=== PATIENT | male | born 2000 | race Caucasian/White ===

== ENCOUNTER 2024-07-25 04:43 | Emergency (ER) | payer MEDICARE, MEDICAID, SELFPAY ==
--- NOTE | ~2024-07-25 | CT_ITS ---
CLINICAL HISTORY: HS CT head without contrast Comparison: None Findings: No intra-axial mass, midline shift, hydrocephalus, or acute hemorrhage. No significant atrophy-like change or white matter disease. There is no sinus or mastoid fluid. The orbits are within normal limits. No skull fracture. IMPRESSION: 1. No acute intracranial findings. This document has been electronically signed by: Viviane Pope MD on 07/25/2024 05:52:12
[2024-07-25 04:47] VITALS: BP 132/84; PULSE 108; O2SAT 96
[2024-07-25 05:05] VITALS: BP 151/92; PULSE 109; RESP 22; TEMP 37.5; O2SAT 96; BMI 35.0
--- NOTE | 2024-07-25 06:29 | ED.HEATRA ---
HPI - Head Injury General Chief complaint: Head Injury Stated complaint: fall Time Seen by Provider: 07/25/24 05:54 Source: patient Mode of arrival: EMS Limitations: no limitations History of Present Illness ED Provider: HPI Narrative: Patient came from [facility] with history of schizoaffective disorder fell hit his head to the ground apparently patient was violent with the staff member and fell down no loss of consciousness Related Data Allergies Allergy/AdvReac Type Severity Reaction Status Date / Time No Known Allergies Allergy Verified 07/25/24 05:20 Review of Systems Review of Systems: Yes all other systems are reviewed and are negative [facility] Social History Social History Alcohol intake: unknown Smoked in Last 30 Days: Yes Use of substances other than those prescribed or required for medical reasons: Refusing to respond Advance Directives: No Advance Directives Information Provided: Yes Do you have a plan to hurt others: No Plan Physical Exam Vital Signs: Vital Signs: Last Vital Signs Temp 99.5 F 07/25/24 07:20 Pulse 109 H 07/25/24 07:20 Resp 22 H 07/25/24 07:20 BP 151/92 H 07/25/24 07:20 Pulse Ox 96 07/25/24 07:20 O2 Del Method Room Air 07/25/24 07:20 BMI result Body Mass Index 35.0 Appearance: Alert. Oriented X3. No acute distress. Eyes: PERRLA, No Nystagmus ENT: Pharynx normal. Oral Mucosa moist Neck: Normal inspection. Neck supple. CVS: Normal heart rate and rhythm. Pulses normal. Respiratory: No respiratory distress. Equal air entry bilateral, no wheezing/rales/rhonchi Abdomen: Soft and nontender. Bowel sounds are present, no mass palpable, no CVA tenderness Skin: Skin warm and dry. Normal skin color. Normal skin turgor. Extremities: No lower extremity edema. No calf tenderness Neuro: Oriented X 3. No motor deficit. No sensory deficit.No cerebellar signs , cranial nerves II-XII intact HEENT: Face images: 1. Flap laceration right forehead 1 cm length Medical Decision Making Independent Interpretation I performed an independent interpretation of an: CT Scan Radiology Impression Discussion of test interpretation with radiology: I have reviewed the radiologist's reading. Radiologist Impression: NAD Procedures Laceration Laceration 1: Site: face Side (If applicable): right Size (cm): 1 Description: flap Depth: simple, single layer Skin layer closed with: other (skin glue) Discharge Plan Discharge Clinical Impression: Closed head injury, Forehead laceration, Schizoaffective disorder Patient Disposition: Home, Self-Care Instructions: Laceration (ED), Schizoaffective Disorder (ED), Head Injury (ED) Additional Instructions: Local care as advised Interventions: ED Discharge Assessment Last Done: 07/25/24 07:20 Discharge Date/Time: 07/25/24 07:21 Print Language: Mohawk
--- OUTSIDE RECORDS SUMMARY | 2024-07-25 06:58 | XMS_ITS | Encounter Summary ---
Author Organization [facility] Address [address] [place] [address] Phone Care Team Providers Care Technical Sales Representatives Name Role Phone Required, No Pcp/Pcp Not Primary Care Provider U navailable Encounter Details Date Type Department Care Team (Late st Contact Info) Description 07/25/2018 Procedure Pass [facility] [address] [place] [id number] Social History Tobacco Use Types Packs/Day Years Used Date Smoking Tobacco: Never Smokeless Tobacco: Never Alcohol Use Standard Drinks/Week Comments Never 0 (1 standard drink = 0.6 oz pur e alcohol) AUDIT-C Answer Date Recorded Frequency of Alcohol Consumption Never 07/15/2018 Average Number of Drinks Not on file 019 Frequency of Binge Drinking Not on file 06/18 Sex and Gender Information Value Date Recorded Sex Assigned at Not on file Legal Sex Male 10:41 AM EST Gender Identity Not on file Sexual Orientation Not on file documented as of this encounter Plan of Treatment Not on file documented as of this encounter Visit Diagnoses Not on filedocumented in this encounter Additional Health Concerns Infection Onset Date Last Indicated Resolved Time Covid Possible 01/25/2024 01/25/2024 01/25/2024 11 :46 PM EDT Covid Possible 07/16/2024 07/16/2024 07/16/2024 8: 38 PM EST documented as of this encounter Care Teams Technical Sales Representatives Relationship Specialty Start Date End Date Required, No Pcp/Pcp Not [address] [place] [address] PCP - General Commercial Journeyman Electrician 01/25/24 documented as of this encounter
--- OUTSIDE RECORDS SUMMARY | 2024-07-25 06:58 | XMS_ITS | Clinical Summary ---
Author Organization [facility] Address [address] [email or web address] [address] Care Team Providers Care T Rail Turner Name Role Phone Jayme Corado MD Primary Care Provider [phone] Allergies No known active allergies Medications atenoloL (TENORMIN) 25 MG tablet 02/06/2022 Active benztropine (COGENTIN) 1 MG tablet 1 mg 11/11/2021 Active buPROPion (WELLBUTRIN SR) 150 MG 12 hr tablet 300 mg 08/14/2021 Active haloperidol decanoate (HALDOL DECANOATE) 100 mg/mL injection 150 mg 11/11/2021 Act torri divalproex (DEPAKOTE) 500 MG EC tablet 1,000 mg 11/11/2021 Active Social History Tobacco Use Types Packs/Day Years Used Date Smoking Tobacco: Never Smokeless Tobacco: Never Sex and Gender Information Value Date Recorded Sex Assigned at Not on file Legal Sex Male 1:08 PM EDT Gender Identity Not on file Sexual Orientation Not on file Last Filed Vital Signs Vital Sign Reading Time Taken Comments Blood Pressure 126/74 02/22/2022 2:48 PM EDT Pulse 77 02/22/2022 2:48 PM EDT Temperature 36.6 ??C (97.9 ??F) 02/22/2022 2:48 PM ED T Respiratory Rate 18 02/22/2022 2:48 PM EDT Oxygen Saturation 97% 02/22/2022 2:48 PM EDT Inhaled Oxygen Concentration - - Weight 93.9 kg (207 lb) 02/22/2022 2:48 PM EDT Height 172.7 cm (5' 8 ) 02/22/2022 2:48 PM EDT Body Mass Index 31.47 02/22/2022 2:48 PM EDT Plan of Treatment Health Maintenance Due Date Last Done Comments Depression: Screening Annually using PHQ-2/9 in Adults 18 yrs or above (or HM Modifier)([facility]) 2018 Hepatitis C Virus Infection in Adolescents and Adults: Screening (or Modifier) ([facility]) 2018 SDIL Screening Reminder: Annually for all adults ([facility]) 2018 Tobacco Smoking Cessation: i n Adults excluding Women: Behavioral and Pharmacotherapy Interventions ([facility]) 2018 Lipid Screening: Once for Me n aged 20 to 35 yrs ([facility]) 2020 Flu Vaccination: Yearly for ages 18mos through 64 years (or Modifier)([facility]) 01/16/2024 DTaP/Tdap/Td Vaccines ([facility]) (6 - Td or Tdap) 02/13/2024 02/12/2014, 11/25/2006, 02/20/2006, Additional history exists COVID-19 Vaccine Screening: Initial Series and Booster Status ([facility]) ( - 2023- season) 2024 10/30/2020 Zoster/Shingles Vaccine Series Screening: Adults aged 18+ yrs (or HM Modifiers)([facility]) (1 of 2) 2050 06/13/2011, 01/01/2006 Pneumococcal Vaccination Screening: Pts 0-19 & 19-64 yrs of age ([facility]) Aged Out No longer eligible based on patient's age to complete this topic Medical Devices Not on file Insurance [employer] Care Teams T Rail Turner Relationship Specialty Start Date End Date Jayme Corado MD [address] [address] [place] [id number] PCP - General Pediatrics 11/20/17
--- OUTSIDE RECORDS SUMMARY | 2024-07-25 06:59 | XMS_ITS | Encounter Summary ---
Author Organization [facility] Address [address] [place] [address] [address] Care Team Providers Care Manager School Name Role Phone Jayme Corado Md Primary Care Provider [phone] Jayme Corado Md Unavailable Mo Prabhakar Md Unavailable [phone] Poc, Non Atrius Pcp Or Primary Care Provider Lynda vailable Reason for Visit * Reason Comments Personal Encounter Details Date Type Department Care Team (Late st Contact Info) Description 04/04/2020 Telephone [facility] [address] [place] [phone] Alison Buchanan [place] 0Personal Social History Tobacco Use Types Packs/Day Years Used Date Smoking Tobacco: Never Smokeless Tobacco: Never Alcohol Use Standard Drinks/Week Comments No 0 (1 standard drink = 0.6 oz pur e alcohol) Sex and Gender Information Value Date Recorded Sex Assigned at Not on file Legal Sex Male 10:15 PM EDT Gender Identity Not on file Sexual Orientation Not on file COVID-19 Exposure Response Date Recorded In the last month, have you been in contact with someone who was confirmed or suspected to have Coronavirus / COVID-19? No / Unsure 04/06/2020 2:32 PM EDT documented as of this encounter Miscellaneous Notes * Telephone Encounter - Alison Buchanan - 04/04/2020 11:22 AM EDT Pt requesting to speak with PCP only,he is concern he may have Cancer,he did research online. documented in this encounter Plan of Treatment Not on file documented as of this encounter Visit Diagnoses Not on filedocumented in this encounter Care Teams Manager School Relationship Specialty Start Date End Date Jayme Corado MD PCP - General 10/17/16 12/28/21 Jayme Corado MD PCP - Payer 07/27/19 12/05/21 Mo Prabhakar MD PCP - Payer 12/06/21 Poc, Non Atrius Pcp Or PCP - General 12/29/21 documented as of this encounter
--- OUTSIDE RECORDS SUMMARY | 2024-07-25 06:59 | XMS_ITS | Encounter Summary ---
Author Organization [facility] Address [address] [place] [id number] Care Team Providers Care Director Drug Safety Name Role Phone Shannan Celis CERTIFIED PROFESSIONAL MIDWIFE Primary Care Provider Encounter Details Date Type Department Care Team (Late st Contact Info) Description 04/20/2022 Lab [facility], Provider Not In [address] [place] [id number] Social History Tobacco Use Types Packs/Day Years Used Date Smoking Tobacco: Never Assessed Sex and Gender Information Value Date Recorded Sex Assigned at Not on file Legal Sex Male 10:54 AM EDT Gender Identity Male 07/15/2023 9:10 PM EST Sexual Orientation Not on file documented as of this encounter Plan of Treatment Not on file documented as of this encounter Procedures Procedure Name Priority Date/Time Associated Diagnosis Comments CULTURE, AEROBIC, URINE Routine 04/20/2022 10:39 PM EDT documented in this encounter Results * Culture, Aerobic, Urine (04/20/2022 10:39 PM EDT) Culture No growth CARLOS MANUEL 04/22/2022 8:00 AM EST [facility] Urine MID-STREAM URINE SPECIMEN / Unknown 04/20/2022 10:39 PM EDT 04/21/2022 2:54 PM EDT us Provider Not In System MICROBIOLOGY - GENERAL OR DERABLES Final Result [facility] [address] [place] [address], documented in this encounter Visit Diagnoses Not on filedocumented in this encounter Care Teams Director Drug Safety Relationship Specialty Start Date End Date Shannan Celis, CERTIFIED PROFESSIONAL MIDWIFE PCP - General 10/27/23 documented as of this encounter
--- OUTSIDE RECORDS SUMMARY | 2024-07-25 06:59 | XMS_ITS | Clinical Summary ---
Author Organization [email or web address] Address [address] [place] [address] [place] [address] Care Team Providers Care Pre Kindergarten Teacher Name Role Phone Mo Prabhakar Md Unavailable [phone] Poc, Non Atrius Pcp Or Primary Care Provider Lynda vailable Allergies No known active allergies Medications PARoxetine 30 mg tablet TAKE 1 TABLETS BY MOUTH ONCE DAILY 30 tablet 09/19/2020 Active chlorproMAZINE 50 mg tablet 03/24/2021 Active PARoxetine 10 mg tablet 3 tabs po QD 90 tablet 2 04/13/2021 Active paliperidone (INVEGA) 6 mg tablet extended release 24hr SR 24 Hr 1 tablet every morning 30 tablet 2 04/13/2021 Active traZODone 50 mg tablet 1 tablet at bedtime Prn 30 tablet 2 04/22/2021 Active cloNIDine 0.1 mg tablet 1 tablet every 8 hours as needed 60 tablet 2 04/22/2021 Active Active Problems Problem Noted Date Diagnosed Date Delusion 10/23/2021 Stimulant abuse (not for billing as not confirme d 11/05) 10/23/2021 Overview (10/23/2021): Noted by parent to provider in phone call 10/23/21 Schizoaffective disorder, bipolar type ADHD 01/11/2021 Autism spectrum disorder 11/15/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 Mood disorder 02/23/2020 Resolved Problems Problem Noted Date Diagnosed Date Resolved Date Perinephric fluid collection 11/15/2020 02/28/2021 Suicidal ideation 10/23/2019 02/23/2020 Immunizations Name Administration Dates Next Due COVID-19 (ESCOBAR) Vaccine, 0.5mL, IM, 18YRS+ 10/30/2020 DTaP Vaccine 11/25/2006, 6,01/01/2006,12/04 HFlu B Conj (Unspecified Formulation) 12/04/2005 HPV9 Vaccine (Gardasil9) 08/24/2014,04/20/2014,0 02/12/2014 Hep B Vaccine (Unspecified Formulation) 03/11/2006,01/01/2006,12/04/2005,06/13 Influenza Vaccine (Unspecifi ed Formulation) 03/07/2015 Influenza Vaccine, 6MOS+, Si ngle Dose, 0.5 mL (Flulaval/Fluzone) 05/02/2020 MMR Vaccine 02/20/2006,01/01/2006 Meningococcal ACWY (Menactra ) Conjugate Vaccine 07/15/2018,02/12/2014 Pneumococ/Pedi-Conjugate (PCV7) 12/04/2005 Polio Vaccine (Inactivated) 02/20/2006, 6,12/04/2005 TdaP 02/12/2014 Tetanus Booster 09/30/2017 Varicella Vaccine 06/13/2011,01/01/2006 Social History Tobacco Use Types Packs/Day Years Used Date Smoking Tobacco: Never Smokeless Tobacco: Never Alcohol Use Standard Drinks/Week Comments No 0 (1 standard drink = 0.6 oz pur e alcohol) Sex and Gender Information Value Date Recorded Sex Assigned at Not on file Legal Sex Male 10:15 PM EDT Gender Identity Not on file Sexual Orientation Not on file Obstetrics History Last Filed Vital Signs Vital Sign Reading Time Taken Comments Blood Pressure 110/76 10/10/2021 11:24 AM EDT Pulse - - Temperature - - Respiratory Rate - - Oxygen Saturation - - Inhaled Oxygen Concentration - - Weight 83 kg (183 lb) 10/10/2021 11:24 AM EDT Height 171.7 cm (5' 7.6 ) 02/28/2021 2:51 PM EDT Body Mass Index 28.16 02/28/2021 2:51 PM EDT Plan of Treatment Health Maintenance Due Date Last Done Comments OFFICE VISIT 2000 HEP B INITIAL SCREENING 2018 HEP C SCREENING 2018 HIV SCREENING 2018 LIPID SCREENING 2020 PERIODIC HEALTH REVIEW 05/02/2023 05/02/2020 DTAP/TDAP/TD VACCINE (6 - Td or Tdap) 02/13/2024 02/12/2014, 11/25/2006, 02/20/2006, Additional history exists COVID-19 Vaccine ( season) 2024 10/30/2020 FLU SEASONAL (#1) 02/16/2024 05/31/2022, 05/02/2020, 03/07/2015 HAEMOPHILUS INFLUENZA VACCINE Aged Out 12/04/2005 No longer eligible based on patient's age to complete this topic PNEUMOCOCCAL VACCINE(S) Aged Out 12/04/2005 No l onger eligible based on patient's age to complete this topic POLIO VACCINE Completed 02/20/2006, 12/15, 12/04/2005 HEPATITIS B VACCINE Completed 03/11/2006, 01/01/2006, 12/04/2005, Additional history exists HPV VACCINE Completed 08/24/2014, 09/2013, 02/12/2014 HEPATITIS A VACCINE Aged Out No longe r eligible based on patient's age to complete this topic RSV Vaccine Infant//toddler Aged Out No longer eligible based on patient's age to complete this topic Insurance [place] [id number] Advance Directives Documents on File Type Date Recorded Patient Hardware Sales Assistant Expl anation Legal Guardianship 11/03/2020 3:30 PM Temp orary Guardianship Care Teams Pre Kindergarten Teacher Relationship Specialty Start Date End Date Mo Prabhakar MD PCP - Payer 12/06/21 Poc, Non Atrius Pcp Or PCP - General 12/29/21
--- OUTSIDE RECORDS SUMMARY | 2024-07-25 06:59 | XMS_ITS | Clinical Summary ---
Author Organization [facility] Address [address] [place] [address] Phone Care Team Providers Care Cushion Gum Applicator Name Role Phone Jayme Corado MD Unavailable Unavailable Jayme Corado MD Primary Care Provider Unavailabl e Jayme Corado MD Unavailable Unavailable Social History Tobacco Use Types Packs/Day Years Used Date Smoking Tobacco: Never Assessed Sex and Gender Information Value Date Recorded Sex Assigned at Not on file Legal Sex Male 7:52 PM EDT Gender Identity Not on file Sexual Orientation Not on file Plan of Treatment Health Maintenance Due Date Last Done Comments HIV Screening 2000 MMR Vaccines (1 of 1 - Stand steven series) 2001 DTaP/Tdap/Td Vaccines (1 - Tdap) 12/03/2007 Varicella Vaccines (1 of 2 - 13+ 2-dose series) 2013 HPV Vaccines (1 - Male 3-dos e series) 12/03/2015 Hepatitis C Screening 2018 Hepatitis B Vaccines (1 of 3 - 19+ 3-dose series) 12/03/2019 COVID-19 Vaccine ( - 2023-2 5 season) 2024 Influenza Vaccine (#1) 2024 HIB Vaccines Aged Out No longer eligi ble based on patient's age to complete this topic Hepatitis A Vaccines Aged Out No long er eligible based on patient's age to complete this topic IPV Vaccines Aged Out No longer eligi ble based on patient's age to complete this topic Meningococcal Vaccine Aged Out No bernard joyce eligible based on patient's age to complete this topic Pneumococcal Vaccine: Pediat rics (0 to 5 Years) and At-Risk Patients (6 to 64 Years) Aged Out No longer eligible b ased on patient's age to complete this topic Rotavirus Vaccines Aged Out No longer eligible based on patient's age to complete this topic Care Teams Cushion Gum Applicator Relationship Specialty Start Date End Date Jayme Corado MD PCP - Insurance PCP 02/11/20 Jayme Corado MD PCP - General 02/11/20 Jayme Corado MD PCP - Clinical PCP 02/11/20
--- OUTSIDE RECORDS SUMMARY | 2024-07-25 06:59 | XMS_ITS | Clinical Summary ---
[facility] Organization [facility] Address [address] [place] [address] Phone Care Team Providers Care Adolescent Coordinator Name Role Phone Required, No Pcp/Pcp Not Primary Care Provider U navailable Allergies No known active allergies Medications traZODone (DESYREL) 100 MG tablet Take 100 mg by mouth nightly as needed for sleep Active FLUoxetine (PROzac) 40 MG capsule Take 40 mg by mouth daily Active risperiDONE (RisperDAL) 3 MG tablet Take 3 mg by mouth two times a day Active LORazepam (ATIVAN) 1 MG tablet Take 2 mg by mouth every six hours as needed for anxiety Active atomoxetine (STRATTERA) 40 MG capsule Take 40 mg by mouth daily Active divalproex (DEPAKOTE) [address] tablet Take 500 mg by mouth daily Active divalproex (DEPAKOTE) [address] tablet Take 1 tablet (500 mg) by mouth nightly 07/24/19 25 Active lisinopril (PRINIVIL,ZES TRIL) 10 MG tablet Take 1 tablet (10 mg) by mouth daily 07/25/19 25 Active risperiDONE ER 125 MG/0.35ML suspension prefilled syringe Inject 125 mg under the skin every 28 days 08/14/19 25 Active cholecalcifer ol, 25 mcg/1000 units, (VITAMIN D3) tablet Take 1 tablet (25 mcg) by mouth daily 07/25/19 25 Active clozapine (CLOZARIL) 100 MG tablet Take 1 tablet (100 mg) by mouth nightly 07/24/19 25 Active risperiDONE (RisperDAL) 1 MG tablet Take 1 mg by mouth daily 025 Discontinued(E ntered in Error) Uzedy 50 MG/0.14ML suspension prefilled syringe Inject 50 mg under the skin every 30 (thirty) days Last administered 01/24/2024 01/21/20 24 025 Discontinued(E ntered in Error) risperiDONE (UZEDY SC) Inject 125 mg under the skin every 28 days Per nurse Jeanie tracy 07/17/2024 025 Discontinued(M ed list updated) Divalproex Sodium (DEPAKOTE PO) Take 1,000 mg by mouth nightly 025 Discontinued( ed list updated) Divalproex Sodium (DEPAKOTE PO) Take 500 mg by mouth daily 025 Discontinued( ed list updated) clozapine (CLOZARIL) 100 MG tablet Take 100 mg by mouth two times a day 025 Discontinued(S top Taking at Discharge) lisinopril (PRINIVIL,ZES TRIL) 20 MG tablet Take 20 mg by mouth daily 025 Discontinued(S top Taking at Discharge) risperiDONE ER 125 MG/0.35ML suspension prefilled syringe Inject 125 mg under the skin every 28 days 025 Discontinued(S top Taking at Discharge) clozapine (CLOZARIL) 100 MG tablet Take 1 tablet (100 mg) by mouth nightly 07/24/19 25 025 Discontinued Active Problems Problem Noted Date Diagnosed Date Abnormal behavior 07/18/2024 Depression 07/18/2024 Ibuprofen overdose 07/18/2024 Lymphangiectasia 07/18/2024 Yoselin 07/18/2024 Perinephric fluid collection 07/18/2024 Paranoia 07/18/2024 Normocytic anemia 07/18/2024 Elevated CK 07/18/2024 Substance abuse 07/18/2024 Acute dehydration 07/18/2024 Acute oral pain 07/18/2024 Anal or rectal pain 07/18/2024 Hyponatremia 07/18/2024 Hypokalemia 07/18/2024 Altered mental status 07/18/2024 Acute kidney injury 07/16/2024 Witnessed seizure-like activity 07/16/2024 Altered mental status, unspecified 07/16/2024 Metabolic acidosis 07/16/2024 Transaminitis 07/16/2024 Schizoaffective disorder 01/27/2024 Sleeping difficulties 09/05/2022 Inattention 12/05/2021 Overview (07/18/2024): F/B PSYCH Insomnia 11/22/2021 Overview (07/18/2024): F/B PSYCH Severe Adderall use disorder 11/22/2021 Overview (07/18/2024): F/B PSYCH Hx of Adderall Abuse Hospitalized 09/2021 due to Med abuse Staff from [facility] report hx of obtaining med inappropriate from prescriber and street in past 04/2022: Abusing adderall from street per ED note Delusion 10/23/2021 Stimulant abuse 10/23/2021 Overview (07/18/2024): Noted by parent to provider in phone call 10/23/21 Schizoaffective disorder, bipolar type Attention-deficit hyperactivity disorder, unspec ified type 01/11/2021 Anxiety disorder 01/11/2021 Asperger's disorder 11/15/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 Autistic disorder 11/15/2020 Recurrent major depressive disorder 07/28/2020 Overview (07/18/2024): ICD-10 Qualified Code(s): F33.2 - Major depressive disorder, recurrent severe without psychotic features; Active/Remission status - currently active; Major depression episode severity - severe; Psychotic features - without psychotic features; Major depressive disorder, single episode, unspe cified 07/03/2020 Lymphedema, not elsewhere classified 06/29/2020 Essential (primary) hypertension 06/28/2020 Overview (07/18/2024): ICD-10 Qualified Code(s): I10 - Essential (primary) hypertension; Hypertension type - unspecified; Abdominal pain 06/27/2020 Delusional disorder 02/23/2020 Mandibular hypoplasia 07/25/2018 Resolved Problems Problem Noted Date Diagnosed Date Resolved Date Prolonged Q-T interval on ECG 07/18/2024 07/18/2024 Encounters Date Type Department Care Team Description 07/16/2024 5:07 PM EST - 07/24/2024 5:17 PM EST Hospital Encounter [address] [id number] Mo Peterson, MD Rocha, Craig Vergara, Zenaida Key, MD Jaramillo, Adele London, MD Fernando, Kitty, MD Morgan, MD Cheli Altered mental status (Primary Dx); Psychomotor agitation; Hallucinations; Paranoid schizophrenia (CMS/HCC) Discharge Disposition: Psychiatric Facility 07/16/2024 Travel from Last 3 Months Social History Tobacco Use Types Packs/Day Years Used Date Smoking Tobacco: Former Cigarettes Smokeless Tobacco: Never Tobacco Cessation:Counseling Given: Not Answered Alcohol Use Standard Drinks/Week Comments Not Currently 0 (1 standard drink = 0.6 oz [...] Sign Reading Time Taken Comments Blood Pressure 121/75 07/24/2024 3:00 PM EST Pulse 128 07/24/2024 3:00 PM EST Temperature 37.2 ??C (99 ??F) 07/24/2024 3:00 PM EST Respiratory Rate 24 07/24/2024 3:00 PM EST Oxygen Saturation 96% 07/24/2024 3:00 PM EST Inhaled Oxygen Concentration - - Weight 113.4 kg (250 lb) 07/17/2024 1:14 PM EST Height 170.2 cm (5' 7 ) 07/17/2024 1:14 PM EST Body Mass Index 39.16 07/17/2024 1:14 PM EST Plan of Treatment Health Maintenance Due Date Last Done Comments [facility] HIV Screening 2000 [facility] Hepatitis C Screening 2000 [facility] Depression Screening 2012 [facility] Lipid Profile 2016 [facility] Tdap Vaccine (1 - Tdap) 12/03/2019 [facility] Influenza (Flu) Seasonal (#1) 2024 05/02/2020, 03/07/2015 [facility] HPV Vaccines Completed 2014, 08/24/2014, 04/20/2014, Additional history exists [facility] Meningococcal Group B Conjugate Vaccine Aged Out No longer elig ible based on patient's age to complete this topic Medical Devices Implanted Type Area Adoption Specialist Device Identifier Shelf Expiration Date Model / Serial / Lot Plate,[id number] , 5 Hole Gold Implanted:Qty: 2 on 07/25/2018 by Greg Tejada MD at [facility] N/A: Mandible Juan C [id number] / / Screw,[id number] ,2.0x5mm Bone Implanted:Qty: 8 on 07/25/2018 by Greg Tejada MD at [facility] N/A: Mandible Juan C [id number] / / Screw,[id number] ,2.0x16mm Bone Implanted:Qty: 2 on 07/25/2018 by Greg Tejada MD at [facility] N/A: Mandible [place] [id number] / / Procedures Procedure Name Priority Date/Time Associated Diagnosis Comments ECG 12-LEAD Routine 07/24/2024 11:52 AM EST HEPATIC FUNCTION PANEL Timed 07/24/2024 5:[address] HEAD WO CONTRAST CARLOTTA 07/23/2024 1 1:49 PM EST POCT GLUCOSE METER Routine 07/23/2024 4: 46 PM EST BASIC METABOLIC PANEL Routine 07/23/2024 6:26 AM EST US DOPPLER VENOUS ARM RIGHT Routine 07/22/2024 2:43 PM EST BLOOD CULTURE Routine 07/22/2024 12:11 PM EST CBC WITH AUTO DIFFERENTIAL Routine 07/22/2024 11:49 AM EST BLOOD CULTURE Routine 07/22/2024 11:49 AM EST HEPATIC FUNCTION PANEL Timed 07/22/2024 5:58 AM EST BASIC METABOLIC PANEL Routine 07/22/2024 5:58 AM EST AMMONIA Routine 07/21/2024 6:01 AM EST VALPROIC ACID LEVEL, TOTAL Routine 07/21/2024 6:01 AM EST BASIC METABOLIC PANEL Routine 07/21/2024 6:01 AM EST COMPREHENSIVE METABOLIC PANEL Routine 07/20/2024 5:30 AM EST CBC WITH AUTO DIFFERENTIAL Routine 07/20/2024 5:30 AM EST HEPATIC FUNCTION PANEL Timed 07/20/2024 5:30 AM EST CK STAT 07/19/2024 10:01 AM EST COMPREHENSIVE METABOLIC PANEL Routine 07/19/2024 10:01 AM EST CBC WITH AUTO DIFFERENTIAL Routine 07/19/2024 10:01 AM EST HEPATIC FUNCTION PANEL Routine 07/18/2024 7:24 AM EST CK Routine 07/18/2024 7:24 AM EST BASIC METABOLIC PANEL Routine 07/18/2024 7:24 AM EST CBC WITH AUTO DIFFERENTIAL Routine 07/18/2024 7:23 AM EST CREATININE, URINE, RANDOM STAT 07/18/2024 6:57 AM EST SODIUM, URINE, RANDOM STAT 07/18/2024 6:57 AM EST PROTIME-INR Routine 07/18/2024 3:33 AM EST XR CHEST 1 VW STAT 07/18/2024 3:32 AM EST ECG 12-LEAD STAT 07/18/2024 3:26 AM EST VITAMIN D 25-OH Add-On 07/18/2024 1:45 AM EST FOLATE Add-On 07/18/2024 1:45 AM EST VITAMIN B12 Add-On 07/18/2024 1:45 AM EST FERRITIN Add-On 07/18/2024 1:45 AM EST IRON AND TIBC Add-On 07/18/2024 1:45 AM EST PHOSPHORUS STAT Add-on 07/18/2024 1:45 AM EST MAGNESIUM STAT Add-on 07/18/2024 1:45 AM EST T4, FREE Routine 07/18/2024 1:45 AM EST TSH W/REFLEX TO FT4 Routine 07/18/2024 1 :45 AM EST CK Routine 07/18/2024 1:45 AM EST C-REACTIVE PROTEIN, HIGH SENSITIVITY Routine 07/18/2024 1:45 AM EST SEDIMENTATION RATE Routine 07/18/2024 1: 45 AM EST COMPREHENSIVE METABOLIC PANEL STAT 07/18/2024 1:45 AM EST BLOOD CULTURE Routine 07/18/2024 1:45 AM EST BLOOD GAS, VENOUS WITH ELECTROLYTES STAT 07/18/2024 1:44 AM EST CBC WITH AUTO DIFFERENTIAL STAT 07/18/2024 1:44 AM EST BLOOD CULTURE Routine 07/18/2024 1:[address] CERVICAL SPINE WO CONTRAST CARLOTTA 07/17/2024 4:[address] HEAD WO CONTRAST CARLOTTA 07/17/2024 4 :11 PM EST ECG 12-LEAD STAT 07/17/2024 3:09 PM EST POCT GLUCOSE METER Routine 07/17/2024 3: 01 PM EST CLOZAPINE (SEND OUT) Routine 07/17/2024 9:06 AM EST EEG Routine 07/17/2024 8:59 AM EST TROPONIN T- HS GEN5 Add-On 07/17/2024 4 :50 AM EST COMPREHENSIVE METABOLIC PANEL Routine 07/17/2024 4:50 AM EST CBC WITH AUTO DIFFERENTIAL Routine 07/17/2024 4:50 AM EST URINALYSIS WITH REFLEX Routine 07/16/2024 10:41 PM EST URINALYSIS WITH REFLEX Routine 07/16/2024 10:41 PM EST CREATININE, URINE, RANDOM Routine 07/16/2024 10:41 PM EST SODIUM, URINE, RANDOM Routine 07/16/2024 10:41 PM EST EXTRA URINE CULTURE TUBE Routine 07/16/2024 10:41 PM EST OH CRITICAL CARE ILL/INJURED PATIENT INIT 30-74 MIN Routine 07/16/2024 9:[address] HEAD WO CONTRAST STAT 07/16/2024 7 :47 PM EST URINE DRUGS OF ABUSE SCREEN STAT 07/16/2024 6:17 PM EST POCT GLUCOSE METER Routine 07/16/2024 5: 50 PM EST ECG 12-LEAD Routine 07/16/2024 5:47 PM EST COVID-19 ([facility]) STAT 07/16/2024 5:36 PM EST SALICYLATE LEVEL STAT 07/16/2024 5:35 PM EST ETHANOL STAT 07/16/2024 5:35 PM EST COMPREHENSIVE METABOLIC PANEL STAT 07/16/2024 5:35 PM EST CBC WITH AUTO DIFFERENTIAL STAT 07/16/2024 5:35 PM EST ACETAMINOPHEN LEVEL STAT 07/16/2024 5 :35 PM EST from Last 3 Months Results * (ABNORMAL) Hepatic function panel (07/24/2024 5:30 AM EST) Only the most recent of4 resultswithin the time period is included. Total Bilirubin 0.3 0.2 - 1.2 mg/dL 07/24/2024 6:48 AM [facility] Bilirubin, Direct <0.2 0.0 - 0.4 mg/dL 07/24/2024 6:48 AM [facility] Alkaline Phosphatase 78 40 - 129 U/L 07/24/2024 6:48 AM [facility] ALT (SGPT) 34 0 - 40 U/L 07/24/2024 6:48 AM [facility] AST 43(H) 0 - 37 U/L 07/24/2024 6:48 AM [facility] Albumin 4.1 3.3 - 5.2 g/dL 07/24/2024 6:48 AM [facility] Total Protein 7.6 6.0 - 8.5 g/dL 07/24/2024 6:48 AM [facility] Bilirubin, Indirect 07/24/2024 6:48 AM [facility] Comment:Component value unab le to be calculated because direct bilirubin is too low to be determined. Blood Venous blood / Unknown Venipuncture / Unknown 07/24/2024 5:30 AM EST 07/24/2024 6:09 AM EST Leeanna Hu MD LAB BLOOD ORDERABLES Final Result [facility] [address] [place] [address], * CT head without contrast (07/23/2024 11:49 PM EST) Only the most recent of3 resultswithin the time period is included. Anatomical Region Laterality Modality Head and Neck Computed Tomogra phy 07/23/2024 11:1 4 PM EST Impressions 07/23/2024 11:57 PM EST Impression: No evidence of acute intracranial traumatic injury. ??Specifically, no acute intracranial hemorrhage or displaced calvarial fracture. ??No acute infarction. Narrative 07/23/2024 11:57 PM EST Reason for Exam: Pain after trauma. Head trauma, minor (Age >= 65y); Head trauma. Clinical History: Comparison: ?? Noncontrast CT head study on 07/17/2024. Technique: MDCT images were obtained from the base of the skull to the vertex without intravenous contrast. ??Multiplanar reformatted images were obtained for evaluation. Iterative reconstruction technique was utilized for radiation dose reduction. Findings: There is no acute intracranial hemorrhage, edema, mass effect, or territorial infarct. The dawkins-white matter differentiation is preserved. ??There is no intra-axial or extra-axial fluid collection. ??The ventricles and sulci are normal in size and configuration for age. ??There is no shift of normally midline structures. The visualized paranasal sinuses are clear. ??The mastoid air cells and middle ears are without opacification. ??The globes and orbits are unremarkable. ??The osseous structures are intact. ??No displaced calvarial fracture is noted. ?? Procedure Note Jonh Jo MD - 07/24/2024 Reason for Exam: Pain after trauma. Head trauma, minor (Age >= 65y); Headtrauma. Clinical History: Comparison: Noncontrast CT head study on 07/17/2024. Technique: MDCT images were obtained from the base of the skull to thevertex without intravenous contrast. Multiplanar reformatted images were obtained forevaluation. Iterative reconstruction technique was utilized for radiation dosereduction. Findings: There is no acute intracranial hemorrhage, edema, mass effect, orterritorial infarct. The dawkins-white matter differentiation is preserved. There is nointra-axial or extra-axial fluid collection. The ventricles and sulci are normal in sizeand configuration for age. There is no shift of normally midlinestructures. The visualized paranasal sinuses are clear. The mastoid air cells andmiddle ears are without opacification. The globes and orbits are unremarkable. Theosseous structures are intact. No displaced calvarial fracture is noted. Impression: No evidence of acute intracranial traumatic injury. Specifically, noacute intracranial hemorrhage or displaced calvarial fracture. No acute infarction. Damien Kruger MD IMG CT PROCEDURES Final Re sult * (ABNORMAL) POCT Glucose Meter (07/23/2024 4:46 PM EST) Only the most recent of3 resultswithin the time period is included. POC Glucose 104(H) 70 - 100 mg/dL 07/23/2024 4:47 PM EST [facility] Comment:@Senior Mobile Application Developer:Yifan blount Blood 07/23/2024 4:46 PM EST 07/23/2024 4:47 PM EST Cheli Morgan MD LAB POCT ORDERABLES - DEVICE Fin al Result [facility] [address] [place] [address], [place] [phone] * (ABNORMAL) BASIC METABOLIC PANEL (07/23/2024 6:26 AM EST) Only the most recent of4 resultswithin the time period is included. Glucose 93 70 - 100 mg/dL 07/23/2024 7:11 AM [facility] BUN 18 6 - 19 mg/dL 07/23/2024 7:11 AM [facility] Creatinine 1.1 0.4 - 1.2 mg/dL 07/23/2024 7:11 AM [facility] eGFR >60.00 >60.00 mL/min/1.7 3m*2 07/23/2024 7:11 AM [facility] Sodium 136 135 - 145 mmol/L 07/23/2024 7:11 AM [facility] Potassium 4.1 3.4 - 5.1 mmol/L 07/23/2024 7:11 AM [facility] Chloride 101 98 - 109 mmol/L 07/23/2024 7:11 AM [facility] CO2 23(L) 24 - 32 mmol/L 07/23/2024 7:11 AM [facility] Anion Gap 12 6 - 12 mmol/L 07/23/2024 7:11 AM [facility] Calcium 9.5 8.5 - 10.5 mg/dL 07/23/2024 7:11 AM [facility] Estimated Creatinine Clearance 125.6 mL/min 07/23/2024 7:11 AM [facility] Blood Venous blood / Unknown Venipuncture / Unknown 07/23/2024 6:26 AM EST 07/23/2024 6:45 AM EST Zenaida Snow MD LAB BLOOD ORDERABLES Final Result [facility] [address] [place] [address], [place] [phone] * US Venous Duplex ARM Right (R/O DVT) (07/22/2024 2:43 PM EST) Anatomical Region Laterality Modality Vascular Ultraso und 07/22/2024 11:3 6 AM EST Impressions 07/22/2024 2:45 PM EST Impression: No evidence for DVT in the right upper extremity. Superficial vein thrombophlebitis in the median cubital vein. Narrative 07/22/2024 2:45 PM EST History: Right arm swelling, edema, pain. Technique: Right upper extremity venous ultrasound. Findings: There is normal compressibility, augmentation, and spontaneous phasicity in the right internal jugular vein, subclavian vein, axillary vein, brachial vein, and radial and ulnar veins. Cephalic and basilic veins are normally compressible and demonstrate color flow. Occlusive superficial vein thrombophlebitis in the median cubital vein. Procedure Note Kingston Morales MD - 07/22/2024 History: Right arm swelling, edema, pain. Technique: Right upper extremity venous ultrasound. Findings: There is normal compressibility, augmentation, and spontaneous phasicityin the right internal jugular vein, subclavian vein, axillary vein, brachial vein, andradial and ulnar veins. Cephalic and basilic veins are normally compressible and demonstrate colorflow. Occlusive superficial vein thrombophlebitis in the median cubital vein. Impression: No evidence for DVT in the right upper extremity. Superficial vein thrombophlebitis in the median cubital vein. us Cheli Morgan MD CV VASCULAR PROCEDURES Final Res ult * (ABNORMAL) CBC with auto differential (07/22/2024 11:49 AM EST) Only the most recent of7 resultswithin the time period is included. WBC 6.3 4.5 - 10.8 10*3 ??l 07/22/2024 12:08 PM EST [facility] RBC 4.11(L) 4.70 - 6.10 10*6 ??l 07/22/2024 12:08 PM [facility] Hemoglobin 12.3(L) 14.0 - 18.0 g/dL 07/22/2024 12:08 PM [facility] Hematocrit 36.7(L) 42.0 - 52.0 % 07/22/2024 12:08 PM [facility] MCV 89 80 - 95 fL 07/22/2024 12:08 PM [facility] MCH 29.9 25.4 - 39.0 pg 07/22/2024 12:08 PM [facility] MCHC 33.5 31.0 - 37.0 g/dL 07/22/2024 12:08 PM [facility] RDW 14.0 11.5 - 14.5 % 07/22/2024 12:08 PM [facility] Platelets 259 150 - 450 10*3 ??l 07/22/2024 12:08 PM [facility] MPV 9.9 7.0 - 11.0 fL 07/22/2024 12:08 PM [facility] Neutrophils % 65.6 40.0 - 80.0 % 07/22/2024 12:08 PM [facility] Lymphocytes % 20.0 20.0 - 40.0 % 07/22/2024 12:08 PM [facility] Monocytes % 9.6 2.0 - 10.0 % 07/22/2024 12:08 PM [facility] Eosinophils % 3.7 1.0 - 6.0 % 07/22/2024 12:08 PM [facility] Basophils % 0.6 0.0 - 1.0 % 07/22/2024 12:08 PM [facility] Immature Granulocyte % 0.5 0.0 - 0.9 % 07/22/2024 12:08 PM [facility] Neutrophils Absolute 4.10 2.00 - 7.00 K/mm3 07/22/2024 12:08 PM [facility] Absolute Immature Granulocyte 0.03 0.00 - 0.09 K/mm3 07/22/2024 12:08 PM [facility] Lymphocytes Absolute 1.25 1.00 - 3.00 K/mm3 07/22/2024 12:08 PM [facility] Monocytes Absolute 0.60 0.20 - 1.00 K/mm3 07/22/2024 12:08 PM [facility] Eosinophils Absolute 0.23 0.00 - 0.50 K/mm3 07/22/2024 12:08 PM [facility] Basophils Absolute 0.04 0.00 - 0.10 K/mm3 07/22/2024 12:08 PM [facility] Blood Venous blood / Unknown Venipuncture / Unknown 07/22/2024 11:49 AM EST 07/22/2024 11:59 AM EST us Cheli Morgan MD LAB BLOOD ORDERABLES Final Resul t [facility] [address] [place] [address], [place] [phone] * (ABNORMAL) Ammonia (07/21/2024 6:01 AM EST) Ammonia 74(H) 11 - 35 umol/L 07/21/2024 7:47 AM [facility] Blood Venous blood / Unknown Venipuncture / Unknown 07/21/2024 6:01 AM EST 07/21/2024 6:35 AM EST us Cheli Morgan MD LAB BLOOD ORDERABLES Final Resul t Performing Organization Address City/[facility] Care [facility]/ZIP Co de Phone Number [facility] [address] [place] [address], [place] [phone] * Valproic Acid Level, Total (07/21/2024 6:01 AM EST) Valproic Acid, Total 100 50 - 100 ug/mL 07/21/2024 6:54 AM [facility] Blood Venous blood / Unknown Venipuncture / Unknown 07/21/2024 6:01 AM EST 07/21/2024 6:25 AM EST us Cheli Morgan MD LAB BLOOD ORDERABLES Final Resul t [facility] [address] [place] [address], [place] [phone] * (ABNORMAL) Comprehensive metabolic panel (07/20/2024 5:30 AM [facility]) Only the most recent of5 resultswithin the time period is included. Glucose 85 70 - 100 mg/dL 07/20/2024 6:56 AM [facility] BUN 18 6 - 19 mg/dL 07/20/2024 6:56 AM [facility] Creatinine 1.4(H) 0.4 - 1.2 mg/dL 07/20/2024 6:56 AM [facility] eGFR >60.00 >60.00 mL/min/1.7 3m*2 07/20/2024 6:56 AM [facility] Sodium 142 135 - 145 mmol/L 07/20/2024 6:56 AM [facility] Potassium 3.9 3.4 - 5.1 mmol/L 07/20/2024 6:56 AM [facility] Chloride 105 98 - 109 mmol/L 07/20/2024 6:56 AM [facility] CO2 21(L) 24 - 32 mmol/L 07/20/2024 6:56 AM [facility] Anion Gap 16(H) 6 - 12 mmol/L 07/20/2024 6:56 AM [facility] Calcium 9.1 8.5 - 10.5 mg/dL 07/20/2024 6:56 AM [facility] Total Bilirubin 0.4 0.2 - 1.2 mg/dL 07/20/2024 6:56 AM [facility] Alkaline Phosphatase 80 40 - 129 U/L 07/20/2024 6:56 AM [facility] ALT (SGPT) 41(H) 0 - 40 U/L 07/20/2024 6:56 AM [facility] AST 52(H) 0 - 37 U/L 07/20/2024 6:56 AM [facility] Total Protein 7.4 6.0 - 8.5 g/dL 07/20/2024 6:56 AM [facility] Albumin 4.0 3.3 - 5.2 g/dL 07/20/2024 6:56 AM [facility] Corrected Calcium 9.1 8.5 - 10.5 mg/dL 07/20/2024 6:56 AM [facility] Estimated Creatinine Clearance 98.7 mL/min 07/20/2024 6:56 AM [facility] Blood Venous blood / Unknown Venipuncture / Unknown 07/20/2024 5:30 AM EST 07/20/2024 6:26 AM EST Kitty Fernando MD LAB BLOOD ORDERABLES Final Result [facility] [address] [place] [address], [place] [phone] * (ABNORMAL) CK (07/19/2024 10:01 AM EST) Only the most recent of3 resultswithin the time period is included. Total CK 3,511(H) 24 - 195 U/L 07/19/2024 10:49 AM [facility] Blood Venous blood / Unknown Venipuncture / Unknown 07/19/2024 10:01 AM EST 07/19/2024 10:04 AM EST Kitty Fernando MD LAB BLOOD ORDERABLES Final Result Performing Organization Address City/[facility]/ZIP Co de Phone Number [facility] [address] [place] [address], [place] [phone] * Sodium, urine, random (07/18/2024 6:57 AM EST) Only the most recent of2 resultswithin the time period is included. Sodium, Urine 93.0 mmol/L 07/18/2024 7:31 AM [facility] Urine Urine specimen obtained by clean catch procedure / Unknown Non-blood Collection / Unknown 07/18/2024 6:57 AM EST 07/18/2024 7:13 AM EST Leeanna Hu MD LAB URINE ORDERABLES Final Result [facility] [address] [place] [address], * Creatinine, urine, random (07/18/2024 6:57 AM EST) Only the most recent of2 resultswithin the time period is included. Creatinine, Urine 140.1 mg/dL 07/18/2024 7:31 AM [facility] Urine Urine specimen obtained by clean catch procedure / Unknown Non-blood Collection / Unknown 07/18/2024 6:57 AM EST 07/18/2024 7:13 AM EST us Leeanna Hu MD LAB URINE ORDERABLES Final Result Performing Organization Address City/[facility]/ZIP Co de Phone Number [facility] [address] [place] [address], [place] [phone] * Protime-INR (07/18/2024 3:33 AM EST) Protime 14.0 12.0 - 14.2 seconds 07/18/2024 3:58 AM [facility] INR 1.1 0.9 - 1.1 07/18/2024 3:58 AM [facility] Comment: Low therapeutic range 2.0-3.0 High therapeutic range 2.5-3.5 Blood Venous blood / Unknown Venipuncture / Unknown 07/18/2024 3:33 AM EST 07/18/2024 3:37 AM EST us Leeanna Hu MD LAB BLOOD ORDERABLES Final Result [facility] [address] [place] [address], [place] [phone] * X-ray chest 1 view (07/18/2024 3:32 AM EST) Anatomical Region Laterality Modality Body Computed Radiogr aphy 07/18/2024 1:13 AM EST Impressions 07/18/2024 3:48 AM EST Impression: No acute intrathoracic abnormalities. Narrative 07/18/2024 3:48 AM EST Reason for exam: Shortness of breath. Technique: Single frontal chest radiograph. Comparison: ??None. Findings: The lung volumes are low, with bronchovascular crowding. There is no suspicious focal airspace consolidation to suggest an acute infectious process. The cardiomediastinal silhouette, pulmonary vasculature and hilar contours are normal. There is no pulmonary edema, pleural effusion or pneumothorax. ?? The underlying osseous structures are unremarkable. Procedure Note Jonh Jo MD - 07/18/2024 Reason for exam: Shortness of breath. Technique: Single frontal chest radiograph. Comparison: None. Findings: The lung volumes are low, with bronchovascular crowding. Thereis no suspicious focal airspace consolidation to suggest an acute infectious process. The cardiomediastinal silhouette, pulmonary vasculature and hilar contoursare normal. There is no pulmonary edema, pleural effusion or pneumothorax. The underlying osseous structures are unremarkable. Impression: No acute intrathoracic abnormalities. us Nikolay Mtz MD IMG XR PROCEDURES Final Re sult * ECG (07/18/2024 3:26 AM EST) Only the most recent of3 resultswithin the time period is included. 07/18/2024 3:26 AM EST 07/18/2024 3:30 PM EST Impressions MUSE - 07/18/2024 3:30 PM EST Test Reason : Reason for Exam:->eval QTc Blood Pressure : ?? */* ?? mmHG Vent. Rate : ??89 BPM ? Atrial Rate : ??89 BPM ?? P-R Int : 148 ms ?QRS Dur : ??96 ms ?QT Int : 380 ms ? P-R-T Axes : ??48 ??58 ??56 degrees ?? QTc Int : 462 ms Normal sinus rhythm Normal ECG When compared with ECG of 17-JUL-2024 15:09, No significant change was found Referred By: LEEANNA HU ? Confirmed By: Mark Rae Narrative Procedure Note Mark Rae MD - 07/18/2024 IMPRESSION Test Reason : Reason for Exam:->eval QTc Blood Pressure : */* mmHG Vent. Rate : 89 BPM Atrial Rate : 89 BPM P-R Int : 148 ms QRS Dur : 96 ms QT Int : 380 ms P-R-T Axes : 48 58 56 degrees QTc Int : 462 ms Normal sinus rhythm Normal ECG When compared with ECG of 17-JUL-2024 15:09, No significant change was found Referred By: LEEANNA HU Confirmed By: Mark Rae Leeanna Hu MD ECG ORDERABLES Final Result Performing Organization Address City/[facility]/ZIP Co de Phone Number MUSE * (ABNORMAL) TSH W/Reflex To Ft4 (07/18/2024 1:45 AM EST) TSH 5.020(H) 0.270 - 4.200 uIU/mL 07/18/2024 2:30 AM [facility] Blood Venipuncture / Unknown 07/18/2024 1:45 AM EST 07/18/2024 1:51 AM EST Nikolay Mtz MD LAB BLOOD ORDERABLES Final Result [facility] [address] [place] [address], [place] [phone] * Iron and TIBC (07/18/2024 1:45 AM EST) Iron 61 45 - 160 ug/dL 07/18/2024 3:53 AM EST [facility] TIBC 336.0 228.0 - 428.0 ug/dL 07/18/2024 3:53 AM [facility] Transferrin Saturation 18.2 15.0 - 50.0 % 07/18/2024 3:53 AM [facility] Blood Venous blood / Unknown Venipuncture / Unknown 07/18/2024 1:45 AM EST 07/18/2024 1:51 AM EST Leeanna Hu MD LAB BLOOD ORDERABLES Final Result Performing Organization Address City/[facility]/ZIP Co de Phone Number [facility] [address] [place] [address], [place] [phone] * (ABNORMAL) Vitamin D 25-OH (07/18/2024 1:45 AM EST) [facility] [address] Vitamin D, 25-Hydroxy 24(L) 30 - 100 ng/mL 07/18/2024 4:55 AM [facility] Comment: Reference Ranges: ?Less than 20 ng/mL ?Deficient ? 20-30 ng/mL ?Insufficient ?30-100 ng/mL ?Normal Greater than 100 ng/mL ?Elevated Results in the 20-30 ng/mL range should be interpreted and treated based upon clinical context. ?? If repeat testing is desired to confirm correction of deficiency, this should be performed only after several months; Vitamin D is stored in adipose tissue and a long period of time is required for equilibration between Vitamin D stores and blood levels. ?? Blood Venipuncture / Unknown 07/18/2024 1:45 AM EST 07/18/2024 1:51 AM EST Leeanna Hu MD LAB BLOOD ORDERABLES Final Result Performing Organization Address City/[facility]/ZIP Co de Phone Number [facility] [address] [place] [address], [place] [phone] * Blood Culture, Peripheral #1 (07/18/2024 1:45 AM EST) Only the most recent of2 resultswithin the time period is included. Culture No growth at 5 days [facility] 07/23/2024 3:01 AM [facility] Blood Venous blood / Unknown Venipuncture / Unknown 07/18/2024 1:45 AM EST 07/18/2024 1:53 AM EST us Nikolay Mtz MD LAB MICROBIOLOGY - GENERAL ORDERABLES Final Result [facility] [address] [place] [address], [place] [phone] * (ABNORMAL) SEDIMENTATION RATE (07/18/2024 1:45 AM EST) Pathologist [facility] Sed Rate 21(H) 0 - 15 mm/hr 07/18/2024 2:48 AM [facility] Blood Venipuncture / Unknown 07/18/2024 1:45 AM EST 07/18/2024 1:52 AM EST us Nikolay Mtz MD LAB BLOOD ORDERABLES Final Result Performing Organization Address [facility] de Phone Number [facility] [address] [place] [address], [place] [phone] * (ABNORMAL) C-Reactive Protein, High Sensitivity (07/18/2024 1:45 AM EST) Pathologist [facility] CRP, High Sensitivity 15.1(H) 0.0 - 5.0 mg/L 07/18/2024 2:23 AM [facility] Comment:Significantly decrea sed CRP values may be obtained from samples taken from patients who have been treated with carboxypenicillins (e.g. Timentin, Carbenicillin, Ticarcillin, Temocillin). Blood Venous blood / Unknown Venipuncture / Unknown 07/18/2024 1:45 AM EST 07/18/2024 1:51 AM EST us Nikolay Mtz MD LAB BLOOD ORDERABLES Final Result [facility] [address] [place] [address], * T4, FREE (07/18/2024 1:45 AM EST) Free T4 1.6 0.9 - 1.9 ng/dL 07/18/2024 2:49 AM EST [facility] Blood Venipuncture / Unknown 07/18/2024 1:45 AM EST 07/18/2024 1:51 AM EST Nikolay Mtz MD LAB BLOOD ORDERABLES Final Result [facility] [address] [place] [address], [place] [phone] * Phosphorus (07/18/2024 1:45 AM EST) Phosphorus 3.8 2.5 - 4.5 mg/dL 07/18/2024 3:53 AM EST [facility] Blood Venous blood / Unknown Venipuncture / Unknown 07/18/2024 1:45 AM EST 07/18/2024 1:51 AM EST Leeanna Hu MD LAB BLOOD ORDERABLES Final Result [facility] [address] [place] [address], [place] [phone] * Magnesium (07/18/2024 1:45 AM EST) Magnesium 2.4 1.6 - 2.6 mg/dL 07/18/2024 3:53 AM EST [facility] Blood Venous blood / Unknown Venipuncture / Unknown 07/18/2024 1:45 AM EST 07/18/2024 1:51 AM EST us Leeanna Hu MD LAB BLOOD ORDERABLES Final Result [facility] [address] [place] [address], * (ABNORMAL) Folate (07/18/2024 1:45 AM EST) Folate >=20.0(H) 4.2-19.9 ng/ml ng/mL 07/18/2024 4:55 AM EST [facility] Comment: Specimen Hemolyzed. Results may be falsely elevated due to hemolysis. Reference Range: ?? Deficient ?<2.1 ng/mL Intermediate ?2.2-4.1 ng/mL ??Sufficient ?4.2-19.9 ng/mL Blood Venipuncture / Unknown 07/18/2024 1:45 AM EST 07/18/2024 1:51 AM EST Leeanna Hu MD LAB BLOOD ORDERABLES Final Result [facility] [address] [address], * Ferritin (07/18/2024 1:45 AM EST) [facility] [address] Ferritin 202.0 30.0 - 400.0 ng/mL 07/18/2024 3:53 AM EST [facility] Blood Venous blood / Unknown Venipuncture / Unknown 07/18/2024 1:45 AM EST 07/18/2024 1:51 AM EST Leeanna Hu MD LAB BLOOD ORDERABLES Final Result [facility] [address] [place] [address], * (ABNORMAL) Vitamin B12 (07/18/2024 1:45 AM EST) Pathologist [facility] Vitamin B12 1,101(H) 243 - 894 pg/mL 07/18/2024 4:55 AM EST [facility] Comment: ?? Deficient: ??<174 pg/mL Intermediate: ??175 - 242 pg/mL ?Normal: ??243 - 894 pg/mL Blood Venipuncture / Unknown 07/18/2024 1:45 AM EST 07/18/2024 1:51 AM EST Leeanna Hu MD LAB BLOOD ORDERABLES Final Result [facility] [address] [place] [address], * (ABNORMAL) Venous Blood Gas with Electrolytes (07/18/2024 1:44 AM EST) pH, Venous 7.420(H) 7.310 - 7.410 07/18/2024 1:53 AM EST [facility] pCO2, Venous 34(L) 41.0 - 51.0 mm Hg 07/18/2024 1:53 AM EST [facility] pO2, Venous 82.0(H) 35.0 - 42.0 mm Hg 07/18/2024 1:53 AM EST [facility] Sodium, Venous 136 135 - 145 mmol/L 07/18/2024 1:53 AM EST [facility] Potassium, Venous 4.4 3.5 - 5.0 mmol/L 07/18/2024 1:53 AM EST [facility] Ionized Calcium, Venous (Measured) 1.18 1.00 - 1.30 mmol/L 07/18/2024 1:53 AM EST [facility] Calculated Hematocrit, Venous 40.0(L) 42.0 - 52.0 % 07/18/2024 1:53 AM EST [facility] Glucose, Venous 93 72 - 128 mg/dL 07/18/2024 1:53 AM EST [facility] Lactate, Venous 1.4 0.5 - 1.9 mmol/L 07/18/2024 1:53 AM EST [facility] Hemoglobin, Venous 13.4(L) 14.0 - 18.0 g/dL 07/18/2024 1:53 AM EST [facility] Oxyhemoglobin, Venous 95.2 85.0 - 98.0 % 07/18/2024 1:53 AM EST [facility] Carboxyhemoglob in, Venous 2.0 0.0 - 3.0 % 07/18/2024 1:53 AM EST [facility] Methemoglobin, Venous 0.0 0.0 - 3.0 % 07/18/2024 1:53 AM EST [facility] O2 Saturation, Venous 97.1(H) 68.0 - 77.0 % 07/18/2024 1:53 AM EST [facility] Total CO2, Venous 23.1 23.0 - 27.0 mmol/L 07/18/2024 1:53 AM EST [facility] Base Excess, Venous -2.4(L) -2.0 - 2.0 mmol/L 07/18/2024 1:53 AM EST [facility] HCO3, Venous 22.1 22.0 - 26.0 mmol/L 07/18/2024 1:53 AM EST [facility] Specimen Labled with 2 Patient Identifiers ? Yes 07/18/2024 1:53 AM EST [facility] Blood Venous blood / Unknown Venipuncture / Unknown 07/18/2024 1:44 AM EST 07/18/2024 1:50 AM EST us Nikolay Mtz MD LAB BLOOD ORDERABLES Final Result Performing Organization Address City/State/[facility] Co de Phone Number [facility] [address] [place] [address], * CT cervical spine without contrast (07/17/2024 4:11 PM EST) Anatomical Region Laterality Modality Spine, C-spine Computed Tomogra phy 07/17/2024 3:58 PM EST Impressions 07/17/2024 4:22 PM EST IMPRESSION: The cervical vertebral body height is preserved. No fracture is seen. Narrative 07/17/2024 4:22 PM EST History: Neck pain status post trauma. Technique: CT imaging of the cervical spine was performed utilizing 2.5 mm collimation. Coronal and sagittal reformatted images were obtained. Bone and soft tissue window images were reviewed. Iterative reconstruction technique was utilized for radiation dose reduction. FINDINGS: The cervical vertebral body height is preserved. No fracture is seen. The disc spaces are preserved. No paraspinal soft tissue abnormality is seen. Procedure Note Sergio Delcid MD - 07/17/2024 History: Neck pain status post trauma. Technique: CT imaging of the cervical spine was performed utilizing 2.5 mmcollimation. Coronal and sagittal reformatted images were obtained. Bone and softtissue window images were reviewed. Iterative reconstruction technique was utilized for radiation dosereduction. FINDINGS: The cervical vertebral body height is preserved. No fracture isseen. The disc spaces are preserved. No paraspinal soft tissue abnormality is seen. IMPRESSION: The cervical vertebral body height is preserved. No fracture is seen. Zenaida Snow MD IM CT PROCEDURES Fin al Result * Clozapine (SEND OUT) (07/17/2024 9:06 AM EST) Norclozapine 98 25 - 400 mcg/L 07/22/2024 2:08 PM EST [facility] Clozapine 312 mcg/L 07/22/2024 2:08 PM EST [facility] Comment: The therapeutic response begins to appear at 100 mcg/L. Refractory schizophrenia appears to require a therapeutic concentration of at least 350 mcg/L (trough, at steady state). Toxic range: Greater than 900 mcg/L This test was developed and its analytical performance characteristics have been determined by [employer] [place], [place]. It has not been cleared or approved by the U.S. Food and Drug Administration. This assay has been validated pursuant to the CLIA regulations and is used for clinical purposes. Blood Venous blood / Unknown Venipuncture / Unknown 07/17/2024 9:06 AM EST 07/17/2024 9:12 AM EST Narrative [facility] - 07/22/2024 2:08 PM EST Performing Organization Information: ?Site ID: [id number] ?Name: [employer] ?Address: [address] [place], [place] ?Director: Jack Obando M.D.,PhD us Zenaida Snow MD LAB BLOOD ORDERABLES Final Result Performing Organization Address [facility] Co de [place] [address] * EEG (07/17/2024 8:59 AM EST) Impressions [facility] - 07/18/2024 12:56 PM EST : This EEG, performed during the waking, drowsy, and sleeping states, is abnormal because of frequent bilateral ??slowing with R>L temporal predominance. This study is consistent with mild bilateral cerebral dysfunction, maximal R>L temporally. There are no definite epileptiform discharges and rare right temporal sharply contoured waves are not clearly epileptiform. there are no definite electrographic seizures . There are no prior EEGs available for comparison. If clinically indicated, a followup EEG may be considered. INTERPRETED BY: JAEL BRADSHAW MD [facility] Department of Neurology/ Division of Epilepsy Narrative [facility] - 07/18/2024 12:56 PM EST A 23-year-old man with episode of unresponsiveness. This is a routine EEG performed with anterior temporal as well as standard 10-20 electrodes. No relevant medications are listed. DETAILS: The record shows good organization at rest, consisting of predominantly 30-40 uV, 8 Hz posterior alpha activity with good reactivity. There is moderate beta activity bilaterally. There are frequent bilateral theta and occasional delta slow waves, with R>L temporal predominance.. Rare right temporal sharply contoured waves are noted. Intermittent drowsiness is characterized by further bilateral slowing. Stage II sleep is characterized by vertex waves and sleep spindles. Hyperventilation is not performed. Photic stimulation reveals mild bilateral driving. EKG reveals an apparent sinus rhythm of 70-80 beats per minute. us Craig Rocha MD NEUROLOGY ORDERABLES Final Result Performing Organization Address [facility] Co de Phone Number [facility] * (ABNORMAL) Troponin T-hs Gen5 (07/17/2024 4:50 AM EST) Troponin T- hs Gen5 14(H) <6 - 12 ng/L 07/17/2024 4:40 PM [facility] Blood Venous blood / Unknown Venipuncture / Unknown 07/17/2024 4:50 AM EST 07/17/2024 4:58 AM EST Zenaida Snow MD LAB BLOOD ORDERABLES Final Result [facility] [address] [place] [address], [place] [phone] * Urinalysis with reflex (07/16/2024 10:41 PM EST) Color, Urine Yellow Colorless, Yellow 07/16/2024 10:58 PM [facility] Clarity, Urine Clear Clear 07/16/2024 10:58 PM [facility] Specific [place], Urine 1.011 1.002 - 1.030 07/16/2024 10:58 PM [facility] pH, Urine 7.0 5.0 - 8.0 07/16/2024 10:58 PM [facility] Leukocytes, Urine Negative Negative 07/16/2024 10:58 PM [facility] Nitrite, Urine Negative Negative 07/16/2024 10:58 PM [facility] Protein, Urine Negative Negative 07/16/2024 10:58 PM [facility] Glucose, Urine Negative Negative 07/16/2024 10:58 PM [facility] Ketones, Urine Negative Negative 07/16/2024 10:58 PM [facility] Bilirubin, Urine Negative Negative 07/16/2024 10:58 PM [facility] Blood, Urine Negative Negative 07/16/2024 10:58 PM [facility] Urine Urine specimen obtained by clean catch procedure / Unknown Non-blood Collection / Unknown 07/16/2024 10:41 PM EST 07/16/2024 10:49 PM EST [facility] - 07/16/2024 10:58 PM EST Per protocol, no culture performed. For protocol inquiries or add-on testing, please call Infectious Disease at [phone] or [phone]. Craig Rocha MD LAB URINE ORDERABLES Final Result Performing Organization Address [facility]/ZIP Co de Phone Number [facility] [address] [place] [address], [place] [phone] * Extra Urine Culture Tube (07/16/2024 10:41 PM EST) Extra Tube 07/17/2024 12:01 AM EST [facility] Comment:An Extra tube was co llected from this patient. Please follow add on workflow or contact the Laboratory if you wish to place orders on this specimen. Urine Urine specimen obtained by clean catch procedure / Unknown Non-blood Collection / Unknown 07/16/2024 10:41 PM EST 07/16/2024 10:47 PM EST Craig Rocha MD LAB MICROBIOLOGY - GE NERAL ORDERABLES Final Result Performing Organization Address [facility] Co de Phone Number [facility] [address] [place] [address], [place] [phone] * [place] CRITICAL CARE ILL/INJURED PATIENT INIT 30-74 MIN (07/16/2024 9:11 PM EST) Narrative Mo Peterson MD - 07/16/2024 9:11 PM EST Mo Peterson MD ? 07/16/2024 ??9:11 PM Critical Care Performed by: Mo Peterson MD Authorized by: Mo Peterson MD ?? Critical care provider statement: ??Critical care time (minutes): ??35 Comments: ?? CRITICAL CARE TIME: The patient's condition was such that it required my full attention providing Critical Care Services. The critical care time did not include time spent performing procedures. us Mo Peterson MD IN CLINIC/BEDSIDE ORDERABLES Fi nal Result * Urine drugs of abuse screen (07/16/2024 6:17 PM EST) Amphetamines, Urine Screen None Detected None Detected 07/16/2024 7:21 PM [facility] Barbiturates, Urine Screen None Detected None Detected 07/16/2024 7:21 PM [facility] Benzodiazepines, Urine Screen None Detected None Detected 07/16/2024 7:21 PM [facility] Cocaine, Urine Screen None Detected None Detected 07/16/2024 7:21 PM [facility] Opiates, Urine Screen None Detected None Detected 07/16/2024 7:21 PM [facility] Cannabinoids (THC), Urine Screen None Detected None Detected 07/16/2024 7:21 PM [facility] Tricyclic Antidepressants, Urine Screen None Detected None Detected 07/16/2024 7:21 PM [facility] Comment:Verified by replicat e analysis. Fentanyl, Urine Screen None Detected None Detected 07/16/2024 7:21 PM [facility] Methadone, Urine Screen None Detected None Detected 07/16/2024 7:21 PM [facility] Oxycodone, Urine Screen None Detected None Detected 07/16/2024 7:21 PM [facility] Buprenorphine, Urine Screen None Detected None Detected 07/16/2024 7:21 PM [facility] Phencyclidine, Urine Screen None Detected None Detected 07/16/2024 7:21 PM [facility] Urine Urine specimen obtained by clean catch procedure / Unknown Non-blood Collection / Unknown 07/16/2024 6:17 PM EST 07/16/2024 6:27 PM [facility] - 07/16/2024 7:21 PM EST This is a screening test for urine drugs of ABUSE only, performed using [employer] Rebeca analyzer. It is not designed or intended to monitor treatment or assess patient compliance. ??Those purposes are best served by a specific assay for the specific drug being administered. ?? Like any screening test, this drug screen has inherent limitations. ?? A result of NONE DETECTED indicates the absence of the major metabolites of the tested drugs or their presence at a level below the cut-off concentration (see below). ??False negative results may be due to the pharmacokinetics of the drug and/or the timing of the sample relative to the use of the drug in question. ?? A POSITIVE result is a presumptive qualitative positive which indicates that the major metabolites of the tested drugs are likely present at or above their cut- off concentration (see below). ??False positive results may be caused by cross- reacting substances. ??Unconfirmed positive results of this screening test must not be used for non-medical purposes. ?? Cutoffs for Drug Classes: Amphetamines ? 1000 ng/mL Barbiturates ? 200 ng/mL Benzodiazepines ??100 ng/mL Cocaine ?300 ng/mL Opiates ?300 ng/mL TCA ?300 ng/mL THC ?50 ng/mL Fentanyl ?5 ng/mL Methadone ?300 ng/ml Oxycodone ?100 ng/ml Buprenorphine ?5 ng/ml Phencyclidine ? 25 ng/ml Mo Peterson MD LAB URINE ORDERABLES Final Resu lt Performing Organization Address [facility]/ZIP Co de Phone Number [facility] [address] [place] [address], [place] [phone] * COVID-19 ([facility]) (07/16/2024 5:36 PM EST) COVID-19 ([facility]) PCR Negative Negative [facility] PANTHER ANALYZER-DP H 07/16/2024 8:38 PM EST [facility] Swab (Nasopharynx) Non-blood Collection / Unknown 07/16/2024 5:36 PM EST 07/16/2024 5:49 PM EST us Mo Peterson MD LAB MICROBIOLOGY - GENERAL ORDE RABLES Final Result [facility] [address] [place] [address], [place] [phone] * Ethanol (07/16/2024 5:35 PM EST) Ethanol <=10 0 - 10 mg/dL 07/16/2024 6:20 PM EST [facility] Comment:NONE DETECTED: Resul t <10 should be interpreted as NONE DETECTED. Blood Venous blood / Unknown Venipuncture / Unknown 07/16/2024 5:35 PM EST 07/16/2024 5:49 PM EST us Mo Peterson MD LAB BLOOD ORDERABLES Final Resu lt [facility] [address] [place] [address], [place] [phone] * Acetaminophen level (07/16/2024 5:35 PM EST) Acetaminophen Level <5.1 <15.0 ug/mL 07/16/2024 6:20 PM EST [facility] Blood Venous blood / Unknown Venipuncture / Unknown 07/16/2024 5:35 PM EST 07/16/2024 5:49 PM EST us Mo Peterson MD LAB BLOOD ORDERABLES Final Resu lt Performing Organization Address [facility]/ZIP Co de Phone Number [facility] [address] [place] [address], [place] [phone] * Salicylate level (07/16/2024 5:35 PM EST) Salicylate Level <=3.0 3.0 - 30.0 mg/dL 07/16/2024 6:20 PM EST [facility] Blood Venous blood / Unknown Venipuncture / Unknown 07/16/2024 5:35 PM EST 07/16/2024 5:49 PM EST us Mo Peterson MD LAB BLOOD ORDERABLES Final Resu lt [facility] [address] [place] [address], [place] [phone] from Last 3 Months Insurance [facility] MED[facility] PART [id number] Advance Directives For more information, please contact: [phone] * Full Code (Latest Code Status on File) Date Activated Date Inactivated Comments 07/16/2024 10:59 PM 07/24/2024 9:23 PM Question Answer Comments Cardiopulmonary Resuscitatio n: for a patient in cardiac or respiratory arrest (Full Code = Attempt Resuscitation, DNR = Do not attempt resuscitation): Full Code Ventilation: for a patient in respiratory distre ss: Intubate and Ventilate * Full Code Date Activated Date Inactivated Comments 01/27/2024 12:13 PM 01/28/2024 6:15 PM Question Answer Comments Cardiopulmonary Resuscitatio n: for a patient in cardiac or respiratory arrest (Full Code = Attempt Resuscitation, DNR = Do not attempt resuscitation): Full Code Ventilation: for a patient in respiratory distre ss: Intubate and Ventilate * Full Code Date Activated Date Inactivated Comments 07/25/2018 11:08 AM 07/26/2018 2:43 PM Care Teams Adolescent Coordinator Relationship Specialty Start Date End Date Required, No Pcp/Pcp Not [address] [place] [address] PCP - General Training Development Specialist 01/25/24
--- OUTSIDE RECORDS SUMMARY | 2024-07-25 06:59 | XMS_ITS | Encounter Summary ---
Author Organization [facility] Address [address] [place] [address] Phone Care Team Providers Care Rug Backing Stenciler Name Role Phone Required, No Pcp/Pcp Not Primary Care Provider U navailable Encounter Details Date Type Department Care Team (Latest Contact Info) Description 07/16/2024 Travel Social History Tobacco Use Types Packs/Day Years Used Date Smoking Tobacco: Former Cigarettes Smokeless Tobacco: Never Alcohol Use Standard Drinks/Week Comments Not Currently [...] Date Last Indicated Resolved Time Covid Possible 07/16/2024 07/16/2024 07/16/2024 8: 38 PM EST documented as of this encounter Care Teams Rug Backing Stenciler Relationship Specialty Start Date End Date Required, No Pcp/Pcp Not [address] [place] [address] PCP - General Engineer Systems 01/25/24 documented as of this encounter
--- OUTSIDE RECORDS SUMMARY | 2024-07-25 06:59 | XMS_ITS | Clinical Summary ---
Author Organization [facility] Address [address] [place] [id number] Care Team Providers Care Office Spec Name Role Phone Shannan Celis EHS TEACHER Primary Care Provider [phone] Medications hydrOXYzine HCL (ATARAX) 50 MG tablet 50 MG PO BID PRN Anxiety 10/28/2023 Active melatonin 3 mg Tab tablet 6 MG PO QHS PRN Insomnia 04/27/2022 Active haloperidoL (HALDOL) 5 MG tablet 10 MG PO QHS 06/15/2022 Active divalproex (DEPAKOTE) [address] tablet 1,500 MG PO QHS 11/11/2021 Active OLANZapine (ZyPREXA) 15 MG tablet 15 MG PO DAILY 10/28/2023 Active Active Problems Problem Noted Date Diagnosed Date Other stimulant abuse, uncomplicated 10/28/2023 Autistic disorder 06/29/2021 Attention-deficit hyperactivity disorder, unspec ified type 06/29/2021 Schizoaffective disorder, unspecified 03/24/2021 Major depressive disorder, recurrent, unspecifie d 07/28/2020 Overview (03/04/2024): ICD-10 Qualified Code(s): F33.2 - Major depressive disorder, recurrent severe without psychotic features; Active/Remission status - currently active; Major depression episode severity - severe; Psychotic features - without psychotic features; Asperger's syndrome 07/03/2020 Major depressive disorder, single episode, unspe cified 07/03/2020 Lymphedema, not elsewhere classified 06/29/2020 Essential (primary) hypertension 06/28/2020 Overview (03/04/2024): ICD-10 Qualified Code(s): I10 - Essential (primary) hypertension; Hypertension type - unspecified; Other specified disorders of kidney and ureter 0 06/28/2020 Unspecified abdominal pain 06/27/2020 Delusional disorders 05/10/2020 Social History Tobacco Use Types Packs/Day Years Used Date Smoking Tobacco: Never Assessed Sex and Gender Information Value Date Recorded Sex Assigned at Not on file Legal Sex Male 10:54 AM EDT Gender Identity Male 07/15/2023 9:10 PM EST Sexual Orientation Not on file Last Filed Vital Signs Vital Sign Reading Time Taken Comments Blood Pressure - - Pulse - - Temperature - - Respiratory Rate - - Oxygen Saturation - - Inhaled Oxygen Concentration - - Weight 100 kg (220 lb 7.4 oz) 09/24/2022 2:24 PM EDT Height 170.2 cm (5' 7 ) 09/24/2022 2:24 PM EDT Body Mass Index 34.53 09/24/2022 2:24 PM EDT Plan of Treatment Health Maintenance Due Date Last Done Comments Blood Pressure 2000 Depression Screening 2004 Hepatitis C Screening 2018 DTaP,Tdap,and Td Vaccines (1 - Tdap) 12/03/2019 COVID-19 Vaccine (1 - 2023-2 5 season) 2024 Influenza Vaccine (#1) 2024 Meningococcal Vaccines Aged Out No lo nger eligible based on patient's age to complete this topic Pneumococcal Vaccine: Pediat rics (0 to 5 Years) and At-Risk Patients (6 to 64 Years) Aged Out No longer eligible b ased on patient's age to complete this topic Care Teams Office Spec Relationship Specialty Start Date End Date Shannan Celis NP PCP - General 10/27/23
--- OUTSIDE RECORDS SUMMARY | 2024-07-25 06:59 | XMS_ITS | Clinical Summary ---
Author Organization [facility] Address [address] [place] [address] Care Team Providers Care Shot Examiner Name Role Phone None Primary Care Provider Unavailabl e Allergies No known active allergies Medications amphetamine-dex troamphetamine (ADDERALL XR) 20 MG 24 hr capsule Take 20 mg by mouth every morning Active PARoxetine (PAXIL) 30 MG tablet Take 30 mg by mouth every morning Active Social History Tobacco Use Types Packs/Day Years Used Date Smoking Tobacco: Never Smokeless Tobacco: Never Alcohol Use Standard Drinks/Week Comments Not Currently 0 (1 standard drink = 0.6 oz pur e alcohol) Sex and Gender Information Value Date Recorded Sex Assigned at Not on file Legal Sex Male 3:35 PM EDT Gender Identity Not on file Sexual Orientation Not on file Last Filed Vital Signs Vital Sign Reading Time Taken Comments Blood Pressure 163/97 04/04/2020 3:40 PM EDT Pulse 120 04/04/2020 3:40 PM EDT Temperature 36.4 ??C (97.6 ??F) 04/04/2020 3:40 PM ED T Respiratory Rate 18 04/04/2020 3:40 PM EDT Oxygen Saturation 100% 04/04/2020 3:40 PM EDT Inhaled Oxygen Concentration - - Weight - - Height - - Body Mass Index - - Plan of Treatment Health Maintenance Due Date Last Done Comments HIV SCREENING 2013 HEALTH CARE PROXY 2018 HEP C SCREEN 2018 LIPID SCREENING 2018 PHYSICAL EXAM 2022 COVID-19 Vaccine ( season) 2024 10/30/2020 INFLUENZA VACCINE (#1) 2024 03/07/2015 TETANUS VACCINE (7 - Td or Tdap) 10/01/2027 09/30/2017, 02/12/2014, 11/25/2006, Additional history exists ZOSTER VACCINE (1 of 2) 2050 PNEUMOCOCCAL VACCINE SERIES (< 65) Aged Out 12/04/2005 No longer eligible based on patient's age to complete this topic HPV VACCINE SERIES Completed 08/24/2014, 1 06/20/2013, 02/12/2014 Insurance [facility] Care Teams Shot Examiner Relationship Specialty Start Date End Date None PCP - General 04/04/20
--- OUTSIDE RECORDS SUMMARY | 2024-07-25 06:59 | XMS_ITS | Encounter Summary ---
Author Organization [facility] ystem Address [address] [place] [address] Phone Care Team Providers Care Gusset Maker Name Role Phone Required, No Pcp/Pcp Not Primary Care Provider U navailable Reason for Visit * Reason Comments Drug / Alcohol Assessment Encounter Details Date Type Department Care Team (Late st Contact Info) Description 07/16/2024 5:07 PM EST - 07/24/2024 5:17 PM EST Hospital Encounter [facility] - [address] [place] [address] Lamonte Barber MD [address] [place] [address] Stan Nolan MD [address] [place] [address] Zenaida Gold MD [address] [place] [id number] Adele Jaramillo MD [address] [place] [address] Kitty Fernando MD [address] [place] [address] Cheli Morgan MD [address] [facility] [address] [place] [id number] Altered mental status (Primary Dx); Psychomotor agitation; Hallucinations; Paranoid schizophrenia (CMS/HCC) Discharge Disposition: Psychiatric Facility Social History Tobacco Use Types Packs/Day Years [...] on file documented as of this encounter Last Filed Vital Signs Vital Sign Reading [...] Mass Index 39.16 07/17/2024 1:14 PM EST documented in this encounter Functional Status * Are you deaf or do you have serious difficulty hearing? Answer Date of Assessment Author No 07/17/2024 2:10 PM EST Efraín Lauren RN * Are you blind or do you have serious difficulty seeing, even when wearing glasses? Answer Date of Assessment Author No 07/17/2024 2:10 PM EST Efraín Lauren RN * Do you have serious difficulty walking or climbing stairs? Answer Date of Assessment Author No 07/17/2024 2:10 PM Efraín Thomason RN * Because of a physical, mental, or emotional condition, do you have serious difficulty doing errandsalone such as visiting the doctor? Answer Date of Assessment Author No 07/17/2024 2:10 PM Efraín Thomason RN documented as of this encounter Mental Status * Because of a physical, mental, or emotional condition, do you have serious difficulty concentrating, remembering, or making decisions? Answer Entry Date Author No 07/17/2024 2:10 PM Efraín Thomason RN documented in this encounter Discharge Summaries * Cheli Morgan MD - 07/24/2024 1:27 PM EST Images from the original note were not included. [facility] Discharge Summary Rob Almeida [id number] : 2000 Admission Date: 07/16/2024 Discharge Date : 07/24/2024 Inpatient Attending: Cheli Morgan MD PCP: Required, No Pcp/Pcp Not Reason for Hospitalization: Patient is a 23 y.o. male presents with Drug / Alcohol Assessment History of Present Illness: (Per admitting History and Physical) Rob Almeida is a 23 y.o. male with a history of schizoaffective disorder, autism spectrum disorder, prior cannabis use, nicotine use, ADD, paranoid delusions, Adderall use disorder, obesity, pelvic kidney, and major depression with prior suicidal ideation. The current history is limited. He was brought to the emergency department by EMS earlier this evening. I do not see a EMS report in his current records. The emergency department triage note indicates that he was found wandering on the way to the dispensary. He reported taking 2 candies that weregiven to him by someone at [facility], with the presumption that they may have contained illicit substances. He was described as seemingly under the influence. The patient currently states that he ate 2 regular candy Gummies, and denies any illicit substance use. He could not, or would not provide any additional details regarding his current presentation. He had no complaints at the time thatI saw him. While being observed in the emergency department he had an episode of unresponsiveness associated with sinus tachycardia, and eyelids fluttering. The nurse caring for him stated that he was not responding to sternal rubs. She held his eyelids opened and observed that his eyes were rolledback. He did not have any incontinence or obvious tongue biting. The episode lasted 2 to 3 minutes.He received 2 mg of IV Ativan. The nurse indicated that EMS reported a possible similar episode, but for some reason they were suspicious of a psychogenic etiology. Emergency department course: In addition to the above noted seizure-like activity, he has been afebrile since his arrival. Heart rate has ranged from 103-130 with a sinus tachycardia on ECG. The ECG also showed short MI interval, QTc of 522, and abnormal R wave progression in the precordial leads, similar to prior ECGs. Chemistry labs are notable for a bicarbonate of 20, anion gap 15, BUN 23, creatinine 1.7, glucose 104, AST 51, and ALT 47. His hemoglobin was 13 with a normal MCV. White blood cell count and platelets were normal. COVID-19 testing was negative. Acetaminophen, salicylate, and alcohol levels were undetected. Urine drug screen was negative. Head CT was nonacute. In addition to the 2 mg of IV Ativan, he received 1 L of lactated ringer solution. REVIEW OF SYSTEMS: 10 point ROS was negative other than the pertinent positives and negatives listed above. PATIENT DISCHARGE INSTRUCTIONS FROM PROVIDER: Patient was treated for psychosis. Medications adjusted by psychiatry service. Patient is stable for discharge to psych facility. Pending TESTS: Pending Labs Order Current Status Blood Culture, Peripheral #1 Preliminary result Blood Culture, Peripheral #2 Preliminary result Post Discharge Testing: As Discussed Above. Hospital Course Rob Almeida is a 23 y.o. male w/ hx of schizoaffective disorder, autism, ADD, major depression with prior SI, recent discharge 3 days [facility] from [facility] psych facility after 5 month admission, who was found wandering after possible drug ingestion and reported nonadherence to psych meds, w/course notable for episodes of seizure-like activity suspected to be pseudoseizures, episodes of psychosis/agitation and possible suicidal attempt, and rhabdomyolysis. Patient is stable for transfer to psych facility. Please see below for problem based hospital course and detailed plan. # Recurrent episodes of seizure-like activity Had an episode of unresponsiveness in the ED associated with tachycardia and eyelid fluttering/tremors lasted 2 to 3 minutes, given Ativan. Had recurrent episode the next day on medicine floor. No incontinence, tongue biting. CT head unremarkable. U-Tox negative. EEG showed mild bilateral cerebral dysfunction, maximal right greater than left temporal lesion without definite epileptiform discharges. Unable to obtain continuous EEG due to patient cooperation. Seen by neurology, unclear etiology of brief episodes of reduced interactivity without LOC, psychogenic seizures possible. Neurology did not recommend AED at this time. -- Appreciate neurology recommendation -- Seizure precautions -- Continue to monitor # Psychosis with underlying schizoaffective disorder, autism, major depression, possible drug intoxication # Possible suicidal attempt Patient spent 5 months at psych facility and was just discharged to live with his dad 3 days prior to presentation. He reports ingesting 2 candies that were given to him by someone at the psych facility. He was found wandering in the street and per ED documentation suspected intoxication and beingunder the influence . Per father, patient has not been compliant with his psych medications since home. Multiple BERTs during this admission for possible suicidal attempt where he went with max strength into a glass window on P6, head-banging, for hallucinations/abnormal behavior, for agitation. Hehas LFT abnormality and elevated ammonia. VPA level 100. Clozapine level 312. Patient was seen by psychiatry, meds adjusted, recommending inpatient psych placement. -- Continue psych meds as per psychiatry, depakote dose reduced d/t elevated ammonia and transaminitis --Agitation on 07/24 requiring hard restraints and IM Thorazine, Clozapine increased to 100 nightly, continue Depakote 500 twice daily, fluoxetine 40, risperidone 3 mg twice daily, on Risperdal ER SQ 125 mg every 28 days last given on 07/17 --Continue as needed Thorazine 50 p.o. 3 times daily for severe psychosis, 50 IM every 4 hours as needed for severe psychosis and not taking p.o., Haldol 5 mg IM every 4 hours as needed psychosis, asneeded Ativan for restlessness/anxiety -- Plan for inpatient psych transfer -- Continue sitter -- Patient cannot leave AMA # Right upper extremity swelling and pain Due to catheter associated superficial thrombophlebitis as seen on ultrasound -- Cold compress as needed # Acute kidney injury Creatinine 1.7 on admission. Baseline 1.1. Initial UA unremarkable. Suspect prerenal etiology. Resolved with IV fluid. # Rhabdomyolysis CK elevated 2568. May be related to multiple episodes of tremors/psychotic events. May be baseline.Given IV fluid and stable. Initial UA negative for blood. # Abnormal LFTs Chronic. May be related to his psych medications such as depakote which was reduced. May be relatedto rhabdomyolysis. Pt also obese so may have RAMOS. -- Outpatient follow-up # Vitamin D deficiency -- D3 25 mcg daily # Hypertension: Lisinopril Operative Procedures Performed None Procedures N/A Patient???s Condition on Discharge stable Discharge Physical Exam Vitals: 07/24/24 1500 BP: 121/75 Pulse: (!) 128 Resp: 24 Temp: 99 ??F (37.2 ??C) SpO2: 96% 113.4 kg (250 lb) Final Disposition Psychiatric Facility Code Status Full Code Patient Discharge Instructions Discharge activity Activity: Resume normal activity- no restrictions Diet Instructions Adult Diet Regular Diet type: Regular Provisions for Follow up Care, Tests and Appointments (as appropriate) Follow Up Follow up with Required, No Pcp/Pcp Not Where: [address] [place] [id number] Medications (For a Complete List of Medications See Summary of Care) Medication List START taking these medications cholecalciferol (25 mcg/1000 units) tablet Dose: 25 mcg Start taking on: July 25, 2024 Take 1 tablet (25 mcg) by mouth daily Commonly known as: VITAMIN D3 CHANGE how you take these medications clozapine 100 MG tablet Dose: 100 mg Take 1 tablet (100 mg) by mouth nightly What changed: when to take this Commonly known as: CLOZARIL * divalproex [address] tablet Dose: 500 mg Take 500 mg by mouth daily What changed: Another medication with the same name was added. Make sure you understand how and when to take each. Commonly known as: DEPAKOTE * divalproex [address] tablet Dose: 500 mg Take 1 tablet (500 mg) by mouth nightly What changed: You were already taking a medication with the same name, and this prescription was added. Make sure you understand how and when to take each. Commonly known as: DEPAKOTE lisinopril 10 MG tablet Dose: 10 mg Start taking on: July 25, 2024 Take 1 tablet (10 mg) by mouth daily What changed: medication strength how much to take Commonly known as: PRINIVIL,ZESTRIL * This list has 2 medication(s) that are the same as other medications prescribed for you. Read thedirections carefully, and ask your doctor or other care provider to review them with you. CONTINUE taking these medications atomoxetine 40 MG capsule Dose: 40 mg Take 40 mg by mouth daily Commonly known as: STRATTERA FLUoxetine 40 MG capsule Dose: 40 mg Take 40 mg by mouth daily Commonly known as: PROzac LORazepam 1 MG tablet Dose: 2 mg Take 2 mg by mouth every six hours as needed for anxiety Commonly known as: ATIVAN * risperiDONE 3 MG tablet Dose: 3 mg Take 3 mg by mouth two times a day Commonly known as: RisperDAL * risperiDONE ER 125 MG/0.35ML suspension prefilled syringe Dose: 125 mg Start taking on: August 14, 2024 Inject 125 mg under the skin every 28 days traZODone 100 MG tablet Dose: 100 mg Take 100 mg by mouth nightly as needed for sleep Commonly known as: DESYREL * This list has 2 medication(s) that are the same as other medications prescribed for you. Read thedirections carefully, and ask your doctor or other care provider to review them with you. You might also be taking other medications not listed above. If you have questions about any of your other medications, talk to the person who prescribed them or your Primary Care Provider. Time spent organizing discharge materials for the patient, coordinating post- discharge transition of care, counseling patient, and documenting greater was than 30 minutes: YES. Cheli oMrgan MD 07/24/2024 3:09 PM (Note was created in part with medical speech recognition software. Despite attempts at proof-reading, unintentional errors may be present resulting in the change of meaning or intent. Please contactme directly if you have any questions regarding this note). documented in this encounter Discharge Instructions * Discharge Instr - AVS First Page* Cheli Morgan MD - 07/24/2024 1:23 PM EST Patient was treated for psychosis. Medications adjusted by psychiatry service. Patient is stable for discharge to psych facility. documented in this encounter Medications at Time of Discharge divalproex (DEPAKOTE) [address] tablet Take 1 tablet (500 mg) by mouth nightly 07/24/2024 lisinopril (PRINIVIL,ZESTRIL ) 10 MG tablet Take 1 tablet (10 mg) by mouth daily 07/25/2024 risperiDONE ER 125 MG/0.35ML suspension prefilled syringe Inject 125 mg under the skin every 28 days 08/14/2024 cholecalciferol, 25 mcg/1000 units, (VITAMIN D3) tablet Take 1 tablet (25 mcg) by mouth daily 07/25/2024 clozapine (CLOZARIL) 100 MG tablet Take 1 tablet (100 mg) by mouth nightly 07/24/2024 traZODone (DESYREL) 100 MG tablet Take 100 mg by mouth nightly as needed for sleep FLUoxetine (PROzac) 40 MG capsule Take 40 mg by mouth daily risperiDONE (RisperDAL) 3 MG tablet Take 3 mg by mouth two times a day LORazepam (ATIVAN) 1 MG tablet Take 2 mg by mouth every six hours as needed for anxiety atomoxetine (STRATTERA) 40 MG capsule Take 40 mg by mouth daily divalproex (DEPAKOTE) [address] tablet Take 500 mg by mouth daily documented as of this encounter Progress Notes * Ricardo Valentine MD - 07/24/2024 10:40 AM EST Daily Progress Note DATE OF SERVICE:07/24/2024 CHIEF COMPLAINT/PRESENTING PROBLEM: I I do not remember what happened. Patient was said to be extremely agitated yesterday evening and also have self-injurious behavior today. HPI/HOSPITAL COURSE: The patient is a 23 y.o. male with a history of schizoaffective disorder bipolar type, Asperger syndrome, autism spectrum disorder, attention deficit disorder, severe Adderall use disorder, generalized anxiety disorder, obesity, paranoid delusion, pelvic kidney who presented on 07/16/2024 to the Emergency Department with altered mental status. Patient was discharged to his father's care from [facility] on July 14after a 5-month stay. Unfortunately, the patient did not take any of his psychotropic medications since return home after discharge. Patient was found wandering on his way to the dispensary. He reported taking 2 candies that were given to him by someone at [facility] with the presumption that th ey contained illicit substances. He was described as seemingly under the influence. Patient reports taking 2 regular candy Gummies and denied any illicit substance. He told neurology he took 2 candies called wilner. Patient refused to provide more information while being seen in the emergency department. While in the emergency department he had an episode of unresponsiveness associated with sinus tachycardia andeyelids fluttering. Nurse Vivien Albert stated that he was not responding to sternal rubs, helped his eyelids open and observed that the eyes were rolled back. He did not have incontinence or tongue biting. EMS reported of a similar episode and for some reason they were suspicious of psychogenic etiology. Unclear whether patient has benzodiazepine use disorder as he received 2 mg of IV Ativan withthis episode. QTc 522, COVID-19 testing was negative, acetaminophen, salicylate and alcohol levels were undetected, urine drug screen negative. Head CT nonacute. When I spoke with patient, he was paranoid, he was upset because he thought that I implied that as going to send him to a psychiatric hospital. He became somewhat agitated. We called his father Mani and spoke with him on speakerphone. Father was planning to come to the hospital within a couple of hours to bring a medication that the patient was due to take and father reported that he was overdue for this. Father reports that patient was at [facility] for 5 months with recent discharge3 days ago. Unclear why the patient did not take any of his medications over the past 2 to 3 days, patient alsoparticipating in a day program, partial program at [facility] in [place]. Patient also receives DM services through the pact team. Patient with irritability, restlessness, upon arrival to the floor several hours later at approximately 4 PM, he ran out of bed and down the boggs and hit his head against a large window. He was sent for head CT which is negative. Security was called and he was put in restraints for his own safety. Ronald was called as he was calm in bed and then jumped out of bed, ripped his EKG leads off and pushed past staff to leave the room. RN reports that he appeared angry, wanting to leave and was somewhat intimidating. He left the room and began running the halls and attempting to go into other patient's rooms. He then ran full speed into the full pain of window at the end of [address] headfirst andbounce off the glass landing on the ground. He then got up and ran to the other and where staff andsecurity were able to intervene and assist him to the ground. Patient was pale and staring but answering questions. Patient was sent head CT, for CT and C-spine. He described feeling numb all over. Upon arrival to the floor he did not remember why he was in the hospital and asked what happened? He continued to attempt to get out of bed and sit up, security restrain him as he would not respond. He was given Haldol 5 mg IV. I spoke with Jeanie from the [facility] for medication options for agitation. Pt has responded well to thorazine 50 mg IM, decreased response to haldol 5 mg iv x1. 07/18/24 Patient with significant paranoia, delusional thought, agitation who has required security with 4-point restraints. EEG pending as patient is having questionable seizure episodes versus pseudoseizure. Patient with pressured speech, at times has difficulty responding to questions. RONALD called due to agitation, got out of wrist restraint and swelling at sitter. Placed in 4-point restraints champ.Patient responding well to going to the toilet for bowel movement but able to urinate in a urinal. Trying to minimize patient's restlessness and agitation. Continue current regimen and follow the patient's progress. 07/19/24 Spoke with patient and father regarding patient's behavior. Father reports that patient sometimes is not compliant and refuses his medications. Previously patient had been living in a custodial and his brother pulled him out believing that he could take care of him and unfortunately cannot now thepatient is in the hospital and may not be able to return home to his father's care. FatherMani reports that he may not be able to care for the patient given the patient's agitation, psychosis and refusal to take medications. Patient has been in and out of restraints due to agitation. Patient with suicide attempt on 07/17/2024 as he was running up and down the boggs and banging his head against the window requiring a CAT scan which was negative and currently sitter with 4-point restraints decreased down to 2-point restraints. Continue current regimen, will speak with Nhi Lyons in the morning regarding potential bed search once the patient is medically cleared. Patient has not had episodes of seizure. He was witnessed having pseudoseizure activity by the neurologist on presentation, they were able to perform limited EEG and neurologist does not feel that these are neurological seizures. Once patient is medically cleared by the medical team, we can start inpatient psychiatry bed search for inpatient psychiatry due to psychosis and suicidality. 07/20/24 Patient continues to have sitter, suicide precautions due to risk of self-harm. Tolerates current medication without oversedation or EPS. Tolerates Depakote 500 mg p.o. daily, 1000 mg p.o. nightly for mood management, anxiety and agitation, trazodone 100 mg p.o. nightly as needed insomnia, fluoxetine 40 mg p.o. daily, risperidone 3 mg p.o. twice daily, Strattera 40 mg p.o. daily. Patient has been redirectable, describes a decrease in hallucinations. Continues to have paranoia. Patient's father Mani reports that patient has had longstanding paranoia and hallucinations. He is much more redirectable with compliance of medications. Patient is medically cleared, appreciated inpatient psychiatrybed search underway. Continue to follow the patient's progress. 07/21: toll bridge attendant notes, nursing notes, and hospitalist notes appreciated. The patient continued to be more able to cooperate with nursing care and has been compliant with psychiatric medications at thistime. The patient continued to require one-to-one sitter due to his impulsivity. The patient continued to be getting trazodone at night to help him sleep. Since we are titrating up the clozapine dosage, I will increase Clozapine to 50 mg at night in hope patient can sleep better without using prn medications. The patient was on Clozapine 100 mg twice a day prior to coming to the hospital but he has not complied with medication for at least 2 to 3 days prior to this admission. Depakote level was at 100 and ammonia level was at 74, therefore, I will reduce Depakote to 500 mg twice a day at thistime. There was no signs of fever, chest pain, nausea, abdominal pain, or dysuria. There was no significant shortness of breath noticed. There was no oversedation or EPS noticed. We will continue to monitor. 07/22: The patient continued to be reasonably cooperative with nursing care and has been compliant with p.o. medication except he has not been taking Strattera. He tolerated the increased dosage of clozapine and appeared to be sleeping better overnight without needing trazodone dosing. Patient is medically cleared and bed search is ongoing at this time. There was no signs of fever, chest pain, nausea, abdominal pain, or dysuria. There was no significant shortness of breath noticed. The patient continued to show paranoia. There was no oversedation or EPS noticed. We will continue to monitor. 07/23: The patient continued to be free of aggressive behavior and has been able to follow nursing directions and comply with psychiatric medication without problems. He also told me he has been sleeping better. I will further increase Clozapine to 75 mg at night with the target at 100 mg twice a dayas this was patient's prior dosing. There was no signs of fever, chest pain, nausea, abdominal pain, or dysuria. There was no significant shortness of breath noticed. I continue to work with psychiatric navigator to help place the patient in the inpatient psychiatric level care. There was no oversedation or EPS noticed. We will continue to monitor. 07/24: The patient was said to be more agitated overnight and also started to have self-injurious behavior today. He was put back on restraints. When I talked to the patient, he told me he had no recollection and insisted that he had a seizure. However, there was no other seizure activities noticed. I will continue to titrate up the clozapine to 100 mg in hope we can reached the target of 100 mg twice a day dosing to help reduce patient's overall irritability. manager wireless and psychiatric navigator continue to work on psychiatric inpatient placement at this time. There was no signs of fever, chest pain, nausea, abdominal pain, or dysuria. There was no oversedation or EPS noticed. We will continue to monitor. VITAL SIGNS-LAST 24 HOURS: Temp: [97.2 ??F (36.2 ??C)-97.8 ??F (36.6 ??C)] 97.8 ??F (36.6 ??C) Pulse: [85-127] 115 Resp: [20] 20 BP: (124-134)/(73-84) 131/84 SpO2: [96 %-97 %] 97 % DAILY WEIGHTS: Weight: 113.4 kg (250 lb) CURRENT MEDICATIONS: Current Facility-Administered Medications: clozapine (CLOZARIL) tablet 100 mg, 100 mg, Oral, Nightly, Ricardo Valentine MD divalproex (DEPAKOTE) tablet 500 mg, 500 mg, Oral, Nightly, Ricardo Valentine MD, 500 mg at 07/23/24 2242 cholecalciferol (25 mcg/1000 units) (VITAMIN D3) tablet 25 mcg, 25 mcg, Oral, Daily, Cheli Morgan MD, 25 mcg at 07/24/24945 lisinopril (PRINIVIL,ZESTRIL) tablet 10 mg, 10 mg, Oral, Daily, Kitty Fernando MD, 10 mg at 07/24/24945 traZODone (DESYREL) tablet 100 mg, 100 mg, Oral, Nightly PRN, Zenaida Gold MD, 100 mg at 07/23/24 2312 divalproex (DEPAKOTE) DR tablet 500 mg, 500 mg, Oral, Daily, Zenaida Gold MD, 500 mg at 07/24/24945 FLUoxetine (PROzac) capsule 40 mg, 40 mg, Oral, Daily, Zenaida Gold MD, 40 mg at 07/24/24945 risperiDONE (RisperDAL) tablet 3 mg, 3 mg, Oral, BID, Zenaida Gold MD, 3 mg at 07/24/24945 LORazepam (ATIVAN) tablet 2 mg, 2 mg, Oral, q6h PRN, Zenaida Gold MD metoprolol tartrate (LOPRESSOR) injection 5 mg, 5 mg, Intravenous, q4h PRN, Zenaida Gold MD, 5 mg at 07/17/24 2230 POM: Risperidone ER 125mg / 0.35mL Prefilled Syringe, 125 mg, Subcutaneous, q28 days, Zenaida Gold MD, 125 mg at 07/17/24 1904 haloperidol lactate (HALDOL) injection 5 mg, 5 mg, Intravenous, q4h PRN, Leeanna iPmentel MD, 5 mg at 07/23/24 1721 chlorproMAZINE (THORAZINE) injection 50 mg, 50 mg, Intramuscular, q4h PRN, Rachael Daugherty NP, 50 mg at 07/23/24 2311 LORazepam (ATIVAN) injection 1 mg, 1 mg, Intravenous, q4h PRN, Rachael Daugherty NP LORazepam (ATIVAN) injection 2 mg, 2 mg, Intravenous, q4h PRN, Rachael Daugherty NP, 2 mg at 07/17/24 2344 senna (SENOKOT) tablet 2 tablet, 2 tablet, Oral, Nightly PRN, Stan Nolan MD docusate sodium (COLACE) capsule 100 mg, 100 mg, Oral, BID PRN, Stan Nolan MD bisacodyl (DULCOLAX) EC tablet 10 mg, 10 mg, Oral, Daily PRN, Stan Nolan MD nystatin (MYCOSTATIN) powder 1 Application, 1 Application, Topical, BID PRN, Stan Nolan MD Adult Over the Counter Medication Algorithm, , Route N/A, PRN, Stan Nolan MD ondansetron (ZOFRAN) injection 4 mg, 4 mg, Intravenous, q6h PRN, Stan Nolan MD acetaminophen (TYLENOL) tablet 1,000 mg, 1,000 mg, Oral, q8h PRN, Stan Nolan MD enoxaparin (LOVENOX) syringe 40 mg, 40 mg, Subcutaneous, q24h, Stan Nolan MD, 40 mg at 07/24/24 0946 PHYSICAL EXAM: Please refer to today's hospitalist medical assessment which I have reviewed for further details. MENTAL STATUS EXAM: Sensorium: Alert Sedation-Agitation: Overall calmer Appearance: Normal Grooming Behavior/Activity: Overall calmer Speech: coherent but concrete Affect: Mildly to moderately anxious Mood: Mildly to moderately anxious Thought Form: Organized but concrete Thought Content: Less delusional Perceptual: Denied having hallucinations Delusional Thoughts: Less paranoid Suicidal Ideation: denied Homicidal Ideation: None Orientation: Person/place/time Memory: Intact Judement/Impairment: Impaired due to mental illness Attention/Concentration: good Capacity: Patient has a legal guardian Frontal Release Signs: Within Normal Limits EPS: Within Normal Limits Cranial Nerves: Within Normal Limits Motor Tone/Strength: [facility]. Gait: Please refer to [facility] medical assessment for further details. Sensory: Please refer to [facility] medical assessment for further details. DATA REVIEW: Recent Results (from the past 24 hours) POCT Glucose Meter Collection Time: 07/23/24 4:46 PM Result Value Ref Range POC Glucose 104 (H) 70 - 100 mg/dL Hepatic function panel Collection Time: 07/24/24 5:30 AM Result Value Ref Range Total Bilirubin 0.3 0.2 - 1.2 mg/dL Bilirubin, Direct <0.2 0.0 - 0.4 mg/dL Alkaline Phosphatase 78 40 - 129 U/L ALT (SGPT) 34 0 - 40 U/L AST 43 (H) 0 - 37 U/L Albumin 4.1 3.3 - 5.2 g/dL Total Protein 7.6 6.0 - 8.5 g/dL Bilirubin, Indirect HCP INVOKED? N/A GUARIASHIP: Patient has a legal guardian, Lamonte Campos. ASSESSMENT/RECOMMENDATIONS: The current psychiatric diagnosis are schizoaffective disorder, bipolartype, adult ADD and appeared to be getting much more agitated with self-injurious behavior at this time. Continue to evaluate patient's mental status and monitor sleep and appetite closely. Continue trazodone 100 mg qhs prn and prozac 40 mg qd. Continue Depakote 500 mg bid with a current level of 100 and ammonia level of 74 on 07/21. Increase clozapine to 75 mg qhs. Continue Risperdal 3 mg bid and risperidone lng acting 125 mg IM monthly with last dosage givein on07/17. Continue Strattera 40 mg qd. Continue lorazepam 2 mg p.o. every 6 hours as needed anxiety, restlessness. Continue Thorazine 50 mg IM every 4 hours as needed severe agitation. Continue Haldol 5 mg IV every 4 hours as needed severe agitation. Continue to observe any potential side effects from psychiatric medications. Will recommend to start tapering antipsychotic medications once behavior is stabilized. Continue to monitor possible interactions between psychiatric medications and medical medications. Continue to provide counseling to help patient deal with stressors,and provide education and support. Continue to work with medicine/surgery to help facilitate patient's clinical progress. Patient will need to go to inpatient psychiatric facility as he is medically cleared. Plans and Expectations discussed. I have provided support and counseling for the patient and/or family to help the patient dealing tothe significant psychosis and continue to adjust psychiatric medication. I have also coordinated care with JIMMY, YOUNG, Psych Navigator and hospitalist to help transition the patient to the inpatient psychiatric hospital for ongoing psychiatric treatment as patient is medically cleared at this time. RICARDO VALENTINE MD 07/24/2024 10:40 AM * Cheli Morgan MD - 07/23/2024 3:48 PM EST [facility] Hospitalist Progress Note Patient: Rob Almeida : 2000 Date of Service: 07/23/2024 Hospital Day: 5 PCP: Required, No Pcp/Pcp Not Chief Complaint: CC on Admission: Drug / Alcohol Assessment The patient remains in the hospital due to ongoing treatment / workup for schizoaffective disorder,psychosis, possible SI. Overnight Events: No new overnight events and Nursing notes reviewed Subjective : No new complaints. Right arm not really hurting him. Review of Systems: Review of systems negative except as per above. Chronic Problems: Past Medical History: Diagnosis Date ADD (attention deficit disorder) Adderall use disorder, severe ([facility]) Anxiety Asperger syndrome Asperger's disorder 11/15/2020 Attention-deficit hyperactivity disorder, unspecified type 01/11/2021 Bipolar disorder ([facility]) Delusional disorder ([facility]) 02/23/2020 Depression Elevated blood pressure reading without diagnosis of hypertension Essential (primary) hypertension 06/28/2020 ICD-10 Qualified Code(s): I10 - Essential (primary) hypertension; Hypertension type - unspecified; Ibuprofen overdose 07/18/2024 Insomnia 11/22/2021 F/B PSYCH 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 Mood disorder ([facility]) Obesity Paranoid delusion ([facility]) Pelvic kidney Perinephric fluid collection 07/18/2024 Schizoaffective disorder ([facility]) Schizoaffective disorder, bipolar type ([facility]) 01/11/2021 Medications: Scheduled Meds: Current Facility-Administered Medications: clozapine (CLOZARIL) tablet 50 mg, Oral, Nightly divalproex (DEPAKOTE) DR tablet 500 mg, Oral, Nightly cholecalciferol (25 mcg/1000 units) (VITAMIN D3) tablet 25 mcg, Oral, Daily lisinopril (PRINIVIL,ZESTRIL) tablet 10 mg, Oral, Daily divalproex (DEPAKOTE) DR tablet 500 mg, Oral, Daily FLUoxetine (PROzac) capsule 40 mg, Oral, Daily risperiDONE (RisperDAL) tablet 3 mg, Oral, BID POM: atomoxetine (STRATTERA) capsule 40 mg, Oral, Daily POM: Risperidone ER 125mg / 0.35mL Prefilled Syringe, Subcutaneous, q28 days enoxaparin (LOVENOX) syringe 40 mg, Subcutaneous, q24h Continuous Infusions: PRN Meds:. Current Facility-Administered Medications: traZODone (DESYREL) tablet 100 mg, Oral, Nightly PRN LORazepam (ATIVAN) tablet 2 mg, Oral, q6h PRN metoprolol tartrate (LOPRESSOR) injection 5 mg, Intravenous, q4h PRN haloperidol lactate (HALDOL) injection 5 mg, Intravenous, q4h PRN chlorproMAZINE (THORAZINE) injection 50 mg, Intramuscular, q4h PRN LORazepam (ATIVAN) injection 1 mg, Intravenous, q4h PRN LORazepam (ATIVAN) injection 2 mg, Intravenous, q4h PRN senna (SENOKOT) tablet 2 tablet, Oral, Nightly PRN docusate sodium (COLACE) capsule 100 mg, Oral, BID PRN bisacodyl (DULCOLAX) EC tablet 10 mg, Oral, Daily PRN nystatin (MYCOSTATIN) powder 1 Application, Topical, BID PRN Adult Over the Counter Medication Algorithm, Route N/A, PRN ondansetron (ZOFRAN) injection 4 mg, Intravenous, q6h PRN acetaminophen (TYLENOL) tablet 1,000 mg, Oral, q8h PRN Objective : Vital Signs: Temp: [97.4 ??F (36.3 ??C)-98 ??F (36.7 ??C)] 97.4 ??F (36.3 ??C) Pulse: [63-90] 85 Resp: [18-20] 20 BP: (109-134)/(70-85) 134/73 SpO2: [94 %-99 %] 97 % 113.4 kg (250 lb) Body mass index is 39.16 kg/m??. I/O: Intake/Output Summary (Last 24 hours) at 07/23/2024 1548 Last data filed at 07/23/2024 1415 Gross per 24 hour Intake 800 ml Output -- Net 800 ml Physical Exam: General: male in bed, NAD Cardiovascular: No peripheral edema Respiratory: Nonlabored breathing on room air Extremities and Musculoskeletal: Mild right antecubital erythema and induration, no lower extremityedema Neuro: Alert and oriented, moves all extremity Psych: Appropriate Patient was seen and evaluated while wearing the following personal protection equipment: none because of No active isolations precautions. Labs: Reviewed in [facility]. Daily Labs: CBC Recent Labs 07/22/24 1149 WBC 6.3 HGB 12.3* HCT 36.7* MCV 89 PLT 259 BMP Recent Labs 07/21/24 0601 07/22/24 0558 07/23/24 0626 NA 139 137 136 K 4.2 4.3 4.1 CL 105 104 101 CO2 21* 21* 23* BUN 19 19 18 CREAT 1.2 1.2 1.1 CALCIUM 9.2 9.2 9.5 LFT Recent Labs 07/22/24 0558 ALBUMIN 4.0 BILITOT 0.2 ALT 32 AST 37 ALKPHOS 74 Coags No results for input(s): INR , PT , APTT in the last 72 hours. Microbiology: Reviewed in [facility]. Studies/Imaging: Independently reviewed by me. No notes on file Assessment & Plan : Rob Almeida is a 23 y.o. male w/ hx of schizoaffective disorder, autism, ADD, major depression with prior SI, recent discharge 3 days [facility] from [facility] psych facility after 5 month admission, who was found wandering after possible drug ingestion and reported nonadherence to psych meds, w/course notable for episodes of seizure-like activity suspected to be pseudoseizures, episodes of psychosis/agitation and possible suicidal attempt, and rhabdomyolysis. Patient is medically stable fordischarge to inpatient psych facility when bed is available. Principal Problem: Witnessed seizure-like activity (CMS/HCC) (POA: Yes) Active Problems: Acute kidney injury (CMS/HCC) (POA: Yes) Altered mental status, unspecified (POA: Yes) Metabolic acidosis (POA: Yes) Transaminitis (POA: Yes) Normocytic anemia (POA: Yes) Elevated CK (POA: Clinically Undetermined) Altered mental status (POA: Yes) Problem Based Plan of Care: # Recurrent episodes of seizure-like activity Had an episode of unresponsiveness in the ED associated with tachycardia and eyelid fluttering/tremors lasted 2 to 3 minutes, given Ativan. Had recurrent episode the next day on medicine floor. No incontinence, tongue biting. CT head unremarkable. U-Tox negative. EEG showed mild bilateral cerebral dysfunction, maximal right greater than left temporal lesion without definite epileptiform discharges. Unable to obtain continuous EEG due to patient cooperation. Seen by neurology, unclear etiology of brief episodes of reduced interactivity without LOC, psychogenic seizures possible. Neurology did not recommend AED at this time. -- Appreciate neurology recommendation -- Seizure precautions -- Continue to monitor # Psychosis with underlying schizoaffective disorder, autism, major depression, possible drug intoxication # Possible suicidal attempt Patient spent 5 months at psych facility and was just discharged to live with his dad 3 days prior to presentation. He reports ingesting 2 candies that were given to him by someone at the psych facility. He was found wandering in the street and per ED documentation suspected intoxication and beingunder the influence . Per father, patient has not been compliant with his psych medications since home. Multiple BERTs during this admission for possible suicidal attempt where he went with max strength into a glass window on P6, for hallucinations/abnormal behavior, for agitation. He has LFT abnormality and elevated ammonia. VPA level 100. Patient was seen by psychiatry, meds adjusted, recommending and patient psych placement. -- Continue psych meds as per psychiatry, depakote dose reduced d/t elevated ammonia and transaminitis -- Follow-up clozapine level -- Awaiting inpatient psych placement -- Continue sitter -- Patient cannot leave AMA # Right upper extremity swelling and pain Due to catheter associated superficial thrombophlebitis as seen on ultrasound -- Cold compress as needed # Acute kidney injury Creatinine 1.7 on admission. Baseline 1.1. Initial UA unremarkable. Suspect prerenal etiology. Resolved with IV fluid. # Rhabdomyolysis CK elevated 2568. May be related to multiple episodes of tremors/psychotic events. May be baseline.Given IV fluid and stable. Initial UA negative for blood. # Abnormal LFTs Chronic. May be related to his psych medications such as depakote which was reduced. May be relatedto rhabdomyolysis. Pt also obese so may have RAMOS. -- Outpatient follow-up # Vitamin D deficiency -- D3 25 mcg daily # Hypertension: Lisinopril Consults During Current Admission: Neurology and Psychiatry. FENGI: Adult Diet Regular DVT Prophylaxis: Active Anticoagulation Orders Report (From admission, onward) Ordered Ordering Provider [facility] Jul 16, 2024 11:12 PM 07/16/24 2312 enoxaparin (LOVENOX) syringe 40 mg (BMI under 40 kg/m2 and/or weight under 100kg AND Normal Renal Function (CrCl 30+ mL/min)) Every 24 hours Note to Pharmacy: Pharmacist to round to nearest Measurable Dose Authorizing Provider: Stan Nolan MD End Date/Time: Until Discontinued PRN Reasons: -- References: Erica-Comp Ordering and Monitoring Of Anticoagulants Policy Drug Administration Guideline Question: Indications for Anticoagulants Answer: Deep Vein Thrombosis Prophylaxis Stan Nolan MD CODE: Full Code DISPOSITION: Behavioral Health Boarder, Expected post-hospitalization disposition will be to Inpatient psychiatry transfer . The patient is medically ready for discharge. . Cheli Morgan MD Hospitalist [facility] 07/23/2024 3:48 PM (Note was created in part with medical speech recognition software. Despite attempts at proof-reading, unintentional errors may be present resulting in the change of meaning or intent. Please contactme directly if you have any questions regarding this note). * Ricardo Valentine MD - 07/23/2024 11:57 AM EST Daily Progress Note DATE OF SERVICE:07/23/2024 CHIEF COMPLAINT/PRESENTING PROBLEM: I am just bored. HPI/HOSPITAL COURSE: The patient is a 23 y.o. male with a history of schizoaffective disorder bipolar type, Asperger syndrome, autism spectrum disorder, attention deficit disorder, severe Adderall use disorder, generalized anxiety disorder, obesity, paranoid delusion, pelvic kidney who presented on 07/16/2024 to the Emergency Department with altered mental status. Patient was discharged to his father's care from [facility] on July 14after a 5-month stay. Unfortunately, the patient did not take any of his psychotropic medications since return home after discharge. Patient was found wandering on his way to the dispensary. He reported taking 2 candies that were given to him by someone at [facility] with the presumption that th ey contained illicit substances. He was described as seemingly under the influence. Patient reports taking 2 regular candy Gummies and denied any illicit substance. He told neurology he took 2 candies called wilner. Patient refused to provide more information while being seen in the emergency department. While in the emergency department he had an episode of unresponsiveness associated with sinus tachycardia andeyelids fluttering. Nurse Vivien Albert stated that he was not responding to sternal rubs, helped his eyelids open and observed that the eyes were rolled back. He did not have incontinence or tongue biting. EMS reported of a similar episode and for some reason they were suspicious of psychogenic etiology. Unclear whether patient has benzodiazepine use disorder as he received 2 mg of IV Ativan withthis episode. QTc 522, COVID-19 testing was negative, acetaminophen, salicylate and alcohol levels were undetected, urine drug screen negative. Head CT nonacute. When I spoke with patient, he was paranoid, he was upset because he thought that I implied that Iwas going to send him to a psychiatric hospital. He became somewhat agitated. We called his father Mani and spoke with him on speakerphone. Father was planning to come to the hospital within a couple of hours to bring a medication that the patient was due to take and father reported that he was overdue for this. Father reports that patient was at [facility] for 5 months with recent discharge3 days ago. Unclear why the patient did not take any of his medications over the past 2 to 3 days, patient alsoparticipating in a day program, partial program at [facility] in [place]. Patient also receives [facility] services through the pact team. Patient with irritability, restlessness, upon arrival to the floor several hours later at approximately 4 PM, he ran out of bed and down the boggs and hit his head against a large window. He was sent for head CT which is negative. Security was called and he was put in restraints for his own safety. Ronald was called as he was calm in bed and then jumped out of bed, ripped his EKG leads off and pushed past staff to leave the room. RN reports that he appeared angry, wanting to leave and was somewhat intimidating. He left the room and began running the halls and attempting to go into other patient's rooms. He then ran full speed into the full pain of window at the end of [address] headfirst andbounce off the glass landing on the ground. He then got up and ran to the other and where staff andsecurity were able to intervene and assist him to the ground. Patient was pale and staring but answering questions. Patient was sent head CT, for CT and C-spine. He described feeling numb all over. Upon arrival to the floor he did not remember why he was in the hospital and asked what happened? He continued to attempt to get out of bed and sit up, security restrain him as he would not respond. He was given Haldol 5 mg IV. I spoke with Jeanie from the [employer] [facility] for medication options for agitation. Pt has responded well to thorazine 50 mg IM, decreased response to haldol 5 mg iv x1. 07/18/24 Patient with significant paranoia, delusional thought, agitation who has required security with 4-point restraints. EEG pending as patient is having questionable seizure episodes versus pseudoseizure. Patient with pressured speech, at times has difficulty responding to questions. RONALD called due to agitation, got out of wrist restraint and swelling at sitter. Placed in 4-point restraints champ.Patient responding well to going to the toilet for bowel movement but able to urinate in a urinal. Trying to minimize patient's restlessness and agitation. Continue current regimen and follow the patient's progress. 07/19/24 Spoke with patient and father regarding patient's behavior. Father reports that patient sometimes is not compliant and refuses his medications. Previously patient had been living in a custodial and his brother pulled him out believing that he could take care of him and unfortunately cannot now thepatient is in the hospital and may not be able to return home to his father's care. Father, Mani reports that he may not be able to care for the patient given the patient's agitation, psychosis and refusal to take medications. Patient has been in and out of restraints due to agitation. Patient with suicide attempt on 07/17/2024 as he was running up and down the boggs and banging his head against the window requiring a CAT scan which was negative and currently sitter with 4-point restraints decreased down to 2-point restraints. Continue current regimen, will speak with Nhi Lyons in the morning regarding potential bed search once the patient is medically cleared. Patient has not had episodes of seizure. He was witnessed having pseudoseizure activity by the neurologist on presentation, they were able to perform limited EEG and neurologist does not feel that these are neurological seizures. Once patient is medically cleared by the medical team, we can start inpatient psychiatry bed search for inpatient psychiatry due to psychosis and suicidality. 07/20/24 Patient continues to have sitter, suicide precautions due to risk of self-harm. Tolerates current medication without oversedation or EPS. Tolerates Depakote 500 mg p.o. daily, 1000 mg p.o. nightly for mood management, anxiety and agitation, trazodone 100 mg p.o. nightly as needed insomnia, fluoxetine 40 mg p.o. daily, risperidone 3 mg p.o. twice daily, Strattera 40 mg p.o. daily. Patient has been redirectable, describes a decrease in hallucinations. Continues to have paranoia. Patient's father Mani reports that patient has had longstanding paranoia and hallucinations. He is much more redirectable with compliance of medications. Patient is medically cleared, appreciated inpatient psychiatrybed search underway. Continue to follow the patient's progress. 07/21: toll bridge attendant notes, nursing notes, and hospitalist notes appreciated. The patient continued to be more able to cooperate with nursing care and has been compliant with psychiatric medications at thistime. The patient continued to require one-to-one sitter due to his impulsivity. The patient continued to be getting trazodone at night to help him sleep. Since we are titrating up the clozapine dosage, I will increase Clozapine to 50 mg at night in hope patient can sleep better without using prn medications. The patient was on Clozapine 100 mg twice a day prior to coming to the hospital but he has not complied with medication for at least 2 to 3 days prior to this admission. Depakote level was at 100 and ammonia level was at 74, therefore, I will reduce Depakote to 500 mg twice a day at thistime. There was no signs of fever, chest pain, nausea, abdominal pain, or dysuria. There was no significant shortness of breath noticed. There was no oversedation or EPS noticed. We will continue to monitor. 07/22: The patient continued to be reasonably cooperative with nursing care and has been compliant with p.o. medication except he has not been taking Strattera. He tolerated the increased dosage of clozapine and appeared to be sleeping better overnight without needing trazodone dosing. Patient is medically cleared and bed search is ongoing at this time. There was no signs of fever, chest pain, nausea, abdominal pain, or dysuria. There was no significant shortness of breath noticed. The patient continued to show paranoia. There was no oversedation or EPS noticed. We will continue to monitor. 07/23: The patient continued to be free of aggressive behavior and has been able to follow nursing directions and comply with psychiatric medication without problems. He also told me he has been sleeping better. I will further increase Clozapine to 75 mg at night with the target at 100 mg twice a dayas this was patient's prior dosing. There was no signs of fever, chest pain, nausea, abdominal pain, or dysuria. There was no significant shortness of breath noticed. I continue to work with psychiatric navigator to help place the patient in the inpatient psychiatric level care. There was no oversedation or EPS noticed. We will continue to monitor. VITAL SIGNS-LAST 24 HOURS: Temp: [97.4 ??F (36.3 ??C)-98 ??F (36.7 ??C)] 97.4 ??F (36.3 ??C) Pulse: [63-90] 85 Resp: [18-20] 20 BP: (109-134)/(70-85) 134/73 SpO2: [94 %-99 %] 97 % DAILY WEIGHTS: Weight: 113.4 kg (250 lb) CURRENT MEDICATIONS: Current Facility-Administered Medications: clozapine (CLOZARIL) tablet 50 mg, 50 mg, Oral, Nightly, Ricardo Valentine MD, 50 mg at 07/22/242038 divalproex (DEPAKOTE) tablet 500 mg, 500 mg, Oral, Nightly, Ricardo Valentine MD, 500 mg at 07/22/242038 cholecalciferol (25 mcg/1000 units) (VITAMIN D3) tablet 25 mcg, 25 mcg, Oral, Daily, Cheli Morgan MD, 25 mcg at 07/23/241044 lisinopril (PRINIVIL,ZESTRIL) tablet 10 mg, 10 mg, Oral, Daily, Kitty Fernando MD, 10 mg at 07/23/241045 traZODone (DESYREL) tablet 100 mg, 100 mg, Oral, Nightly PRN, Zenaida Gold MD, 100 mg at 07/20/242039 divalproex (DEPAKOTE) DR tablet 500 mg, 500 mg, Oral, Daily, Zenaida Gold MD, 500 mg at 07/23/241044 FLUoxetine (PROzac) capsule 40 mg, 40 mg, Oral, Daily, Zenaida Gold MD, 40 mg at 07/23/241044 risperiDONE (RisperDAL) tablet 3 mg, 3 mg, Oral, BID, Zenaida Gold MD, 3 mg at 07/23/241044 POM: atomoxetine (STRATTERA) capsule 40 mg, 40 mg, Oral, Daily, Zenaida Gold MD, 40 mgat 07/23/241045 LORazepam (ATIVAN) tablet 2 mg, 2 mg, Oral, q6h PRN, Zenaida Gold MD metoprolol tartrate (LOPRESSOR) injection 5 mg, 5 mg, Intravenous, q4h PRN, Zenaida Gold MD, 5 mg at 07/17/24 2230 POM: Risperidone ER 125mg / 0.35mL Prefilled Syringe, 125 mg, Subcutaneous, q28 days, Zenaida Gold MD, 125 mg at 07/17/24 1904 haloperidol lactate (HALDOL) injection 5 mg, 5 mg, Intravenous, q4h PRN, Leeanna Pimentel MD, 5 mg at 07/18/24 0243 chlorproMAZINE (THORAZINE) injection 50 mg, 50 mg, Intramuscular, q4h PRN, Rachael Daugherty NP, 50 mg at 07/18/24 1127 LORazepam (ATIVAN) injection 1 mg, 1 mg, Intravenous, q4h PRN, Rachael Daugherty NP LORazepam (ATIVAN) injection 2 mg, 2 mg, Intravenous, q4h PRN, Rachael Daugherty NP, 2 mg at 07/17/24 2344 senna (SENOKOT) tablet 2 tablet, 2 tablet, Oral, Nightly PRN, Stan Nolan MD docusate sodium (COLACE) capsule 100 mg, 100 mg, Oral, BID PRN, Stan Nolan MD bisacodyl (DULCOLAX) EC tablet 10 mg, 10 mg, Oral, Daily PRN, Stan Nolan MD nystatin (MYCOSTATIN) powder 1 Application, 1 Application, Topical, BID PRN, Stan Nolan MD Adult Over the Counter Medication Algorithm, , Route N/A, PRN, Stan Nolan MD ondansetron (ZOFRAN) injection 4 mg, 4 mg, Intravenous, q6h PRN, Stan Nolan MD acetaminophen (TYLENOL) tablet 1,000 mg, 1,000 mg, Oral, q8h PRN, Stan Nolan MD enoxaparin (LOVENOX) syringe 40 mg, 40 mg, Subcutaneous, q24h, Stan Nolan MD, 40 mg at 07/23/24 1046 PHYSICAL EXAM: Please refer to [facility] medical assessment which I have reviewed for further details. MENTAL STATUS EXAM: Sensorium: Alert Sedation-Agitation: Overall calmer Appearance: Normal Grooming Behavior/Activity: Overall calmer Speech: coherent but concrete Affect: Mildly to moderately anxious Mood: Mildly to moderately anxious Thought Form: Organized but concrete Thought Content: Less delusional Perceptual: Denied having hallucinations Delusional Thoughts: Less paranoid Suicidal Ideation: denied Homicidal Ideation: None Orientation: Person/place/time Memory: Intact Judement/Impairment: Impaired due to mental illness Attention/Concentration: good Capacity: Patient has a legal guardian Frontal Release Signs: Within Normal Limits EPS: Within Normal Limits Cranial Nerves: Within Normal Limits Motor Tone/Strength: [facility]. Gait: Please refer to [facility] medical assessment for further details. Sensory: Please refer to [facility] medical assessment for further details. DATA REVIEW: Recent Results (from the past 24 hours) Blood Culture, Peripheral #2 Collection Time: 07/22/24 12:11 PM Specimen: Blood, Venous Result Value Ref Range Culture Culture in progress BASIC METABOLIC PANEL Collection Time: 07/23/24 6:26 AM Result Value Ref Range Glucose 93 70 - 100 mg/dL BUN 18 6 - 19 mg/dL Creatinine 1.1 0.4 - 1.2 mg/dL eGFR >60.00 >60.00 mL/min/1.73m*2 Sodium 136 135 - 145 mmol/L Potassium 4.1 3.4 - 5.1 mmol/L Chloride 101 98 - 109 mmol/L CO2 23 (L) 24 - 32 mmol/L Anion Gap 12 6 - 12 mmol/L Calcium 9.5 8.5 - 10.5 mg/dL Estimated Creatinine Clearance 125.6 mL/min HCP INVOKED? N/A GUARIASHIP: Patient has a legal guardian, Lamonte Campos. ASSESSMENT/RECOMMENDATIONS: The current psychiatric diagnosis are schizoaffective disorder, bipolartype, adult ADD and continued to be free of aggressive behavior Continue to evaluate patient's mental status and monitor sleep and appetite closely. Continue trazodone 100 mg qhs prn and prozac 40 mg qd. Continue Depakote 500 mg bid with a current level of 100 and ammonia level of 74 on 2/4. Increase clozapine to 75 mg qhs. Continue Risperdal 3 mg bid and risperidone lng acting 125 mg IM monthly with last dosage givein on07/17. Continue Strattera 40 mg qd. Continue lorazepam 2 mg p.o. every 6 hours as needed anxiety, restlessness. Continue Thorazine 50 mg IM every 4 hours as needed severe agitation. Continue Haldol 5 mg IV every 4 hours as needed severe agitation. Continue to observe any potential side effects from psychiatric medications. Will recommend to start tapering antipsychotic medications once behavior is stabilized. Continue to monitor possible interactions between psychiatric medications and medical medications. Continue to provide counseling to help patient deal with stressors,and provide education and support. Continue to work with medicine/surgery to help facilitate patient's clinical progress. Patient will need to go to inpatient psychiatric facility as he is medically cleared. Plans and Expectations discussed. I have provided support and counseling for the patient and/or family to help the patient dealing tothe significant psychosis and continue to adjust psychiatric medication. I have also coordinated care with JIMMY, YOUNG, Psych Navigator and hospitalist to help transfer to the inpatient psychiatric hospital for ongoing psychiatric treatment as patient is medically cleared at this time. RICARDO VALENTINE MD 07/23/2024 11:57 AM * Cheli Morgan MD - 07/22/2024 11:36 AM EST [facility] Hospitalist Progress Note Patient: Rob Almeida : 2000 Date of Service: 07/22/2024 Hospital Day: 4 PCP: Required, No Pcp/Pcp Not Chief Complaint: CC on Admission: Drug / Alcohol Assessment The patient remains in the hospital due to ongoing treatment / workup for schizoaffective disorder,psychosis, possible SI. Overnight Events: No new overnight events and Nursing notes reviewed Subjective : No new complaints. Awaiting inpatient psych placement. Review of Systems: Review of systems negative except as per above. Chronic Problems: Past Medical History: Diagnosis Date ADD (attention deficit disorder) Adderall use disorder, severe ([facility]) Anxiety Asperger syndrome Asperger's disorder 11/15/2020 Attention-deficit hyperactivity disorder, unspecified type 01/11/2021 Bipolar disorder ([facility]) Delusional disorder ([facility]) 02/23/2020 Depression Elevated blood pressure reading without diagnosis of hypertension Essential (primary) hypertension 06/28/2020 ICD-10 Qualified Code(s): I10 - Essential (primary) hypertension; Hypertension type - unspecified; Ibuprofen overdose 07/18/2024 Insomnia 11/22/2021 F/B PSYCH 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 Mood disorder ([facility]) Obesity Paranoid delusion ([facility]) Pelvic kidney Perinephric fluid collection 07/18/2024 Schizoaffective disorder [place] Schizoaffective disorder, bipolar type ([facility]) 01/11/2021 Medications: Scheduled Meds: Current Facility-Administered Medications: clozapine (CLOZARIL) tablet 50 mg, Oral, Nightly divalproex (DEPAKOTE) DR tablet 500 mg, Oral, Nightly cholecalciferol (25 mcg/1000 units) (VITAMIN D3) tablet 25 mcg, Oral, Daily lisinopril (PRINIVIL,ZESTRIL) tablet 10 mg, Oral, Daily divalproex (DEPAKOTE) DR tablet 500 mg, Oral, Daily FLUoxetine (PROzac) capsule 40 mg, Oral, Daily risperiDONE (RisperDAL) tablet 3 mg, Oral, BID atomoxetine (STRATTERA) capsule 40 mg, Oral, Daily POM: Risperidone ER 125mg / 0.35mL Prefilled Syringe, Subcutaneous, q28 days enoxaparin (LOVENOX) syringe 40 mg, Subcutaneous, q24h Continuous Infusions: PRN Meds:. Current Facility-Administered Medications: traZODone (DESYREL) tablet 100 mg, Oral, Nightly PRN LORazepam (ATIVAN) tablet 2 mg, Oral, q6h PRN metoprolol tartrate (LOPRESSOR) injection 5 mg, Intravenous, q4h PRN haloperidol lactate (HALDOL) injection 5 mg, Intravenous, q4h PRN chlorproMAZINE (THORAZINE) injection 50 mg, Intramuscular, q4h PRN LORazepam (ATIVAN) injection 1 mg, Intravenous, q4h PRN LORazepam (ATIVAN) injection 2 mg, Intravenous, q4h PRN senna (SENOKOT) tablet 2 tablet, Oral, Nightly PRN docusate sodium (COLACE) capsule 100 mg, Oral, BID PRN bisacodyl (DULCOLAX) EC tablet 10 mg, Oral, Daily PRN nystatin (MYCOSTATIN) powder 1 Application, Topical, BID PRN Adult Over the Counter Medication Algorithm, Route N/A, PRN ondansetron (ZOFRAN) injection 4 mg, Intravenous, q6h PRN acetaminophen (TYLENOL) tablet 1,000 mg, Oral, q8h PRN Objective : Vital Signs: Temp: [97.5 ??F (36.4 ??C)-98.9 ??F (37.2 ??C)] 97.5 ??F (36.4 ??C) Pulse: [72-95] 86 Resp: [18] 18 BP: (97-127)/(58-82) 97/66 SpO2: [97 %-100 %] 97 % 113.4 kg (250 lb) Body mass index is 39.16 kg/m??. I/O: No intake or output data in the 24 hours ending 07/22/24 1136 Physical Exam: General: male ambulating in room, NAD Cardiovascular: No peripheral edema Respiratory: Nonlabored breathing on room air Extremities and Musculoskeletal: No lower extremity edema Neuro: Alert and oriented, moves all extremity Psych: Appropriate Patient was seen and evaluated while wearing the following personal protection equipment: none because of No active isolations precautions. Labs: Reviewed in Epic. Daily Labs: CBC Recent Labs 07/20/24 0530 WBC 9.0 HGB 12.4* HCT 36.9* MCV 89 PLT 225 BMP Recent Labs 07/20/24 0530 07/21/24 0601 07/22/24 0558 NA 142 139 137 K 3.9 4.2 4.3 CL 105 105 104 CO2 21* 21* 21* BUN 18 19 19 CREAT 1.4* 1.2 1.2 CALCIUM 9.1 9.2 9.2 LFT Recent Labs 07/20/24 0530 07/22/24 0558 ALBUMIN 4.0 4.0 4.0 BILITOT 0.4 0.4 0.2 ALT 41* 41* 32 AST 52* 52* 37 ALKPHOS 80 80 74 Coags No results for input(s): INR , PT , APTT in the last 72 hours. Microbiology: Reviewed in Epic. Studies/Imaging: Independently reviewed by me. No notes on file Assessment & Plan : Rob Almeida is a 23 y.o. male w/ hx of schizoaffective disorder, autism, ADD, major depression with prior SI, recent discharge 3 days [facility] from [facility] psych facility after 5 month admission, who was found wandering after possible drug ingestion and reported nonadherence to psych meds, w/course notable for episodes of seizure-like activity suspected to be pseudoseizures, episodes of psychosis/agitation and possible suicidal attempt, and rhabdomyolysis. Patient is medically stable fordischarge to inpatient psych facility when available. Principal Problem: Witnessed seizure-like activity (CMS/HCC) (POA: Yes) Active Problems: Acute kidney injury (CMS/HCC) (POA: Yes) Altered mental status, unspecified (POA: Yes) Metabolic acidosis (POA: Yes) Transaminitis (POA: Yes) Normocytic anemia (POA: Yes) Elevated CK (POA: Clinically Undetermined) Altered mental status (POA: Yes) Problem Based Plan of Care: # Recurrent episodes of seizure-like activity Had an episode of unresponsiveness in the ED associated with tachycardia and eyelid fluttering/tremors lasted 2 to 3 minutes, given Ativan. Had recurrent episode the next day on medicine floor. No incontinence, tongue biting. CT head unremarkable. U-Tox negative. EEG showed mild bilateral cerebral dysfunction, maximal right greater than left temporal lesion without definite epileptiform discharges. Unable to obtain continuous EEG due to patient cooperation. Seen by neurology, unclear etiology of brief episodes of reduced interactivity without LOC, psychogenic seizures possible. Neurology did not recommend AED at this time. -- Appreciate neurology recommendation -- Seizure precautions -- Continue to monitor # Psychosis with underlying schizoaffective disorder, autism, major depression, possible drug intoxication # Possible suicidal attempt Patient spent 5 months at psych facility and was just discharged to live with his dad 3 days prior to presentation. He reports ingesting 2 candies that were given to him by someone at the psych facility. He was found wandering in the street and per ED documentation suspected intoxication and beingunder the influence . Per father, patient has not been compliant with his psych medications since home. Multiple BERTs during this admission for possible suicidal attempt where he went with max strength into a glass window on P6, for hallucinations/abnormal behavior, for agitation. He has LFT abnormality and elevated ammonia. VPA level 100. Patient was seen by psychiatry, meds adjusted, recommending and patient psych placement. -- Continue psych meds as per psychiatry, depakote dose reduced d/t elevated ammonia and transaminitis -- Follow-up clozapine level -- Awaiting inpatient psych placement -- Continue sitter -- Patient cannot leave AMA # Right upper extremity swelling and pain Likely catheter associated phlebitis. --Right upper extremity ultrasound # Acute kidney injury Creatinine 1.7 on admission. Baseline 1.1. Initial UA unremarkable. Suspect prerenal etiology. Resolved with IV fluid. # Rhabdomyolysis CK elevated 2568. May be related to multiple episodes of tremors/psychotic events. May be baseline.Given IV fluid and stable. Initial UA negative for blood. # Abnormal LFTs Chronic. May be related to his psych medications such as depakote which was reduced. May be relatedto rhabdomyolysis. Pt also obese so may have RAMOS. -- Outpatient follow-up # Vitamin D deficiency -- D3 25 mcg daily # Hypertension: Lisinopril Consults During Current Admission: Neurology and Psychiatry. FENGI: Adult Diet Regular DVT Prophylaxis: Active Anticoagulation Orders Report (From admission, onward) Ordered Ordering Provider [facility] Jul 16, 2024 11:12 PM 07/16/24 2312 enoxaparin (LOVENOX) syringe 40 mg (BMI under 40 kg/m2 and/or weight under 100kg AND Normal Renal Function (CrCl 30+ mL/min)) Every 24 hours Note to Pharmacy: Pharmacist to round to nearest Measurable Dose Authorizing Provider: Stan Nolan MD End Date/Time: Until Discontinued PRN Reasons: -- References: Erica-Comp Ordering and Monitoring Of Anticoagulants Policy Drug Administration Guideline Question: Indications for Anticoagulants Answer: Deep Vein Thrombosis Prophylaxis Stan Nolan MD CODE: Full Code DISPOSITION: Behavioral Health Boarder, Expected post-hospitalization disposition will be to Inpatient psychiatry transfer . The patient is medically ready for discharge. . Cheli Morgan MD [facility] 07/22/2024 11:36 AM (Note was created in part with medical speech recognition software. Despite attempts at proof-reading, unintentional errors may be present resulting in the change of meaning or intent. Please contactme directly if you have any questions regarding this note). * Ricardo Valentine MD - 07/22/2024 11:04 AM EST Daily Progress Note DATE OF SERVICE:07/22/2024 CHIEF COMPLAINT/PRESENTING PROBLEM: I am okay. HPI/HOSPITAL COURSE: The patient is a 23 y.o. male with a history of schizoaffective disorder bipolar type, Asperger syndrome, autism spectrum disorder, attention deficit disorder, severe Adderall use disorder, generalized anxiety disorder, obesity, paranoid delusion, pelvic kidney who presented on 07/16/2024 to the Emergency Department with altered mental status. Patient was discharged to his father's care from [facility] on July 14after a 5-month stay. Unfortunately, the patient did not take any of his psychotropic medications since return home after discharge. Patient was found wandering on his way to the dispensary. He reported taking 2 candies that were given to him by someone at [facility] with the presumption that th ey contained illicit substances. He was described as seemingly under the influence. Patient reports taking 2 regular candy Gummies and denied any illicit substance. He told neurology he took 2 candies called wilner. Patient refused to provide more information while being seen in the emergency department. While inthe emergency department he had an episode of unresponsiveness associated with sinus tachycardia and eyelids fluttering. Nurse Vivien Albert stated that he was not responding to sternal rubs, helped his eyelids open and observed that the eyes were rolled back. He did not have incontinence or tongue biting. EMS reported of a similar episode and for some reason they were suspicious of psychogenic etiology. Unclear whether patient has benzodiazepine use disorder as he received 2 mg of IV Ativan with this episode. QTc 522, COVID-19 testing was negative, acetaminophen, salicylate and alcohol levels were undetected, urine drug screen negative. Head CT nonacute. When I spoke with patient, he was paranoid, he was upset because he thought that I implied that Iwas going to send him to a psychiatric hospital. He became somewhat agitated. We called his father Mani and spoke with him on speakerphone. Father was planning to come to the hospital within a couple of hours to bring a medication that the patient was due to take and father reported that he was overdue for this. Father reports that patient was at [facility] for 5 months with recent discharge3 days ago. Unclear why the patient did not take any of his medications over the past 2 to 3 days, patient alsoparticipating in a day program, partial program at [facility] in [place]. Patient also receives [facility] services through the pact team. Patient with irritability, restlessness, upon arrival to the floor several hours later at approximately 4 PM, he ran out of bed and down the boggs and hit his head against a large window. He was sent for head CT which is negative. Security was called and he was put in restraints for his own safety. Ronald was called as he was calm in bed and then jumped out of bed, ripped his EKG leads off and pushed past staff to leave the room. RN reports that he appeared angry, wanting to leave and was somewhat intimidating. He left the room and began running the halls and attempting to go into other patient's rooms. He then ran full speed into the full pain of window at the end of [address] headfirst andbounce off the glass landing on the ground. He then got up and ran to the other and where staff andsecurity were able to intervene and assist him to the ground. Patient was pale and staring but answering questions. Patient was sent head CT, for CT and C-spine. He described feeling numb all over. Upon arrival to the floor he did not remember why he was in the hospital and asked what happened? He continued to attempt to get out of bed and sit up, security restrain him as he would not respond. He was given Haldol 5 mg IV. I spoke with Jeanie from the [employer] for medication options for agitation. Pt has responded well to thorazine 50 mg IM, decreased response to haldol 5 mg iv x1. 07/18/24 Patient with significant paranoia, delusional thought, agitation who has required security with 4-point restraints. EEG pending as patient is having questionable seizure episodes versus pseudoseizure. Patient with pressured speech, at times has difficulty responding to questions. RONALD called due to agitation, got out of wrist restraint and swelling at sitter. Placed in 4-point restraints champ.Patient responding well to going to the toilet for bowel movement but able to urinate in a urinal. Trying to minimize patient's restlessness and agitation. Continue current regimen and follow the patient's progress. 07/19/24 Spoke with patient and father regarding patient's behavior. Father reports that patient sometimes is not compliant and refuses his medications. Previously patient had been living in a custodial and his brother pulled him out believing that he could take care of him and unfortunately cannot now thepatient is in the hospital and may not be able to return home to his father's care. Father, Mani reports that he may not be able to care for the patient given the patient's agitation, psychosis and refusal to take medications. Patient has been in and out of restraints due to agitation. Patient with suicide attempt on 07/17/2024 as he was running up and down the boggs and banging his head against the window requiring a CAT scan which was negative and currently sitter with 4-point restraints decreased down to 2-point restraints. Continue current regimen, will speak with Nhi Lyons in the morning regarding potential bed search once the patient is medically cleared. Patient has not had episodes of seizure. He was witnessed having pseudoseizure activity by the neurologist on presentation, they were able to perform limited EEG and neurologist does not feel that these are neurological seizures. Once patient is medically cleared by the medical team, we can start inpatient psychiatry bed search for inpatient psychiatry due to psychosis and suicidality. 07/20/24 Patient continues to have sitter, suicide precautions due to risk of self-harm. Tolerates current medication without oversedation or EPS. Tolerates Depakote 500 mg p.o. daily, 1000 mg p.o. nightly for mood management, anxiety and agitation, trazodone 100 mg p.o. nightly as needed insomnia, fluoxetine 40 mg p.o. daily, risperidone 3 mg p.o. twice daily, Strattera 40 mg p.o. daily. Patient has been redirectable, describes a decrease in hallucinations. Continues to have paranoia. Patient's father Mani reports that patient has had longstanding paranoia and hallucinations. He is much more redirectable with compliance of medications. Patient is medically cleared, appreciated inpatient psychiatrybed search underway. Continue to follow the patient's progress. 07/21: toll bridge attendant notes, nursing notes, and hospitalist notes appreciated. The patient continued to be more able to cooperate with nursing care and has been compliant with psychiatric medications at thistime. The patient continued to require one-to-one sitter due to his impulsivity. The patient continued to be getting trazodone at night to help him sleep. Since we are titrating up the clozapine dosage, I will increase Clozapine to 50 mg at night in hope patient can sleep better without using prn medications. The patient was on Clozapine 100 mg twice a day prior to coming to the hospital but he has not complied with medication for at least 2 to 3 days prior to this admission. Depakote level was at 100 and ammonia level was at 74, therefore, I will reduce Depakote to 500 mg twice a day at thistime. There was no signs of fever, chest pain, nausea, abdominal pain, or dysuria. There was no significant shortness of breath noticed. There was no oversedation or EPS noticed. We will continue to monitor. 07/22: The patient continued to be reasonably cooperative with nursing care and has been compliant with p.o. medication except he has not been taking Strattera. He tolerated the increased dosage of clozapine and appeared to be sleeping better overnight without needing trazodone dosing. Patient is medically cleared and bed search is ongoing at this time. There was no signs of fever, chest pain, nausea, abdominal pain, or dysuria. There was no significant shortness of breath noticed. The patient continued to show paranoia. There was no oversedation or EPS noticed. We will continue to monitor. VITAL SIGNS-LAST 24 HOURS: Temp: [97.5 ??F (36.4 ??C)-98.9 ??F (37.2 ??C)] 97.5 ??F (36.4 ??C) Pulse: [72-98] 86 Resp: [18] 18 BP: (97-127)/(58-82) 97/66 SpO2: [97 %-100 %] 97 % DAILY WEIGHTS: Weight: 113.4 kg (250 lb) CURRENT MEDICATIONS: Current Facility-Administered Medications: clozapine (CLOZARIL) tablet 50 mg, 50 mg, Oral, Nightly, Ricardo Valentine MD, 50 mg at 07/21/242112 divalproex (DEPAKOTE) DR tablet 500 mg, 500 mg, Oral, Nightly, Ricardo Valentine MD, 500 mg at 07/21/242112 cholecalciferol (25 mcg/1000 units) (VITAMIN D3) tablet 25 mcg, 25 mcg, Oral, Daily, Cheli Morgan MD, 25 mcg at 07/22/24925 lisinopril (PRINIVIL,ZESTRIL) tablet 10 mg, 10 mg, Oral, Daily, Kitty Fernando MD, 10 mg at 07/21/24847 traZODone (DESYREL) tablet 100 mg, 100 mg, Oral, Nightly PRN, Zenaida Gold MD, 100 mg at 07/20/242039 divalproex (DEPAKOTE) DR tablet 500 mg, 500 mg, Oral, Daily, Zenaida Gold MD, 500 mg at 07/22/24925 FLUoxetine (PROzac) capsule 40 mg, 40 mg, Oral, Daily, Zenaida Gold MD, 40 mg at 07/22/24925 risperiDONE (RisperDAL) tablet 3 mg, 3 mg, Oral, BID, Zenaida Gold MD, 3 mg at 07/22/24925 atomoxetine (STRATTERA) capsule 40 mg, 40 mg, Oral, Daily, Zenaida Gold MD LORazepam (ATIVAN) tablet 2 mg, 2 mg, Oral, q6h PRN, Zenaida Gold MD metoprolol tartrate (LOPRESSOR) injection 5 mg, 5 mg, Intravenous, q4h PRN, Zenaida Gold MD, 5 mg at 07/17/242229 POM: Risperidone ER 125mg / 0.35mL Prefilled Syringe, 125 mg, Subcutaneous, q28 days, Zenaida Gold MD, 125 mg at 07/17/24 190 haloperidol lactate (HALDOL) injection 5 mg, 5 mg, Intravenous, q4h PRN, Leeanna Pimentel MD, 5 mg at 07/18/24 0243 chlorproMAZINE (THORAZINE) injection 50 mg, 50 mg, Intramuscular, q4h PRN, Rachael Daugherty NP, 50 mg at 07/18/24 1127 LORazepam (ATIVAN) injection 1 mg, 1 mg, Intravenous, q4h PRN, Rachael Daugherty NP LORazepam (ATIVAN) injection 2 mg, 2 mg, Intravenous, q4h PRN, Rachael Daugherty NP, 2 mg at 07/17/24 2344 senna (SENOKOT) tablet 2 tablet, 2 tablet, Oral, Nightly PRN, Stan Nolan MD docusate sodium (COLACE) capsule 100 mg, 100 mg, Oral, BID PRN, Stan Nolan MD bisacodyl (DULCOLAX) EC tablet 10 mg, 10 mg, Oral, Daily PRN, Stan Nolan MD nystatin (MYCOSTATIN) powder 1 Application, 1 Application, Topical, BID PRN, Stan Nolan MD Adult Over the Counter Medication Algorithm, , Route N/A, PRN, Stan Nolan MD ondansetron (ZOFRAN) injection 4 mg, 4 mg, Intravenous, q6h PRN, Stan Nolan MD acetaminophen (TYLENOL) tablet 1,000 mg, 1,000 mg, Oral, q8h PRN, Stan Nolan MD enoxaparin (LOVENOX) syringe 40 mg, 40 mg, Subcutaneous, q24h, Stan Nolan MD, 40 mg at 07/21/24 0849 PHYSICAL EXAM: Please refer to today's hospitalist medical assessment which I have reviewed for further details. MENTAL STATUS EXAM: Sensorium: Alert Sedation-Agitation: Reasonably cooperative Appearance: Normal Grooming Behavior/Activity: Reasonably cooperative Speech: coherent but concrete Affect: Anxious at times Mood: Anxious at times Thought Form: Organized but concrete Thought Content: Less delusional Perceptual: Denied having hallucinations Delusional Thoughts: Less paranoid Suicidal Ideation: denied Homicidal Ideation: None Orientation: Person/place/time Memory: Intact Judement/Impairment: Impaired due to mental illness Attention/Concentration: good Capacity: Patient has a legal guardian Frontal Release Signs: Within Normal Limits EPS: Within Normal Limits Cranial Nerves: Within Normal Limits Motor Tone/Strength: Please refer to today's hospitalist medical assessment for further details. Gait: Please refer to today's hospitalist medical assessment for further details. Sensory: Please refer to todays community health systemsist medical assessment for further details. DATA REVIEW: Recent Results (from the past 24 hours) BASIC METABOLIC PANEL Collection Time: 07/22/24 5:58 AM Result Value Ref Range Glucose 93 70 - 100 mg/dL BUN 19 6 - 19 mg/dL Creatinine 1.2 0.4 - 1.2 mg/dL eGFR >60.00 >60.00 mL/min/1.73m*2 Sodium 137 135 - 145 mmol/L Potassium 4.3 3.4 - 5.1 mmol/L Chloride 104 98 - 109 mmol/L CO2 21 (L) 24 - 32 mmol/L Anion Gap 12 6 - 12 mmol/L Calcium 9.2 8.5 - 10.5 mg/dL Estimated Creatinine Clearance 115.1 mL/min Hepatic function panel Collection Time: 07/22/24 5:58 AM Result Value Ref Range Total Bilirubin 0.2 0.2 - 1.2 mg/dL Bilirubin, Direct <0.2 0.0 - 0.4 mg/dL Alkaline Phosphatase 74 40 - 129 U/L ALT (SGPT) 32 0 - 40 U/L AST 37 0 - 37 U/L Albumin 4.0 3.3 - 5.2 g/dL Total Protein 7.5 6.0 - 8.5 g/dL Bilirubin, Indirect HCP INVOKED? N/A GUARIASHIP: Patient has a legal guardian, Lamonte Campos. ASSESSMENT/RECOMMENDATIONS: The current psychiatric diagnosis are schizoaffective disorder, bipolartype, adult ADD and continued to be reasonably cooperative Continue to evaluate patient's mental status and monitor sleep and appetite closely. Continue trazodone 100 mg qhs prn and prozac 40 mg qd. Continue Depakote 500 mg bid with a current level of 100 and ammonia level of 74 on 07/21. Continue clozapine 50 mg qhs. Continue Risperdal 3 mg bid and risperidone lng acting 125 mg IM monthly with last dosage givein on07/17. Continue Strattera 40 mg qd. Continue lorazepam 2 mg p.o. every 6 hours as needed anxiety, restlessness. Continue Thorazine 50 mg IM every 4 hours as needed severe agitation. Continue Haldol 5 mg IV every 4 hours as needed severe agitation. Continue to observe any potential side effects from psychiatric medications. Will recommend to start tapering antipsychotic medications once behavior is stabilized. Continue to monitor possible interactions between psychiatric medications and medical medications. Continue to provide counseling to help patient deal with stressors,and provide education and support. Continue to work with medicine/surgery to help facilitate patient's clinical progress. Patient will need to go to inpatient psychiatric facility as he is medically cleared. Plans and Expectations discussed. I have provided support and counseling for the patient and/or family to help the patient dealing tothe significant psychosis and coordinate care with JIMMY, YOUNG, Psych Navigator and hospitalist to help transfer to the inpatient psychiatric hospital for ongoing psychiatric treatment as patient is medically cleared at this time. RICARDO VALENTINE MD 07/22/2024 11:04 AM * Cheli Morgan MD - 07/21/2024 4:17 PM EST [facility] Hospitalist Progress Note Patient: Rob Almeida : 2000 Date of Service: 07/21/2024 Hospital Day: 3 PCP: Required, No Pcp/Pcp Not Chief Complaint: CC on Admission: Drug / Alcohol Assessment The patient remains in the hospital due to ongoing treatment / workup for schizoaffective disorder,psychosis, possible SI. Overnight Events: No new overnight events and Nursing notes reviewed Subjective : No new complaints. Review of Systems: Review of systems negative except as per above. Chronic Problems: Past Medical History: Diagnosis Date ADD (attention deficit disorder) Adderall use disorder, severe ([facility]) Anxiety Asperger syndrome Asperger's disorder 11/15/2020 Attention-deficit hyperactivity disorder, unspecified type 01/11/2021 Bipolar disorder ([facility]) Delusional disorder ([facility]) 02/23/2020 Depression Elevated blood pressure reading without diagnosis of hypertension Essential (primary) hypertension 06/28/2020 ICD-10 Qualified Code(s): I10 - Essential (primary) hypertension; Hypertension type - unspecified; Ibuprofen overdose 07/18/2024 Insomnia 11/22/2021 F/B PSYCH 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 Mood disorder ([facility]) Obesity Paranoid delusion ([facility]) Pelvic kidney Perinephric fluid collection 07/18/2024 Schizoaffective disorder ([facility]) Schizoaffective disorder, bipolar type ([facility]) 01/11/2021 Medications: Scheduled Meds: Current Facility-Administered Medications: clozapine (CLOZARIL) tablet 50 mg, Oral, Nightly divalproex (DEPAKOTE) DR tablet 500 mg, Oral, Nightly cholecalciferol (25 mcg/1000 units) (VITAMIN D3) tablet 25 mcg, Oral, Daily lisinopril (PRINIVIL,ZESTRIL) tablet 10 mg, Oral, Daily divalproex (DEPAKOTE) DR tablet 500 mg, Oral, Daily FLUoxetine (PROzac) capsule 40 mg, Oral, Daily risperiDONE (RisperDAL) tablet 3 mg, Oral, BID atomoxetine (STRATTERA) capsule 40 mg, Oral, Daily POM: Risperidone ER 125mg / 0.35mL Prefilled Syringe, Subcutaneous, q28 days enoxaparin (LOVENOX) syringe 40 mg, Subcutaneous, q24h Continuous Infusions: PRN Meds:. Current Facility-Administered Medications: traZODone (DESYREL) tablet 100 mg, Oral, Nightly PRN LORazepam (ATIVAN) tablet 2 mg, Oral, q6h PRN metoprolol tartrate (LOPRESSOR) injection 5 mg, Intravenous, q4h PRN haloperidol lactate (HALDOL) injection 5 mg, Intravenous, q4h PRN chlorproMAZINE (THORAZINE) injection 50 mg, Intramuscular, q4h PRN LORazepam (ATIVAN) injection 1 mg, Intravenous, q4h PRN LORazepam (ATIVAN) injection 2 mg, Intravenous, q4h PRN senna (SENOKOT) tablet 2 tablet, Oral, Nightly PRN docusate sodium (COLACE) capsule 100 mg, Oral, BID PRN bisacodyl (DULCOLAX) EC tablet 10 mg, Oral, Daily PRN nystatin (MYCOSTATIN) powder 1 Application, Topical, BID PRN Adult Over the Counter Medication Algorithm, Route N/A, PRN ondansetron (ZOFRAN) injection 4 mg, Intravenous, q6h PRN acetaminophen (TYLENOL) tablet 1,000 mg, Oral, q8h PRN Objective : Vital Signs: Temp: [97.5 ??F (36.4 ??C)-97.7 ??F (36.5 ??C)] 97.5 ??F (36.4 ??C) Pulse: [81-98] 98 Resp: [18] 18 BP: (113-127)/(63-82) 127/82 SpO2: [96 %-97 %] 97 % 113.4 kg (250 lb) Body mass index is 39.16 kg/m??. I/O: No intake or output data in the 24 hours ending 07/21/24 1617 Physical Exam: General: male sitting up in bed, NAD Cardiovascular: RRR, no peripheral edema Respiratory: nonlabored breathing on RA Gastrointestinal:soft, NTND Extremities and Musculoskeletal: no ALEJANDRA Neuro: awake and alert, oriented, moves all extremities Psych: flat affect Patient was seen and evaluated while wearing the following personal protection equipment: none because of No active isolations precautions. Labs: Reviewed in [employer]. Daily Labs: CBC Recent Labs 07/19/24 1001 07/20/24 0530 WBC 9.4 9.0 HGB 12.9* 12.4* HCT 37.3* 36.9* MCV 88 89 PLT 218 225 BMP Recent Labs 07/19/24 1001 07/20/24 0530 07/21/24 0601 NA 137 142 139 K 3.9 3.9 4.2 CL 101 105 105 CO2 21* 21* 21* BUN 14 18 19 CREAT 1.2 1.4* 1.2 CALCIUM 9.3 9.1 9.2 LFT Recent Labs 07/19/24 1001 07/20/24 0530 ALBUMIN 4.2 4.0 4.0 BILITOT 0.5 0.4 0.4 ALT 49* 41* 41* AST 67* 52* 52* ALKPHOS 90 80 80 Coags No results for input(s): INR , PT , APTT in the last 72 hours. Microbiology: Reviewed in Epic. Studies/Imaging: Independently reviewed by me. No notes on file Assessment & Plan : Rob Almeida is a 23 y.o. male w/ hx of schizoaffective disorder, autism, ADD, major depression with prior SI, recent discharge 3 days [facility] from [facility] psych facility after 5 month admission, who was found wandering after possible drug ingestion and reported nonadherence to psych meds, w/course notable for episodes of seizure-like activity suspected to be pseudoseizures, episodes of psychosis/agitation and possible suicidal attempt, and rhabdomyolysis. Patient is medically stable fordischarge to inpatient psych facility when available. Principal Problem: Witnessed seizure-like activity (CMS/HCC) (POA: Yes) Active Problems: Acute kidney injury (CMS/HCC) (POA: Yes) Altered mental status, unspecified (POA: Yes) Metabolic acidosis (POA: Yes) Transaminitis (POA: Yes) Normocytic anemia (POA: Yes) Elevated CK (POA: Clinically Undetermined) Altered mental status (POA: Yes) Problem Based Plan of Care: # Recurrent episodes of seizure-like activity Had an episode of unresponsiveness in the ED associated with tachycardia and eyelid fluttering/tremors lasted 2 to 3 minutes, given Ativan. Had recurrent episode the next day on medicine floor. No incontinence, tongue biting. CT head unremarkable. U-Tox negative. EEG showed mild bilateral cerebral dysfunction, maximal right greater than left temporal lesion without definite epileptiform discharges. Unable to obtain continuous EEG due to patient cooperation. Seen by neurology, unclear etiology of brief episodes of reduced interactivity without LOC, psychogenic seizures possible. Neurology did not recommend AED at this time. -- Appreciate neurology recommendation -- Seizure precautions -- Continue to monitor # Psychosis with underlying schizoaffective disorder, autism, major depression, possible drug intoxication # Possible suicidal attempt Patient spent 5 months at psych facility and was just discharged to live with his dad 3 days prior to presentation. He reports ingesting 2 candies that were given to him by someone at the psych facility. He was found wandering in the street and per ED documentation suspected intoxication and beingunder the influence . Per father, patient has not been compliant with his psych medications since home. Multiple BERTs during this admission for possible suicidal attempt where he went with max strength into a glass window on P6, for hallucinations/abnormal behavior, for agitation. He has LFT abnormality and elevated ammonia. VPA level 100. Patient was seen by psychiatry, meds adjusted, recommending and patient psych placement. -- Continue psych meds as per psychiatry, depakote dose reduced d/t elevated ammonia and transaminitis -- Follow-up clozapine level -- Awaiting inpatient psych placement -- Continue sitter -- Patient cannot leave AMA # Acute kidney injury Creatinine 1.7 on admission. Baseline 1.1. Initial UA unremarkable. Suspect prerenal etiology. Resolved with IV fluid. # Rhabdomyolysis CK elevated 2568. May be related to multiple episodes of tremors/psychotic events. May be baseline.Given IV fluid and stable. Initial UA negative for blood. # Abnormal LFTs Chronic. May be related to his psych medications such as depakote which was reduced. May be relatedto rhabdomyolysis. Pt also obese so may have RAMOS. -- Outpatient follow-up # Vitamin D deficiency -- D3 25 mcg daily # Hypertension: Lisinopril Consults During Current Admission: Neurology and Psychiatry. FENGI: Adult Diet Regular DVT Prophylaxis: Active Anticoagulation Orders Report (From admission, onward) Ordered Ordering Provider [facility] Jul 16, 2024 11:12 PM 07/16/24 2312 enoxaparin (LOVENOX) syringe 40 mg (BMI under 40 kg/m2 and/or weight under 100kg AND Normal Renal Function (CrCl 30+ mL/min)) Every 24 hours Note to Pharmacy: Pharmacist to round to nearest Measurable Dose Authorizing Provider: Stan Nolan MD End Date/Time: Until Discontinued PRN Reasons: -- References: Erica-Comp Ordering and Monitoring Of Anticoagulants Policy Drug Administration Guideline Question: Indications for Anticoagulants Answer: Deep Vein Thrombosis Prophylaxis Stan Nolan MD CODE: Full Code DISPOSITION: [facility], Expected post-hospitalization disposition will be to Inpatient psychiatry transfer . The patient is medically ready for discharge. . Cheli Morgan MD [facility] 07/21/2024 4:17 PM (Note was created in part with medical speech recognition software. Despite attempts at proof-reading, unintentional errors may be present resulting in the change of meaning or intent. Please contactme directly if you have any questions regarding this note). * Ricardo Valentine MD - 07/21/2024 3:09 PM EST Daily Progress Note DATE OF SERVICE:07/21/2024 CHIEF COMPLAINT/PRESENTING PROBLEM: I am okay. HPI/HOSPITAL COURSE: The patient is a 23 y.o. male with a history of schizoaffective disorder bipolar type, Asperger syndrome, autism spectrum disorder, attention deficit disorder, severe Adderall use disorder, generalized anxiety disorder, obesity, paranoid delusion, pelvic kidney who presented on 07/16/2024 to the Emergency Department with altered mental status. Patient was discharged to his father's care from [facility] on July 14after a 5-month stay. Unfortunately, the patient did not take any of his psychotropic medications since return home after discharge. Patient was found wandering on his way to the dispensary. He reported taking 2 candies that were given to him by someone at [facility] with the presumption that th ey contained illicit substances. He was described as seemingly under the influence. Patient reports taking 2 regular candy Gummies and denied any illicit substance. He told neurology he took 2 candies called wilner. Patient refused to provide more information while being seen in the emergency department. While in the emergency department he had an episode of unresponsiveness associated with sinus tachycardia andeyelids fluttering. Nurse Vivien Albert stated that he was not responding to sternal rubs, helped his eyelids open and observed that the eyes were rolled back. He did not have incontinence or tongue biting. EMS reported of a similar episode and for some reason they were suspicious of psychogenic etiology. Unclear whether patient has benzodiazepine use disorder as he received 2 mg of IV Ativan withthis episode. QTc 522, COVID-19 testing was negative, acetaminophen, salicylate and alcohol levels were undetected, urine drug screen negative. Head CT nonacute. When I spoke with patient, he was paranoid, he was upset because he thought that I implied that Iwas going to send him to a psychiatric hospital. He became somewhat agitated. We called his father Mani and spoke with him on speakerphone. Father was planning to come to the hospital within a couple of hours to bring a medication that the patient was due to take and father reported that he was overdue for this. Father reports that patient was at [facility] for 5 months with recent discharge3 days ago. Unclear why the patient did not take any of his medications over the past 2 to 3 days, patient alsoparticipating in a day program, partial program at [facility] in [place]. Patient also receives [facility] services through the pact team. Patient with irritability, restlessness, upon arrival to the floor several hours later at approximately 4 PM, he ran out of bed and down the boggs and hit his head against a large window. He was sent for head CT which is negative. Security was called and he was put in restraints for his own safety. Ronald was called as he was calm in bed and then jumped out of bed, ripped his EKG leads off and pushed past staff to leave the room. RN reports that he appeared angry, wanting to leave and was somewhat intimidating. He left the room and began running the halls and attempting to go into other patient's rooms. He then ran full speed into the full pain of window at the end of [address] headfirst andbounce off the glass landing on the ground. He then got up and ran to the other and where staff andsecurity were able to intervene and assist him to the ground. Patient was pale and staring but answering questions. Patient was sent head CT, for CT and C-spine. He described feeling numb all over. Upon arrival to the floor he did not remember why he was in the hospital and asked what happened? He continued to attempt to get out of bed and sit up, security restrain him as he would not respond. He was given Haldol 5 mg IV. I spoke with Jeanie from the [employer] [employer] [facility] for medication options for agitation. Pt has responded well to thorazine 50 mg IM, decreased response to haldol 5 mg iv x1. 07/18/24 Patient with significant paranoia, delusional thought, agitation who has required security with 4-point restraints. EEG pending as patient is having questionable seizure episodes versus pseudoseizure. Patient with pressured speech, at times has difficulty responding to questions. RONALD called due to agitation, got out of wrist restraint and swelling at sitter. Placed in 4-point restraints champ.Patient responding well to going to the toilet for bowel movement but able to urinate in a urinal. Trying to minimize patient's restlessness and agitation. Continue current regimen and follow the patient's progress. 07/19/24 Spoke with patient and father regarding patient's behavior. Father reports that patient sometimes is not compliant and refuses his medications. Previously patient had been living in a custodial and his brother pulled him out believing that he could take care of him and unfortunately cannot now thepatient is in the hospital and may not be able to return home to his father's care. Father, Mani reports that he may not be able to care for the patient given the patient's agitation, psychosis and refusal to take medications. Patient has been in and out of restraints due to agitation. Patient with suicide attempt on 07/17/2024 as he was running up and down the boggs and banging his head against the window requiring a CAT scan which was negative and currently sitter with 4-point restraints decreased down to 2-point restraints. Continue current regimen, will speak with Nhi Lyons in the morning regarding potential bed search once the patient is medically cleared. Patient has not had episodes of seizure. He was witnessed having pseudoseizure activity by the neurologist on presentation, they were able to perform limited EEG and neurologist does not feel that these are neurological seizures. Once patient is medically cleared by the medical team, we can start inpatient psychiatry bed search for inpatient psychiatry due to psychosis and suicidality. 07/20/24 Patient continues to have sitter, suicide precautions due to risk of self-harm. Tolerates current medication without oversedation or EPS. Tolerates Depakote 500 mg p.o. daily, 1000 mg p.o. nightly for mood management, anxiety and agitation, trazodone 100 mg p.o. nightly as needed insomnia, fluoxetine 40 mg p.o. daily, risperidone 3 mg p.o. twice daily, Strattera 40 mg p.o. daily. Patient has been redirectable, describes a decrease in hallucinations. Continues to have paranoia. Patient's father Mani reports that patient has had longstanding paranoia and hallucinations. He is much more redirectable with compliance of medications. Patient is medically cleared, appreciated inpatient psychiatrybed search underway. Continue to follow the patient's progress. 07/21: toll bridge attendant notes, nursing notes, and hospitalist notes appreciated. The patient continued to be more able to cooperate with nursing care and has been compliant with psychiatric medications at thistime. The patient continued to require one-to-one sitter due to his impulsivity. The patient continued to be getting trazodone at night to help him sleep. Since we are titrating up the clozapine dosage, I will increase Clozapine to 50 mg at night in hope patient can sleep better without using prn medications. The patient was on Clozapine 100 mg twice a day prior to coming to the hospital but he has not complied with medication for at least 2 to 3 days prior to this admission. Depakote level was at 100 and ammonia level was at 74, therefore, I will reduce Depakote to 500 mg twice a day at thistime. There was no signs of fever, chest pain, nausea, abdominal pain, or dysuria. There was no significant shortness of breath noticed. There was no oversedation or EPS noticed. We will continue to monitor. VITAL SIGNS-LAST 24 HOURS: Temp: [97.5 ??F (36.4 ??C)-97.9 ??F (36.6 ??C)] 97.5 ??F (36.4 ??C) Pulse: [81-104] 98 Resp: [18] 18 BP: (113-127)/(63-85) 113/63 SpO2: [96 %-97 %] 97 % DAILY WEIGHTS: Weight: 113.4 kg (250 lb) CURRENT MEDICATIONS: Current Facility-Administered Medications: cholecalciferol (25 mcg/1000 units) (VITAMIN D3) tablet 25 mcg, 25 mcg, Oral, Daily, Cheli Morgan MD, 25 mcg at 07/21/24 0849 lisinopril (PRINIVIL,ZESTRIL) tablet 10 mg, 10 mg, Oral, Daily, Kitty Fernando MD, 10 mg at 07/21/24 0848 traZODone (DESYREL) tablet 100 mg, 100 mg, Oral, Nightly PRN, Zenaida Gold MD, 100 mg at 07/20/242039 divalproex (DEPAKOTE) DR tablet 500 mg, 500 mg, Oral, Daily, Zenaida Gold MD, 500 mg at 07/21/24847 FLUoxetine (PROzac) capsule 40 mg, 40 mg, Oral, Daily, Zenaida Gold MD, 40 mg at 07/21/2448 risperiDONE (RisperDAL) tablet 3 mg, 3 mg, Oral, BID, Zenaida Gold MD, 3 mg at 07/21/24 0849 divalproex (DEPAKOTE) DR tablet 1,000 mg, 1,000 mg, Oral, Nightly, Zenaida Gold MD, 1,000 mg at 07/20/24 2040 atomoxetine (STRATTERA) capsule 40 mg, 40 mg, Oral, Daily, Zenaida Gold MD LORazepam (ATIVAN) tablet 2 mg, 2 mg, Oral, q6h PRN, Zenaida Gold MD metoprolol tartrate (LOPRESSOR) injection 5 mg, 5 mg, Intravenous, q4h PRN, Zenaida Gold MD, 5 mg at 07/17/24 2230 clozapine (CLOZARIL) tablet 12.5 mg, 12.5 mg, Oral, BID, Rachael Daugherty NP, 12.5 mg at 07/21/24 0849 POM: Risperidone ER 125mg / 0.35mL Prefilled Syringe, 125 mg, Subcutaneous, q28 days, Zenaida Gold MD, 125 mg at 07/17/24 1904 haloperidol lactate (HALDOL) injection 5 mg, 5 mg, Intravenous, q4h PRN, Leeanna Pimentel MD, 5 mg at 07/18/24 0243 chlorproMAZINE (THORAZINE) injection 50 mg, 50 mg, Intramuscular, q4h PRN, Rachael Daughetry NP, 50 mg at 07/18/24 1127 LORazepam (ATIVAN) injection 1 mg, 1 mg, Intravenous, q4h PRN, Rachael Daugherty NP LORazepam (ATIVAN) injection 2 mg, 2 mg, Intravenous, q4h PRN, Rachael Daugherty NP, 2 mg at 07/17/24 2344 senna (SENOKOT) tablet 2 tablet, 2 tablet, Oral, Nightly PRN, Stan Nolan MD docusate sodium (COLACE) capsule 100 mg, 100 mg, Oral, BID PRN, Stan Nolan MD bisacodyl (DULCOLAX) EC tablet 10 mg, 10 mg, Oral, Daily PRN, Stan Nolan., MD nystatin (MYCOSTATIN) powder 1 Application, 1 Application, Topical, BID PRN, Stan Nolan MD Adult Over the Counter Medication Algorithm, , Route N/A, PRN, Stan Nolan MD ondansetron (ZOFRAN) injection 4 mg, 4 mg, Intravenous, q6h PRN, Stan Nolan MD acetaminophen (TYLENOL) tablet 1,000 mg, 1,000 mg, Oral, q8h PRN, Stan Nolan MD enoxaparin (LOVENOX) syringe 40 mg, 40 mg, Subcutaneous, q24h, Stan Nolan MD, 40 mg at 07/21/24 0849 PHYSICAL EXAM: Please refer to today's community health systemsist medical assessment which I have reviewed for further details. MENTAL STATUS EXAM: Sensorium: Alert Sedation-Agitation: Overall calmer Appearance: Normal Grooming Behavior/Activity: More able to cooperate with nursing care Speech: coherent but concrete Affect: Moderately anxious Mood: Moderately anxious Thought Form: Organized but concrete Thought Content: Less delusional Perceptual: Denied having hallucinations Delusional Thoughts: Less paranoid Suicidal Ideation: denied Homicidal Ideation: None Orientation: Person/place/time Memory: Intact Judement/Impairment: Impaired due to mental illness Attention/Concentration: good Capacity: Patient has a legal guardian Frontal Release Signs: Within Normal Limits EPS: Within Normal Limits Cranial Nerves: Within Normal Limits Motor Tone/Strength: Please refer to today's community health systemsist medical assessment for further details. Gait: Please refer to today's community health systemsist medical assessment for further details. Sensory: Please refer to today's [facility] medical assessment for further details. DATA REVIEW: Recent Results (from the past 24 hours) BASIC METABOLIC PANEL Collection Time: 07/21/24 6:01 AM Result Value Ref Range Glucose 89 70 - 100 mg/dL BUN 19 6 - 19 mg/dL Creatinine 1.2 0.4 - 1.2 mg/dL eGFR >60.00 >60.00 mL/min/1.73m*2 Sodium 139 135 - 145 mmol/L Potassium 4.2 3.4 - 5.1 mmol/L Chloride 105 98 - 109 mmol/L CO2 21 (L) 24 - 32 mmol/L Anion Gap 13 (H) 6 - 12 mmol/L Calcium 9.2 8.5 - 10.5 mg/dL Estimated Creatinine Clearance 115.1 mL/min Valproic Acid Level, Total Collection Time: 07/21/24 6:01 AM Result Value Ref Range Valproic Acid, Total 100 50 - 100 ug/mL Ammonia Collection Time: 07/21/24 6:01 AM Result Value Ref Range Ammonia 74 (H) 11 - 35 umol/L HCP INVOKED? N/A GUARIASHIP: Patient has a legal guardian, Lamonte Campos. ASSESSMENT/RECOMMENDATIONS: The current psychiatric diagnosis are schizoaffective disorder, bipolartype, adult ADD. Continue to evaluate patient's mental status and monitor sleep and appetite closely. Continue trazodone 100 mg qhs prn and prozac 40 mg qd. reduce Depakote to 500 mg bid with a current level of 100 and ammonia level of 74 on 07/21. Increase clozapine to 50 mg qhs. Continue Risperdal 3 mg bid and risperidone lng acting 125 mg IM monthly with last dosage givein on07/17. Continue Strattera 40 mg qd. Continue lorazepam 2 mg p.o. every 6 hours as needed anxiety, restlessness. Continue Thorazine 50 mg IM every 4 hours as needed severe agitation. Continue Haldol 5 mg IV every 4 hours as needed severe agitation. Continue to observe any potential side effects from psychiatric medications. Will recommend to start tapering antipsychotic medications once behavior is stabilized. Continue to monitor possible interactions between psychiatric medications and medical medications. Continue to provide counseling to help patient deal with stressors,and provide education and support. Continue to work with medicine/surgery to help facilitate patient's clinical progress. Patient will need to go to inpatient psychiatric facility once medically cleared. Plans and Expectations discussed. I have provided support and counseling for the patient and/or family to help the patient dealing tothe significant psychosis and coordinate care with CM, YOUNG, Psych Navigator and hospitalist to help transfer to the inpatient psychiatric hospital for ongoing psychiatric treatment RIACRDO VALENTINE MD 07/21/2024 3:10 PM * Rachael Daugherty NP - 07/20/2024 3:05 PM EST Mental Health Progress Note DATE OF SERVICE: 07/20/2024 HPI/HOSPITAL COURSE: The patient is a 23 y.o. male with a history of schizoaffective disorder bipolar type, Asperger syndrome, autism spectrum disorder, attention deficit disorder, severe Adderall use disorder, generalized anxiety disorder, obesity, paranoid delusion, pelvic kidney who presented on 07/16/2024 to the Emergency Department with altered mental status. Patient was discharged to his father's care from [facility] on July 14after a 5-month stay. Unfortunately, the patient did not take any of his psychotropic medications since return home after discharge. Patient was found wandering on his way to the dispensary. He reported taking 2 candies that were given to him by someone at [facility] with the presumption that th ey contained illicit substances. He was described as seemingly under the influence. Patient reports taking 2 regular candy Gummies and denied any illicit substance. He told neurology he took 2 candies called wilner. Patient refused to provide more information while being seen in the emergency department. While in the emergency department he had an episode of unresponsiveness associated with sinus tachycardia andeyelids fluttering. Nurse Vivien Albert stated that he was not responding to sternal rubs, helped his eyelids open and observed that the eyes were rolled back. He did not have incontinence or tongue biting. EMS reported of a similar episode and for some reason they were suspicious of psychogenic etiology. Unclear whether patient has benzodiazepine use disorder as he received 2 mg of IV Ativan withthis episode. QTc 522, COVID-19 testing was negative, acetaminophen, salicylate and alcohol levels were undetected, urine drug screen negative. Head CT nonacute. When I spoke with patient, he was paranoid, he was upset because he thought that I implied that Iwas going to send him to a psychiatric hospital. He became somewhat agitated. We called his father Mani and spoke with him on speakerphone. Father was planning to come to the hospital within a couple of hours to bring a medication that the patient was due to take and father reported that he was overdue for this. Father reports that patient was at [facility] for 5 months with recent discharge3 days ago. Unclear why the patient did not take any of his medications over the past 2 to 3 days, patient alsoparticipating in a day program, partial program at [facility] in [place]. Patient also receives [facility] services through the pact team. Patient with irritability, restlessness, upon arrival to the floor several hours later at approximately 4 PM, he ran out of bed and down the boggs and hit his head against a large window. He was sent for head CT which is negative. Security was called and he was put in restraints for his own safety. Ronald was called as he was calm in bed and then jumped out of bed, ripped his EKG leads off and pushed past staff to leave the room. RN reports that he appeared angry, wanting to leave and was somewhat intimidating. He left the room and began running the halls and attempting to go into other patient's rooms. He then ran full speed into the full pain of window at the end of [address] headfirst andbounce off the glass landing on the ground. He then got up and ran to the other and where staff andsecurity were able to intervene and assist him to the ground. Patient was pale and staring but answering questions. Patient was sent head CT, for CT and C-spine. He described feeling numb all over. Upon arrival to the floor he did not remember why he was in the hospital and asked what happened? He continued to attempt to get out of bed and sit up, security restrain him as he would not respond. He was given Haldol 5 mg IV. I spoke with Jeanie from the [facility] for medication options for agitation. Pt has responded well to thorazine 50 mg IM, decreased response to haldol 5 mg iv x1. 07/18/24 Patient with significant paranoia, delusional thought, agitation who has required security with 4-point restraints. EEG pending as patient is having questionable seizure episodes versus pseudoseizure. Patient with pressured speech, at times has difficulty responding to questions. RONALD called due to agitation, got out of wrist restraint and swelling at sitter. Placed in 4-point restraints champ.Patient responding well to going to the toilet for bowel movement but able to urinate in a urinal. Trying to minimize patient's restlessness and agitation. Continue current regimen and follow the patient's progress. 07/19/24 Spoke with patient and father regarding patient's behavior. Father reports that patient sometimes is not compliant and refuses his medications. Previously patient had been living in a custodial and his brother pulled him out believing that he could take care of him and unfortunately cannot now thepatient is in the hospital and may not be able to return home to his father's care. Father, Mani reports that he may not be able to care for the patient given the patient's agitation, psychosis and refusal to take medications. Patient has been in and out of restraints due to agitation. Patient with suicide attempt on 07/17/2024 as he was running up and down the boggs and banging his head against the window requiring a CAT scan which was negative and currently sitter with 4-point restraints decreased down to 2-point restraints. Continue current regimen, will speak with Nhi Lyons in the morning regarding potential bed search once the patient is medically cleared. Patient has not had episodes of seizure. He was witnessed having pseudoseizure activity by the neurologist on presentation, they were able to perform limited EEG and neurologist does not feel that these are neurological seizures. Once patient is medically cleared by the medical team, we can start inpatient psychiatry bed search for inpatient psychiatry due to psychosis and suicidality. 07/20/24 Patient continues to have sitter, suicide precautions due to risk of self-harm. Tolerates current medication without oversedation or EPS. Tolerates Depakote 500 mg p.o. daily, 1000 mg p.o. nightly for mood management, anxiety and agitation, trazodone 100 mg p.o. nightly as needed insomnia, fluoxetine 40 mg p.o. daily, risperidone 3 mg p.o. twice daily, Strattera 40 mg p.o. daily. Patient has been redirectable, describes a decrease in hallucinations. Continues to have paranoia. Patient's father Mani reports that patient has had longstanding paranoia and hallucinations. He is much more redirectable with compliance of medications. Patient is medically cleared, appreciated inpatient psychiatrybed search underway. Continue to follow the patient's progress. The patient's medical record was reviewed with pertinent details highlighted. VITAL SIGNS-LAST 24 HOURS: Temp: [97.4 ??F (36.3 ??C)-98.4 ??F (36.9 ??C)] 97.7 ??F (36.5 ??C) Pulse: [84-102] 84 Resp: [18-20] 18 BP: (111-150)/(72-85) 111/72 SpO2: [98 %] 98 % DAILY WEIGHTS: Weight: 113.4 kg (250 lb) CURRENT MEDICATIONS: Current Facility-Administered Medications: cholecalciferol (25 mcg/1000 units) (VITAMIN D3) tablet 25 mcg, 25 mcg, Oral, Daily, Cheli Morgan MD, 25 mcg at 07/20/24 1501 lisinopril (PRINIVIL,ZESTRIL) tablet 10 mg, 10 mg, Oral, Daily, Kitty Fernando MD, 10 mg at 07/20/24809 traZODone (DESYREL) tablet 100 mg, 100 mg, Oral, Nightly PRN, Zenaida Gold MD, 100 mg at 07/19/242024 divalproex (DEPAKOTE) DR tablet 500 mg, 500 mg, Oral, Daily, Zenaida Gold MD, 500 mg at 07/20/24809 FLUoxetine (PROzac) capsule 40 mg, 40 mg, Oral, Daily, Zenaida Gold MD, 40 mg at 07/20/24808 risperiDONE (RisperDAL) tablet 3 mg, 3 mg, Oral, BID, Zenaida Gold MD, 3 mg at 07/20/24808 divalproex (DEPAKOTE) DR tablet 1,000 mg, 1,000 mg, Oral, Nightly, Zenaida Gold MD, 1,000 mg at 07/19/242023 atomoxetine (STRATTERA) capsule 40 mg, 40 mg, Oral, Daily, Zenaida Gold MD LORazepam (ATIVAN) tablet 2 mg, 2 mg, Oral, q6h PRN, Zenaida Gold MD metoprolol tartrate (LOPRESSOR) injection 5 mg, 5 mg, Intravenous, q4h PRN, Zenaida Gold MD, 5 mg at 07/17/242229 clozapine (CLOZARIL) tablet 12.5 mg, 12.5 mg, Oral, BID, Rachael Daugherty NP, 12.5 mg at 07/20/24812 POM: Risperidone ER 125mg / 0.35mL Prefilled Syringe, 125 mg, Subcutaneous, q28 days, Zenaida Gold MD, 125 mg at 07/17/24 1904 haloperidol lactate (HALDOL) injection 5 mg, 5 mg, Intravenous, q4h PRN, Leeanna Pimentel MD, 5 mg at 07/18/24 0243 chlorproMAZINE (THORAZINE) injection 50 mg, 50 mg, Intramuscular, q4h PRN, Rachael Daugherty NP, 50 mg at 07/18/24 1127 LORazepam (ATIVAN) injection 1 mg, 1 mg, Intravenous, q4h PRN, Rachael Daugherty NP LORazepam (ATIVAN) injection 2 mg, 2 mg, Intravenous, q4h PRN, Rachael Daugherty NP, 2 mg at 07/17/24 2344 senna (SENOKOT) tablet 2 tablet, 2 tablet, Oral, Nightly PRN, Stan Nolan MD docusate sodium (COLACE) capsule 100 mg, 100 mg, Oral, BID PRN, Stan Nolan MD bisacodyl (DULCOLAX) EC tablet 10 mg, 10 mg, Oral, Daily PRN, Stan Nolan MD nystatin (MYCOSTATIN) powder 1 Application, 1 Application, Topical, BID PRN, Stan Nolan MD Adult Over the Counter Medication Algorithm, , Route N/A, PRN, Stan Nolan MD ondansetron (ZOFRAN) injection 4 mg, 4 mg, Intravenous, q6h PRN, Stan Nolan MD acetaminophen (TYLENOL) tablet 1,000 mg, 1,000 mg, Oral, q8h PRN, Stan Nolan MD enoxaparin (LOVENOX) syringe 40 mg, 40 mg, Subcutaneous, q24h, Stan Nolan MD, 40 mg at 07/17/24 1006 REVIEW OF SYSTEMS: Negative for headache, sore throat, chest pain, dizziness, blurred vision, fatigue, joint pain, constipation, skin itchiness, dysuria, fever, cough, SOB, vomiting, diarrhea, nausea, abdominal pain. MENTAL STATUS EXAM: Sensorium: Alert Sedation-Agitation: Agitated Appearance: Normal Grooming (with nursing assistance) Behavior/Activity: Restless Speech: Perseverative Affect: Labile Mood: Anxious Thought Form: Disorganized Thought Content: Delusions Perceptual: Auditory and visual hallucinations Delusional Thoughts: Paranoid Suicidal Ideation: Suicidal thoughts, trying to hit his head against the window and jump out of thewindow yesterday Homicidal Ideation: None Orientation: Person/place/time Memory: Impaired Judgement/Impairment: Impaired Attention/Concentration: fair Capacity: Cannot leave AMA due to psychosis which is chronic but worsened and suicidality Frontal Release Signs: Within Normal Limits/Grasp EPS: Within Normal Limits Cranial Nerves: Within Normal Limits Motor Tone/Strength: Please refer to medical assessment for further details. Gait: Please refer to medical assessment for further details. Sensory: Please refer to medical assessment for further details. DECISION-MAKING CAPACTIY [] UNDERSTANDING of the facts relevant to medical decision (e.g. illness, purpose of the intervention, risks/benefits, alternatives) [] CONSEQUENCES appreciation of decisions (e.g. treatment and non-treatment) [] LOGICAL manipulation of information ???Chain of Reasoning?? (e.g. self- directed, parroting back) [] CHOICE ability to communicate (e.g. can't, won't, consistent, stable) Patient does not appreciate the seriousness/complexity of their medical situation and does not appreciate the significant consequences of non-treatment. HCP INVOKED? No GUARDIANSHIP: YES ASSESSMENT/RECOMMENDATIONS: 23-year-old male with schizoaffective disorder bipolar type with chronic psychosis, auditory and visual hallucination, paranoia and delusion. Patient recently spent 5 months at [facility] psychiatric setting in [facility]. Was discharged home to his father's care on July 14, 3 days prior to this presentation. Continue trazodone 100 mg p.o. nightly as needed. Continue Depakote 500 mg p.o. daily, 1000 mg p.o. nightly. Continue fluoxetine 40 mg p.o. daily. Continue Risperdal 3 mg p.o. twice daily. Continue Strattera 40 mg p.o. daily. Continue lorazepam 2 mg p.o. every 6 hours as needed anxiety, restlessness. Continue Thorazine 50 mg IM every 4 hours as needed severe agitation. Continue Haldol 5 mg IV every 4 hours as needed severe agitation. Inpatient psychiatry bed search is underway as the patient is medically cleared. Continue suicide precautions due to risk of self-harm. Continue to follow the patient's progress. We will ask social service/Nhi Eloy to initiate bedsearch within the next couple of days as he becomes stable medically. Plans and Expectations discussed Visit was spent in counseling the patient and/or family and in coordinating care. I have provided support and counseling to help patient to deal with mental illness, stressors, current medical condition and continue to coordinate care with family independence case manager and hospitalist while adjusting psychiatric medications to help facilitate safe discharge planning. Rachael Daugherty CNP 07/20/2024 3:05 PM Disclaimer: Speech recognition software was used to dictate portions of this document. An attempt at proofreading has been made to minimize transcriptional errors. Please do not hesitate to call withany questions. * Cheli Morgan MD - 07/20/2024 2:08 PM EST [facility] Hospitalist Progress Note Patient: Rob Almeida : 2000 Date of Service: 07/20/2024 Hospital Day: 2 PCP: Required, No Pcp/Pcp Not Chief Complaint: CC on Admission: Drug / Alcohol Assessment The patient remains in the hospital due to ongoing treatment / workup for schizoaffective disorder,psychosis, possible SI. Overnight Events: No new overnight events and Nursing notes reviewed Subjective : Complains of left arm pain. Pt is not sure why he ran intentionally into window the other day. Whenasked if he was trying to hurt himself, he said he thinks so. Review of Systems: Review of systems negative except as per above. Chronic Problems: Past Medical History: Diagnosis Date ADD (attention deficit disorder) Adderall use disorder, severe (CMS/HCC) Anxiety Asperger syndrome Asperger's disorder 11/15/2020 Attention-deficit hyperactivity disorder, unspecified type 01/11/2021 Bipolar disorder (CMS/HCC) Delusional disorder (CMS/HCC) 02/23/2020 Depression Elevated blood pressure reading without diagnosis of hypertension Essential (primary) hypertension 06/28/2020 ICD-10 Qualified Code(s): I10 - Essential (primary) hypertension; Hypertension type - unspecified; Ibuprofen overdose 07/18/2024 Insomnia 11/22/2021 F/B PSYCH 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 Mood disorder [place] Obesity Paranoid delusion ([facility]) Pelvic kidney Perinephric fluid collection 07/18/2024 Schizoaffective disorder ([facility] [place] Schizoaffective disorder, bipolar type ([facility] [place]) 01/11/2021 Medications: Scheduled Meds: Current Facility-Administered Medications: lisinopril (PRINIVIL,ZESTRIL) tablet 10 mg, Oral, Daily divalproex (DEPAKOTE) DR tablet 500 mg, Oral, Daily FLUoxetine (PROzac) capsule 40 mg, Oral, Daily risperiDONE (RisperDAL) tablet 3 mg, Oral, BID divalproex (DEPAKOTE) DR tablet 1,000 mg, Oral, Nightly atomoxetine (STRATTERA) capsule 40 mg, Oral, Daily clozapine (CLOZARIL) tablet 12.5 mg, Oral, BID POM: Risperidone ER 125mg / 0.35mL Prefilled Syringe, Subcutaneous, q28 days enoxaparin (LOVENOX) syringe 40 mg, Subcutaneous, q24h Continuous Infusions: PRN Meds:. Current Facility-Administered Medications: traZODone (DESYREL) tablet 100 mg, Oral, Nightly PRN LORazepam (ATIVAN) tablet 2 mg, Oral, q6h PRN metoprolol tartrate (LOPRESSOR) injection 5 mg, Intravenous, q4h PRN haloperidol lactate (HALDOL) injection 5 mg, Intravenous, q4h PRN chlorproMAZINE (THORAZINE) injection 50 mg, Intramuscular, q4h PRN LORazepam (ATIVAN) injection 1 mg, Intravenous, q4h PRN LORazepam (ATIVAN) injection 2 mg, Intravenous, q4h PRN senna (SENOKOT) tablet 2 tablet, Oral, Nightly PRN docusate sodium (COLACE) capsule 100 mg, Oral, BID PRN bisacodyl (DULCOLAX) EC tablet 10 mg, Oral, Daily PRN nystatin (MYCOSTATIN) powder 1 Application, Topical, BID PRN Adult Over the Counter Medication Algorithm, Route N/A, PRN ondansetron (ZOFRAN) injection 4 mg, Intravenous, q6h PRN acetaminophen (TYLENOL) tablet 1,000 mg, Oral, q8h PRN Objective : Vital Signs: Temp: [97.4 ??F (36.3 ??C)-98.4 ??F (36.9 ??C)] 97.7 ??F (36.5 ??C) Pulse: [84-102] 84 Resp: [18-20] 18 BP: (111-150)/(72-85) 111/72 SpO2: [98 %] 98 % 113.4 kg (250 lb) Body mass index is 39.16 kg/m??. I/O: No intake or output data in the 24 hours ending 07/20/24 1408 Physical Exam: General: male sitting up in bed, NAD Cardiovascular: RRR, no peripheral edema Respiratory: nonlabored breathing on RA Gastrointestinal:soft, NTND Extremities and Musculoskeletal: no ALEJANDRA Neuro: awake and alert, oriented, moves all extremities Psych: flat affect Patient was seen and evaluated while wearing the following personal protection equipment: none because of No active isolations precautions. Labs: Reviewed in Epic. Daily Labs: CBC Recent Labs 07/18/24 0723 07/19/24 1001 07/20/24 0530 WBC 7.2 9.4 9.0 HGB 12.3* 12.9* 12.4* HCT 36.6* 37.3* 36.9* MCV 89 88 89 PLT 210 218 225 BMP Recent Labs 07/18/24 0145 07/18/24 0724 07/19/24 1001 07/20/24 0530 NA 137 140 137 142 K 4.5 4.1 3.9 3.9 CL 103 107 101 105 CO2 20* 19* 21* 21* BUN 18 17 14 18 CREAT 1.3* 1.3* 1.2 1.4* CALCIUM 10.0 9.4 9.3 9.1 MG 2.4 -- -- -- PHOS 3.8 -- -- -- LFT Recent Labs 07/18/24 0724 07/19/24 1001 07/20/24 0530 ALBUMIN 4.4 4.2 4.0 4.0 BILITOT 0.3 0.5 0.4 0.4 ALT 54* 49* 41* 41* AST 71* 67* 52* 52* ALKPHOS 83 90 80 80 Coags Recent Labs 07/18/24 0333 INR 1.1 PT 14.0 Microbiology: Reviewed in Epic. Studies/Imaging: Independently reviewed by me. No notes on file Assessment & Plan : Rob Almeida is a 23 y.o. male w/ hx of schizoaffective disorder, autism, ADD, major depression with prior SI, recent discharge 3 days [facility] from [facility] psych facility after 5 month admission, who was found wandering after possible drug ingestion and reported nonadherence to psych meds, w/course notable for episodes of seizure-like activity suspected to be pseudoseizures, episodes of psychosis/agitation and possible suicidal attempt, and rhabdomyolysis. Patient is medically stable fordischarge to inpatient psych facility when available Principal Problem: Witnessed seizure-like activity (CMS/HCC) (POA: Yes) Active Problems: Acute kidney injury (CMS/HCC) (POA: Yes) Altered mental status, unspecified (POA: Yes) Metabolic acidosis (POA: Yes) Transaminitis (POA: Yes) Normocytic anemia (POA: Yes) Elevated CK (POA: Clinically Undetermined) Altered mental status (POA: Yes) Problem Based Plan of Care: # Recurrent episodes of seizure-like activity Had an episode of unresponsiveness in the ED associated with tachycardia and eyelid fluttering/tremors lasted 2 to 3 minutes, given Ativan. Had recurrent episode the next day on medicine floor. No incontinence, tongue biting. CT head unremarkable. U-Tox negative. EEG showed mild bilateral cerebral dysfunction, maximal right greater than left temporal lesion without definite epileptiform discharges. Unable to obtain continuous EEG due to patient cooperation. Seen by neurology, unclear etiology of brief episodes of reduced interactivity without LOC, psychogenic seizures possible. Neurology did not recommend AED at this time. -- Appreciate neurology recommendation -- Seizure precautions -- Continue to monitor # Psychosis with underlying schizoaffective disorder, autism, major depression, possible drug intoxication # Possible suicidal attempt Patient spent 5 months at psych facility and was just discharged to live with his dad 3 days prior to presentation. He reports ingesting 2 candies that were given to him by someone at the psych facility. He was found wandering in the street and per ED documentation suspected intoxication and beingunder the influence . Per father, patient has not been compliant with his psych medications since home. Multiple RONALD, during this admission for possible suicidal attempt where he went with mild strength into a glass window IP6, for hallucinations and abnormal behavior, for agitation. Patient was seen by psychiatry recommending and patient psych placement. -- Continue psych meds as per psychiatry -- Follow-up clozapine level, check Depakote level, ammonia level -- Awaiting inpatient psych placement -- Continue sitter -- Patient cannot leave AMA # Acute kidney injury Creatinine 1.7 on admission. Baseline 1.1. Initial UA unremarkable. Suspect prerenal etiology. Improving with IV fluid. -- Continue to monitor # Rhabdomyolysis CK elevated 2568. May be related to multiple episodes of tremors/psychotic events. May be baseline.Given IV fluid and stable. Initial UA negative for blood. # Abnormal LFTs Chronic. May be related to his psych medications. May be related to rhabdomyolysis. --Check Depakote and clozapine levels -- Outpatient follow-up # Vitamin D deficiency -- D3 25 mcg daily # Hypertension: Lisinopril Consults During Current Admission: Neurology and Psychiatry. FENGI: Adult Diet Regular DVT Prophylaxis: Active Anticoagulation Orders Report (From admission, onward) Ordered Ordering Provider [facility] Jul 16, 2024 11:12 PM 07/16/24 2313 enoxaparin (LOVENOX) syringe 40 mg (BMI under 40 kg/m2 and/or weight under 100kg AND Normal Renal Function (CrCl 30+ mL/min)) Every 24 hours Note to Pharmacy: Pharmacist to round to nearest Measurable Dose Authorizing Provider: Stan Nolan MD End Date/Time: Until Discontinued PRN Reasons: -- References: Erica-Comp Ordering and Monitoring Of Anticoagulants Policy Drug Administration Guideline Question: Indications for Anticoagulants Answer: Deep Vein Thrombosis Prophylaxis Stan Nolan MD CODE: Full Code DISPOSITION: Inpatient, Expected post-hospitalization disposition will be to Inpatient psychiatry transfer . Thepatient is medically ready for discharge. . Cheli Morgan MD [facility] 07/20/2024 2:08 PM (Note was created in part with medical speech recognition software. Despite attempts at proof-reading, unintentional errors may be present resulting in the change of meaning or intent. Please contactme directly if you have any questions regarding this note). * Rachael Daugherty NP - 07/19/2024 11:39 AM EST Mental Health Progress Note DATE OF SERVICE: 07/19/2024 HPI/HOSPITAL COURSE: The patient is a 23 y.o. male with a history of schizoaffective disorder bipolar type, Asperger syndrome, autism spectrum disorder, attention deficit disorder, severe Adderall use disorder, generalized anxiety disorder, obesity, paranoid delusion, pelvic kidney who presented on 07/16/2024 to the Emergency Department with altered mental status. Patient was discharged to his father's care from [facility] on July 14after a 5-month stay. Unfortunately, the patient did not take any of his psychotropic medications since return home after discharge. Patient was found wandering on his way to the dispensary. He reported taking 2 candies that were given to him by someone at [facility] with the presumption that th ey contained illicit substances. He was described as seemingly under the influence. Patient reports taking 2 regular candy Gummies and denied any illicit substance. He told neurology he took 2 candies called wilner. Patient refused to provide more information while being seen in the emergency department. While in the emergency department he had an episode of unresponsiveness associated with sinus tachycardia andeyelids fluttering. Nurse Vivien Albert stated that he was not responding to sternal rubs, helped his eyelids open and observed that the eyes were rolled back. He did not have incontinence or tongue biting. EMS reported of a similar episode and for some reason they were suspicious of psychogenic etiology. Unclear whether patient has benzodiazepine use disorder as he received 2 mg of IV Ativan withthis episode. QTc 522, COVID-19 testing was negative, acetaminophen, salicylate and alcohol levels were undetected, urine drug screen negative. Head CT nonacute. When I spoke with patient, he was paranoid, he was upset because he thought that I implied that Iwas going to send him to a psychiatric hospital. He became somewhat agitated. We called his father Mani and spoke with him on speakerphone. Father was planning to come to the hospital within a couple of hours to bring a medication that the patient was due to take and father reported that he was overdue for this. Father reports that patient was at [facility] for 5 months with recent discharge3 days ago. Unclear why the patient did not take any of his medications over the past 2 to 3 days, patient alsoparticipating in a day program, partial program at [facility] in [place]. Patient also receives DMH services through the pact team. Patient with irritability, restlessness, upon arrival to the floor several hours later at approximately 4 PM, he ran out of bed and down the boggs and hit his head against a large window. He was sent for head CT which is negative. Security was called and he was put in restraints for his own safety. Ronald was called as he was calm in bed and then jumped out of bed, ripped his EKG leads off and pushed past staff to leave the room. RN reports that he appeared angry, wanting to leave and was somewhat intimidating. He left the room and began running the halls and attempting to go into other patient's rooms. He then ran full speed into the full pain of window at the end of [address] headfirst andbounce off the glass landing on the ground. He then got up and ran to the other and where staff andsecurity were able to intervene and assist him to the ground. Patient was pale and staring but answering questions. Patient was sent head CT, for CT and C-spine. He described feeling numb all over. Upon arrival to the floor he did not remember why he was in the hospital and asked what happened? He continued to attempt to get out of bed and sit up, security restrain him as he would not respond. He was given Haldol 5 mg IV. I spoke with Jeanie from the NETWORK SYSTEMS INTEGRATOR for medication options for agitation. Pt has responded well to thorazine 50 mg IM, decreased response to haldol 5 mg iv x1. 07/18/24 Patient with significant paranoia, delusional thought, agitation who has required security with 4-point restraints. EEG pending as patient is having questionable seizure episodes versus pseudoseizure. Patient with pressured speech, at times has difficulty responding to questions. RONALD called due to agitation, got out of wrist restraint and swelling at sitter. Placed in 4-point restraints champ.Patient responding well to going to the toilet for bowel movement but able to urinate in a urinal. Trying to minimize patient's restlessness and agitation. Continue current regimen and follow the patient's progress. 07/19/24 Spoke with patient and father regarding patient's behavior. Father reports that patient sometimes is not compliant and refuses his medications. Previously patient had been living in a custodial and his brother pulled him out believing that he could take care of him and unfortunately cannot now thepatient is in the hospital and may not be able to return home to his father's care. Father, Mani reports that he may not be able to care for the patient given the patient's agitation, psychosis and refusal to take medications. Patient has been in and out of restraints due to agitation. Patient with suicide attempt on 07/17/2024 as he was running up and down the boggs and banging his head against the window requiring a CAT scan which was negative and currently sitter with 4-point restraints decreased down to 2-point restraints. Continue current regimen, will speak with Nhi Lyons in the morning regarding potential bed search once the patient is medically cleared. Patient has not had episodes of seizure. He was witnessed having pseudoseizure activity by the neurologist on presentation, they were able to perform limited EEG and neurologist does not feel that these are neurological seizures. Once patient is medically cleared by the medical team, we can start inpatient psychiatry bed search for inpatient psychiatry due to psychosis and suicidality. The patient's medical record was reviewed with pertinent details highlighted. VITAL SIGNS-LAST 24 HOURS: Temp: [97.7 ??F (36.5 ??C)-98.5 ??F (36.9 ??C)] 98 ??F (36.7 ??C) Pulse: [89-102] 102 Resp: [18] 18 BP: (120-150)/(78-87) 120/87 SpO2: [96 %-97 %] 97 % DAILY WEIGHTS: Weight: 113.4 kg (250 lb) CURRENT MEDICATIONS: Current Facility-Administered Medications: traZODone (DESYREL) tablet 100 mg, 100 mg, Oral, Nightly PRN, Zenaida Gold MD, 100 mg at 07/18/242049 divalproex (DEPAKOTE) DR tablet 500 mg, 500 mg, Oral, Daily, Zenaida Gold MD, 500 mg at 07/19/24903 FLUoxetine (PROzac) capsule 40 mg, 40 mg, Oral, Daily, Zenaida Gold MD, 40 mg at 07/19/24903 risperiDONE (RisperDAL) tablet 3 mg, 3 mg, Oral, BID, Zenaida Gold MD, 3 mg at 07/19/24903 divalproex (DEPAKOTE) DR tablet 1,000 mg, 1,000 mg, Oral, Nightly, Zenaida Gold MD, 1,000 mg at 07/18/242049 atomoxetine (STRATTERA) capsule 40 mg, 40 mg, Oral, Daily, Zenaida Gold MD LORazepam (ATIVAN) tablet 2 mg, 2 mg, Oral, q6h PRN, Zenaida Gold MD metoprolol tartrate (LOPRESSOR) injection 5 mg, 5 mg, Intravenous, q4h PRN, Zenaida Gold MD, 5 mg at 07/17/242229 clozapine (CLOZARIL) tablet 12.5 mg, 12.5 mg, Oral, BID, Rachael Daugherty NP, 12.5 mg at 07/19/24903 POM: Risperidone ER 125mg / 0.35mL Prefilled Syringe, 125 mg, Subcutaneous, q28 days, Zenaida Gold MD, 125 mg at 07/17/24 190 haloperidol lactate (HALDOL) injection 5 mg, 5 mg, Intravenous, q4h PRN, Leeanna Pimentel MD, 5 mg at 07/18/24 0243 chlorproMAZINE (THORAZINE) injection 50 mg, 50 mg, Intramuscular, q4h PRN, Rachael Daugherty NP, 50 mg at 07/18/24 1127 LORazepam (ATIVAN) injection 1 mg, 1 mg, Intravenous, q4h PRN, Rachael Daugherty NP LORazepam (ATIVAN) injection 2 mg, 2 mg, Intravenous, q4h PRN, Rachael Daugherty NP, 2 mg at 07/17/24 2344 senna (SENOKOT) tablet 2 tablet, 2 tablet, Oral, Nightly PRN, Stan Nolan MD docusate sodium (COLACE) capsule 100 mg, 100 mg, Oral, BID PRN, Stan Nolan MD bisacodyl (DULCOLAX) EC tablet 10 mg, 10 mg, Oral, Daily PRN, Stan Nolan MD nystatin (MYCOSTATIN) powder 1 Application, 1 Application, Topical, BID PRN, Stan Nolan MD Adult Over the Counter Medication Algorithm, , Route N/A, PRN, Stan Nolan MD ondansetron (ZOFRAN) injection 4 mg, 4 mg, Intravenous, q6h PRN, Stan Nolan MD acetaminophen (TYLENOL) tablet 1,000 mg, 1,000 mg, Oral, q8h PRN, Stan Nolan MD enoxaparin (LOVENOX) syringe 40 mg, 40 mg, Subcutaneous, q24h, Stan Nolan MD, 40 mg at 07/17/24 1006 REVIEW OF SYSTEMS: Negative for headache, sore throat, chest pain, dizziness, blurred vision, fatigue, joint pain, constipation, skin itchiness, dysuria, fever, cough, SOB, vomiting, diarrhea, nausea, abdominal pain. MENTAL STATUS EXAM: Sensorium: Alert Sedation-Agitation: Agitated Appearance: Normal Grooming (with nursing assistance) Behavior/Activity: Restless Speech: Perseverative Affect: Labile Mood: Anxious Thought Form: Disorganized Thought Content: Delusions Perceptual: Auditory and visual hallucinations Delusional Thoughts: Paranoid Suicidal Ideation: Suicidal thoughts, trying to hit his head against the window and jump out of thewindow yesterday Homicidal Ideation: None Orientation: Person/place/time Memory: Impaired Judgement/Impairment: Impaired Attention/Concentration: fair Capacity: Cannot leave AMA due to psychosis which is chronic but worsened and suicidality Frontal Release Signs: Within Normal Limits/Grasp EPS: Within Normal Limits Cranial Nerves: Within Normal Limits Motor Tone/Strength: Please refer to medical assessment for further details. Gait: Please refer to medical assessment for further details. Sensory: Please refer to medical assessment for further details. DECISION-MAKING CAPACTIY [] UNDERSTANDING of the facts relevant to medical decision (e.g. illness, purpose of the intervention, risks/benefits, alternatives) [] CONSEQUENCES appreciation of decisions (e.g. treatment and non-treatment) [] LOGICAL manipulation of information ???Chain of Reasoning?? (e.g. self- directed, parroting back) [] CHOICE ability to communicate (e.g. can't, won't, consistent, stable) Patient does not appreciate the seriousness/complexity of their medical situation and does not appreciate the significant consequences of non-treatment. HCP INVOKED? No GUARDIANSHIP: YES ASSESSMENT/RECOMMENDATIONS: 23-year-old male with schizoaffective disorder bipolar type with chronic psychosis, auditory and visual hallucination, paranoia and delusion. Patient recently spent 5 months at [facility] psychiatric setting in [facility]. Was discharged home to his father's care on July 14, 3 days prior to this presentation. Continue trazodone 100 mg p.o. nightly as needed. Continue Depakote 500 mg p.o. daily, 1000 mg p.o. nightly. Continue fluoxetine 40 mg p.o. daily. Continue Risperdal 3 mg p.o. twice daily. Continue Strattera 40 mg p.o. daily. Continue lorazepam 2 mg p.o. every 6 hours as needed anxiety, restlessness. Continue Thorazine 50 mg IM every 4 hours as needed severe agitation. Continue Haldol 5 mg IV every 4 hours as needed severe agitation. The plan is to transfer to inpatient psychiatry once he is medically cleared. Continue to follow the patient's progress. We will ask social service/Nhi Lyons to initiate bedsearch within the next couple of days as he becomes stable medically. Plans and Expectations discussed Visit was spent in counseling the patient and/or family and in coordinating care. I have provided support and counseling to help patient to deal with mental illness, stressors, current medical condition and continue to coordinate care with family independence case manager and hospitalist while adjusting psychiatric medications to help facilitate safe discharge planning. Rachael Daugherty CNP 07/19/2024 11:39 AM Disclaimer: Speech recognition software was used to dictate portions of this document. An attempt at proofreading has been made to minimize transcriptional errors. Please do not hesitate to call withany questions. * Kitty Fernando MD - 07/19/2024 7:59 AM EST [facility] Hospitalist Progress Note Patient: Rob Almeida : 2000 Date of Service: 07/19/2024 Hospital Day: 1 PCP: Required, No Pcp/Pcp Not Chief Complaint: CC on Admission: Drug / Alcohol Assessment The patient remains in the hospital due to ongoing treatment / workup for episode of unresponsiveness, schizoaffective disorder. Overnight Events: Nursing notes reviewed, NETWORK SYSTEMS INTEGRATOR notes reviewed, and Cross cover notified, handoff/notes reviewed NETWORK SYSTEMS INTEGRATOR level 2 was called at 3 PM on 07/17 for episode of unresponsiveness. Per RN, patient was sitting in the chair when all of a sudden he was unresponsive with his eyes fluttering, no evidence of GTC, no tongue biting, no incontinence. Patient ' woke up' after sternal rubwas initiated by RN. The whole episode lasted about 2 minutes. No evidence of postictal confusion. During episode patient noticed to be tachycardic to 140s. He denies any chest pain/SOB. Case d/w neurologist on-call Dr Dietrich informing him about the event. Recommended obtaining instead 24-hour videoEEG, as we may be able to capture spells. I updated order. Patient intermittently tachycardic to 140s. Asymptomatic. EKG was obtained Add metoprolol 5 mg IV prn. No underlying infectious process. Could be related to anxiety vs psychogenic seizures. RONALD level 2 was called around 4 PM 07/17 due to episode of psychosis/panic event. Apparently patient was in hallway on P6 and he was running up and down the hallway and then in the end with all the strength he hit his head against the glass near the nursing station on P6. Patient was caught by the security guards, RNs and was slowly leaned down to the floor.Patient tachycardic in 130s. At this point patient was taken urgently for CT head and C-spine. Per father, patient has been having hallucinations pretty much ' all the time'.Per psychiatry Haldol 5 mg IV as needed for psychosis. CT head and C-spine given the head trauma again for the glassPatient cannot leave AMA. 1:1 sitter for safety -After discussion with psychiatry team, patient should be discharged back to inpatient psych facility where he spent 5 months and was discharged just 3 days ago. Overnight at 07/18 1:07 am , level 2 RONALD was called for change in behavior and status. Pt with agitated delirium with shaking type behaviors and overt hallucinations and large 4 point restraints with underlying chronic auditory hallucinations question command hallucinations noncompliance with medications and was recently in a 5-month inpatient psychiatric stay now off of psych meds times several days prior to hospitalization The patient had agitation running up in the hallway and running into glass in the wall earlier withnegative imaging and remains conversant at this time after Ativan as lucid speech with no focal findings on neurologic semination moving all extremities but intermittently tachycardic likely secondary to agitated delirium with destabilized psychiatric illness. No meds given, labs were checked Patient was also reassessed around 3 AM approximately on 07/18 by covering MD for abnormal labs with CPK levels more than 2000 and EKG on admission noted to have QTc of 522 ms. Patient was given 1 L ofNS bolus, repeat EKG was obtained which showed resolution of QT prolongation, patient was deemed okay to continue with Haldol Ronald level 2 was called around 11:30 AM fter patient tried to take of restraint and hit staff, IM Thorazine was given, patient was placed on restraints, continues to have one-to-one sitter, I discussed safety plan with patient Overnight no significant events Subjective : Patient was examined and evaluated bedside today. Patient more alert and awake, participating conversation cooperative. Requesting to be off restraints. He denies any other complaints Review of Systems: Review of systems negative except as per above. Chronic Problems: Past Medical History: Diagnosis Date ADD (attention deficit disorder) Adderall use disorder, severe ([facility]) Anxiety Asperger syndrome Asperger's disorder 11/15/2020 Attention-deficit hyperactivity disorder, unspecified type 01/11/2021 Bipolar disorder ([facility]) Delusional disorder ([facility]/HCC) 02/23/2020 Depression Elevated blood pressure reading without diagnosis of hypertension Essential (primary) hypertension 06/28/2020 ICD-10 Qualified Code(s): I10 - Essential (primary) hypertension; Hypertension type - unspecified; Ibuprofen overdose 07/18/2024 Insomnia 11/22/2021 F/B PSYCH 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 Mood disorder ([facility]) Obesity Paranoid delusion ([facility]) Pelvic kidney Perinephric fluid collection 07/18/2024 Schizoaffective disorder ([facility]) Schizoaffective disorder, bipolar type ([facility]) 01/11/2021 Medications: Scheduled Meds: Current Facility-Administered Medications: lactated Ringer's bolus 1,000 mL, Intravenous, Once divalproex (DEPAKOTE) DR tablet 500 mg, Oral, Daily FLUoxetine (PROzac) capsule 40 mg, Oral, Daily risperiDONE (RisperDAL) tablet 3 mg, Oral, BID divalproex (DEPAKOTE) DR tablet 1,000 mg, Oral, Nightly atomoxetine (STRATTERA) capsule 40 mg, Oral, Daily clozapine (CLOZARIL) tablet 12.5 mg, Oral, BID POM: Risperidone ER 125mg / 0.35mL Prefilled Syringe, Subcutaneous, q28 days enoxaparin (LOVENOX) syringe 40 mg, Subcutaneous, q24h Continuous Infusions: PRN Meds:. Current Facility-Administered Medications: traZODone (DESYREL) tablet 100 mg, Oral, Nightly PRN LORazepam (ATIVAN) tablet 2 mg, Oral, q6h PRN metoprolol tartrate (LOPRESSOR) injection 5 mg, Intravenous, q4h PRN haloperidol lactate (HALDOL) injection 5 mg, Intravenous, q4h PRN chlorproMAZINE (THORAZINE) injection 50 mg, Intramuscular, q4h PRN LORazepam (ATIVAN) injection 1 mg, Intravenous, q4h PRN LORazepam (ATIVAN) injection 2 mg, Intravenous, q4h PRN senna (SENOKOT) tablet 2 tablet, Oral, Nightly PRN docusate sodium (COLACE) capsule 100 mg, Oral, BID PRN bisacodyl (DULCOLAX) EC tablet 10 mg, Oral, Daily PRN nystatin (MYCOSTATIN) powder 1 Application, Topical, BID PRN Adult Over the Counter Medication Algorithm, Route N/A, PRN ondansetron (ZOFRAN) injection 4 mg, Intravenous, q6h PRN acetaminophen (TYLENOL) tablet 1,000 mg, Oral, q8h PRN Objective : Vital Signs: Temp: [97.2 ??F (36.2 ??C)-98.5 ??F (36.9 ??C)] 97.2 ??F (36.2 ??C) Pulse: [89-115] 115 Resp: [18] 18 BP: (120-150)/(78-87) 138/85 SpO2: [95 %-97 %] 95 % 113.4 kg (250 lb) Body mass index is 39.16 kg/m??. I/O: Intake/Output Summary (Last 24 hours) at 07/19/2024 1530 Last data filed at 07/19/2024 0600 Gross per 24 hour Intake 200 ml Output 1000 ml Net -800 ml Physical Exam: General: Obese young male, lying in bed , NAD. HENT: Normocephalic, atraumatic, moist mucous membranes Eyes: PERRL, EOMI, no conjunctival pallor Cardiovascular: RRR, normal S1/S2, no murmurs, rubs or gallops Respiratory: clear breath sounds bilaterally Gastrointestinal:soft, not tender, non-distended, + bowel sounds Extremities: no edema; warm and well perfused, peripheral pulses palpable Neuro: Alert and oriented x3, moves all extremities Skin no rashes Psych restless and intermittently agitated Patient was seen and evaluated while wearing the following personal protection equipment: surgical mask and gloves because of No active isolations precautions. Labs: Reviewed in [facility]. Daily Labs: CBC Recent Labs 07/18/24 0144 07/18/24 0723 07/19/24 1001 WBC 9.3 7.2 9.4 HGB 13.1* 12.3* 12.9* HCT 38.1* 36.6* 37.3* MCV 88 89 88 PLT 256 210 218 BMP Recent Labs 07/18/24 0145 07/18/24 0724 07/19/24 1001 NA 137 140 137 K 4.5 4.1 3.9 CL 103 107 101 CO2 20* 19* 21* BUN 18 17 14 CREAT 1.3* 1.3* 1.2 CALCIUM 10.0 9.4 9.3 MG 2.4 -- -- PHOS 3.8 -- -- LFT Recent Labs 07/18/24 0145 07/18/24 0724 07/19/24 1001 ALBUMIN 4.5 4.4 4.2 BILITOT 0.3 0.3 0.5 ALT 57* 54* 49* AST 73* 71* 67* ALKPHOS 89 83 90 Coags Recent Labs 07/18/24 0333 INR 1.1 PT 14.0 Microbiology: Reviewed in [facility]. Studies/Imaging: Independently reviewed by me. 07/17 CT head without contrast with no acute intracranial abnormalities 07/17 CT cervical spine without contrast with no acute fractures EEG : IMPRESSION: This EEG, performed during the waking, drowsy, and sleeping states, is abnormal because of frequent bilateral slowing with R>L temporal predominance. This study is consistent with mild bilateral cerebral dysfunction, maximal R>L temporally. There are no definite epileptiformdischarges and rare right temporal sharply contoured waves are not clearly epileptiform. there are n o definite electrographic seizures . There are no prior EEGs available for comparison. If clinically indicated, a followup EEG may be considered. Assessment & Plan : Rob Almeida is a 23 y.o. male w/ hx of schizoaffective disorder, autism, ADD, major depression with prior SI, was brought to ED for question of intoxication. As per ED notes, patient was found wandering on the way to the dispensary. He apparently took 2 candies '' that were given to him by someone at [facility], with the presumption that he may contain illicit substances. Eventually he was described as being ' under the influence.' In ED patient had an episode of unresponsiveness. Both neurologist and psych consulted. Of note, patient has been hospitalized at psych facility [facility] for 5 months and just discharged to home where he lives with her father about 3 days ago during which he has not taken any psych meds. Principal Problem: Witnessed seizure-like activity (CMS/HCC) (POA: Yes) Active Problems: Acute kidney injury (CMS/HCC) (POA: Yes) Altered mental status, unspecified (POA: Yes) Metabolic acidosis (POA: Yes) Transaminitis (POA: Yes) Normocytic anemia (POA: Yes) Elevated CK (POA: Clinically Undetermined) Altered mental status (POA: Yes) Problem Based Plan of Care: Episode of unresponsiveness, recurrent Tachycardia Patient had unresponsive episode in ED, associated with sinus tachycardia and eyelids fluttering; per RN he was not responding to sternal labs, no incontinence or tongue biting, episode lasted 2 to 3minutes; patient received IV Ativan. CT head is nonacute; U tox is negative Neurology was consulted, unclear etiology of brief episodes of reduced interactivity, without LOC. No prior history of seizures. No indications for AED at this time. Unclear if this can represent psychogenic seizure. NETWORK SYSTEMS INTEGRATOR level 2 was called at 3 PM on 07/17 for episode of unresponsiveness. Per RN, patient was sitting in the chair when all of a sudden he was unresponsive with his eyes fluttering, no evidence of GTC, no tongue biting, no incontinence. Patient ' woke up' after sternal rubwas initiated by RN. The whole episode lasted about 2 minutes. No evidence of postictal confusion. During episode patient noticed to be tachycardic to 140s. He denies any chest pain/SOB. Case d/w neurologist on-call Dr Dietrich informing him about the event. Recommended obtaining instead 24-hour videoEEG, as we may be able to capture spells order was canceled per EEG team Patient intermittently tachycardic to 140s. Asymptomatic. EKG was obtained patient was on metoprolol 5 mg IV every 6 hours as needed, will discontinue no underlying infectious process. Could be related to anxiety vs psychogenic seizures. Spot EEG with no epileptiform discharges Patient is currently alert awake and oriented x 3, tachycardia improving, heart rate ranging from 89-115 Schizoaffective disorder Autism Major depression with prior SI Suspected intoxication Per patient, patient has been 4 months at [facility], currently living at home with dad. Brought to ED due to ' suspected intoxication and being under the influence', after he took ' 2 candies' that were given by him at [facility] Per report, patient is due for Uzedy (risperidone) IM injections He also missed Clozaril x 3 days 07/17 Uzedy IM today which apparently can be given by patient's VNA. manager wireless involved to contact home VNA to bring inj to the hospital. Resume home meds: Clozaril, Depakote, fluoxetine, risperidone (I discussed with pharmacy, as patient missed more than 2 days, the recommendation is to resume Clozaril at lower dose 12.5 BID and then gradually increase to home dose 100 mg BID) Send out Clozaril level -Psych consulted, opined because the patient missed Clozaril doses for the past 2 to 3 days, doesAdd Thorazine 50 mg IM every 4 hours as needed as patient became increasingly psychotic and agitated, diaphoretic with question of withdrawal. Continue Haldol 5 mg IV every 4 hours as needed severe agitation. Add lorazepam 2 mg IV every 4 hours as needed severe anxiety and agitation. Continue trazodone 100 mg p.o. nightly as needed. Continue Depakote 500 mg p.o. daily, 1000 mg p.o. nightly. Continue fluoxetine 40 mg p.o. daily. Continue Risperdal 3 mg p.o. twice daily and injection of IM form once we have the dose. Father brought the dose RONALD level 2 was called around 4 PM 07/17 due to episode of psychosis/panic event. Apparently patient was in hallway on P6 and he was running up and down the hallway and then in the end with all the strength he hit his head against the glass near the nursing station on P6. Patient was caught by the security guards, RNs and was slowly leaned down to the floor.Patient tachycardic in 130s. At this point patient was taken urgently for CT head and C-spine. Per father, patient has been having hallucinations pretty much ' all the time'.Per psychiatry Haldol 5 mg IV as needed for psychosis. CT head and C-spine given the head trauma again for the glassPatient cannot leave AMA. 1:1 sitter for safety -After discussion with psychiatry team, patient should be discharged back to inpatient psych facility where he spent 5 months and was discharged just 3 days ago. Overnight at 07/18 1:07 am , level 2 RONALD was called for change in behavior and status. Pt with agitated delirium with shaking type behaviors and overt hallucinations and large 4 point restraints withunderlying chronic auditory hallucinations question command hallucinations noncompliance with medications and was recently in a 5-month inpatient psychiatric stay now off of psych meds times several days prior to hospitalization The patient had agitation running up in the hallway and running into glass in the wall earlier withnegative imaging and remains conversant at this time after Ativan as lucid speech with no focal findings on neurologic semination moving all extremities but intermittently tachycardic likely secondary to agitated delirium with destabilized psychiatric illness. No meds given, labs were checked Patient was also reassessed around 3 AM approximately on 07/18 by covering MD for abnormal labs with CPK levels more than 2000 and EKG on admission noted to have QTc of 522 ms. Patient was given 1 L ofNS bolus, repeat EKG was obtained which showed resolution of QT prolongation, patient was deemed okay to continue with Haldol Ronald level 2 was called around 11:30 AM 07/18 after patient tried to take of restraint and hit staff,IM Thorazine was given, patient was placed on restraints, continues to have one-to-one sitter, I discussed safety plan with patient , psych reconsulted. No other significant events overnight Pt was reevalauted by psych team on 07/18 , plan to transfer to inpatient psych facility when medicaly stabilized HTN Home medication is lisinopril 20 mg daily which was on hold due to borderline low BP and CELESTINO Blood pressure currently 120 to 150 mmHg, renal function improved and at baseline Will resume lisinopril at lower dose 10 mg p.o. daily Acute kidney injury Suspected rhabdomyolysis Cr 1.7 on admission, baseline seems to be around 1.2. Cr improved to 1.3 on 07/17. Encourage p.o. intake Hold lisinopril Repeat creatinine 1.3 on 07/18, improved today to 1.2 which is patient's baseline CPK elevated 3623 today from 2568 on admission, elevated to 3550 today Patient was given 1 L of LR bolus overnight and encourage oral hydration Continue monitor renal function closely will order additional bolus of 1 L LR Consults During Current Admission: Neurology and Psychiatry. ROMULOI: Adult Diet Regular DVT Prophylaxis: Active Anticoagulation Orders Report (From admission, onward) Ordered Ordering Provider [facility] Jul 16, 2024 11:12 PM 07/16/24 2312 enoxaparin (LOVENOX) syringe 40 mg (BMI under 40 kg/m2 and/or weight under 100kg AND Normal Renal Function (CrCl 30+ mL/min)) Every 24 hours Note to Pharmacy: Pharmacist to round to nearest Measurable Dose Authorizing Provider: Stan Nolan MD End Date/Time: Until Discontinued PRN Reasons: -- References: Erica-Comp Ordering and Monitoring Of Anticoagulants Policy Drug Administration Guideline Question: Indications for Anticoagulants Answer: Deep Vein Thrombosis Prophylaxis Stan Nolan MD GI Prophylaxis: GI Prophylaxis: Not Indicated Central Lines: Central Lines: None Tubes/Drains: Tubes/Drains: None CODE: Full Code DISPOSITION: Inpatient, Expected post-hospitalization disposition will be to To be determined. Attempted to call patient's guardian Lamonte Feliciano, left message with answering service to call us back for medical updates KITTY FERNANDO MD [facility] 07/19/2024 3:30 PM (Note was created in part with medical speech recognition software. Despite attempts at proof-reading, unintentional errors may be present resulting in the change of meaning or intent. Please contactme directly if you have any questions regarding this note). * Rachael Daugherty NP - 07/18/2024 1:53 PM EST Mental Health Progress Note DATE OF SERVICE: 07/18/2024 HPI/HOSPITAL COURSE: The patient is a 23 y.o. male with a history of schizoaffective disorder bipolar type, Asperger syndrome, autism spectrum disorder, attention deficit disorder, severe Adderall use disorder, generalized anxiety disorder, obesity, paranoid delusion, pelvic kidney who presented on 07/16/2024 to the Emergency Department with altered mental status. Patient was discharged to his father's care from [facility] on July 14after a 5-month stay. Unfortunately, the patient did not take any of his psychotropic medications since return home after discharge. Patient was found wandering on his way to the dispensary. He reported taking 2 candies that were given to him by someone at [facility] with the presumption that th ey contained illicit substances. He was described as seemingly under the influence. Patient reports taking 2 regular candy Gummies and denied any illicit substance. He told neurology he took 2 candies called wilner. Patient refused to provide more information while being seen in the emergency department. While in the emergency department he had an episode of unresponsiveness associated with sinus tachycardia andeyelids fluttering. Nurse Vivien Albert stated that he was not responding to sternal rubs, helped his eyelids open and observed that the eyes were rolled back. He did not have incontinence or tongue biting. EMS reported of a similar episode and for some reason they were suspicious of psychogenic etiology. Unclear whether patient has benzodiazepine use disorder as he received 2 mg of IV Ativan withthis episode. QTc 522, COVID-19 testing was negative, acetaminophen, salicylate and alcohol levels were undetected, urine drug screen negative. Head CT nonacute. When I spoke with patient, he was paranoid, he was upset because he thought that I implied that Iwas going to send him to a psychiatric hospital. He became somewhat agitated. We called his father Mani and spoke with him on speakerphone. Father was planning to come to the hospital within a couple of hours to bring a medication that the patient was due to take and father reported that he was overdue for this. Father reports that patient was at [facility] for 5 months with recent discharge3 days ago. Unclear why the patient did not take any of his medications over the past 2 to 3 days, patient alsoparticipating in a day program, partial program at [facility] in [place]. Patient also receives [facility] services through the pact team. Patient with irritability, restlessness, upon arrival to the floor several hours later at approximately 4 PM, he ran out of bed and down the boggs and hit his head against a large window. He was sent for head CT which is negative. Security was called and he was put in restraints for his own safety. Ronald was called as he was calm in bed and then jumped out of bed, ripped his EKG leads off and pushed past staff to leave the room. RN reports that he appeared angry, wanting to leave and was somewhat intimidating. He left the room and began running the halls and attempting to go into other patient's rooms. He then ran full speed into the full pain of window at the end of [address] headfirst andbounce off the glass landing on the ground. He then got up and ran to the other and where staff andsecurity were able to intervene and assist him to the ground. Patient was pale and staring but answering questions. Patient was sent head CT, for CT and C-spine. He described feeling numb all over. Upon arrival to the floor he did not remember why he was in the hospital and asked what happened? He continued to attempt to get out of bed and sit up, security restrain him as he would not respond. He was given Haldol 5 mg IV. I spoke with Jeanie from the NETWORK SYSTEMS INTEGRATOR for medication options for agitation. Pt has responded well to thorazine 50 mg IM, decreased response to haldol 5 mg iv x1. 07/18/24 Patient with significant paranoia, delusional thought, agitation who has required security with 4-point restraints. EEG pending as patient is having questionable seizure episodes versus pseudoseizure. Patient with pressured speech, at times has difficulty responding to questions. RONALD called due to agitation, got out of wrist restraint and swelling at sitter. Placed in 4-point restraints champ.Patient responding well to going to the toilet for bowel movement but able to urinate in a urinal. Trying to minimize patient's restlessness and agitation. Continue current regimen and follow the patient's progress. The patient's medical record was reviewed with pertinent details highlighted. VITAL SIGNS-LAST 24 HOURS: Temp: [97.4 ??F (36.3 ??C)-97.6 ??F (36.4 ??C)] 97.6 ??F (36.4 ??C) Pulse: [111-150] 123 Resp: [21-40] 35 BP: (123-136)/(67-90) 136/76 SpO2: [90 %-98 %] 97 % DAILY WEIGHTS: Weight: 113.4 kg (250 lb) CURRENT MEDICATIONS: Current Facility-Administered Medications: traZODone (DESYREL) tablet 100 mg, 100 mg, Oral, Nightly PRN, Zenaida Gold MD divalproex (DEPAKOTE) DR tablet 500 mg, 500 mg, Oral, Daily, Zenaida Gold MD, 500 mg at 07/18/24 0856 FLUoxetine (PROzac) capsule 40 mg, 40 mg, Oral, Daily, Zenaida Gold MD, 40 mg at 07/18/24 0856 risperiDONE (RisperDAL) tablet 3 mg, 3 mg, Oral, BID, Zenaida Gold MD, 3 mg at 07/18/24 0856 divalproex (DEPAKOTE) DR tablet 1,000 mg, 1,000 mg, Oral, Nightly, Zenaida Gold MD, 1,000 mg at 07/17/242033 atomoxetine (STRATTERA) capsule 40 mg, 40 mg, Oral, Daily, Zenaida Gold MD LORazepam (ATIVAN) tablet 2 mg, 2 mg, Oral, q6h PRN, Zenaida Gold MD metoprolol tartrate (LOPRESSOR) injection 5 mg, 5 mg, Intravenous, q4h PRN, Zenaida Gold MD, 5 mg at 07/17/24 2230 clozapine (CLOZARIL) tablet 12.5 mg, 12.5 mg, Oral, BID, Rachael Daugherty NP, 12.5 mg at 07/18/24 0856 POM: Risperidone ER 125mg / 0.35mL Prefilled Syringe, 125 mg, Subcutaneous, q28 days, Zenaida Gold MD, 125 mg at 07/17/24 1904 haloperidol lactate (HALDOL) injection 5 mg, 5 mg, Intravenous, q4h PRN, Leeanna Pimentel MD, 5 mg at 07/18/24 0243 chlorproMAZINE (THORAZINE) injection 50 mg, 50 mg, Intramuscular, q4h PRN, Rachael Daugherty NP, 50 mg at 07/18/24 1127 LORazepam (ATIVAN) injection 1 mg, 1 mg, Intravenous, q4h PRN, Rachael Daugherty NP LORazepam (ATIVAN) injection 2 mg, 2 mg, Intravenous, q4h PRN, Rachael Daugherty NP, 2 mg at 07/17/24 2344 senna (SENOKOT) tablet 2 tablet, 2 tablet, Oral, Nightly PRN, Stan Nolan MD docusate sodium (COLACE) capsule 100 mg, 100 mg, Oral, BID PRN, Stan Nolan MD bisacodyl (DULCOLAX) EC tablet 10 mg, 10 mg, Oral, Daily PRN, Stan Nolan MD nystatin (MYCOSTATIN) powder 1 Application, 1 Application, Topical, BID PRN, Stan Nolan MD Adult Over the Counter Medication Algorithm, , Route N/A, PRN, Stan Nolan MD ondansetron (ZOFRAN) injection 4 mg, 4 mg, Intravenous, q6h PRN, Stan Nolan MD acetaminophen (TYLENOL) tablet 1,000 mg, 1,000 mg, Oral, q8h PRN, Stan Nolan MD enoxaparin (LOVENOX) syringe 40 mg, 40 mg, Subcutaneous, q24h, Stan Nolan MD, 40 mg at 07/17/24 1006 REVIEW OF SYSTEMS: Negative for headache, sore throat, chest pain, dizziness, blurred vision, fatigue, joint pain, constipation, skin itchiness, dysuria, fever, cough, SOB, vomiting, diarrhea, nausea, abdominal pain. MENTAL STATUS EXAM: Sensorium: Alert Sedation-Agitation: Agitated Appearance: Normal Grooming (with nursing assistance) Behavior/Activity: Restless Speech: Perseverative Affect: Labile Mood: Anxious Thought Form: Disorganized Thought Content: Delusions Perceptual: Auditory and visual hallucinations Delusional Thoughts: Paranoid Suicidal Ideation: Suicidal thoughts, trying to hit his head against the window and jump out of thewindow yesterday Homicidal Ideation: None Orientation: Person/place/time Memory: Impaired Judgement/Impairment: Impaired Attention/Concentration: fair Capacity: Cannot leave AMA due to psychosis which is chronic but worsened and suicidality Frontal Release Signs: Within Normal Limits/Grasp EPS: Within Normal Limits Cranial Nerves: Within Normal Limits Motor Tone/Strength: Please refer to medical assessment for further details. Gait: Please refer to medical assessment for further details. Sensory: Please refer to medical assessment for further details. DECISION-MAKING CAPACTIY [] UNDERSTANDING of the facts relevant to medical decision (e.g. illness, purpose of the intervention, risks/benefits, alternatives) [] CONSEQUENCES appreciation of decisions (e.g. treatment and non-treatment) [] LOGICAL manipulation of information ???Chain of Reasoning?? (e.g. self- directed, parroting back) [] CHOICE ability to communicate (e.g. can't, won't, consistent, stable) Patient does not appreciate the seriousness/complexity of their medical situation and does not appreciate the significant consequences of non-treatment. HCP INVOKED? No GUARDIANSHIP: YES ASSESSMENT/RECOMMENDATIONS: 23-year-old male with schizoaffective disorder bipolar type with chronic psychosis, auditory and visual hallucination, paranoia and delusion. Patient recently spent 5 months at [facility] psychiatric setting in [facility]. Was discharged home to his father's care on July 14, 3 days prior to this presentation. Continue trazodone 100 mg p.o. nightly as needed. Continue Depakote 500 mg p.o. daily, 1000 mg p.o. nightly. Continue fluoxetine 40 mg p.o. daily. Continue Risperdal 3 mg p.o. twice daily. Continue Strattera 40 mg p.o. daily. Continue lorazepam 2 mg p.o. every 6 hours as needed anxiety, restlessness. Continue Thorazine 50 mg IM every 4 hours as needed severe agitation. Continue Haldol 5 mg IV every 4 hours as needed severe agitation. The plan is to transfer to inpatient psychiatry once he is medically cleared. Plans were in place for an EEG to evaluate for seizure, resolve hypotension, acute kidney injury. Continue to follow the patient's progress. We will ask social service/Nhi Lyons to initiate bedsearch within the next couple of days as he becomes stable medically. Plans and Expectations discussed Visit was spent in counseling the patient and/or family and in coordinating care. I have provided support and counseling to help patient to deal with mental illness, stressors, current medical condition and continue to coordinate care with family independence case manager and hospitalist while adjusting psychiatric medications to help facilitate safe discharge planning. Rachael Daugherty CNP 07/18/2024 1:53 PM Disclaimer: Speech recognition software was used to dictate portions of this document. An attempt at proofreading has been made to minimize transcriptional errors. Please do not hesitate to call withany questions. * Kitty Fernando MD - 07/18/2024 8:29 AM EST [facility] Hospitalist Progress Note Patient: Rob Almeida : 2000 Date of Service: 07/18/2024 Hospital Day: 0 PCP: Required, No Pcp/Pcp Not Chief Complaint: CC on Admission: Drug / Alcohol Assessment The patient remains in the hospital due to ongoing treatment / workup for episode of unresponsiveness, schizoaffective disorder. Overnight Events: Nursing notes reviewed, NETWORK SYSTEMS INTEGRATOR notes reviewed, and Cross cover notified, handoff/notes reviewed NETWORK SYSTEMS INTEGRATOR level 2 was called at 3 PM on 07/17 for episode of unresponsiveness. Per RN, patient was sitting in the chair when all of a sudden he was unresponsive with his eyes fluttering, no evidence of GTC, no tongue biting, no incontinence. Patient ' woke up' after sternal rubwas initiated by RN. The whole episode lasted about 2 minutes. No evidence of postictal confusion. During episode patient noticed to be tachycardic to 140s. He denies any chest pain/SOB. Case d/w neurologist on-call Dr Dietrich informing him about the event. Recommended obtaining instead 24-hour videoEEG, as we may be able to capture spells. I updated order. Patient intermittently tachycardic to 140s. Asymptomatic. EKG was obtained Add metoprolol 5 mg IV prn. No underlying infectious process. Could be related to anxiety vs psychogenic seizures. RONALD level 2 was called around 4 PM 07/17 due to episode of psychosis/panic event. Apparently patient was in hallway on P6 and he was running up and down the hallway and then in the end with all the strength he hit his head against the glass near the nursing station on P6. Patient was caught by the security guards, RNs and was slowly leaned down to the floor.Patient tachycardic in 130s. At this point patient was taken urgently for CT head and C-spine. Per father, patient has been having hallucinations pretty much ' all the time'.Per psychiatry Haldol 5 mg IV as needed for psychosis. CT head and C-spine given the head trauma again for the glassPatient cannot leave AMA. 1:1 sitter for safety -After discussion with psychiatry team, patient should be discharged back to inpatient psych facility where he spent 5 months and was discharged just 3 days ago. Overnight at 07/18 1:07 am , level 2 RONALD was called for change in behavior and status. Pt with agitated delirium with shaking type behaviors and overt hallucinations and large 4 point restraints with underlying chronic auditory hallucinations question command hallucinations noncompliance with medications and was recently in a 5-month inpatient psychiatric stay now off of psych meds times several days prior to hospitalization The patient had agitation running up in the hallway and running into glass in the wall earlier withnegative imaging and remains conversant at this time after Ativan as lucid speech with no focal findings on neurologic semination moving all extremities but intermittently tachycardic likely secondary to agitated delirium with destabilized psychiatric illness. No meds given, labs were checked Patient was also reassessed around 3 AM approximately on 07/18 by covering MD for abnormal labs with CPK levels more than 2000 and EKG on admission noted to have QTc of 522 ms. Patient was given 1 L ofNS bolus, repeat EKG was obtained which showed resolution of QT prolongation, patient was deemed okay to continue with Haldol Ronald level 2 was called around 11:30 AM after patient tried to take of restraint and hit staff, IM Thorazine was given, patient was placed on restraints, continues to have one-to-one sitter, I discussed safety plan with patient Subjective : Patient was examined and evaluated bedside today. Review of Systems: Review of systems negative except as per above. Chronic Problems: Past Medical History: Diagnosis Date ADD (attention deficit disorder) Adderall use disorder, severe ([facility]) Anxiety Asperger syndrome Asperger's disorder 11/15/2020 Attention-deficit hyperactivity disorder, unspecified type 01/11/2021 Bipolar disorder ([facility]) Delusional disorder ([facility]) 02/23/2020 Depression Elevated blood pressure reading without diagnosis of hypertension Essential (primary) hypertension 06/28/2020 ICD-10 Qualified Code(s): I10 - Essential (primary) hypertension; Hypertension type - unspecified; Ibuprofen overdose 07/18/2024 Insomnia 11/22/2021 F/B PSYCH 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 Mood disorder (CMS/HCC) Obesity Paranoid delusion ([facility]) Pelvic kidney Perinephric fluid collection 07/18/2024 Schizoaffective disorder ([facility]) Schizoaffective disorder, bipolar type ([facility]) 01/11/2021 Medications: Scheduled Meds: Current Facility-Administered Medications: divalproex (DEPAKOTE) DR tablet 500 mg, Oral, Daily FLUoxetine (PROzac) capsule 40 mg, Oral, Daily risperiDONE (RisperDAL) tablet 3 mg, Oral, BID divalproex (DEPAKOTE) DR tablet 1,000 mg, Oral, Nightly atomoxetine (STRATTERA) capsule 40 mg, Oral, Daily clozapine (CLOZARIL) tablet 12.5 mg, Oral, BID POM: Risperidone ER 125mg / 0.35mL Prefilled Syringe, Subcutaneous, q28 days enoxaparin (LOVENOX) syringe 40 mg, Subcutaneous, q24h Continuous Infusions: PRN Meds:. Current Facility-Administered Medications: traZODone (DESYREL) tablet 100 mg, Oral, Nightly PRN LORazepam (ATIVAN) tablet 2 mg, Oral, q6h PRN metoprolol tartrate (LOPRESSOR) injection 5 mg, Intravenous, q4h PRN haloperidol lactate (HALDOL) injection 5 mg, Intravenous, q4h PRN chlorproMAZINE (THORAZINE) injection 50 mg, Intramuscular, q4h PRN LORazepam (ATIVAN) injection 1 mg, Intravenous, q4h PRN LORazepam (ATIVAN) injection 2 mg, Intravenous, q4h PRN senna (SENOKOT) tablet 2 tablet, Oral, Nightly PRN docusate sodium (COLACE) capsule 100 mg, Oral, BID PRN bisacodyl (DULCOLAX) EC tablet 10 mg, Oral, Daily PRN nystatin (MYCOSTATIN) powder 1 Application, Topical, BID PRN Adult Over the Counter Medication Algorithm, Route N/A, PRN ondansetron (ZOFRAN) injection 4 mg, Intravenous, q6h PRN acetaminophen (TYLENOL) tablet 1,000 mg, Oral, q8h PRN Objective : Vital Signs: Temp: [97.4 ??F (36.3 ??C)-97.6 ??F (36.4 ??C)] 97.6 ??F (36.4 ??C) Pulse: [104-150] 123 Resp: [18-40] 35 BP: (123-138)/(67-90) 136/76 SpO2: [90 %-98 %] 97 % 113.4 kg (250 lb) Body mass index is 39.16 kg/m??. I/O: Intake/Output Summary (Last 24 hours) at 07/18/2024 1219 Last data filed at 07/18/2024 0632 Gross per 24 hour Intake -- Output 400 ml Net -400 ml Physical Exam: General: Obese young male, lying in bed , NAD. HENT: Normocephalic, atraumatic, moist mucous membranes Eyes: PERRL, EOMI, no conjunctival pallor Cardiovascular: RRR, normal S1/S2, no murmurs, rubs or gallops Respiratory: clear breath sounds bilaterally Gastrointestinal:soft, not tender, non-distended, + bowel sounds Extremities: no edema; warm and well perfused, peripheral pulses palpable Neuro: Alert and oriented x3, moves all extremities Skin no rashes Psych restless and intermittently agitated Patient was seen and evaluated while wearing the following personal protection equipment: surgical mask and gloves because of No active isolations precautions. Labs: Reviewed in Epic. Daily Labs: CBC Recent Labs 07/17/2444907/18/2414307/18/24 0723 WBC 8.1 9.3 7.2 HGB 13.1* 13.1* 12.3* HCT 38.8* 38.1* 36.6* MCV 89 88 89 PLT 213 256 210 BMP Recent Labs 07/17/2444907/18/2414407/18/24 0724 NA 138 137 140 K 4.6 4.5 4.1 CL 105 103 107 CO2 22* 20* 19* BUN 21* 18 17 CREAT 1.3* 1.3* 1.3* CALCIUM 9.4 10.0 9.4 MG -- 2.4 -- PHOS -- 3.8 -- LFT Recent Labs 07/17/2444907/18/2414407/18/24 0724 ALBUMIN 4.2 4.5 4.4 BILITOT 0.4 0.3 0.3 ALT 50* 57* 54* AST 66* 73* 71* ALKPHOS 88 89 83 Coags Recent Labs 07/18/24 0333 INR 1.1 PT 14.0 Microbiology: Reviewed in Epic. Studies/Imaging: Independently reviewed by me. 07/17 CT head without contrast with no acute intracranial abnormalities 07/17 CT cervical spine without contrast with no acute fractures Assessment & Plan : Rob Almeida is a 23 y.o. male w/ hx of schizoaffective disorder, autism, ADD, major depression with prior SI, was brought to ED for question of intoxication. As per ED notes, patient was found wandering on the way to the dispensary. He apparently took 2 candies '' that were given to him by someone at [facility], with the presumption that he may contain illicit substances. Eventually he was described as being ' under the influence.' In ED patient had an episode of unresponsiveness. Both neurologist and psych consulted. Of note, patient has been hospitalized at psych facility [facility] for 5 months and just discharged to home where he lives with her father about 3 days ago during which he has not taken any psych meds. Principal Problem: Witnessed seizure-like activity (CMS/HCC) (POA: Yes) Active Problems: Acute kidney injury (CMS/HCC) (POA: Yes) Altered mental status, unspecified (POA: Yes) Metabolic acidosis (POA: Yes) Transaminitis (POA: Yes) Normocytic anemia (POA: Yes) Elevated CK (POA: Clinically Undetermined) Altered mental status (POA: Yes) Problem Based Plan of Care: Episode of unresponsiveness, recurrent Tachycardia Patient had unresponsive episode in ED, associated with sinus tachycardia and eyelids fluttering; per RN he was not responding to sternal labs, no incontinence or tongue biting, episode lasted 2 to 3minutes; patient received IV Ativan. CT head is nonacute; U tox is negative Neurology was consulted, unclear etiology of brief episodes of reduced interactivity, without LOC. No prior history of seizures. No indications for AED at this time. Unclear if this can represent psychogenic seizure. Pending 24-hour EEG. NETWORK SYSTEMS INTEGRATOR level 2 was called at 3 PM on 07/17 for episode of unresponsiveness. Per RN, patient was sitting in the chair when all of a sudden he was unresponsive with his eyes fluttering, no evidence of GTC, no tongue biting, no incontinence. Patient ' woke up' after sternal rubwas initiated by RN. The whole episode lasted about 2 minutes. No evidence of postictal confusion. During episode patient noticed to be tachycardic to 140s. He denies any chest pain/SOB. Case d/w neurologist on-call Dr Dietrich informing him about the event. Recommended obtaining instead 24-hour videoEEG, as we may be able to capture spells. Patient intermittently tachycardic to 140s. Asymptomatic. EKG was obtained Add metoprolol 5 mg IV prn. No underlying infectious process. Could be related to anxiety vs psychogenic seizures. Schizoaffective disorder Autism Major depression with prior SI Suspected intoxication Per patient, patient has been 4 months at [facility], currently living at home with dad. Brought to ED due to ' suspected intoxication and being under the influence', after he took ' 2 candies' that were given by him at [facility] Per report, patient is due for Uzedy (risperidone) IM injections He also missed Clozaril x 3 days 07/17 Uzedy IM today which apparently can be given by patient's VNA. manager wireless involved to contact home VNA to bring inj to the hospital. Resume home meds: Clozaril, Depakote, fluoxetine, risperidone (I discussed with pharmacy, as patient missed more than 2 days, the recommendation is to resume Clozaril at lower dose 12.5 BID and then gradually increase to home dose 100 mg BID) Send out Clozaril level -Psych consulted, opined because the patient missed Clozaril doses for the past 2 to 3 days, doesAdd Thorazine 50 mg IM every 4 hours as needed as patient became increasingly psychotic and agitated, diaphoretic with question of withdrawal. Continue Haldol 5 mg IV every 4 hours as needed severe agitation. Add lorazepam 2 mg IV every 4 hours as needed severe anxiety and agitation. Continue trazodone 100 mg p.o. nightly as needed. Continue Depakote 500 mg p.o. daily, 1000 mg p.o. nightly. Continue fluoxetine 40 mg p.o. daily. Continue Risperdal 3 mg p.o. twice daily and injection of IM form once we have the dose. Father brought the dose RONALD level 2 was called around 4 PM 07/17 due to episode of psychosis/panic event. Apparently patient was in hallway on P6 and he was running up and down the hallway and then in the end with all the strength he hit his head against the glass near the nursing station on P6. Patient was caught by the security guards, RNs and was slowly leaned down to the floor.Patient tachycardic in 130s. At this point patient was taken urgently for CT head and C-spine. Per father, patient has been having hallucinations pretty much ' all the time'.Per psychiatry Haldol 5 mg IV as needed for psychosis. CT head and C-spine given the head trauma again for the glassPatient cannot leave AMA. 1:1 sitter for safety -After discussion with psychiatry team, patient should be discharged back to inpatient psych facility where he spent 5 months and was discharged just 3 days ago. Overnight at 07/18 1:07 am , level 2 RONALD was called for change in behavior and status. Pt with agitated delirium with shaking type behaviors and overt hallucinations and large 4 point restraints with underlying chronic auditory hallucinations question command hallucinations noncompliance with medications and was recently in a 5-month inpatient psychiatric stay now off of psych meds times several days prior to hospitalization The patient had agitation running up in the hallway and running into glass in the wall earlier withnegative imaging and remains conversant at this time after Ativan as lucid speech with no focal findings on neurologic semination moving all extremities but intermittently tachycardic likely secondary to agitated delirium with destabilized psychiatric illness. No meds given, labs were checked Patient was also reassessed around 3 AM approximately on 07/18 by covering MD for abnormal labs with CPK levels more than 2000 and EKG on admission noted to have QTc of 522 ms. Patient was given 1 L ofNS bolus, repeat EKG was obtained which showed resolution of QT prolongation, patient was deemed okay to continue with Haldol Ronald level 2 was called around 11:30 AM 07/18 after patient tried to take of restraint and hit staff,IM Thorazine was given, patient was placed on restraints, continues to have one-to-one sitter, I discussed safety plan with patient , psych reconsulted. HTN Home medication is lisinopril 20 mg daily which is on hold currently due to borderline low BP and CELESTINO Acute kidney injury Suspected rhabdomyolysis Cr 1.7 on admission, baseline seems to be around 1.2. Cr improved to 1.3 on 07/17. Encourage p.o. intake Hold lisinopril Repeat creatinine 1.3 on 07/18 CPK elevated 3623 today from 2568 yesterday Patient was given 1 L of LR bolus overnight and encourage oral hydration Continue monitor renal function closely will order additional bolus of 1 L LR Patient alert, oriented, and able to communicate with their family. Consults During Current Admission: Neurology and Psychiatry. FENGI: Adult Diet Regular DVT Prophylaxis: Active Anticoagulation Orders Report (From admission, onward) Ordered Ordering Provider [facility] Jul 16, 2024 11:12 PM 07/16/24 2312 enoxaparin (LOVENOX) syringe 40 mg (BMI under 40 kg/m2 and/or weight under 100kg AND Normal Renal Function (CrCl 30+ mL/min)) Every 24 hours Note to Pharmacy: Pharmacist to round to nearest Measurable Dose Authorizing Provider: Stan Nolan MD End Date/Time: Until Discontinued PRN Reasons: -- References: Erica-Comp Ordering and Monitoring Of Anticoagulants Policy Drug Administration Guideline Question: Indications for Anticoagulants Answer: Deep Vein Thrombosis Prophylaxis Stan Nolan MD GI Prophylaxis: GI Prophylaxis: Not Indicated Central Lines: Central Lines: None Tubes/Drains: Tubes/Drains: None CODE: Full Code DISPOSITION: Inpatient, Expected post-hospitalization disposition will be to To be determined. KITTY FERNANDO MD Hospitalist [facility] 07/18/2024 12:19 PM (Note was created in part with medical speech recognition software. Despite attempts at proof-reading, unintentional errors may be present resulting in the change of meaning or intent. Please contactme directly if you have any questions regarding this note). * Zenaida Gold MD - 07/17/2024 12:30 PM EST [facility] Hospitalist Progress Note Patient: Rob Almeida : 2000 Date of Service: 07/17/2024 Hospital Day: 0 PCP: Required, No Pcp/Pcp Not Chief Complaint: CC on Admission: Drug / Alcohol Assessment The patient remains in the hospital due to ongoing treatment / workup for ' being under the influence'. Overnight Events: No new overnight events and Nursing notes reviewed Subjective : Patient is somewhat limited historian. She is currently denying any SI/HI. No further suspected seizure activity. Review of Systems: Review of systems negative except as per above. Chronic Problems: Past Medical History: Diagnosis Date ADD (attention deficit disorder) Adderall use disorder, severe ([facility]) Anxiety Asperger syndrome Bipolar disorder ([facility]) Depression Elevated blood pressure reading without diagnosis of hypertension Mood disorder ([facility]) Obesity Paranoid delusion ([facility]) Pelvic kidney Schizoaffective disorder ([facility]) Medications: Scheduled Meds: Current Facility-Administered Medications: divalproex (DEPAKOTE) DR tablet 500 mg, Oral, Daily FLUoxetine (PROzac) capsule 40 mg, Oral, Daily risperiDONE (RisperDAL) tablet 3 mg, Oral, BID clozapine (CLOZARIL) tablet 100 mg, Oral, BID lisinopril (PRINIVIL,ZESTRIL) tablet 20 mg, Oral, Daily divalproex (DEPAKOTE) ER 24 hr tablet 1,000 mg, Oral, Nightly enoxaparin (LOVENOX) syringe 40 mg, Subcutaneous, q24h Continuous Infusions: PRN Meds:. Current Facility-Administered Medications: traZODone (DESYREL) tablet 100 mg, Oral, Nightly PRN senna (SENOKOT) tablet 2 tablet, Oral, Nightly PRN docusate sodium (COLACE) capsule 100 mg, Oral, BID PRN bisacodyl (DULCOLAX) EC tablet 10 mg, Oral, Daily PRN bisacodyl (DULCOLAX) suppository 10 mg, Rectal, Daily PRN nystatin (MYCOSTATIN) powder 1 Application, Topical, BID PRN Adult Over the Counter Medication Algorithm, Route N/A, PRN ondansetron ODT (ZOFRAN-ODT) disintegrating tablet 4 mg, Oral, q6h PRN ondansetron (ZOFRAN) injection 4 mg, Intravenous, q6h PRN Prochlorperazine (COMPAZINE) injection 5 mg, Intravenous, q4h PRN prochlorperazine (COMPAZINE) suppository 25 mg, Rectal, q12h PRN acetaminophen (TYLENOL) tablet 1,000 mg, Oral, q8h PRN LORazepam (ATIVAN) injection 1 mg, Intravenous, q4h PRN Objective : Vital Signs: Temp: [98 ??F (36.7 ??C)-98.6 ??F (37 ??C)] 98 ??F (36.7 ??C) Pulse: [73-130] 118 Resp: [15-21] 16 BP: (99-137)/(49-86) 122/59 SpO2: [96 %-98 %] 97 % 113.4 kg (250 lb) Body mass index is 39.16 kg/m??. I/O: Intake/Output Summary (Last 24 hours) at 07/17/2024 1230 Last data filed at 07/17/2024 0805 Gross per 24 hour Intake 1089.58 ml Output 1000 ml Net 89.58 ml Physical Exam: General:Patient is lying in bed in NAD. Obesity. HENT: Normocephalic, atraumatic, moist mucous membranes Eyes: PERRL, EOMI, no conjunctival pallor Cardiovascular: RRR, normal S1/S2, no murmurs, rubs or gallops Respiratory: clear breath sounds bilaterally Gastrointestinal:soft, not tender, non-distended, + bowel sounds Extremities: no edema; warm and well perfused, peripheral pulses palpable Neuro: Alert and oriented x3, moves all extremities Patient was seen and evaluated while wearing the following personal protection equipment: surgical mask and gloves because of No active isolations precautions. Labs: Reviewed in Epic. Daily Labs: CBC Recent Labs 07/16/24173407/17/24 0450 WBC 8.7 8.1 HGB 13.0* 13.1* HCT 37.3* 38.8* MCV 88 89 PLT 197 213 BMP Recent Labs 07/16/24173407/17/24 0450 NA 136 138 K 4.4 4.6 CL 101 105 CO2 20* 22* BUN 23* 21* CREAT 1.7* 1.3* CALCIUM 10.1 9.4 LFT Recent Labs 07/16/24173407/17/24 0450 ALBUMIN 4.6 4.2 BILITOT 0.2 0.4 ALT 47* 50* AST 51* 66* ALKPHOS 94 88 Coags No results for input(s): INR , PT , APTT in the last 72 hours. Microbiology: Reviewed in Epic. Studies/Imaging: Independently reviewed by me. No notes on file Assessment & Plan : Rob Almeida is a 23 y.o. male w/ hx of schizoaffective disorder, autism, ADD, major depression with prior SI, was brought to ED for question of intoxication. As per ED notes, patient was found wandering on the way to the dispensary. He apparently took 2 candies '' that were given to him by someone at [facility], with the presumption that he may contain illicit substances. Eventually he was described as being ' under the influence.' In ED patient had an episode of unresponsiveness. Both neurologist and psych consulted. Of note, patient has been hospitalized at psych facility [facility] for 5 months and has been just discharged to home where he lives with her father about 3 days ago during which he has not taken any psych meds. Principal Problem: Witnessed seizure-like activity (CMS/HCC) (POA: Yes) Active Problems: Acute kidney injury (CMS/HCC) (POA: Yes) Altered mental status, unspecified (POA: Yes) Metabolic acidosis (POA: Yes) Elevated transaminase level (POA: Yes) Problem Based Plan of Care: Episode of unresponsiveness in ED - Patient had unresponsive episode in ED, associated with sinus tachycardia and eyelids fluttering;per RN he was not responding to sternal labs, no incontinence or tongue biting, episode lasted 2 to3 minutes; patient received IV Ativan. -CT head is nonacute; U tox is negative -neurologist consulted > unclear etiology of brief episodes of reduced interactivity, without LOC. No prior history of seizures. No indications for AED at this time. Unclear if this can represent psychogenic seizure. Pending EEG. Schizoaffective disorder Autism Major depression with prior SI Suspected intoxication -Per patient, patient has been 4 months at [facility], currently living at home with dad. -Brought to ED due to ' suspected intoxication and being under the influence', after he took ' 2 candies' that were given by him at [facility] -Per report, patient is due for Uzedy (risperidone) IM injections today. He also missed Clozaril x 3 days -I discussed with psych team > plan to give Uzedy IM today which apparently can be given by patient's VNA. manager wireless involved to contact home VNA to bring inj to the hospital. -Resume home meds: Clozaril, Depakote, fluoxetine, risperidone (I discussed with pharmacy, as patient missed more than 2 days, the recommendation is to resume Clozaril at lower dose 12.5 BID and then gradually increase to home dose 100 mg BID) -Send out Clozaril level -Psych consulted HTN -Home medication is lisinopril 20 mg daily which is on hold currently due to borderline low BP and CELESTINO Acute kidney injury Cr 1.7 on admission, baseline seems to be around 1.2. Cr improved to 1.3 on 07/17. -Encourage p.o. intake -Hold lisinopril Patient alert, oriented, and able to communicate with their family. Consults During Current Admission: Neurology and Psychiatry. FENGI: Adult Diet Regular DVT Prophylaxis: Active Anticoagulation Orders Report (From admission, onward) Ordered Ordering Provider [facility] Jul 16, 2024 11:12 PM 07/16/24 2312 enoxaparin (LOVENOX) syringe 40 mg (BMI under 40 kg/m2 and/or weight under 100kg AND Normal Renal Function (CrCl 30+ mL/min)) Every 24 hours Note to Pharmacy: Pharmacist to round to nearest Measurable Dose Authorizing Provider: Stan Nolan MD End Date/Time: Until Discontinued PRN Reasons: -- References: Erica-Comp Ordering and Monitoring Of Anticoagulants Policy Drug Administration Guideline Question: Indications for Anticoagulants Answer: Deep Vein Thrombosis Prophylaxis Stan Nolan MD GI Prophylaxis: GI Prophylaxis: Not Indicated Central Lines: Central Lines: None Tubes/Drains: Tubes/Drains: None CODE: Full Code DISPOSITION: Observation, Expected post-hospitalization disposition will be to To be determined. . Zenaida Merida MD [facility] 07/17/2024 12:30 PM (Note was created in part with medical speech recognition software. Despite attempts at proof-reading, unintentional errors may be present resulting in the change of meaning or intent. Please contactme directly if you have any questions regarding this note). * Radha Alan, T - 07/17/2024 10:38 AM EST Medication History Review The prior to admission([facility]) medication list was reviewed and updated for Rob Almeida. Unable to interview patient/caregiver at time of consult. - Other (please specify due to patient's current condition). Information gathered from: Dr. Gan and Pharmacy Assessment of compliance with medication regimen at home: Unable to assess Patient is on the following high risk medication(s): Anticonvulsant - Divalproex Medications with discrepancies: Other: Risperidone 125 mg/0.35 ml- Unable to confirm patient's last dose, no frequency on Dr gan , but I contacted pharmacy spoke to Charles who reports sig as 125 mg every 28 days filled on 07/15/2024 #0.3 for 30 days Medication (s) patient no longer takes or was removed from [facility] list (select All that applies): Other: N/A Additional Comments: Unable to speak to patient at this time. Medications was updated using available sources(Dr Gan Only)at this time. Unable to confirm if patient takes aspirin at this time. [facility] list has been updated Medication list: Prior to Admission Medications Prescriptions Informant FLUoxetine (PROzac) 40 MG capsule Pharmacy prescription data Sig: Take 40 mg by mouth daily LORazepam (ATIVAN) 1 MG tablet Pharmacy prescription data Sig: Take 2 mg by mouth every six hours as needed for anxiety atomoxetine (STRATTERA) 40 MG capsule Pharmacy prescription data Sig: Take 40 mg by mouth daily clozapine (CLOZARIL) 100 MG tablet Pharmacy prescription data Sig: Take 100 mg by mouth two times a day divalproex (DEPAKOTE) [address] tablet Pharmacy prescription data Sig: Take 500 mg by mouth daily lisinopril (PRINIVIL,ZESTRIL) 20 MG tablet Pharmacy prescription data Sig: Take 20 mg by mouth daily risperiDONE (RisperDAL) 3 MG tablet Pharmacy prescription data Sig: Take 3 mg by mouth two times a day risperiDONE ER 125 MG/0.35ML suspension prefilled syringe Pharmacy prescription data Sig: Inject 125 mg under the skin every 28 days traZODone (DESYREL) 100 MG tablet Pharmacy prescription data Sig: Take 100 mg by mouth nightly as needed for sleep Facility-Administered Medications: None Patient Complexity Score for Pharmacy Medication History (ED) ED Pharmacy Complexity Score: 43 Patient Complexity Score for Pharmacy Medication History (INPT) INPT Pharmacy Complexity Score: 43 *Please note - This home medication list was updated using the resources available at the time of the consult and may require further updates as new information becomes available* Martha Vinson documented in this encounter H&P Notes * Stan Nolan MD - 07/16/2024 10:32 PM EST [facility] Hospitalist Admission History & Physical PATIENT NAME: Rob Almeida AGE: 23 y.o. : 2000 LOCATION: [facility] DATE OF ADMISSION: 07/16/2024 DATE OF SERVICE: 07/16/2024 PRIMARY CARE PHYSICIAN: Required, No Pcp/Pcp Not CHIEF COMPLAINT: Drug/alcohol assessment HISTORY OF PRESENT ILLNESS: Rob Almeida is a 23 y.o. male with a history of schizoaffective disorder, autism spectrum disorder, prior cannabis use, nicotine use, ADD, paranoid delusions, Adderall use disorder, obesity, pelvic kidney, and major depression with prior suicidal ideation. The current history is limited. He was brought to the emergency department by EMS earlier this evening. I do not see a EMS report in his current records. The emergency department triage note indicates that he was found wandering on the way to the dispensary. He reported taking 2 candies that weregiven to him by someone at [facility], with the presumption that they may have contained illicit substances. He was described as seemingly under the influence. The patient currently states that he ate 2 regular candy Gummies, and denies any illicit substance use. He could not, or would not provide any additional details regarding his current presentation. He had no complaints at the time thatI saw him. While being observed in the emergency department he had an episode of unresponsiveness associated with sinus tachycardia, and eyelids fluttering. The nurse caring for him stated that he was not responding to sternal rubs. She held his eyelids opened and observed that his eyes were rolledback. He did not have any incontinence or obvious tongue biting. The episode lasted 2 to 3 minutes.He received 2 mg of IV Ativan. The nurse indicated that EMS reported a possible similar episode, but for some reason they were suspicious of a psychogenic etiology. Emergency department course: In addition to the above noted seizure-like activity, he has been afebrile since his arrival. Heart rate has ranged from 103-130 with a sinus tachycardia on ECG. The ECG also showed short MI interval, QTc of 522, and abnormal R wave progression in the precordial leads, similar to prior ECGs. Chemistry labs are notable for a bicarbonate of 20, anion gap 15, BUN 23, creatinine 1.7, glucose 104, AST 51, and ALT 47. His hemoglobin was 13 with a normal MCV. White blood cell count and platelets were normal. COVID-19 testing was negative. Acetaminophen, salicylate, and alcohol levels were undetected. Urine drug screen was negative. Head CT was nonacute. In addition to the 2 mg of IV Ativan, he received 1 L of lactated ringer solution. REVIEW OF SYSTEMS: 10 point ROS was negative other than the pertinent positives and negatives listed above. PAST MEDICAL HISTORY: Past Medical History: Diagnosis Date ADD (attention deficit disorder) Adderall use disorder, severe (CMS/HCC) Anxiety Asperger syndrome Bipolar disorder (CMS/HCC) Depression Elevated blood pressure reading without diagnosis of hypertension Mood disorder (CMS/HCC) Obesity Paranoid delusion (CMS/HCC) Pelvic kidney Schizoaffective disorder (CMS/HCC) PAST SURGICAL HISTORY: Past Surgical History: Procedure Laterality Date HERNIA REPAIR OSTEOTOMY N/A 07/25/2018 Procedure: 3rd Molar Extraction x4, Bilateral Sagittal Split Osteotomy of the mandible; Surgeon: Greg Tejada MD; Location: [facility] OR LOCATION; Service: Oral/Maxillofacial MI UNLISTED PROCEDURE DENTOALVEOLAR STRUCTURES N/A 07/25/2018 Procedure: EXTRACTION DENTAL CARIES; Surgeon: Greg Tejada MD; Location: [facility] OR LOCATION; Service: Oral/Maxillofacial SOCIAL HISTORY: Social History Tobacco Use Smoking status: Former Types: Cigarettes Smokeless tobacco: Never Vaping Use Vaping status: Every Day Substances: Nicotine Devices: Pre-filled or refillable cartridge Substance Use Topics Alcohol use: Not Currently Drug use: Not Currently Types: Marijuana Social History Social History Narrative Lives in with 4 roommates. Single. No children. Currently unemployed. Grew up in [place] [place]. Is 1 of 7 children. He and one younger brother were adopted by same family. Dropped out of high school after 9th grade. 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 07/16/2024: ED records indicate that he was homeless in January of last year, but currently states that he lives with his father. FAMILY HISTORY: No family history on file. No family status information on file. ALLERGIES: No Known Allergies OUTPATIENT MEDICATIONS: Current Facility-Administered Medications Medication Dose Route Frequency Provider Last Rate Last Admin sodium chloride 0.9 % infusion 125 mL/hr Intravenous Continuous Stan Nolan MD LORazepam (ATIVAN) injection 1 mg 1 mg Intravenous q4h PRN Stan Nolan MD No current outpatient medications on file. PHYSICAL EXAM: BP 121/86 (BP Location: Right arm, Patient Position: Lying) Pulse (!) 103 Temp 98.6 ??F (37 ??C) (Oral) Resp 21 Wt 113.4 kg (250 lb) SpO2 97% BMI 39.16 kg/m?? General: The patient was lying on a stretcher in the emergency department. He was easily arousable and in no acute distress. Eyes: Sclerae white, conjunctiva pink. HENT: No signs of head trauma. No nasal drainage. Mucous membranes moist. No evidence of tongue biting. Neck supple without adenopathy or thyromegaly. Heart: Regular tachycardia, S1, S2, no murmurs, rubs, or gallops appreciated. Lungs: Clear to auscultation, no rales, rhonchi, or wheezes. Abdomen: Soft, nontender, nondistended, no appreciable masses or organomegaly. Extremities: No clubbing, cyanosis, or edema. Neurologic: Awake, alert and oriented x 3. Cranial nerves grossly intact. No apparent focal weakness. No tremors or other abnormal movements. Dermatologic: No visible rashes. Psychiatric: Flat affect, but responding appropriately without current signs of agitation or delirium. Patient was seen and evaluated while wearing the following personal protection equipment: Surgical face mask and gloves, because of No active isolations precautions. LABS/STUDIES: Recent Results (from the past 24 hours) Acetaminophen level Collection Time: 07/16/24 5:35 PM Result Value Ref Range Acetaminophen Level <5.1 <15.0 ug/mL CBC with auto differential Collection Time: 07/16/24 5:35 PM Result Value Ref Range WBC 8.7 4.5 - 10.8 10*3 ??l RBC 4.22 (L) 4.70 - 6.10 10*6 ??l Hemoglobin 13.0 (L) 14.0 - 18.0 g/dL Hematocrit 37.3 (L) 42.0 - 52.0 % MCV 88 80 - 95 fL MCH 30.8 25.4 - 39.0 pg MCHC 34.9 31.0 - 37.0 g/dL RDW 14.5 11.5 - 14.5 % Platelets 197 150 - 450 10*3 ??l MPV 10.0 7.0 - 11.0 fL Neutrophils % 72.6 40.0 - 80.0 % Lymphocytes % 13.6 (L) 20.0 - 40.0 % Monocytes % 11.4 (H) 2.0 - 10.0 % Eosinophils % 1.6 1.0 - 6.0 % Basophils % 0.2 0.0 - 1.0 % Immature Granulocyte % 0.6 0.0 - 0.9 % Neutrophils Absolute 6.31 2.00 - 7.00 K/mm3 Absolute Immature Granulocyte 0.05 0.00 - 0.09 K/mm3 Lymphocytes Absolute 1.18 1.00 - 3.00 K/mm3 Monocytes Absolute 0.99 0.20 - 1.00 K/mm3 Eosinophils Absolute 0.14 0.00 - 0.50 K/mm3 Basophils Absolute 0.02 0.00 - 0.10 K/mm3 Comprehensive metabolic panel Collection Time: 07/16/24 5:35 PM Result Value Ref Range Glucose 104 (H) 70 - 100 mg/dL BUN 23 (H) 6 - 19 mg/dL Creatinine 1.7 (H) 0.4 - 1.2 mg/dL eGFR 57.37 (L) >60.00 mL/min/1.73m*2 Sodium 136 135 - 145 mmol/L Potassium 4.4 3.4 - 5.1 mmol/L Chloride 101 98 - 109 mmol/L CO2 20 (L) 24 - 32 mmol/L Anion Gap 15 (H) 6 - 12 mmol/L Calcium 10.1 8.5 - 10.5 mg/dL Total Bilirubin 0.2 0.2 - 1.2 mg/dL Alkaline Phosphatase 94 40 - 129 U/L ALT (SGPT) 47 (H) 0 - 40 U/L AST 51 (H) 0 - 37 U/L Total Protein 8.1 6.0 - 8.5 g/dL Albumin 4.6 3.3 - 5.2 g/dL Estimated Creatinine Clearance 81.3 mL/min Ethanol Collection Time: 07/16/24 5:35 PM Result Value Ref Range Ethanol <=10 0 - 10 mg/dL Salicylate level Collection Time: 07/16/24 5:35 PM Result Value Ref Range Salicylate Level <=3.0 3.0 - 30.0 mg/dL COVID-19 ([facility]) Collection Time: 07/16/24 5:36 PM Specimen: Nasopharynx; Swab Result Value Ref Range COVID-19 ([facility]) PCR Negative Negative POCT Glucose Meter Collection Time: 07/16/24 5:50 PM Result Value Ref Range POC Glucose 97 70 - 100 mg/dL Urine drugs of abuse screen Collection Time: 07/16/24 6:17 PM Result Value Ref Range Amphetamines, Urine Screen None Detected None Detected Barbiturates, Urine Screen None Detected None Detected Benzodiazepines, Urine Screen None Detected None Detected Cocaine, Urine Screen None Detected None Detected Opiates, Urine Screen None Detected None Detected Cannabinoids (THC), Urine Screen None Detected None Detected Tricyclic Antidepressants, Urine Screen None Detected None Detected Fentanyl, Urine Screen None Detected None Detected Methadone, Urine Screen None Detected None Detected Oxycodone, Urine Screen None Detected None Detected Buprenorphine, Urine Screen None Detected None Detected Phencyclidine, Urine Screen None Detected None Detected Urinalysis with reflex Collection Time: 07/16/24 10:41 PM Result Value Ref Range Color, Urine Yellow Colorless, Yellow Clarity, Urine Clear Clear Specific [place], Urine 1.011 1.002 - 1.030 pH, Urine 7.0 5.0 - 8.0 Leukocytes, Urine Negative Negative Nitrite, Urine Negative Negative Protein, Urine Negative Negative Glucose, Urine Negative Negative Ketones, Urine Negative Negative Bilirubin, Urine Negative Negative Blood, Urine Negative Negative CT head without contrast Final Result IMPRESSION: No evidence for acute intracranial process. EKG x 1 (Results Pending) ECG (Results Pending) ECG as noted above in the HPI. ASSESSMENT/PLAN: Rob Almeida is a 23 y.o. male with a history of schizoaffective disorder, autism spectrum disorder, prior cannabis use, nicotine use, ADD, paranoid delusions, Adderall use disorder, obesity, pelvic kidney, and major depression with prior suicidal ideation, presenting with: Principal Problem: Witnessed seizure-like activity (CMS/HCC) (POA: Yes) Active Problems: Acute kidney injury (CMS/HCC) (POA: Yes) Altered mental status, unspecified (POA: Yes) Metabolic acidosis (POA: Yes) Elevated transaminase level (POA: Yes) There was some suspicion of illicit substance use on his arrival to the emergency department, but alcohol level and urine drug screen were negative. He states that he is on prescription medicines, but cannot tell me the name of any of his medications, and his most recent pharmacy refill history includes only Adderall and Paxil for 1 month supplies in January. He had witnessed seizure-like activityin the emergency department, but there was also raised suspicion of possible psychogenic seizure. He had associated sinus tachycardia, but normal blood pressures. Head CT was nonacute. He has some metabolic derangements with acute kidney injury, mild metabolic acidosis, and mild elevated transaminase levels. Plan: I will place him on telemetry with seizure precautions. I have ordered an EEG for tomorrow along with neurology and psychiatry consults. As needed Ativan will be used for any additional seizure-like activity. He will receive IV fluids overnight and repeat labs in the morning. If his renal insufficiency and elevated liver enzymes persist, abdominal imaging can be added. # MEDICATION RECONCILIATION STATUS: Home Medications Were Not Reconciled Because of the above-notedlack of information available and Need to Be Reconciled. # FEN: Diet Adult Diet Regular # PPX: VTE: DVT Prophylaxis: Enoxaparin # Code Status: Cardiopulmonary Resuscitation: FULL Ventilation: Intubate and Ventilate Presumed. #COVID Isolation/Testing: COVID Result Negative: The patient's COVID study has resulted negative for this encounter. STAN NOLAN MD 07/16/2024 11:00 PM [facility] documented in this encounter Consult Notes * Rachael Daugherty NP - 07/17/2024 12:53 PM EST Mental Health Consultation DATE OF SERVICE: 07/17/2024 REASON FOR CONSULT: Dr. Stan Barajas requests evaluation for patient with altered mental status with schizoaffective disorder, autism spectrum disorder. Patient with chronic psychosis, auditory hallucination, paranoia. I have reviewed the records, interviewed the patient, and consulted with clinical staff to complete this comprehensive psychiatric evaluation. CHIEF COMPLAINT/HISTORY OF PRESENT ILLNESS: The patient is a 23 y.o. male with a history of schizoaffective disorder bipolar type, Asperger syndrome, autism spectrum disorder, attention deficit disorder, severe Adderall use disorder, generalized anxiety disorder, obesity, paranoid delusion, pelvic kidney who presented on 07/16/2024 to the Emergency Department with altered mental status. Patient was discharged to his father's care from [facility] on July 14after a 5-month stay. Unfortunately, the patient did not take any of his psychotropic medications since return home after discharge. Patient was found wandering on his way to the dispensary. He reported taking 2 candies that were given to him by someone at [facility] with the presumption that th ey contained illicit substances. He was described as seemingly under the influence. Patient reports taking 2 regular candy Gummies and denied any illicit substance. He told neurology he took 2 candies called nerjeffery. Patient refused to provide more information while being seen in the emergency department. While in the emergency department he had an episode of unresponsiveness associated with sinus tachycardia andeyelids fluttering. Nurse Vivien Albert stated that he was not responding to sternal rubs, helped his eyelids open and observed that the eyes were rolled back. He did not have incontinence or tongue biting. EMS reported of a similar episode and for some reason they were suspicious of psychogenic etiology. Unclear whether patient has benzodiazepine use disorder as he received 2 mg of IV Ativan withthis episode. QTc 522, COVID-19 testing was negative, acetaminophen, salicylate and alcohol levels were undetected, urine drug screen negative. Head CT nonacute. When I spoke with patient, he was paranoid, he was upset because he thought that I implied that Iwas going to send him to a psychiatric hospital. He became somewhat agitated. We called his father Mani and spoke with him on speakerphone. Father was planning to come to the hospital within a couple of hours to bring a medication that the patient was due to take and father reported that he was overdue for this. Father reports that patient was at [facility] for 5 months with recent discharge3 days ago. Unclear why the patient did not take any of his medications over the past 2 to 3 days, patient alsoparticipating in a day program, partial program at [facility] in [place]. Patient also receives DM services through the [facility] team. Patient with irritability, restlessness, upon arrival to the floor several hours later at approximately 4 PM, he ran out of bed and down the boggs and hit his head against a large window. He was sent for head CT which is negative. Security was called and he was put in restraints for his own safety. Ronald was called as he was calm in bed and then jumped out of bed, ripped his EKG leads off and pushed past staff to leave the room. RN reports that he appeared angry, wanting to leave and was somewhat intimidating. He left the room and began running the halls and attempting to go into other patient's rooms. He then ran full speed into the full pain of window at the end of [address] headfirst andbounce off the glass landing on the ground. He then got up and ran to the other and where staff andsecurity were able to intervene and assist him to the ground. Patient was pale and staring but answering questions. Patient was sent head CT, for CT and C-spine. He described feeling numb all over. Upon arrival to the floor he did not remember why he was in the hospital and asked what happened? He continued to attempt to get out of bed and sit up, security restrain him as he would not respond. He was given Haldol 5 mg IV. I spoke with Jeanie from the [facility] for medication options for agitation. Pt has responded well to thorazine 50 mg IM, decreased response to haldol 5 mg iv x1. The patient's medical record was reviewed with pertinent details highlighted. Presenting Problem: Psychosis, paranoia, hallucinations, agitation Frequency: Days into weeks Modifiable factors: Evaluate for medical issues, adjust medications. Severity: Severe PAST MEDICAL HISTORY: Past Medical History: Diagnosis Date ADD (attention deficit disorder) Adderall use disorder, severe ([facility]) Anxiety Asperger syndrome Bipolar disorder ([facility]) Depression Elevated blood pressure reading without diagnosis of hypertension Mood disorder ([facility]/HCC) Obesity Paranoid delusion (CMS/HCC) Pelvic kidney Schizoaffective disorder ([facility]) PAST PSYCHIATRIC/SUBSTANCE ABUSE HISTORY: Patient with history of schizoaffective disorder bipolar type with chronic delusions, auditory hallucination, irritability, agitation. Patient has DMH services by the [facility] team. Patient with several inpatient admissions, recent 5- month admission to [facility] in [place] with discharge 3 days ago. Patient with continued psychosis, question of suicidal ideation, question whether patient would benefit by going back into a psychiatry setting. He is responding well to Thorazine 50 mg IM. Patient with history of Adderall use disorder, possibly marijuana use disorder. [facility] team Vivek [phone]. PSYSCHOSOCIAL HISTORY: Patient is single, living with both dads, unemployed and disabled due to psychosis. FAMILY HISTORY: Living with both dads no report of mental illness. ALLERGIES: No Known Allergies CURRENT MEDICATIONS: Current Facility-Administered Medications: traZODone (DESYREL) tablet 100 mg, 100 mg, Oral, Nightly PRN, Zenaida Gold MD divalproex (DEPAKOTE) DR tablet 500 mg, 500 mg, Oral, Daily, Zenaida Gold MD FLUoxetine (PROzac) capsule 40 mg, 40 mg, Oral, Daily, Zenaida Gold MD risperiDONE (RisperDAL) tablet 3 mg, 3 mg, Oral, BID, Zenaida Gold MD clozapine (CLOZARIL) tablet 100 mg, 100 mg, Oral, BID, Zenaida Gold MD divalproex (DEPAKOTE) DR tablet 1,000 mg, 1,000 mg, Oral, Nightly, Zenaida Gold MD senna (SENOKOT) tablet 2 tablet, 2 tablet, Oral, Nightly PRN, Stan Nolan MD docusate sodium (COLACE) capsule 100 mg, 100 mg, Oral, BID PRN, Stan Nolan MD bisacodyl (DULCOLAX) EC tablet 10 mg, 10 mg, Oral, Daily PRN, Stan Nolan MD bisacodyl (DULCOLAX) suppository 10 mg, 10 mg, Rectal, Daily PRN, Stan Nolan MD nystatin (MYCOSTATIN) powder 1 Application, 1 Application, Topical, BID PRN, Stan Nolan MD Adult Over the Counter Medication Algorithm, , Route N/A, PRN, Stan Nolan MD ondansetron ODT (ZOFRAN-ODT) disintegrating tablet 4 mg, 4 mg, Oral, q6h PRN, ChristopherC. Nolan MD ondansetron (ZOFRAN) injection 4 mg, 4 mg, Intravenous, q6h PRN, Stan Nolan MD Prochlorperazine (COMPAZINE) injection 5 mg, 5 mg, Intravenous, q4h PRN, Stan Nolan MD prochlorperazine (COMPAZINE) suppository 25 mg, 25 mg, Rectal, q12h PRN, Stan Nolan MD acetaminophen (TYLENOL) tablet 1,000 mg, 1,000 mg, Oral, q8h PRN, Stan Nolan MD enoxaparin (LOVENOX) syringe 40 mg, 40 mg, Subcutaneous, q24h, Stan Nolan MD, 40 mg at 07/17/24 1006 LORazepam (ATIVAN) injection 1 mg, 1 mg, Intravenous, q4h PRN, Stan Nolan MD Current Outpatient Medications: traZODone (DESYREL) 100 MG tablet, Take 100 mg by mouth nightly as needed for sleep, Disp: , Rfl: FLUoxetine (PROzac) 40 MG capsule, Take 40 mg by mouth daily, Disp: , Rfl: risperiDONE (RisperDAL) 3 MG tablet, Take 3 mg by mouth two times a day, Disp: , Rfl: LORazepam (ATIVAN) 1 MG tablet, Take 2 mg by mouth every six hours as needed for anxiety, Disp: , Rfl: clozapine (CLOZARIL) 100 MG tablet, Take 100 mg by mouth two times a day, Disp: , Rfl: lisinopril (PRINIVIL,ZESTRIL) 20 MG tablet, Take 20 mg by mouth daily, Disp: , Rfl: atomoxetine (STRATTERA) 40 MG capsule, Take 40 mg by mouth daily, Disp: , Rfl: divalproex (DEPAKOTE) [address] tablet, Take 500 mg by mouth daily, Disp: , Rfl: risperiDONE ER 125 MG/0.35ML suspension prefilled syringe, Inject 125 mg under the skin every 28 days, Disp: , Rfl: REVIEW OF SYSTEMS: Negative for headache, sore throat, chest pain, dizziness, blurred vision, fatigue, joint pain, constipation, skin itchiness, dysuria, fever, cough, SOB, vomiting, diarrhea, nausea, abdominal pain. RECENT LABS: Recent Results (from the past 24 hours) Acetaminophen level Collection Time: 07/16/24 5:35 PM Result Value Ref Range Acetaminophen Level <5.1 <15.0 ug/mL CBC with auto differential Collection Time: 07/16/24 5:35 PM Result Value Ref Range WBC 8.7 4.5 - 10.8 10*3 ??l RBC 4.22 (L) 4.70 - 6.10 10*6 ??l Hemoglobin 13.0 (L) 14.0 - 18.0 g/dL Hematocrit 37.3 (L) 42.0 - 52.0 % MCV 88 80 - 95 fL MCH 30.8 25.4 - 39.0 pg MCHC 34.9 31.0 - 37.0 g/dL RDW 14.5 11.5 - 14.5 % Platelets 197 150 - 450 10*3 ??l MPV 10.0 7.0 - 11.0 fL Neutrophils % 72.6 40.0 - 80.0 % Lymphocytes % 13.6 (L) 20.0 - 40.0 % Monocytes % 11.4 (H) 2.0 - 10.0 % Eosinophils % 1.6 1.0 - 6.0 % Basophils % 0.2 0.0 - 1.0 % Immature Granulocyte % 0.6 0.0 - 0.9 % Neutrophils Absolute 6.31 2.00 - 7.00 K/mm3 Absolute Immature Granulocyte 0.05 0.00 - 0.09 K/mm3 Lymphocytes Absolute 1.18 1.00 - 3.00 K/mm3 Monocytes Absolute 0.99 0.20 - 1.00 K/mm3 Eosinophils Absolute 0.14 0.00 - 0.50 K/mm3 Basophils Absolute 0.02 0.00 - 0.10 K/mm3 Comprehensive metabolic panel Collection Time: 07/16/24 5:35 PM Result Value Ref Range Glucose 104 (H) 70 - 100 mg/dL BUN 23 (H) 6 - 19 mg/dL Creatinine 1.7 (H) 0.4 - 1.2 mg/dL eGFR 57.37 (L) >60.00 mL/min/1.73m*2 Sodium 136 135 - 145 mmol/L Potassium 4.4 3.4 - 5.1 mmol/L Chloride 101 98 - 109 mmol/L CO2 20 (L) 24 - 32 mmol/L Anion Gap 15 (H) 6 - 12 mmol/L Calcium 10.1 8.5 - 10.5 mg/dL Total Bilirubin 0.2 0.2 - 1.2 mg/dL Alkaline Phosphatase 94 40 - 129 U/L ALT (SGPT) 47 (H) 0 - 40 U/L AST 51 (H) 0 - 37 U/L Total Protein 8.1 6.0 - 8.5 g/dL Albumin 4.6 3.3 - 5.2 g/dL Estimated Creatinine Clearance 81.3 mL/min Ethanol Collection Time: 07/16/24 5:35 PM Result Value Ref Range Ethanol <=10 0 - 10 mg/dL Salicylate level Collection Time: 07/16/24 5:35 PM Result Value Ref Range Salicylate Level <=3.0 3.0 - 30.0 mg/dL COVID-19 ([facility]) Collection Time: 07/16/24 5:36 PM Specimen: Nasopharynx; Swab Result Value Ref Range COVID-19 ([facility]) PCR Negative Negative POCT Glucose Meter Collection Time: 07/16/24 5:50 PM Result Value Ref Range POC Glucose 97 70 - 100 mg/dL Urine drugs of abuse screen Collection Time: 07/16/24 6:17 PM Result Value Ref Range Amphetamines, Urine Screen None Detected None Detected Barbiturates, Urine Screen None Detected None Detected Benzodiazepines, Urine Screen None Detected None Detected Cocaine, Urine Screen None Detected None Detected Opiates, Urine Screen None Detected None Detected Cannabinoids (THC), Urine Screen None Detected None Detected Tricyclic Antidepressants, Urine Screen None Detected None Detected Fentanyl, Urine Screen None Detected None Detected Methadone, Urine Screen None Detected None Detected Oxycodone, Urine Screen None Detected None Detected Buprenorphine, Urine Screen None Detected None Detected Phencyclidine, Urine Screen None Detected None Detected Sodium, urine, random Collection Time: 07/16/24 10:41 PM Result Value Ref Range Sodium, Urine 121.0 mmol/L Creatinine, urine, random Collection Time: 07/16/24 10:41 PM Result Value Ref Range Creatinine, Urine 72.8 mg/dL Extra Urine Culture Tube Collection Time: 07/16/24 10:41 PM Specimen: Urine, Clean Catch Result Value Ref Range Extra Tube Urinalysis with reflex Collection Time: 07/16/24 10:41 PM Result Value Ref Range Color, Urine Yellow Colorless, Yellow Clarity, Urine Clear Clear Specific [place], Urine 1.011 1.002 - 1.030 pH, Urine 7.0 5.0 - 8.0 Leukocytes, Urine Negative Negative Nitrite, Urine Negative Negative Protein, Urine Negative Negative Glucose, Urine Negative Negative Ketones, Urine Negative Negative Bilirubin, Urine Negative Negative Blood, Urine Negative Negative CBC with auto differential Collection Time: 07/17/24 4:50 AM Result Value Ref Range WBC 8.1 4.5 - 10.8 10*3 ??l RBC 4.37 (L) 4.70 - 6.10 10*6 ??l Hemoglobin 13.1 (L) 14.0 - 18.0 g/dL Hematocrit 38.8 (L) 42.0 - 52.0 % MCV 89 80 - 95 fL MCH 30.0 25.4 - 39.0 pg MCHC 33.8 31.0 - 37.0 g/dL RDW 14.5 11.5 - 14.5 % Platelets 213 150 - 450 10*3 ??l MPV 9.9 7.0 - 11.0 fL Neutrophils % 62.6 40.0 - 80.0 % Lymphocytes % 22.9 20.0 - 40.0 % Monocytes % 11.4 (H) 2.0 - 10.0 % Eosinophils % 2.0 1.0 - 6.0 % Basophils % 0.5 0.0 - 1.0 % Immature Granulocyte % 0.6 0.0 - 0.9 % Neutrophils Absolute 5.06 2.00 - 7.00 K/mm3 Absolute Immature Granulocyte 0.05 0.00 - 0.09 K/mm3 Lymphocytes Absolute 1.85 1.00 - 3.00 K/mm3 Monocytes Absolute 0.92 0.20 - 1.00 K/mm3 Eosinophils Absolute 0.16 0.00 - 0.50 K/mm3 Basophils Absolute 0.04 0.00 - 0.10 K/mm3 Comprehensive Metabolic Panel Collection Time: 07/17/24 4:50 AM Result Value Ref Range Glucose 88 70 - 100 mg/dL BUN 21 (H) 6 - 19 mg/dL Creatinine 1.3 (H) 0.4 - 1.2 mg/dL eGFR >60.00 >60.00 mL/min/1.73m*2 Sodium 138 135 - 145 mmol/L Potassium 4.6 3.4 - 5.1 mmol/L Chloride 105 98 - 109 mmol/L CO2 22 (L) 24 - 32 mmol/L Anion Gap 11 6 - 12 mmol/L Calcium 9.4 8.5 - 10.5 mg/dL Total Bilirubin 0.4 0.2 - 1.2 mg/dL Alkaline Phosphatase 88 40 - 129 U/L ALT (SGPT) 50 (H) 0 - 40 U/L AST 66 (H) 0 - 37 U/L Total Protein 7.8 6.0 - 8.5 g/dL Albumin 4.2 3.3 - 5.2 g/dL Estimated Creatinine Clearance 106.3 mL/min ELECTROCARDIOGRAM: I personally visualized the EKG and noted QTC to be 522. VITAL SIGNS: Vitals: 07/17/24 1024 BP: (!) 122/59 Pulse: (!) 118 Resp: 16 Temp: SpO2: MENTAL STATUS EXAM: Sensorium: Alert Appearance: Normal Grooming Behavior/Activity: Guarded, irritable Speech: Pressured at times Affect: Full range of affect, anxious Mood: Anxious Thought Form: Disorganized Thought Content: Delusions Perceptual: Auditory and visual Delusional Thoughts: paranoid Suicidal Ideation: None Homicidal Ideation: None Orientation: Person, Place but not time Memory: Mildly impaired Judgment/Impairment: Moderately impaired Attention/Concentration: fair Capacity: Patient lacks adequate capacity to make his own healthcare decisions Health Care Proxy: Not invoked EPS: Within Normal Limits Gait: No gait imbalances noted DECISION-MAKING CAPACTIY [] UNDERSTANDING of the facts relevant to medical decision (e.g. illness, purpose of the intervention, risks/benefits, alternatives) [] CONSEQUENCES appreciation of decisions (e.g. treatment and non-treatment) [] LOGICAL manipulation of information ???Chain of Reasoning?? (e.g. self- directed, parroting back) [] CHOICE ability to communicate (e.g. can't, won't, consistent, stable) Patient does not appreciate the seriousness/complexity of their medical situation and does not appreciate the significant consequences of non-treatment. ASSESSMENT AND RECOMMENDATIONS: 23-year-old male with schizoaffective disorder bipolar type, chronic auditory hallucination, question command hallucinations, Adderall and marijuana use disorder, noncompliance with medications who did not take psychotropic medications for the past 3 days after being discharged from a 5-month inpatient psychiatric stay. I spoke with patient's father who brought in the patient's Uzedy (IM risperdal) that he was overduefor per father's report. Unclear when he was due for it. Patient missed Clozaril for the past 3 days and has become increasingly psychotic. Because the patient missed Clozaril doses for the past 2 to 3 days, does Add Thorazine 50 mg IM every 4 hours as needed as patient became increasingly psychotic and agitated, diaphoretic with question of withdrawal. Continue Haldol 5 mg IV every 4 hours as needed severe agitation. Add lorazepam 2 mg IV every 4 hours as needed severe anxiety and agitation. Continue trazodone 100 mg p.o. nightly as needed. Continue Depakote 500 mg p.o. daily, 1000 mg p.o. nightly. Continue fluoxetine 40 mg p.o. daily. Continue Risperdal 3 mg p.o. twice daily and injection of IM form once we have the dose. Father brought the dose in today. Patient may not leave AGAINST MEDICAL ADVICE. Continue to follow the patient's progress. We will have to monitor the patient's current behavior. Question whether the patient needs to return to inpatient psychiatry or would he better served if discharged home with a plan in place to facilitate compliance with medications. FatherMani reports that the patient has a court appointed guardian although I do not see the name and phone number listed in the chart. We will attempt to get that information. Father is frustrated because he feels that the guardian is not responsive at times. Continue to follow the patient's progress. Spoke with patient, father, staff regarding current condition and discharge plan. Continue to evaluate patient's mental status and monitor sleep and appetite closely. Continue current dosage of psychiatric medications. Continue to observe any potential side effects from psychiatric medications. Will recommend to start tapering antipsychotic medications once behavior is stabilized. Continue to monitor possible interactions between psychiatric medications and medical medications. Continue to provide counseling to help patient deal with stressors and provide education and support. Continue to work with medicine/surgery to help facilitate patient's clinical progress. Visit was spent in counseling the patient and/or family and in coordinating care. I have provided support and counseling to help patient to deal with mental illness, stressors, current medical condition and continue to coordinate care with family independence case manager and hospitalist while adjusting psychiatric medications to help facilitate safe discharge planning. Rachael Daugherty CNP 07/17/2024 12:53 PM Disclaimer: Speech recognition software was used to dictate portions of this document. An attempt at proofreading has been made to minimize transcriptional errors. Please do not hesitate to call withany questions. * Lui Dietrich MD - 07/17/2024 8:41 AM ESTAssociated Order(s): IP CONSULT TO NEUROLOGY Neurologic Consultation DATE OF SERVICE:07/17/2024 REASON FOR CONSULT: possible seizures HPI: A 23M with extensive psychiatric history including schizoaffective disorder, autism, ADD, and major depression with prior suicidal ideation who was brought to the ED for question of intoxication. The ED notes report that he took 2 candies that were suspicious as to their content --he tells me they were Nerds candies and did not contain any other substances. During his evaluation, he had a 2-3m episode of unresponsiveness. He denies a history of prior seizures. He says he maintained awareness during the episode but was unable to speak or interact with his environment. EMS apparently reported a similar episode. In the ED, he had a head CT that showed no acute abnormality. He is currently undergoing EEG monitoring. He says he feels like himself at the moment, and denies headache, vision changes, weakness, numbness, nausea. PAST SURGICAL HISTORY: Past Surgical History: Procedure Laterality Date HERNIA REPAIR OSTEOTOMY N/A 07/25/2018 Procedure: 3rd Molar Extraction x4, Bilateral Sagittal Split Osteotomy of the mandible; Surgeon: Greg Tejada MD; Location: [facility] OR LOCATION; Service: Oral/Maxillofacial MI UNLISTED PROCEDURE DENTOALVEOLAR STRUCTURES N/A 07/25/2018 Procedure: EXTRACTION DENTAL CARIES; Surgeon: Greg Tejada MD; Location: [facility] OR LOCATION; Service: Oral/Maxillofacial CURRENT MEDICATIONS: Current Facility-Administered Medications Medication Dose Route Frequency Provider Last Rate Last Admin senna (SENOKOT) tablet 2 tablet 2 tablet Oral Nightly PRN Stan Nolan MD docusate sodium (COLACE) capsule 100 mg 100 mg Oral BID PRN Stan Nolan MD bisacodyl (DULCOLAX) EC tablet 10 mg 10 mg Oral Daily PRN Stan Nolan MD bisacodyl (DULCOLAX) suppository 10 mg 10 mg Rectal Daily PRN Stan Nolan MD nystatin (MYCOSTATIN) powder 1 Application 1 Application Topical BID PRN Stan Nolan MD Adult Over the Counter Medication Algorithm Route N/A PRStan Khan MD ondansetron ODT (ZOFRAN-ODT) disintegrating tablet 4 mg 4 mg Oral q6h PRN Stan Nolan MD ondansetron (ZOFRAN) injection 4 mg 4 mg Intravenous q6h PRStan Khan MD Prochlorperazine (COMPAZINE) injection 5 mg 5 mg Intravenous q4h PRStan Khan MD prochlorperazine (COMPAZINE) suppository 25 mg 25 mg Rectal q12h PRN Stan Nolan MD acetaminophen (TYLENOL) tablet 1,000 mg 1,000 mg Oral q8h PRN Stan Nolan MD enoxaparin (LOVENOX) syringe 40 mg 40 mg Subcutaneous q24h Stan Nolan MD LORazepam (ATIVAN) injection 1 mg 1 mg Intravenous q4h PRN Stan Nolan MD No current outpatient medications on file. ALLERGIES: No Known Allergies FAMILY HISTORY: No family history on file. REVIEW OF SYSTEMS: A comprehensive review of systems was negative other than the above. PHYSICAL EXAMINATION: BP (!) 99/49 (BP Location: Right arm, Patient Position: Lying) Pulse 73 Temp 98 ??F (36.7 ??C) (Oral) Resp 20 Wt 113.4 kg (250 lb) SpO2 97% BMI 39.16 kg/m?? General: Well developed, well nourished, NAD, no meningismus. NEUROLOGICAL EXAMINATION: Mental Status: Alert and oriented. Mildly bradyphrenic. Speech fluent with normal naming, repetition and comprehension. No dysarthria. Cranial Nerves: Pupils equal and reactive to light. Visual hay full to confrontation. Extraocular movements are full without nystagmus. Facial sensation and hearing intact. Face, tongue, palate are symmetric. Motor: Normal bulk and tone. No tremor. No pronator drift. Strength: 5/5 Upper and lower extremities. Coordination: Rapid alternating and eohpj-pt-jswmr (FNF) movements intact. Reflexes: Deep tendon reflexes are symmetrical and plantar response flexor bilaterally. Sensation: LT and vibration intact. A/P: Unclear etiology of brief episode(s) of reduced interactivity, without loss of consciousness (according to patient). No prior history of seizures, per patient. [place]ol[place] imaging (by CT) unremarkable. Will follow-up EEG results. Would not initiate an antiseizure medication at this time, pending EEGresults. Urine tox screen negative. Mildly elevated LFTs noted. Agree with psychiatry consultation. [ ] F/u EEG Greater than 50% of this 30 min visit was spent in counseling the patient and/or family and in coordinating care. LUI DIETRICH MD 07/17/2024 8:41 AM documented in this encounter Nursing Notes * Last Maher RN - 07/24/2024 7:42 AM EST 0710 Assumed care. Pt sleeping with right arm and left leg in hard restraint. Security and 1:1 sitter at bedside. No distress noted. Attending updated on situation. 0950 Pt alert,oriented x4, in no acute distress, pleasant and cooperative. Denies pain. Says he feels like he's having a psychiatric problem , but otherwise no complaints. Denies any needs at this time. Assessment per flowsheet. 2:1 and violent restraints continued 1056 Pt remains pleasant, cooperative with instruction, and re-directable. Violent restraints discontinued 1140>1150 2:1 at bedside. Pt seen OOB pacing in chipewwa, and listening to music on phone. Seemed to be singing the chorus to a song all fall down , when he suddenly laid himself on the floor. Was laying on floor for a few seconds, but when asked to return to bed, was very compliant in returning and placed back in 2pt hard restraints for continued self-harm behaviors. (please see flowsheet). Apologetic at the end of it. Dr. Morgan rounded, updated, and had a eutr-uc-lipz with pt. 1330 Spoke with nurse for report at [facility]--they are declining pt admit. Says that he needs to be out of restraints 24 hrs. Attending, social work, psych all updated. SW says they will reach out to director to clarify. 1420 > 1430 Called to room. Pt becoming increasingly agitated and restless (clapping hands, pressured speech, repeating Demian Musk is the way, Job Longoria is the light ) while in room, pt suddenlytried to throw his body over siderail in attempt to get on floor. Left arm and right leg placed in locked restraint with assistance of security. IM thorazine given. IV not working. Updated attending and psych md. New orers received 1500 Calmer after thorazine. Tolerating 4pt restraints. HR remains elevated at 128--attending notified. Apparently, [facility] now willing to accept pt and plan for evening dischage 1700 EMS here for discharge. Discussed with all relevant parties and assured of facility acceptance. Transition out of restraints and onto stretcher was uneventful. Calm and cooperative with security. All belongings given to EMS crew * Phoebe Lee RN - 07/23/2024 9:56 PM EST ..BEHAVIORAL EMERGENCY RESPONSE TEAM (RONALD) CALL RESPONSE NOTE SITUATION: Individuals present during escalation: RONALD RN: Phoebe Carr RN: Gale DELGADILLO Provider: Dr Kruger Public Safety: x6 Other: Graciela FLORES, WELDER SETTER RESISTANCE MACHINE and Esther DURANT Reason for call: running in hallway, RONALD Level Called? : Level 2 Called RONALD Length: 30 minutes Initiated by: security at bedside ASSESSMENT: Patient is a 23 y.o. male admitted to [id number] for Altered mental status [R41.82] . BARS Total Score: 4 Behaviors: running in hallway RONALD center sales and service associate of situation: Pt with multiple BERTs, psychiatry involved in care, tonight was OOB to BR multiple times, security at bedside states pt was staring at his hand, nonsensical speech, then pushed past staff and was running in hallway. Pt in bed, staring at ceiling, repetitive speech; I just want to be myself INTERVENTIONS DURING CALL Interventions: Calming and reassurance, Decrease stimulation, Reorientation, MAR, and Appropriate communication Medications: none given Resources: RONALD team RECOMMENDATIONS: Further Recommendations: assess for restraint removal. Continue current medication regimen at this time per Dr Kruger. Bladder scan pt Behavior Plan: - Calming and reassurance Dim lights, calming music, decrease distractions, provide quite space Avoid rushing, allow time for processing - Decrease stimulation Remove triggering stressors including electronics if exacerbating agitation, close shades, limit stimuli by closing doors or turning off or down TV Clustering care (to reduce interruptions) Minimize number of people in room - Reorientation Provide reassurance and reality testing for patients confused or disoriented, validate feelings of confusion and fear and provide emotional support Assess factors that may contribute to delirium (pain, dehydration, retention of urine or stool, sleep deprivation, eye glasses, hearing aids in with working batteries) Open shades during the day, attempt to establish a normal routine for ADLs to allow patient to become more adjusted to the hospital environment If patient conversation is not based in reality, do not challenge the patient. Explore the feelingsor needs expressed with statements such as You sound like you are afraid. Do you feel safe? - MAR Review medications and assess need for prn medication If patient has other hospitalizations can review to see if has historically had any other PRN use with positive response. - Appropriate communication Determine if patient has any communication/cognitive deficits (expressive, receptive) speak in simple, short phrases, provide electronic devise if needed, sign language, automatic splicing machine operator and/or iPad), picture based system If patients are disorganized in speech and talking about multiple different topics try to listen for themes on how to support the patient for example if someone is talking about ???knife???s threats,the FBI and graves?? you may ask ???are you feeling frightened?? and then validate that ???you are safe here in the hospital.?? With psychosis speak simply and concretely use simple gestures to further provide cuing. Anticipate patient???s experience, and provide clear communication - Managing psychosis: Add re-assurance and validation of feelings: ex: patient tells you that they see spiders crawling all around them ???Feeling like spiders are crawling on you sounds like it is very scary, you are safe here in the hospital and we are going to do everything we can to help you feel safe.?? When challenging patients on delusional thinking may clarify your experience while validating theirs ???I do not see any spiders on you but I can see how it is upsetting you?? and can further support the patient by saying ???I am not going to let anything hurt you, you are safe here.?? Communicate effectively, use your own style but listen for themes, speak simply, concretely, identify when you do not understand, avoid disagreeing with delusions, and, share your perception of reality Follow Up Plan: re eval by psychiatry. Re-assess in 4 hours Call RONALD team if further escalation occurs See behavior plan if applicable If there are any questions or concerns please feel [place] [phone], or in an emergent situation by activating the RONALD team through the hospital by dialing [phone]. * Jeanie Valencia RN - 07/23/2024 6:12 PM EST BEHAVIORAL EMERGENCY RESPONSE TEAM (RONALD) CALL RESPONSE NOTE SITUATION: Individuals present during escalation: RONALD RN: bud Primary RN: tequila DELGADILLO Provider: [facility] Public Safety: x3 Other: ACC graciela Reason for call: PT giles 2 BERTs, a level one at 1720 for impulsivity with difficulty redirecting andthen a level 2 RONALD at 1740 when security said pt was restless, walking quickly in circles, raisinghis hands in the air and then he abruptly laid on the floor, which is where the RN found him, concerned that he Threw himself on the floor . PT was witnessed and did not fall or have any injury, he was in control of his body as he went to the floor. Pupils equal 3s and TAVERAS with normal strengths. RONALD Level Called? : Level 2 Called RONALD Length: 45 minutes Initiated by: CARLEEN Mandel ASSESSMENT: Patient is a 23 y.o. male admitted to [id number] for Altered mental status [R41.82] . BARS Total Score: 6 Behaviors: Pt is waxing and waning in his mental status. Initially he was oriented at the level I Ronald but wanted to get out of bed, Haldol was given IV which he tolerated and he was not combative. About 20 mins after the Haldol the Ronald 2 was called for the new change and pt was confused, thinkingit was 1919, only oriented to self. He then would have periods where he would stare off, or his eyes would flutter for short periods, followed by periods of lucidity. At one point he raised his handssaying I am God . He reports seeing things, but can't articulate details around this. RONALD center sales and service associate of situation: I have cared for patient before and seen similar behaviors 5 days ago when I met him. He has not required rescue IV/IM meds in over 4 days, and has taken his po meds thus far. He has not been in restraints since 07/19. INTERVENTIONS DURING CALL Interventions: Calming and reassurance, Reorientation, Validate and support, and MAR Medications: PT got Haldol 5mg IV x 1 initially and Md Kruger came to bedside for ronald 2 and asked us to wait to give the Thorazine until Haldol has had 1 hr to have effect. MD is ok with pt walking in room with support of security and NA sitter. Resources: NA sitter and security sit. RECOMMENDATIONS: Further Recommendations: Rn to monitor pt and if he is still restless and hallucinating in 20 mins she can give the Thorazine. Pt has no complaints of urinary symptoms, but I am wondering why he is needing more meds now, RN to bladder scan pt and monitor I/O as possible. Behavior Plan: - Calming and reassurance Dim lights, calming music, decrease distractions, provide quite space Avoid rushing, allow time for processing - Reorientation Provide reassurance and reality testing for patients confused or disoriented, validate feelings of confusion and fear and provide emotional support Assess factors that may contribute to delirium (pain, dehydration, retention of urine or stool, sleep deprivation, eye glasses, hearing aids in with working batteries) Open shades during the day, attempt to establish a normal routine for ADLs to allow patient to become more adjusted to the hospital environment If patient conversation is not based in reality, do not challenge the patient. Explore the feelingsor needs expressed with statements such as You sound like you are afraid. Do you feel safe? - Validate and support Provide emotional support, listen, and engage using a soft calming voice. Offer patient advocacy for a resource if efforts to calm are ineffective. Encourage patient to identify their goal(s) for hospitalization Help set realistic goals about treatment plan and care, along with unit rules and expectations - MAR Review medications and assess need for prn medication If patient has other hospitalizations can review to see if has historically had any other PRN use with positive response. - Support System Evaluate need/or appropriateness of family/S.O. to help decrease behaviors Encourage patient or family to bring objects such as photographs that might assist in providing comfort If family or visitors are triggering may ask them to leave to create a more therapeutic environmentfor the patient. - Appropriate communication Determine if patient has any communication/cognitive deficits (expressive, receptive) speak in simple, short phrases, provide electronic devise if needed, sign language, automatic splicing machine operator and/or iPad), picture based system If patients are disorganized in speech and talking about multiple different topics try to listen for themes on how to support the patient for example if someone is talking about ???knife???s threats,the FBI and graves?? you may ask ???are you feeling frightened?? and then validate that ???you are safe here in the hospital.?? With psychosis speak simply and concretely use simple gestures to further provide cuing. Anticipate patient???s experience, and provide clear communication Follow Up Plan: See above, do BARS in 4 hours, follow up with Ronald call as needed for any escalation if PRN meds do not work to settle pt. Pt understands plan and is interacting at his baseline, going to the BR with assist at end of RONALD. Re-assess in 4 hours Call RONALD team if further escalation occurs See behavior plan if applicable If there are any questions or concerns please feel [place] [phone], or in an emergent situation by activating the RONALD team through the hospital by dialing [phone]. * Laurie Corcoran RN - 07/18/2024 2:13 PM EST ..BEHAVIORAL EMERGENCY RESPONSE TEAM (RONALD) CALL RESPONSE NOTE SITUATION: Individuals present during escalation: RONALD Hu RN, RN Dr. Lopamudra Public safety x4 Shobha Salinas Saini, ACC Reason for call: aggressive behavior RONALD Level Called? : Level 2 Called RONALD Length: 20 minutes Initiated by: CARLEEN AcuñaPAPER COATING SUPERVISOR: Patient is a 23 y.o. male admitted to [id number] for Altered mental status [R41.82] . BARS Total Score: 7 Behaviors: pt was able to undo 1 wrist restraint and attempted to swing at NA. RONALD center sales and service associate of situation: Pt admitted to hospital after found wandering in the community. Ptwith significant psychiatric hx and was recently discharged from a 5 month admission in a psych hospital. Per father, pt has not been taking his medications. Pt has been intermittently restrained and this am pt had 1 ankle restrained and opposite wrist restrained. Pt was able to unclip wrist restraint with free hand and attempted to hit legal support assistant. INTERVENTIONS DURING CALL Interventions: pt placed in 4 pt restraints. Pt has had a few violent episodes since admission. Medications: thorazine IM Resources: RONALD, 2 wrist restraints, medication, 1:1 NA and now with security detail RECOMMENDATIONS: Further Recommendations: awaiting psych to re-eval pt. Will follow their recommendations. Behavior Plan: - Calming and reassurance Dim lights, calming music, decrease distractions, provide quite space Avoid rushing, allow time for processing - Decrease stimulation Remove triggering stressors including electronics if exacerbating agitation, close shades, limit stimuli by closing doors or turning off or down TV Clustering care (to reduce interruptions) Minimize number of people in room - Reorientation Provide reassurance and reality testing for patients confused or disoriented, validate feelings of confusion and fear and provide emotional support Assess factors that may contribute to delirium (pain, dehydration, retention of urine or stool, sleep deprivation, eye glasses, hearing aids in with working batteries) Open shades during the day, attempt to establish a normal routine for ADLs to allow patient to become more adjusted to the hospital environment If patient conversation is not based in reality, do not challenge the patient. Explore the feelingsor needs expressed with statements such as You sound like you are afraid. Do you feel safe? - Distraction Activities Offer music, TV, coloring, towels to fold for confused geriatrics can be helpful Relaxation strategies such as deep breathing and focusing on the current moment Reading or journaling - Determine what patient needs or wants Assess for basic fundamental needs, water, food, medications, do they need to use the bathroom, have they voided during your shift? Do they have a tooth brush? Tooth paste? Do they have something at home that helps them calm down? Are all your home medications ordered? Do you take any PRN???s at home? Minimize wait time to meeting patient needs, validate that needs are heard and that team is workingon getting needs met. Provide estimates about time frame if unable to provide an immediate response, help set realistic goals and expectations. - Validate and support Provide emotional support, listen, and engage using a soft calming voice. Offer patient advocacy for a resource if efforts to calm are ineffective. Encourage patient to identify their goal(s) for hospitalization Help set realistic goals about treatment plan and care, along with unit rules and expectations - Limit setting Support but be firm on expected behaviors while in the hospital/unit, no screaming aimlessly, reinforce call wall use, no profanities or assaultive behaviors towards staff or visitors Use non-confrontational limit setting, with the goal of assisting the patient in learning what is appropriate and not appropriate, rather than as punishment Provide patients with choices and responsibility of choosing one behavior vs another--engage patient in treatment planning to empower patient to be apart of their care. If patient???s are escalating and to the point of requiring an IM medication, offer PO option or IMoption, encourage use of least restrictive intervention. - Enforce limits Provide consistent limit setting with phones or electronics if they are triggers, create a plan with the team to be consistent, validate good behavior. Use show of force with staff to support limit setting and reinforcement of unit expectations if behaviors escalate and become unsafe. Avoid arguing or engaging in power struggles by remaining neutral Respond when patient exhibits appropriate behavior by offering affirmation and support, ex: ???I know you are frustrated with your long length of stay but I want to acknowledge how well you have donehere in the hospital working with staff.?? - MAR Review medications and assess need for prn medication If patient has other hospitalizations can review to see if has historically had any other PRN use with positive response. - Support System Evaluate need/or appropriateness of family/S.O. to help decrease behaviors Encourage patient or family to bring objects such as photographs that might assist in providing comfort If family or visitors are triggering may ask them to leave to create a more therapeutic environmentfor the patient. - Appropriate communication Determine if patient has any communication/cognitive deficits (expressive, receptive) speak in simple, short phrases, provide electronic devise if needed, sign language, automatic splicing machine operator and/or iPad), picture based system If patients are disorganized in speech and talking about multiple different topics try to listen for themes on how to support the patient for example if someone is talking about ???knife???s threats,the FBI and graves?? you may ask ???are you feeling frightened?? and then validate that ???you are safe here in the hospital.?? With psychosis speak simply and concretely use simple gestures to further provide cuing. Anticipate patient???s experience, and provide clear communication Follow Up Plan: awaiting psych recommendations. Public safety to be at bedside if restraints come off for bathing, eating and toileting. Re-assess in 4 hours Call RONALD team if further escalation occurs See behavior plan if applicable If there are any questions or concerns please feel [place] [phone], or in an emergent situation by activating the RONALD team through the hospital by dialing [phone]. * Isabel Fong RN - 07/18/2024 12:19 AM EST BEHAVIORAL EMERGENCY RESPONSE TEAM (RONALD) CALL RESPONSE NOTE SITUATION: Individuals present during escalation: RONALD RN: Isabel Everett RN Primary RN: Bridgette DELGADILLO Provider: Dr. Mtz Public Safety: x3 Reason for call: Agitation, Hallucinations RONALD Length: 30 minutes Initiated by: RONALD PAPER COATING SUPERVISOR: Patient is a 23 y.o. male admitted to [id number] for Altered mental status [R41.82] . BARS Total Score: 4 Behaviors: Shaking, Agitation, Hallucinations RONALD center sales and service associate of situation: Upon arrival patient is laying supine in bed in 4 point locked restraints. Noted to be tachycardic to the 130s, tachypneic to 32 breaths per minute, diaphoretic. Patient is pulling on his restraints, shaking, eyes darting around the room. Initially patient is not responding to staff and primary RN noted he was attempting to get OOB. 2mg IV Ativan administered as ordered with some effect. Dr. Mtz @ bedside for eval. After a few minutes patient appears more calmand is making eye contact, responding to questions appropriately and able to make needs known. Recommendation from Dr. Mtz going forward is to prioritize antipsychotic meds over Ativan if possible as there is potential for decompensated psychosis. Plan to alternate IV Thorazine and IV Haldol as ordered PRN. At this time, patient to remain in restraints for safety. Sleep mask provided and ears are covered with a towel @ patient's request. HR improved and patient is no longer shaking/pulling on restraints. Patient states he is going to try to sleep and relax. Primary RN to resume care of patient and notify MD with any further concerns. INTERVENTIONS DURING CALL Interventions: Calming and reassurance, Decrease stimulation, Reorientation, Determine what patientneeds or wants, Validate and support, MAR, and Appropriate communication Medications: 2mg Ativan IV Resources: RONALD, public safety, eMAR, restraints RECOMMENDATIONS: Further Recommendations: See Below Behavior Plan: - Calming and reassurance Dim lights, calming music, decrease distractions, provide quite space Avoid rushing, allow time for processing - Decrease stimulation Remove triggering stressors including electronics if exacerbating agitation, close shades, limit stimuli by closing doors or turning off or down TV Clustering care (to reduce interruptions) Minimize number of people in room - Reorientation Provide reassurance and reality testing for patients confused or disoriented, validate feelings of confusion and fear and provide emotional support Assess factors that may contribute to delirium (pain, dehydration, retention of urine or stool, sleep deprivation, eye glasses, hearing aids in with working batteries) Open shades during the day, attempt to establish a normal routine for ADLs to allow patient to become more adjusted to the hospital environment If patient conversation is not based in reality, do not challenge the patient. Explore the feelingsor needs expressed with statements such as You sound like you are afraid. Do you feel safe? - Distraction Activities Offer music, TV, coloring, towels to fold for confused geriatrics can be helpful Relaxation strategies such as deep breathing and focusing on the current moment Reading or journaling - Validate and support Provide emotional support, listen, and engage using a soft calming voice. Offer patient advocacy for a resource if efforts to calm are ineffective. Encourage patient to identify their goal(s) for hospitalization Help set realistic goals about treatment plan and care, along with unit rules and expectations - MAR Review medications and assess need for prn medication If patient has other hospitalizations can review to see if has historically had any other PRN use with positive response. - Appropriate communication Determine if patient has any communication/cognitive deficits (expressive, receptive) speak in simple, short phrases, provide electronic devise if needed, sign language, automatic splicing machine operator and/or iPad), picture based system If patients are disorganized in speech and talking about multiple different topics try to listen for themes on how to support the patient for example if someone is talking about ???knife???s threats,the FBI and graves?? you may ask ???are you feeling frightened?? and then validate that ???you are safe here in the hospital.?? With psychosis speak simply and concretely use simple gestures to further provide cuing. Anticipate patient???s experience, and provide clear communication - Managing psychosis: Add re-assurance and validation of feelings: ex: patient tells you that they see spiders crawling all around them ???Feeling like spiders are crawling on you sounds like it is very scary, you are safe here in the hospital and we are going to do everything we can to help you feel safe.?? When challenging patients on delusional thinking may clarify your experience while validating theirs ???I do not see any spiders on you but I can see how it is upsetting you?? and can further support the patient by saying ???I am not going to let anything hurt you, you are safe here.?? Communicate effectively, use your own style but listen for themes, speak simply, concretely, identify when you do not understand, avoid disagreeing with delusions, and, share your perception of reality Follow Up Plan: See Below Re-assess in 4 hours Call RONALD team if further escalation occurs See behavior plan if applicable If there are any questions or concerns please feel free [place] [phone], or in an emergent situation by activating the RONALD team through the hospital by dialing [phone]. documented in this encounter ED Notes * Lamonte Barber MD - 07/16/2024 9:11 PM ESTAssociated Order(s): Critical Care Procedure Critical Care Performed by: Lamonte Barber MD Authorized by: Lamonte Barber MD Critical care provider statement: Critical care time (minutes): 35 Comments: CRITICAL CARE TIME: The patient's condition was such that it required my full attention providing Critical Care Services. The critical care time did not include time spent performing procedures. Lamonte Barber MD 07/16/242110 * Lamonte Barber MD - 07/16/2024 5:36 PM EST EMERGENCY DEPARTMENT ENCOUNTER CHIEF COMPLAINT Chief Complaint Patient presents with Drug / Alcohol Assessment HISTORY OF PRESENT ILLNESS Please note that the patient is an overall limited vague historian Rob Almeida is a 23 y.o. male who presents to the emergency department. The patient was found wandering. Reportedly states he took 2 candies that were given to him at [facility]. He denies that they contain cannabis. He is unsure what they exactly were. He has a history of schizoaffective disorder, Asperger syndrome and was recently discharged from inpatient mental health unit approximately 1 week ago. He denies suicidal ideations. He is rather withdrawn and a limited historian REVIEW OF SYSTEMS Constitutional: No fever Neurological: No headache Eyes: No vision changes Respiratory: No shortness of breath Cardiovascular: No chest pain Gastrointestinal: No abdominal pain : No dysuria Musculoskeletal: No musculoskeletal complaints Skin: No rash Hematological: No bleeding Ten systems were reviewed and were otherwise negative except as above. PAST MEDICAL HISTORY Past Medical History: Diagnosis Date ADD (attention deficit disorder) Anxiety Asperger syndrome Bipolar disorder ([facility]/HCC) Depression Mood disorder ([facility]/HCC) Schizoaffective disorder ([facility]) ALLERGIES No Known Allergies SURGICAL HISTORY Past Surgical History: Procedure Laterality Date HERNIA REPAIR OSTEOTOMY N/A 07/25/2018 Procedure: 3rd Molar Extraction x4, Bilateral Sagittal Split Osteotomy of the mandible; Surgeon: Greg Tejada MD; Location: [facility] OR LOCATION; Service: Oral/Maxillofacial MI UNLISTED PROCEDURE DENTOALVEOLAR STRUCTURES N/A 07/25/2018 Procedure: EXTRACTION DENTAL CARIES; Surgeon: Greg Tejada MD; Location: [facility] OR LOCATION; Service: Oral/Maxillofacial FAMILY HISTORY No family history on file. SOCIAL HISTORY Social History Socioeconomic History Marital status: Single Spouse name: Not on file Number of children: Not on file Years of education: Not on file Highest education level: Not on file Occupational History Not on file Tobacco Use Smoking status: Never Smokeless tobacco: Never Vaping Use Vaping status: Every Day Substances: Nicotine Substance and Sexual Activity Alcohol use: Never Drug use: Yes Types: Marijuana Sexual activity: Defer Other Topics Concern Not on file Social History Narrative Lives in with 4 roommates. Single. No children. Currently unemployed. Grew up in [employer] [place]. Is 1 of 7 children. He and one younger brother were adopted by same family. Dropped out of high school after 9th grade. 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 Social Drivers of Health Financial Resource Strain: Not on File (05/31/2022) [facility] from [facility] Financial Resource Strain Financial Resource Strain: 0 Food Insecurity: Unknown (09/30/2023) Received from [facility] Food Overall Consent: Not on file Worried About Food Running Out: Not on file Ability To Pay For Food: Not on file Would You Like Help?: Not on file Transportation Needs: Unknown (09/30/2023) Received from [facility] Transportation Overall Consent: Not on file Kept From Getting Child to Medical Appts: Not on file Would You Like Help?: Not on file Physical Activity: Not on File (11/20/2021) Received from [facility] Physical Activity Physical Activity: 0 Stress: Not on File (11/20/2021) Received from [facility] Stress Stress: 0 Social Connections: Not on File (02/24/2024) Received from [facility] Connections Connectedness: 0 Intimate Partner Violence: Not on file Housing Stability: Unknown (09/30/2023) Received from [facility] Housing Overall Consent: Not on file Housing Situation Today: Not on file Housing Situation Other Details: Not on file Would You Like Help?: Not on file Worried About Losing Housing: Not on file Housing Problems: Not on file PHYSICAL EXAM Vital Signs Vitals: 07/16/242023 BP: 121/86 Pulse: (!) 103 Resp: 21 Temp: SpO2: 97% General: Patient is alert, cooperative Head: Normocephalic, atraumatic Eyes: Conjunctiva clear, no scleral icterus Respiratory: Lungs are clear to auscultation bilaterally, no significant dyspnea Cardiovascular: Normal heart rate, regular rhythm. Gastrointestinal: No abdominal tenderness, no significant distention Musculoskeletal: No extremity cyanosis or significant edema Skin: No rash, no jaundice Neurologic: Nonfocal. Psychiatric: Patient is alert with appropriate and fluent speech ED COURSE & MEDICAL DECISION MAKING 23 y.o. presented to the emergency department found wandering. Significant mental health comorbidities including schizoaffective disorder, bipolar disorder. Reportedly had an unknown ingestion of an unknown substance. He not denies knowing what it is. He is mildly tachycardic. Will check EKG, treatwith IV fluids, check labs and duckling toxicology screens. He is not overtly suicidal but may require mental-health evaluation. Independent Interpretation of Studies: EKG(s) showed sinus tachycardia at a rate of 158 without QRSwidening, no signs of TCA toxicity Differential includes toxidrome, rule out Tylenol toxicity, rule out alcohol ingestion, rule out salicylate toxicity, check urine drug screen ED and nursing records reviewed. Chronic Conditions affecting care include schizoaffective disorder Social Determinants of Health significantly affecting the care and disposition of this patient [facility] ED Course as of 07/16/242110 Nellie Jul 16, 2024 329 I was notified about a change in the patient's condition by nursing staff. The patient began to have an episode of nonresponsiveness, tachycardia, tremor. Possible seizure but not definitive. This resolved after 2 to 3 minutes. His toxicology screens are pending. He is euglycemic. Given his possible toxicologic ingestion and seizure I will treat empirically with dose of Ativan. His EKG does not show QRS widening or signs of TCA toxicity. Will also add head CT to his evaluation and continueto monitor. [MT] 2006 CT head without contrast [MT] ED Course User Index [MT] Lamonte Barber MD Head CT negative. No further seizure-like activity. Placed in the hospital for further care and evaluation. Final diagnoses: [R41.82] Altered mental status Lamonte Barber MD 07/16/242110 * Sheldon Miguel RN - 07/16/2024 5:22 PM EST Rob Almeida is a 23 y.o. male presenting with Drug / Alcohol Assessment Pt arrives via EMS from the street after being found wandering on the way to the dispensary. Pt states he took two candies that were in his pocket that he got a week ago from someone at [facility] . Pt unsure what kind of candy it was. Pt seems under the influence. documented in this encounter Miscellaneous Notes * Behavioral Health - Nhi Lyons RN - 07/24/2024 3:37 PM EST Provided Rob is in improved behavioral control and restraint free he he has been clinically accepted to transfer to [facility] ([address] [place] [address] [phone]) via ambulance on Sect12 for 8p tack picker time. Acceptance has been confirmed with facility's customer solutions coordinator. Unfortunately, if he remains agitated and continues to require restraint, RN was instructed to make facility aware and cancel transfer at that time. Psychiatry and current Team are aware of, and in agreement with this plan. Sect 12 and ambulance transport form were provided at time of transport. Made RN and UC aware that security presence should be requested at time of transfer. Left message with answering service for for Guardian (Lamonte Campos) re urgent psychiatric transfer ofpatient. Requested call back CARLOTTA. Father (Mani) is aware and in agreement. * Plan of Care - Sadia Mosley RN - 07/24/2024 1:34 PM EST Images from the original note were not included. Discharge: Transition to Facility Patient was admitted for the treatment and management of witnessed seizure like activity. The patient was assessed for discharge needs, and the transition plan is to an Inpatient Psycniatric facility; the patient has been accepted at [facility], in [facility]. The Mental Health Nurse Navigator Nhi has been in communication with the facility and arranged for transfer with bed acceptance; The bedside RN Last will be calling report to the receiving facility. The patient will transport to the facility via Ambulance. Ambulance authorization form was completed. The following items including HCP and Other any paperwork needed by the facility is being sent withthe patient, the discharge summary and AVS. The patient will transfer by ambulance for safety and supervision. The ambulance form is online in the patient's media section. The patient is being discharged late in the day today, thus any changesto the plan of care will be addressed by another CM. At this time the plan is to discharge at 8pm; the MD and RN are aware that this is the request of the facility the patient is going to. CM complete. Patient Consent for Designation of Caregiver I, Rob Almeida, hereby designate the following Individual(s) as my Caregiver for purposes of the Caregiver Advise, Record, Enable (CARE) Act and in relation to my current admission at [facility]: (Patient Name - Please Print) (Street Address, City, State, Zip Code) (Phone Number) (Relationship to You (e.g. Spouse, Sibling, Friend) Patient Name: Rob Almeida Date: 07/24/2024 PATIENT CONSENT TO DISCLOSE CONFIDENTIAL MEDICAL INFORMATION TO INDIVIDUAL DESGINATED ABOVE CAREGIVER UNDER THE [place] CAREGIVER ADVISE, RECORD, ENABLEACT (CARE - M.G.L. ch. 111, sec. 236) In relation to designation or designations made above, Please [employer] [employer] [place] [employer]: I hereby: Consent to Refuse The release of confidential healthcare information concerning My/ My metzger's hospitalization, discharge or transfer relative to my current admission to my above-designated Caregiver(s) and; Please [employer] [employer] [place] [employer]: I hereby: Consent to Refuse The release of confidential information concerning My/My Metzger???s: mental illness, alcohol and/or drug use, sexual abuse, venereal disease, genetic testing, AIDS or HIV test results to the above-designated Caregiver. I understand the purpose for disclosing this personal health information to the person(s) designated above is to enable [facility] to work with the individual(s) in accordance with the provisions of the [place] Caregiver Advise, Record, Enable Act M.G.L. ch. 111, sec. 236. ???CARE Act?? ) I understand that my medical information is protected under Federal Health Insurance Portability & Accountability Act of 1996 (HIPAA) and certain General Laws of [place], and cannot be disclosed without my written consent except as otherwise specifically provided by applicable law. Any inf ormation to be released or received that is authorized by my consent evidenced by this document shall not be given, transferred or relayed in any manner to any other person by [facility], either in an individual or customer relations representative capacity, without an additional written consent or otherwise permitted by law. I understand that I may withdraw this consent by giving written notification to [facility] at any time prior to the disclosure or release of the information. This consentwill upon my withdrawal of consent. I confirm that I have read the above, fully understand it and have no further questions. I understand that I can refuse to sign this consent form. Patient/Authorized Legal Digital Imaging Technician's Signature: Signature: Date: Witness: * Plan of Care - Colt Jaime RN - 07/24/2024 4:43 AM EST Assumed care of pt at 2300. Alert and verbally responsive. Denies pain/discomfort. Continues on 4 pts violent restraint till 0600. Changed to 2 soft restraint. Slept on and off. No acute events on this shift. Continues on 2:1 sitter for safety and SI. Skin checking, self turning and reposition, po f luids offered. Safety and seizure maintained. Problem: Safety - Violent/Self-destructive Restraint Goal: Remains free of injury from restraints (Restraint for Violent/Self- Destructive Behavior) Outcome: Progressing Goal: Free from restraints (Restraint for Violent or Self-Destructive Behavior) Outcome: Progressing Problem: Safety - Violent/Self-destructive Restraint Goal: Free from restraints (Restraint for Violent or Self-Destructive Behavior) Outcome: Progressing Problem: Pain - Adult Goal: Verbalizes/displays adequate comfort level or baseline comfort level Outcome: Progressing Problem: Infection - Adult Goal: Absence of infection during hospitalization Outcome: Progressing Problem: Safety Adult - Fall Goal: Free from fall injury Outcome: Progressing Problem: Nutrition Goal: Maintains adequate nutritional intake Outcome: Progressing Problem: Knowledge Deficit Goal: Patient/family/caregiver demonstrates understanding of disease process, treatment plan, medications, and discharge instructions Outcome: Progressing Problem: Activity Intolerance/Impaired Mobility Goal: Mobility/activity is maintained at optimum level for patient Outcome: Progressing Problem: Discharge Planning Goal: Discharge to home or other facility with appropriate resources Outcome: Progressing * Plan of Care - Tequila Brush RN - 07/24/2024 1:00 AM EST Assumed care of pt at 1500. A+Ox2-4, mentation on and off, pt needing freq redirecting and reorienting. Pt on 2:1 sitter for safety and SI. Security in place. Incontinent x2. Pt denies pain during shift. Bed in lowest, locked position. Cares and safety maintained. Seizure precautions maintained. Ptthis evening, (refer to RONALD notes), MD DELGADILLO at bedside x3 with staff, pt noted to be hallucinating, drooling, extremely restless, freq attempts to BR, not urinating, Ronald called, pt was medicated with Haldol and Thorazine with little effect, pt bladder scanned. Freq checks and redirecting done with very little effect. Pt then running down hallway and falls, head hits floor, security with pt, taken back to room, assessed, neuros checked, pupils 5mm, Md Kruger made aware, Head ct ordered, at bedside. Pt placed in 4 point violent restraints. Pt bladder scanned again, 553, pt attempted to toilet pt in BR, pt then started slamming head against shower wall, security assisted with taking ptback to bed, restraints on, pt inc in bed of lg amt of urine, bladder scanned, 250mls, inc care done in bed. Fluids and food offered and reassurance and listening done. IM Thorazine given, Pt down tohead CT, jean claude well, cooperative with staff at test, returned, security and 1:1 at bedside. Freq checks made, Problem: Pain - Adult Goal: Verbalizes/displays adequate comfort level or baseline comfort level Outcome: Progressing Problem: Infection - Adult Goal: Absence of infection during hospitalization Outcome: Progressing Problem: Safety Adult - Fall Goal: Free from fall injury Outcome: Progressing Problem: Nutrition Goal: Maintains adequate nutritional intake Outcome: Progressing * Plan of Care - Tequila Brush RN - 07/24/2024 12:16 AM EST Problem: Safety - Violent/Self-destructive Restraint Goal: Remains free of injury from restraints (Restraint for Violent/Self- Destructive Behavior) 07/24/2024214 by Tequila Brush RN Outcome: Not Progressing 07/24/2024 021 by Tequila Brush RN Outcome: Progressing Goal: Free from restraints (Restraint for Violent or Self-Destructive Behavior) 07/24/2024214 by Tequila Brush RN Outcome: Not Progressing 07/24/2024 0214 by Tequila Brush RN Outcome: Progressing Problem: Potential for Suicide Goal: Remain free from self harm 07/24/2024214 by Tequila Brush RN Outcome: Progressing 07/24/2024 0214 by Tequila Brush RN Outcome: Progressing 07/24/2024 0213 by Tequila Brush RN Outcome: Progressing 07/24/2024 0150 by Tequila Brush RN Outcome: Progressing Problem: Safety - Medical Restraint Goal: Remains free of injury from restraints (Restraint for Interference with [employer] Head) 07/24/2024214 by Tequila Brush RN Outcome: Progressing 07/24/2024 0214 by Tequila Brush RN Outcome: Progressing Goal: Free from restraint(s) 07/24/2024214 by Tequila Brush RN Outcome: Progressing 07/24/2024 0214 by Tequila Brush RN Outcome: Progressing Problem: Inadequate Coping Goal: Demonstrates ability to cope effectively 07/24/2024214 by Tequila Brush RN Outcome: Not Progressing 07/24/2024 0214 by Tequila Brush RN Outcome: Not Progressing 07/24/2024 0213 by Tequila Brush RN Outcome: Progressing 07/24/2024 0150 by Tequila Brush RN Outcome: Progressing Goal: Verbalizes adaptive coping mechanisms 07/24/2024214 by Tequila Brush RN Outcome: Not Progressing 07/24/2024 0214 by Tequila Brush RN Outcome: Not Progressing 07/24/2024 021 by Tequila Brush RN Outcome: Progressing 07/24/2024 0150 by Tequila Brush RN Outcome: Progressing Goal: Verbalizes personal strengths 07/24/2024214 by Tequila Brush RN Outcome: Not Progressing 07/24/2024 0213 by Tequila Brush RN Outcome: Progressing 07/24/2024 0150 by Tequila Brush RN Outcome: Progressing * Significant Event - Slick, Damien Doe MD - 07/23/2024 6:08 PM EST RONALD level 2 called for restlessness/agitation. Per nursing and sitter at bedside, patient was pacing [id number] in the room. He was raising his arms and looking up repeatedly and then steadily lead on the floor. His nurse found him on the floor, so RONALD was called. On arrival, patient laying in bed however is restless. He has periods of confusion as initially he was unable to say where he was. However, about 5 minutes later he became fully oriented. He continues to display bizarre behavior, at one point raising his arms and stating I am God . Prior to to my a rrival, he had received a PRN dose of Haldol and seemed to be more redirectable initially, however started becoming restless again, so PRN Thorazine was given. At the time of my departure, patient was resting in bed and redirectable. 3 hours later at 8:30 PM, a second RONALD was called as patient was actively trying to get out of hisroom and run in the hallways. Per chart review, patient reportedly had similar episode prior in theadmission recheck to drop out of the window. Upon arrival, patient already in 4 point restraints however calm. He was given PRN Ativan. Bladder scan was checked which showed 550 mL. After 2 hours in restraints, patient cooperative, so was taken out of restraints to use the bathroom. After he got up, bed noted to be soaked in urine and patient repeatedly banging his head on the wall in the bathroom. - Continue Haldol, Thorazine, Ativan as needed - 4 point restraints - CT head I have assessed the patient and performed the [id number] evaluation within 1- hour after restraint/seclusion was initiated. This evaluation included the patient???s situation, reaction to the restraint/seclusion (medical, behavioral, physiological and psychological condition) and the need for continued restraint/seclusion. Unless otherwise noted, the patient continues to require the restraint/seclusion. * Behavioral Health - Nhi Lyons RN - 07/23/2024 3:44 PM EST [facility] completed inpatient psychiatric bed search. Updated clinical provided and faxed to facilities with wait lists. Updated referrals have been sent to the following facilities; [facility], [facility], [facility], [facility], [place] and [facility]. Unfo rtunately, he was declined by [facility] following their review as a bed was available, but they ultimately declined due to their unit acuity today. He is under review at [facility] as well, where he has beenhospitalized in the past and is well know. They will not have an available bed on Saturday, but may on Saturday. Will continue referral process and provide updates to current Team as they become available. * Plan of Care - Last Maher RN - 07/23/2024 10:45 AM EST Pt alert, in no acute distress, pleasant and cooperative. Denies pain. No complaints. Denies any needs at this time. 1:1 for SI--denies currently. Seizure precautions in place. Denies any other needsat this time. Assessment per flowsheet Problem: Pain - Adult Goal: Verbalizes/displays adequate comfort level or baseline comfort level Outcome: Progressing Problem: Infection - Adult Goal: Absence of infection during hospitalization Outcome: Progressing Problem: Safety Adult - Fall Goal: Free from fall injury Outcome: Progressing Problem: Nutrition Goal: Maintains adequate nutritional intake Outcome: Progressing Problem: Knowledge Deficit Goal: Patient/family/caregiver demonstrates understanding of disease process, treatment plan, medications, and discharge instructions Outcome: Progressing Problem: Activity Intolerance/Impaired Mobility Goal: Mobility/activity is maintained at optimum level for patient Outcome: Progressing Problem: Discharge Planning Goal: Discharge to home or other facility with appropriate resources Outcome: Progressing Problem: Neurosensory - Adult Goal: Achieves stable or improved neurological status Outcome: Progressing Goal: Absence of seizures Outcome: Progressing Goal: Remains free of injury related to seizures activity Outcome: Progressing Goal: Achieves maximal functionality and self care Outcome: Progressing Problem: Cardiovascular - Adult Goal: Maintains optimal cardiac output and hemodynamic stability Outcome: Progressing Goal: Absence of cardiac dysrhythmias or at baseline Outcome: Progressing Problem: Respiratory - Adult Goal: Achieves optimal ventilation and oxygenation Outcome: Progressing Problem: Gastrointestinal - Adult Goal: Minimal or absence of nausea and vomiting Outcome: Progressing Problem: Genitourinary - Adult Goal: Absence of urinary retention Outcome: Progressing Problem: Metabolic/Fluid and Electrolytes - Adult Goal: Electrolytes maintained within normal limits Outcome: Progressing Problem: Skin/Tissue Integrity - Adult Goal: Skin integrity remains intact Outcome: Progressing Problem: Hematologic - Adult Goal: Maintains hematologic stability Outcome: Progressing Problem: Musculoskeletal - Adult Goal: Return mobility to safest level of function Outcome: Progressing Goal: Return ADL status to a safe level of function Outcome: Progressing Problem: Potential for Compromised Skin Integrity Goal: Skin Integrity is Maintained or Improved Outcome: Progressing Goal: Nutritional status is improving Outcome: Progressing Problem: Inadequate Coping Goal: Demonstrates ability to cope effectively Outcome: Progressing Goal: Verbalizes adaptive coping mechanisms Outcome: Progressing Goal: Verbalizes personal strengths Outcome: Progressing Problem: Potential for Suicide Goal: Remain free from self harm Outcome: Progressing * Plan of Care - Bhakti Gtz RN - 07/22/2024 10:38 PM EST Assumed care of pt at 1900. A+Ox4. Pt on 1:1 sitter for safety and SI. Security in place. Pt deniesSI during shift. Pt on RA. Pt able to make needs known. Pt pleasant and cooperative with all care. Pills whole with water. Independent OOB. Continent x2. Pt denies pain during shift. Bed in lowest, locked position. Cares and safety maintained. Seizure precautions maintained. Problem: Pain - Adult Goal: Verbalizes/displays adequate comfort level or baseline comfort level Outcome: Progressing Problem: Infection - Adult Goal: Absence of infection during hospitalization Outcome: Progressing Problem: Safety Adult - Fall Goal: Free from fall injury Outcome: Progressing Problem: Nutrition Goal: Maintains adequate nutritional intake Outcome: Progressing Problem: Knowledge Deficit Goal: Patient/family/caregiver demonstrates understanding of disease process, treatment plan, medications, and discharge instructions Outcome: Progressing Problem: Activity Intolerance/Impaired Mobility Goal: Mobility/activity is maintained at optimum level for patient Outcome: Progressing Problem: Discharge Planning Goal: Discharge to home or other facility with appropriate resources Outcome: Progressing Problem: Neurosensory - Adult Goal: Achieves stable or improved neurological status Outcome: Progressing Goal: Absence of seizures Outcome: Progressing Goal: Remains free of injury related to seizures activity Outcome: Progressing Goal: Achieves maximal functionality and self care Outcome: Progressing Problem: Cardiovascular - Adult Goal: Maintains optimal cardiac output and hemodynamic stability Outcome: Progressing Goal: Absence of cardiac dysrhythmias or at baseline Outcome: Progressing Problem: Respiratory - Adult Goal: Achieves optimal ventilation and oxygenation Outcome: Progressing Problem: Gastrointestinal - Adult Goal: Minimal or absence of nausea and vomiting Outcome: Progressing Problem: Genitourinary - Adult Goal: Absence of urinary retention Outcome: Progressing Problem: Metabolic/Fluid and Electrolytes - Adult Goal: Electrolytes maintained within normal limits Outcome: Progressing Problem: Skin/Tissue Integrity - Adult Goal: Skin integrity remains intact Outcome: Progressing Problem: Hematologic - Adult Goal: Maintains hematologic stability Outcome: Progressing Problem: Musculoskeletal - Adult Goal: Return mobility to safest level of function Outcome: Progressing Goal: Return ADL status to a safe level of function Outcome: Progressing Problem: Potential for Compromised Skin Integrity Goal: Skin Integrity is Maintained or Improved Outcome: Progressing Goal: Nutritional status is improving Outcome: Progressing Problem: Inadequate Coping Goal: Demonstrates ability to cope effectively Outcome: Progressing Goal: Verbalizes adaptive coping mechanisms Outcome: Progressing Goal: Verbalizes personal strengths Outcome: Progressing Problem: Potential for Suicide Goal: Remain free from self harm Outcome: Progressing * Plan of Care - Marie Rodríguez RN - 07/22/2024 6:35 PM EST Assumed care of pt at 0700. A&Ox4. RA. Denies SI. Calm and cooperative with care. Continues on 1:1 sitter with security in place. IV to RAC removed- warm tender and pink- md aware- n/o vascular u/s to r/o DVT negative. Refused ice. Denies pain. Blood cultures pending. Bed locked and in lowest position. All cares and safeties maintained. Problem: Pain - Adult Goal: Verbalizes/displays adequate comfort level or baseline comfort level Outcome: Progressing Problem: Infection - Adult Goal: Absence of infection during hospitalization Outcome: Progressing Problem: Safety Adult - Fall Goal: Free from fall injury Outcome: Progressing Problem: Nutrition Goal: Maintains adequate nutritional intake Outcome: Progressing Problem: Knowledge Deficit Goal: Patient/family/caregiver demonstrates understanding of disease process, treatment plan, medications, and discharge instructions Outcome: Progressing Problem: Activity Intolerance/Impaired Mobility Goal: Mobility/activity is maintained at optimum level for patient Outcome: Progressing Problem: Discharge Planning Goal: Discharge to home or other facility with appropriate resources Outcome: Progressing Problem: Neurosensory - Adult Goal: Achieves stable or improved neurological status Outcome: Progressing Goal: Absence of seizures Outcome: Progressing Goal: Remains free of injury related to seizures activity Outcome: Progressing Goal: Achieves maximal functionality and self care Outcome: Progressing Problem: Cardiovascular - Adult Goal: Maintains optimal cardiac output and hemodynamic stability Outcome: Progressing Goal: Absence of cardiac dysrhythmias or at baseline Outcome: Progressing Problem: Respiratory - Adult Goal: Achieves optimal ventilation and oxygenation Outcome: Progressing Problem: Gastrointestinal - Adult Goal: Minimal or absence of nausea and vomiting Outcome: Progressing Problem: Genitourinary - Adult Goal: Absence of urinary retention Outcome: Progressing Problem: Metabolic/Fluid and Electrolytes - Adult Goal: Electrolytes maintained within normal limits Outcome: Progressing Problem: Skin/Tissue Integrity - Adult Goal: Skin integrity remains intact Outcome: Progressing Problem: Hematologic - Adult Goal: Maintains hematologic stability Outcome: Progressing Problem: Musculoskeletal - Adult Goal: Return mobility to safest level of function Outcome: Progressing Goal: Return ADL status to a safe level of function Outcome: Progressing Problem: Potential for Compromised Skin Integrity Goal: Skin Integrity is Maintained or Improved Outcome: Progressing Goal: Nutritional status is improving Outcome: Progressing Problem: Inadequate Coping Goal: Demonstrates ability to cope effectively Outcome: Progressing Goal: Verbalizes adaptive coping mechanisms Outcome: Progressing Goal: Verbalizes personal strengths Outcome: Progressing Problem: Potential for Suicide Goal: Remain free from self harm Outcome: Progressing * Behavioral Health - Nhi Lyons RN - 07/22/2024 4:04 PM EST [facility] completed inpatient psychiatric bed search. Updated clinical provided and faxed to facilities with wait lists. Updated referrals have been sent to the following facilities; [facility], [facility], and [facility] [place]. Hoping for return to [facility] as he was hospitalized there for several month, however they do not have [facility] bed at this time. Will continue referral process and provide updates to current Team as they become available. * Plan of Care - Sadia Mosley RN - 07/22/2024 11:05 AM EST CARE PROGRESSION - CONTINUED: Discharge planning ongoing. Patient reassessed for discharge needs. Functional ability and medical needs reviewed. Reassessment discussed with multidisciplinary team in morning rounds. The patient remains with his sitter in the room and security, just walked in the hallway without any device and emp loyees with the patient for his safety. Appears to be ambulating with steady gait. CM continues to follow plans per brush clearer surveying Navigator, she has placed referrals and is following for placement. The patient will continue to be followed for discharge planning needs. * Plan of Care - Nhi Jacobson RN - 07/22/2024 3:23 AM EST Pt is a/o very lethargic/tired. Cooperative. Sitter and security bedside. Pt is continent of bowel and bladder and took meds without a problem. Uses call light appropriately. Dc pending psych bed placement. Problem: Pain - Adult Goal: Verbalizes/displays adequate comfort level or baseline comfort level Outcome: Progressing Problem: Infection - Adult Goal: Absence of infection during hospitalization Outcome: Progressing Problem: Safety Adult - Fall Goal: Free from fall injury Outcome: Progressing Problem: Nutrition Goal: Maintains adequate nutritional intake Outcome: Progressing Problem: Knowledge Deficit Goal: Patient/family/caregiver demonstrates understanding of disease process, treatment plan, medications, and discharge instructions Outcome: Progressing Problem: Activity Intolerance/Impaired Mobility Goal: Mobility/activity is maintained at optimum level for patient Outcome: Progressing Problem: Discharge Planning Goal: Discharge to home or other facility with appropriate resources Outcome: Progressing Problem: Neurosensory - Adult Goal: Achieves stable or improved neurological status Outcome: Progressing Goal: Absence of seizures Outcome: Progressing Goal: Remains free of injury related to seizures activity Outcome: Progressing Goal: Achieves maximal functionality and self care Outcome: Progressing Problem: Cardiovascular - Adult Goal: Maintains optimal cardiac output and hemodynamic stability Outcome: Progressing Goal: Absence of cardiac dysrhythmias or at baseline Outcome: Progressing Problem: Respiratory - Adult Goal: Achieves optimal ventilation and oxygenation Outcome: Progressing Problem: Gastrointestinal - Adult Goal: Minimal or absence of nausea and vomiting Outcome: Progressing Problem: Genitourinary - Adult Goal: Absence of urinary retention Outcome: Progressing Problem: Metabolic/Fluid and Electrolytes - Adult Goal: Electrolytes maintained within normal limits Outcome: Progressing Problem: Skin/Tissue Integrity - Adult Goal: Skin integrity remains intact Outcome: Progressing Problem: Hematologic - Adult Goal: Maintains hematologic stability Outcome: Progressing Problem: Musculoskeletal - Adult Goal: Return mobility to safest level of function Outcome: Progressing Goal: Return ADL status to a safe level of function Outcome: Progressing Problem: Potential for Compromised Skin Integrity Goal: Skin Integrity is Maintained or Improved Outcome: Progressing Goal: Nutritional status is improving Outcome: Progressing Problem: Inadequate Coping Goal: Demonstrates ability to cope effectively Outcome: Progressing Goal: Verbalizes adaptive coping mechanisms Outcome: Progressing Goal: Verbalizes personal strengths Outcome: Progressing Problem: Potential for Suicide Goal: Remain free from self harm Outcome: Progressing * Behavioral Health - Nhi Lyons RN - 07/21/2024 1:55 PM EST The patient has been referred to Behavioral Health RN Navigation by Psychiatry for assistance with psychiatric disposition planning. The medical record has been reviewed and case was discussed with referring providers. The patient has been medically cleared and [facility]Psychiatry has recommended inpatient psychiatric admission for full evaluation and stabilization. Behavioral Health RN discussed details of case with Psychiatry and [facility] and completed inpatient psychiatric bed search. Updated clinical provided and faxed to facilities with wait lists. Today referrals are pending at [facility], [facility], [facility], [facility], [facility], and [place]. Will continue referral process and provide updates to current Team as they become available. * Plan of Care - Damaris Kurtz RN - 07/21/2024 1:54 PM EST Patient A&Ox3, 1-1 sitter and security for SI. VSS on ra, Tele SR/ST. Patient denied pain, n/v,dizziness or palpitations. Last bm this morning. Independent with ambulation to bathroom. Meds whole with water. Fair appetite. Ongoing plan of care, safety maintained. Problem: Pain - Adult Goal: Verbalizes/displays adequate comfort level or baseline comfort level Outcome: Progressing Problem: Infection - Adult Goal: Absence of infection during hospitalization Outcome: Progressing Problem: Safety Adult - Fall Goal: Free from fall injury Outcome: Progressing Problem: Nutrition Goal: Maintains adequate nutritional intake Outcome: Progressing Problem: Knowledge Deficit Goal: Patient/family/caregiver demonstrates understanding of disease process, treatment plan, medications, and discharge instructions Outcome: Progressing Problem: Activity Intolerance/Impaired Mobility Goal: Mobility/activity is maintained at optimum level for patient Outcome: Progressing Problem: Discharge Planning Goal: Discharge to home or other facility with appropriate resources Outcome: Progressing Problem: Neurosensory - Adult Goal: Achieves stable or improved neurological status Outcome: Progressing Goal: Absence of seizures Outcome: Progressing Goal: Remains free of injury related to seizures activity Outcome: Progressing Goal: Achieves maximal functionality and self care Outcome: Progressing Problem: Cardiovascular - Adult Goal: Maintains optimal cardiac output and hemodynamic stability Outcome: Progressing Goal: Absence of cardiac dysrhythmias or at baseline Outcome: Progressing Problem: Respiratory - Adult Goal: Achieves optimal ventilation and oxygenation Outcome: Progressing Problem: Gastrointestinal - Adult Goal: Minimal or absence of nausea and vomiting Outcome: Progressing Problem: Genitourinary - Adult Goal: Absence of urinary retention Outcome: Progressing Problem: Metabolic/Fluid and Electrolytes - Adult Goal: Electrolytes maintained within normal limits Outcome: Progressing Problem: Skin/Tissue Integrity - Adult Goal: Skin integrity remains intact Outcome: Progressing Problem: Hematologic - Adult Goal: Maintains hematologic stability Outcome: Progressing Problem: Musculoskeletal - Adult Goal: Return mobility to safest level of function Outcome: Progressing Goal: Return ADL status to a safe level of function Outcome: Progressing Problem: Potential for Compromised Skin Integrity Goal: Skin Integrity is Maintained or Improved Outcome: Progressing Goal: Nutritional status is improving Outcome: Progressing Problem: Inadequate Coping Goal: Demonstrates ability to cope effectively Outcome: Progressing Goal: Verbalizes adaptive coping mechanisms Outcome: Progressing Goal: Verbalizes personal strengths Outcome: Progressing Problem: Potential for Suicide Goal: Remain free from self harm Outcome: Progressing * Plan of Care - Aman Zuniga MSW - 07/21/2024 9:32 AM EST SW NOTE SW completed chart review. Per MD, pt is medically cleared for inpatient psychiatric hospitalization. NN following and has initiated the bed search. SW available, as needed. * Plan of Care - Rach Jamison RN - 07/21/2024 1:17 AM EST Alert and oriented with forgetfulness, Denies pain or discomfort, no shortness of breath or respiratory distress noted. Lung sound clear, positive bowel sound x 4 quadrants. Denies suicidal Ideations. Remains on MD 1:1 safety maintained. Problem: Pain - Adult Goal: Verbalizes/displays adequate comfort level or baseline comfort level Outcome: Progressing Problem: Infection - Adult Goal: Absence of infection during hospitalization Outcome: Progressing Problem: Safety Adult - Fall Goal: Free from fall injury Outcome: Progressing Problem: Nutrition Goal: Maintains adequate nutritional intake Outcome: Progressing Problem: Knowledge Deficit Goal: Patient/family/caregiver demonstrates understanding of disease process, treatment plan, medications, and discharge instructions Outcome: Progressing Problem: Activity Intolerance/Impaired Mobility Goal: Mobility/activity is maintained at optimum level for patient Outcome: Progressing Problem: Discharge Planning Goal: Discharge to home or other facility with appropriate resources Outcome: Progressing Problem: Neurosensory - Adult Goal: Achieves stable or improved neurological status Outcome: Progressing Goal: Absence of seizures Outcome: Progressing Goal: Remains free of injury related to seizures activity Outcome: Progressing Goal: Achieves maximal functionality and self care Outcome: Progressing Problem: Cardiovascular - Adult Goal: Maintains optimal cardiac output and hemodynamic stability Outcome: Progressing Goal: Absence of cardiac dysrhythmias or at baseline Outcome: Progressing Problem: Respiratory - Adult Goal: Achieves optimal ventilation and oxygenation Outcome: Progressing Problem: Gastrointestinal - Adult Goal: Minimal or absence of nausea and vomiting Outcome: Progressing Problem: Genitourinary - Adult Goal: Absence of urinary retention Outcome: Progressing Problem: Metabolic/Fluid and Electrolytes - Adult Goal: Electrolytes maintained within normal limits Outcome: Progressing Problem: Skin/Tissue Integrity - Adult Goal: Skin integrity remains intact Outcome: Progressing Problem: Hematologic - Adult Goal: Maintains hematologic stability Outcome: Progressing Problem: Musculoskeletal - Adult Goal: Return mobility to safest level of function Outcome: Progressing Goal: Return ADL status to a safe level of function Outcome: Progressing Problem: Potential for Compromised Skin Integrity Goal: Skin Integrity is Maintained or Improved Outcome: Progressing Goal: Nutritional status is improving Outcome: Progressing Problem: Inadequate Coping Goal: Demonstrates ability to cope effectively Outcome: Progressing Goal: Verbalizes adaptive coping mechanisms Outcome: Progressing Goal: Verbalizes personal strengths Outcome: Progressing Problem: Potential for Suicide Goal: Remain free from self harm Outcome: Progressing * Plan of Care - Vivien Lauren RN - 07/20/2024 6:53 PM EST Assumed care of pt 0700, A&Ox2, VSS. 1:1 sitter for safety/suicide risk as well as security @bedside w/restraints off. Denies SI or plan. Cooperative w/meds. OOB to BR w/security. Call light in reach, safety maintained. Problem: Pain - Adult Goal: Verbalizes/displays adequate comfort level or baseline comfort level Outcome: Progressing Problem: Infection - Adult Goal: Absence of infection during hospitalization Outcome: Progressing Problem: Safety Adult - Fall Goal: Free from fall injury Outcome: Progressing Problem: Nutrition Goal: Maintains adequate nutritional intake Outcome: Progressing Problem: Knowledge Deficit Goal: Patient/family/caregiver demonstrates understanding of disease process, treatment plan, medications, and discharge instructions Outcome: Progressing Problem: Activity Intolerance/Impaired Mobility Goal: Mobility/activity is maintained at optimum level for patient Outcome: Progressing Problem: Discharge Planning Goal: Discharge to home or other facility with appropriate resources Outcome: Progressing Problem: Neurosensory - Adult Goal: Achieves stable or improved neurological status Outcome: Progressing Goal: Absence of seizures Outcome: Progressing Goal: Remains free of injury related to seizures activity Outcome: Progressing Goal: Achieves maximal functionality and self care Outcome: Progressing Problem: Cardiovascular - Adult Goal: Maintains optimal cardiac output and hemodynamic stability Outcome: Progressing Goal: Absence of cardiac dysrhythmias or at baseline Outcome: Progressing Problem: Respiratory - Adult Goal: Achieves optimal ventilation and oxygenation Outcome: Progressing Problem: Gastrointestinal - Adult Goal: Minimal or absence of nausea and vomiting Outcome: Progressing Problem: Genitourinary - Adult Goal: Absence of urinary retention Outcome: Progressing Problem: Metabolic/Fluid and Electrolytes - Adult Goal: Electrolytes maintained within normal limits Outcome: Progressing Problem: Skin/Tissue Integrity - Adult Goal: Skin integrity remains intact Outcome: Progressing Problem: Hematologic - Adult Goal: Maintains hematologic stability Outcome: Progressing Problem: Musculoskeletal - Adult Goal: Return mobility to safest level of function Outcome: Progressing Goal: Return ADL status to a safe level of function Outcome: Progressing Problem: Potential for Compromised Skin Integrity Goal: Skin Integrity is Maintained or Improved Outcome: Progressing Goal: Nutritional status is improving Outcome: Progressing Problem: Inadequate Coping Goal: Demonstrates ability to cope effectively Outcome: Progressing Goal: Verbalizes adaptive coping mechanisms Outcome: Progressing Goal: Verbalizes personal strengths Outcome: Progressing Problem: Potential for Suicide Goal: Remain free from self harm Outcome: Progressing * Plan of Care - Sadia Mosley RN - 07/20/2024 5:21 PM EST CARE PROGRESSION - CONTINUED: Discharge planning ongoing. Patient reassessed for discharge needs. Functional ability and medical needs reviewed. Reassessment discussed with multidisciplinary team in morning rounds. This patient will be followed by CM until medically ready for discharge. Psychiatric Nurse Navigator is aware of the patient and will assist in the discharge planning activity. CM will continue to follow. * Plan of Care - Rach Jamison RN - 07/19/2024 11:18 PM EST Alert and oriented with forgetfulness, denies pain or discomfort, no shortness of breath or respiratory distress noted. Lung sound clear, positive bowel sound x 4 quadrants. No behavior issues overnight. Remains on 1:1. Call light within reach, safety maintained. Problem: Pain - Adult Goal: Verbalizes/displays adequate comfort level or baseline comfort level Outcome: Progressing Problem: Infection - Adult Goal: Absence of infection during hospitalization Outcome: Progressing Problem: Safety Adult - Fall Goal: Free from fall injury Outcome: Progressing Problem: Nutrition Goal: Maintains adequate nutritional intake Outcome: Progressing Problem: Knowledge Deficit Goal: Patient/family/caregiver demonstrates understanding of disease process, treatment plan, medications, and discharge instructions Outcome: Progressing Problem: Activity Intolerance/Impaired Mobility Goal: Mobility/activity is maintained at optimum level for patient Outcome: Progressing Problem: Discharge Planning Goal: Discharge to home or other facility with appropriate resources Outcome: Progressing Problem: Neurosensory - Adult Goal: Achieves stable or improved neurological status Outcome: Progressing Goal: Absence of seizures Outcome: Progressing Goal: Remains free of injury related to seizures activity Outcome: Progressing Goal: Achieves maximal functionality and self care Outcome: Progressing Problem: Cardiovascular - Adult Goal: Maintains optimal cardiac output and hemodynamic stability Outcome: Progressing Goal: Absence of cardiac dysrhythmias or at baseline Outcome: Progressing Problem: Respiratory - Adult Goal: Achieves optimal ventilation and oxygenation Outcome: Progressing Problem: Gastrointestinal - Adult Goal: Minimal or absence of nausea and vomiting Outcome: Progressing Problem: Genitourinary - Adult Goal: Absence of urinary retention Outcome: Progressing Problem: Metabolic/Fluid and Electrolytes - Adult Goal: Electrolytes maintained within normal limits Outcome: Progressing Problem: Skin/Tissue Integrity - Adult Goal: Skin integrity remains intact Outcome: Progressing Problem: Hematologic - Adult Goal: Maintains hematologic stability Outcome: Progressing Problem: Musculoskeletal - Adult Goal: Return mobility to safest level of function Outcome: Progressing Goal: Return ADL status to a safe level of function Outcome: Progressing Problem: Potential for Compromised Skin Integrity Goal: Skin Integrity is Maintained or Improved Outcome: Progressing Goal: Nutritional status is improving Outcome: Progressing * Plan of Care - Rach Jamison RN - 07/19/2024 11:17 PM EST Problem: Safety - Violent/Self-destructive Restraint Goal: Remains free of injury from restraints (Restraint for Violent/Self- Destructive Behavior) Outcome: Completed Goal: Free from restraints (Restraint for Violent or Self-Destructive Behavior) Outcome: Completed * Plan of Care - Rupali Walker RN - 07/19/2024 2:23 PM EST Assumed care of pt @0700 VSS Afebrile remains on RA No s/s of respiratory distress- took meds and ate breakfast was in 2 pt buckled restraints trailed off when he went to bathroom and returned to bed- restraints off @1120 no issues since- security detail remains in room and sitter at bedside- 1L LRbolus given and started on lisinopril, frequent checks call wall in reach seizure precautions maintained safety maintained no other issues to report. Problem: Safety - Violent/Self-destructive Restraint Goal: Remains free of injury from restraints (Restraint for Violent/Self- Destructive Behavior) Outcome: Progressing Goal: Free from restraints (Restraint for Violent or Self-Destructive Behavior) Outcome: Progressing Problem: Pain - Adult Goal: Verbalizes/displays adequate comfort level or baseline comfort level Outcome: Progressing Problem: Infection - Adult Goal: Absence of infection during hospitalization Outcome: Progressing Problem: Safety Adult - Fall Goal: Free from fall injury Outcome: Progressing Problem: Nutrition Goal: Maintains adequate nutritional intake Outcome: Progressing Problem: Knowledge Deficit Goal: Patient/family/caregiver demonstrates understanding of disease process, treatment plan, medications, and discharge instructions Outcome: Progressing Problem: Activity Intolerance/Impaired Mobility Goal: Mobility/activity is maintained at optimum level for patient Outcome: Progressing Problem: Discharge Planning Goal: Discharge to home or other facility with appropriate resources Outcome: Progressing Problem: Neurosensory - Adult Goal: Achieves stable or improved neurological status Outcome: Progressing Goal: Absence of seizures Outcome: Progressing Goal: Remains free of injury related to seizures activity Outcome: Progressing Goal: Achieves maximal functionality and self care Outcome: Progressing Problem: Cardiovascular - Adult Goal: Maintains optimal cardiac output and hemodynamic stability Outcome: Progressing Goal: Absence of cardiac dysrhythmias or at baseline Outcome: Progressing Problem: Respiratory - Adult Goal: Achieves optimal ventilation and oxygenation Outcome: Progressing Problem: Gastrointestinal - Adult Goal: Minimal or absence of nausea and vomiting Outcome: Progressing Problem: Genitourinary - Adult Goal: Absence of urinary retention Outcome: Progressing Problem: Metabolic/Fluid and Electrolytes - Adult Goal: Electrolytes maintained within normal limits Outcome: Progressing Problem: Skin/Tissue Integrity - Adult Goal: Skin integrity remains intact Outcome: Progressing Problem: Hematologic - Adult Goal: Maintains hematologic stability Outcome: Progressing Problem: Musculoskeletal - Adult Goal: Return mobility to safest level of function Outcome: Progressing Goal: Return ADL status to a safe level of function Outcome: Progressing Problem: Potential for Compromised Skin Integrity Goal: Skin Integrity is Maintained or Improved Outcome: Progressing Goal: Nutritional status is improving Outcome: Progressing * Significant Event - Keiry Fine MD - 07/19/2024 12:36 AM EST Patient was on four points locked restrain due to agitation and attempt to harm himeself.. now he is a sleep and has sitter at bedside, will downgrade to 2 locked pointed restrain and continue to monitor closely * Plan of Care - Rach Jamison RN - 07/19/2024 12:30 AM EST Alert and oriented with forgetfulness, denies pain or discomfort, no shortness of breath or respiratory distress noted. Lung sound diminished, positive sound x 4 quadrants. Patient is sleeping at this time, Restraint order downgrade to 2 point locked. Remains on 1:1. Po Fluids and bathroom offered.Call light within reach, safety maintained.. Problem: Safety - Violent/Self-destructive Restraint Goal: Remains free of injury from restraints (Restraint for Violent/Self- Destructive Behavior) Outcome: Progressing Goal: Free from restraints (Restraint for Violent or Self-Destructive Behavior) Outcome: Progressing Problem: Pain - Adult Goal: Verbalizes/displays adequate comfort level or baseline comfort level Outcome: Progressing Problem: Infection - Adult Goal: Absence of infection during hospitalization Outcome: Progressing Problem: Safety Adult - Fall Goal: Free from fall injury Outcome: Progressing Problem: Nutrition Goal: Maintains adequate nutritional intake Outcome: Progressing Problem: Knowledge Deficit Goal: Patient/family/caregiver demonstrates understanding of disease process, treatment plan, medications, and discharge instructions Outcome: Progressing Problem: Activity Intolerance/Impaired Mobility Goal: Mobility/activity is maintained at optimum level for patient Outcome: Progressing Problem: Discharge Planning Goal: Discharge to home or other facility with appropriate resources Outcome: Progressing Problem: Neurosensory - Adult Goal: Achieves stable or improved neurological status Outcome: Progressing Goal: Absence of seizures Outcome: Progressing Goal: Remains free of injury related to seizures activity Outcome: Progressing Goal: Achieves maximal functionality and self care Outcome: Progressing Problem: Cardiovascular - Adult Goal: Maintains optimal cardiac output and hemodynamic stability Outcome: Progressing Goal: Absence of cardiac dysrhythmias or at baseline Outcome: Progressing Problem: Respiratory - Adult Goal: Achieves optimal ventilation and oxygenation Outcome: Progressing Problem: Gastrointestinal - Adult Goal: Minimal or absence of nausea and vomiting Outcome: Progressing Problem: Genitourinary - Adult Goal: Absence of urinary retention Outcome: Progressing Problem: Metabolic/Fluid and Electrolytes - Adult Goal: Electrolytes maintained within normal limits Outcome: Progressing Problem: Skin/Tissue Integrity - Adult Goal: Skin integrity remains intact Outcome: Progressing Problem: Hematologic - Adult Goal: Maintains hematologic stability Outcome: Progressing Problem: Musculoskeletal - Adult Goal: Return mobility to safest level of function Outcome: Progressing Goal: Return ADL status to a safe level of function Outcome: Progressing Problem: Potential for Compromised Skin Integrity Goal: Skin Integrity is Maintained or Improved Outcome: Progressing Goal: Nutritional status is improving Outcome: Progressing * Plan of Care - Perlita Mcfarland RN - 07/18/2024 3:30 PM EST Care Progression Initial Assessment History of Present Illness History of Present Illness: Seizure like activity Pertinent Past Medical History Past Medical History: history of schizoaffective disorder, autism spectrum disorder, prior cannabisuse, nicotine use, ADD, paranoid delusions, Adderall use disorder, obesity, pelvic kidney, and major depression with prior suicidal ideation. Recent Admissions Frequent Admissions: No PCP Status PCP Confirmed?: No Reason PCP not confirmed?: spoke with pt's father and Rob has no current PCP. He is followed byhis Outpt psychiatric provider Dr Amairani Ngo [phone] Status Is the patient a ?: No Mental Status Patients current mental status: Unable to assess Is there concern for the patient making decisions: Yes Provider Notified: Yes (notified he has a guardian) Info Obtained From Information Obtained From: Medical Record, Treatment Team, Guardian, Family Member(s) Patient Admitted From Patient Admitted From: Apartment Current Caregiver: Pt lives with his father,Mani in an apt in [place]. Mani is his primary plant protection guard. Ability to perform baseline ADL's Bathing: Partial Assistance Getting Dressed: Partial Assistance Toileting: Partial Assistance Transferring In/Out of Bed: Partial Assistance Transferring In/Out of Chair: Partial Assistance Transferring In/Out of Car: Partial Assistance Household Ambulation: Independent Community Ambulation: Independent Walking/Ambulating: Independent Eating: Independent Medication Administration: Partial Assistance Ability to perform baseline IADL's Grocery Shopping: Complete Assistance Housekeeping: Complete Assistance Manage Finances: Complete Assistance Cooking/Meal Preparation: Complete Assistance Doing Laundry: Complete Assistance Currently Employed: No Transportation: Family/Friend Baseline Functional Mobility Does the Patient use an Assistive Device?: None Does the Patient use any DME?: None Home Set-up Patient Lives In: Apartment Number of Floors: one Number of Stairs: elevator Patient Lives With: Parent Patient is Supported By: Parent, Legal Guardian (court appointed guardian Lamonte Campos) Social History Social History: History of poor medical compliance, Mental illness/DMR/DMH relationship Financial Information Is Medicare primary payor?: Yes Does patient have supplemental coverage?: Yes (Please Comment) Medications What pharmacy does the patient use?: [facility] [address] [facility] How Does the Patient Obtain Their Medication?: Self/Family Pick-up Does the patient manage their medications independently?: No If no, please explain: Pt's father,Mani,picks up Ashok scripts and fills a pillbox. Rob needs reminders to take his meds Has the patient ever run out of medication?: No Does the patient have trouble affording their medication?: No Does the patient take their medication as directed?: No If no, please describe: Pt needs reminders Pertinent Medication: Anti-depressants, Anxiolytics, Anti-psychotic Legal Information Does the patient have a HCP?: No Offered to Complete HCP: No Does the patient have a legal guardian?: Yes Name/Relationship: court appointed guardian Lamonte Campos Does the patient have a MOLST or Advanced Directive on file?: No MOLST Required for Discharge: MOLST not required for next level of care Initial DC Planning Patient expects to be discharged to: TBD/Unknown Summary of discharge recommendation and plan: Pt unable to be interviewed at this time. Message left for court appointed guardianLamonte [phone]. CM spoke with pt's father,Mani,whom pt lives with. Patient recently discharged from [facility] after a 35 month treatment. He started at [facility] on Saturday. Pt requires reminders with ADL's and father assists with his medications. Pt has DMH services thru [facility]. [facility] Treatment Plan obtained and paperwork sent to HIM. Provider notified of [facility]. Pt followed by Mental Health for medicationadjustment. Discharge TBD Preliminary discharge plan and expected discharge date was discussed with patient and/or Other?: No Please Explain: Dc date and disposition unknown at this time. Pt being followed by Mental Health How will patient transport to discharge destination?: Not able to determine yet Clinical High Risk Factors (check all the apply): Multiple diagnosis (chronic), History or current mental health needs, Noncompliance, Polypharmacy: > 5 more routine meds Assessment Complete? CP Assessment Complete?: Yes * Plan of Care - Chetna Carlos LICSW - 07/18/2024 12:14 PM EST IP Social Work Assessment Rob Almeida is a 23 y.o. year old male who was brought to [facility] on 07/16/2024 via [facility] ED ARRIVAL: 306-Adult and Child Crisis Intervention secondary to Altered mental status [R41.82] Witnessed seizure-like activity (CMS/HCC) [R56.9]. Med Surg or Parent Child Division Is this an assessment for the Parent Child Division?: No Reason for Consult: Reason for Social Work Referral Reason for CAMPAIGN MANAGER Consult: Psychiatric Disposition Patient's Affect: Irritable, Paranoia Patient Information: Patient Information Pt Marital Status: Single Does patient have children: [place] and relation of support person: Pt has Charo in [place] and then his father Living Situation: Apartment Patient Lives with: Relative Does patient feel safe at home: Safe Pt's means of transportation: Family/Friend, PT-1s Employment: No Active Community Programs/Resources: [facility] Active Decision Maker: Guardian Patient History: Patient History Mental Health History: Yes Diagnosis/Reason: Schizo-affective Medications?: Yes History of prior treatment for mental health: Yes History of Section 12?: Yes History of Section 35s?: No History of Abuse: Unknown/Undisclosed Current Legal Involvement: No Discharge: Discharge Discharge Disposition: Other Assessment Complete CP Assessment Complete?: Yes Plan: Met with the patient, assessed DC needs. CAMPAIGN MANAGER ensured the patient's understanding of CAMPAIGN MANAGER role. CAMPAIGN MANAGER ensured goals of care remain patient-centered. CAMPAIGN MANAGER ensured active involvement in plan of care by patient/responsible green party and those who patient requested be actively involved, to the best of this writers ability. Follow Up Needed: was consulted to meet with the pt, as the pt has [facility] services and may require inpatient stay, as the pt discontinued their medications and is experiencing symptoms. [place] was able to obtain guardianship paperwork. [place] Graff 07/19/2024 * Plan of Care - Rupali Walkre RN - 07/18/2024 10:31 AM EST Assumed care of pt @0700 VSS Afebrile remains on RA No s/s of respiratory distress, got out of his wrist restraint and swung at sitter, ronald called pt placed in 4 point restraints buckled, PRN IM thorazine given, agitated throughout the day about being in restraints, security in room along with sitt er, taken out of restraints to use bathroom for BM with good effect, after multiple failed attemptson bedpan, using urinal with sitter assistance, safety maintained no other issues observed. Problem: Safety - Violent/Self-destructive Restraint Goal: Remains free of injury from restraints (Restraint for Violent/Self- Destructive Behavior) Outcome: Progressing Goal: Free from restraints (Restraint for Violent or Self-Destructive Behavior) Outcome: Progressing Problem: Pain - Adult Goal: Verbalizes/displays adequate comfort level or baseline comfort level Outcome: Progressing Problem: Infection - Adult Goal: Absence of infection during hospitalization Outcome: Progressing Problem: Safety Adult - Fall Goal: Free from fall injury Outcome: Progressing Problem: Nutrition Goal: Maintains adequate nutritional intake Outcome: Progressing Problem: Knowledge Deficit Goal: Patient/family/caregiver demonstrates understanding of disease process, treatment plan, medications, and discharge instructions Outcome: Progressing Problem: Activity Intolerance/Impaired Mobility Goal: Mobility/activity is maintained at optimum level for patient Outcome: Progressing Problem: Discharge Planning Goal: Discharge to home or other facility with appropriate resources Outcome: Progressing Problem: Neurosensory - Adult Goal: Achieves stable or improved neurological status Outcome: Progressing Goal: Absence of seizures Outcome: Progressing Goal: Remains free of injury related to seizures activity Outcome: Progressing Goal: Achieves maximal functionality and self care Outcome: Progressing Problem: Cardiovascular - Adult Goal: Maintains optimal cardiac output and hemodynamic stability Outcome: Progressing Goal: Absence of cardiac dysrhythmias or at baseline Outcome: Progressing Problem: Respiratory - Adult Goal: Achieves optimal ventilation and oxygenation Outcome: Progressing Problem: Gastrointestinal - Adult Goal: Minimal or absence of nausea and vomiting Outcome: Progressing Problem: Genitourinary - Adult Goal: Absence of urinary retention Outcome: Progressing Problem: Metabolic/Fluid and Electrolytes - Adult Goal: Electrolytes maintained within normal limits Outcome: Progressing Problem: Skin/Tissue Integrity - Adult Goal: Skin integrity remains intact Outcome: Progressing Problem: Hematologic - Adult Goal: Maintains hematologic stability Outcome: Progressing Problem: Musculoskeletal - Adult Goal: Return mobility to safest level of function Outcome: Progressing Goal: Return ADL status to a safe level of function Outcome: Progressing * Plan of Care - Bridgette Ingram RN - 07/18/2024 4:08 AM EST Assumed care of pt @ 1900. Pt waxing and waning orientation. Pt remains in 4pt violent restraints, 1:1 sitter at bedside for safety. Level 2 RONALD called at approx 2300, MD Mtz @ bedside, IM thorazine and IV ativan given with + effect. PRN IV haldol given with + effect. Pt tachycardic at beginningof shift, PRN metoprolol given with some effect, HR improved after pt became calm. MD Pimentel further assesed pt overnight, IVF bolus given and labs ordered. No c/o pain. RA. NSR-ST on tele. Bed locked in lowest position, safety maintained. Problem: Safety - Violent/Self-destructive Restraint Goal: Remains free of injury from restraints (Restraint for Violent/Self- Destructive Behavior) Outcome: Progressing Goal: Free from restraints (Restraint for Violent or Self-Destructive Behavior) Outcome: Progressing Problem: Pain - Adult Goal: Verbalizes/displays adequate comfort level or baseline comfort level Outcome: Progressing Problem: Infection - Adult Goal: Absence of infection during hospitalization Outcome: Progressing Problem: Safety Adult - Fall Goal: Free from fall injury Outcome: Progressing Problem: Nutrition Goal: Maintains adequate nutritional intake Outcome: Progressing Problem: Knowledge Deficit Goal: Patient/family/caregiver demonstrates understanding of disease process, treatment plan, medications, and discharge instructions Outcome: Progressing Problem: Activity Intolerance/Impaired Mobility Goal: Mobility/activity is maintained at optimum level for patient Outcome: Progressing Problem: Discharge Planning Goal: Discharge to home or other facility with appropriate resources Outcome: Progressing Problem: Neurosensory - Adult Goal: Achieves stable or improved neurological status Outcome: Progressing Goal: Absence of seizures Outcome: Progressing Goal: Remains free of injury related to seizures activity Outcome: Progressing Goal: Achieves maximal functionality and self care Outcome: Progressing Problem: Cardiovascular - Adult Goal: Maintains optimal cardiac output and hemodynamic stability Outcome: Progressing Goal: Absence of cardiac dysrhythmias or at baseline Outcome: Progressing Problem: Respiratory - Adult Goal: Achieves optimal ventilation and oxygenation Outcome: Progressing Problem: Gastrointestinal - Adult Goal: Minimal or absence of nausea and vomiting Outcome: Progressing Problem: Genitourinary - Adult Goal: Absence of urinary retention Outcome: Progressing Problem: Metabolic/Fluid and Electrolytes - Adult Goal: Electrolytes maintained within normal limits Outcome: Progressing Problem: Skin/Tissue Integrity - Adult Goal: Skin integrity remains intact Outcome: Progressing Problem: Hematologic - Adult Goal: Maintains hematologic stability Outcome: Progressing Problem: Musculoskeletal - Adult Goal: Return mobility to safest level of function Outcome: Progressing Goal: Return ADL status to a safe level of function Outcome: Progressing * Significant Event - Leeanna Pimentel MD - 07/18/2024 3:11 AM EST REASON FOR EVAL: Asked to follow-up labs and CK came back > 2K. Also noted he is receiving Haldol and it admission EKG with QTc of 522 ms Chart and EMS run sheet reviewed Current Facility-Administered Medications: traZODone (DESYREL) tablet 100 mg, 100 mg, Oral, Nightly PRN, Zenaida Gold MD divalproex (DEPAKOTE) DR tablet 500 mg, 500 mg, Oral, Daily, Zenaida Gold MD, 500 mg at 07/17/24 151 FLUoxetine (PROzac) capsule 40 mg, 40 mg, Oral, Daily, Zenaida Gold MD, 40 mg at 07/17/241516 risperiDONE (RisperDAL) tablet 3 mg, 3 mg, Oral, BID, Zenaida Gold MD, 3 mg at 07/17/242032 divalproex (DEPAKOTE) DR tablet 1,000 mg, 1,000 mg, Oral, Nightly, Zenaida Gold MD, 1,000 mg at 07/17/242033 atomoxetine (STRATTERA) capsule 40 mg, 40 mg, Oral, Daily, Zenaida Gold MD LORazepam (ATIVAN) tablet 2 mg, 2 mg, Oral, q6h PRN, Zenaida Gold MD metoprolol tartrate (LOPRESSOR) injection 5 mg, 5 mg, Intravenous, q4h PRN, Zneaida Gold MD, 5 mg at 07/17/242229 clozapine (CLOZARIL) tablet 12.5 mg, 12.5 mg, Oral, BID, Rachael Daugherty NP, 12.5 mg at 07/17/242033 POM: Risperidone ER 125mg / 0.35mL Prefilled Syringe, 125 mg, Subcutaneous, q28 days, Zenaida Gold MD, 125 mg at 07/17/24 190 haloperidol lactate (HALDOL) injection 5 mg, 5 mg, Intravenous, q4h PRN, Rachael Daugherty NP, 5 mg at 07/18/24 0243 chlorproMAZINE (THORAZINE) injection 50 mg, 50 mg, Intramuscular, q4h PRN, Rachael Daugherty NP, 50 mg at 07/17/24 2327 LORazepam (ATIVAN) injection 1 mg, 1 mg, Intravenous, q4h PRN, Rachael Daugherty NP LORazepam (ATIVAN) injection 2 mg, 2 mg, Intravenous, q4h PRN, Rachael Daugherty NP, 2 mg at 07/17/24 2344 senna (SENOKOT) tablet 2 tablet, 2 tablet, Oral, Nightly PRN, Stan Nolan MD docusate sodium (COLACE) capsule 100 mg, 100 mg, Oral, BID PRN, Stan Nolan MD bisacodyl (DULCOLAX) EC tablet 10 mg, 10 mg, Oral, Daily PRN, Stan Nolan MD nystatin (MYCOSTATIN) powder 1 Application, 1 Application, Topical, BID PRN, Stan Nolan MD Adult Over the Counter Medication Algorithm, , Route N/A, PRN, Stan Nolan MD ondansetron ODT (ZOFRAN-ODT) disintegrating tablet 4 mg, 4 mg, Oral, q6h PRN, ChristopherC. Nolan MD ondansetron (ZOFRAN) injection 4 mg, 4 mg, Intravenous, q6h PRN, Stan Nolan MD Prochlorperazine (COMPAZINE) injection 5 mg, 5 mg, Intravenous, q4h PRN, Stan Nolan MD prochlorperazine (COMPAZINE) suppository 25 mg, 25 mg, Rectal, q12h PRN, Stan Nolan MD acetaminophen (TYLENOL) tablet 1,000 mg, 1,000 mg, Oral, q8h PRN, Stan Nolan MD enoxaparin (LOVENOX) syringe 40 mg, 40 mg, Subcutaneous, q24h, Stan Nolan MD, 40 mg at 07/17/24 1006 EXAM Vitals: 07/17/24 1625 07/17/24 2041 07/17/24 2230 07/17/24 2348 BP: 135/70 132/88 136/90 123/70 BP Location: Left arm Left arm Patient Position: Lying Lying Pulse: (!) 120 (!) 111 (!) 124 (!) 123 Resp: 22 21 (!) 35 Temp: 97.4 ??F (36.3 ??C) TempSrc: Oral SpO2: 95% Weight: Height: General: Male lying in bed in no acute distress, resting quietly Lungs: CTAB Heart: Regular rate rhythm. Normal S1-S2. Did not appreciate any murmurs. Skin: Warm and moist. Additional exam deferred as did not agitate this patient with psychosis and recent RONALD DATA: Labs reviewed. CXR report reviewed and negative for acute disease. ASSESSMENT/PLAN: Elevated CK - 2568 QT interval prolonged on EKG Transaminitis Start 1 L NS bolus Monitor ins/outs Continue to trend CK Place Haldol on hold Repeat EKG STAT EKG reviewed and QT prolongation resolved. Will unhold PRN haldol Additional issues Normocytic anemia - progressing With CELESTINO, albeit improving, order ins/outs, urine Na/Cr Order INR as not obtained this admission and has progressive transaminitis Lactate WNL Continue to monitor liver function tests Iron studies, b12, folate Critical Care time: 31 minutes * Significant Event - Nikolay Mtz MD - 07/18/2024 1:07 AM EST Rapid response / critical care event level 2 RONALD Assessment and Plan Pt is a 23 y.o. male seen in NETWORK SYSTEMS INTEGRATOR today for change in behavior and status. The patient has agitated delirium with shaking type behaviors and overt hallucinations and large 4 point restraints with underlying chronic auditory hallucinations question command hallucinations noncompliance with medications and was recently in a 5-month inpatient psychiatric stay now off of psych meds times several days prior to hospitalization would likely destabilization of underlying psychiatric disorder. He was seen by psychiatry and was recommended to continue combination of Haldol IV for severe agitation, baseline trazodone Depakote fluoxetine and Risperdal. The patient had agitation running up in the hallwayand running into glass in the wall earlier with negative imaging and remains conversant at this time after Ativan as lucid speech with no focal findings on neurologic semination moving all extremities but intermittently tachycardic likely secondary to agitated delirium with destabilized psychiatric illness. I will write him for CBC CMP inflammatory markers CPK TSH and blood cultures. I do not think that he requires further urgent imaging at this time but this may be revisited pending clinical course in the morning. Agree with medications as per psychiatric consultation. Principal Problem: Witnessed seizure-like activity (CMS/HCC) (POA: Yes) Active Problems: Acute kidney injury (CMS/HCC) (POA: Yes) Altered mental status, unspecified (POA: Yes) Metabolic acidosis (POA: Yes) Elevated transaminase level (POA: Yes) Impression: Agitated delirium with underlying schizophrenia Plan: Medications history and notes reviewed, Monitor on telemetry, Chest x-ray, and laboratories to be ordered as well as above and to continue baseline medications and restraints as necessary Total critical care time spent 45 minutes Physical examination: Vitals: 07/17/24 2348 BP: 123/70 Pulse: (!) 123 Resp: (!) 35 Temp: SpO2: Chest clear with no rhonchi wheeze or rales cardiac regular rhythm no rubs abdomen soft nontender nondistended positive bowel sounds neurologic alert but choosing to respond or not respond at times speech clear when speaking moves all extremities no focal weakness or cranial nerve abnormalities on examination Lab Results Component Value Date WBC 8.1 07/17/2024 HGB 13.1 (L) 07/17/2024 HCT 38.8 (L) 07/17/2024 MCV 89 07/17/2024 PLT 213 07/17/2024 Lab Results Component Value Date GLUCOSE 88 07/17/2024 CALCIUM 9.4 07/17/2024 NA 138 07/17/2024 K 4.6 07/17/2024 CO2 22 (L) 07/17/2024 CL 105 07/17/2024 BUN 21 (H) 07/17/2024 CREAT 1.3 (H) 07/17/2024 * Plan of Care - Vivien Lauren RN - 07/17/2024 8:25 PM EST Pt received from ED 1305, A&Ox4, dx witnessed sz-like activity. Neurologically intact, sinus tach on telemetry, color pale. Pt not responding, eyes blinking rapidly, rapid response called, pt noted to have HR 140, pale/diaphoretic, CBG 114, eyes fluttering, MD @bedside; refer to NETWORK SYSTEMS INTEGRATOR note. More awake/alert in 1/2 hr, ns gave meds due from 1200 and pt awake/alert/cooperative.@ this time. While ns still by bedside, pt suddenly sat up from bed, angry/agitated, ripping off yasmani and tele leads, pushed past nurse, agitated and running in hallway. RONALD 2 called, refer to note. PRN meds given, refer to MAR. Pt currently in 4 pt violent restraints placed by Security and placed on 1:1 sitter for safety. Problem: Safety - Violent/Self-destructive Restraint Goal: Remains free of injury from restraints (Restraint for Violent/Self- Destructive Behavior) Outcome: Progressing Goal: Free from restraints (Restraint for Violent or Self-Destructive Behavior) Outcome: Progressing Problem: Pain - Adult Goal: Verbalizes/displays adequate comfort level or baseline comfort level Outcome: Progressing Problem: Infection - Adult Goal: Absence of infection during hospitalization Outcome: Progressing Problem: Safety Adult - Fall Goal: Free from fall injury Outcome: Progressing Problem: Nutrition Goal: Maintains adequate nutritional intake Outcome: Progressing Problem: Knowledge Deficit Goal: Patient/family/caregiver demonstrates understanding of disease process, treatment plan, medications, and discharge instructions Outcome: Progressing Problem: Activity Intolerance/Impaired Mobility Goal: Mobility/activity is maintained at optimum level for patient Outcome: Progressing Problem: Discharge Planning Goal: Discharge to home or other facility with appropriate resources Outcome: Progressing Problem: Neurosensory - Adult Goal: Achieves stable or improved neurological status Outcome: Progressing Goal: Absence of seizures Outcome: Progressing Goal: Remains free of injury related to seizures activity Outcome: Progressing Goal: Achieves maximal functionality and self care Outcome: Progressing Problem: Cardiovascular - Adult Goal: Maintains optimal cardiac output and hemodynamic stability Outcome: Progressing Goal: Absence of cardiac dysrhythmias or at baseline Outcome: Progressing Problem: Respiratory - Adult Goal: Achieves optimal ventilation and oxygenation Outcome: Progressing Problem: Gastrointestinal - Adult Goal: Minimal or absence of nausea and vomiting Outcome: Progressing Problem: Genitourinary - Adult Goal: Absence of urinary retention Outcome: Progressing Problem: Metabolic/Fluid and Electrolytes - Adult Goal: Electrolytes maintained within normal limits Outcome: Progressing Problem: Skin/Tissue Integrity - Adult Goal: Skin integrity remains intact Outcome: Progressing Problem: Hematologic - Adult Goal: Maintains hematologic stability Outcome: Progressing Problem: Musculoskeletal - Adult Goal: Return mobility to safest level of function Outcome: Progressing Goal: Return ADL status to a safe level of function Outcome: Progressing * Code Documentation - Jeanie Valencia RN - 07/17/2024 4:28 PM EST Rapid Response Team RONALD 2 called for this patient who was at one moment calm and then jumped up out of bed, ripped hisEKG leads off and pushed past staff to leave the room. Rn reports pt appeared angry, wanting to leave, violent and intimidating. He left his room and began running the halls and attempting to go intoother patients rooms. He then ran full speed into the full pane of glass wall at the end of P6 N head first and bounced off the glass landing on the ground. [facility] and assist him to the ground which is where I met him. Upon my arrival pt is pale and staring off, but answering questions, pupils 3s bilaterally and following simple commands. His VSS and MD came to bedside. We boarded and collared pt and brought him toCT head and C-spine. He had no active complaints of any pain, no obvious injury, cuts, no vision problems or distracting injury. He has no nausea but does report that he feels numb all over . He tolerated the Cts without incident and VS remained stable in CT, security detail joined me, no restraints required in CT. Upon arriving back to floor, pt pallor has improved and he does not remember why he is here in the hospital, asking What happened? I told him what occurred and he is oriented to self and place but not time. Hs VSS. Pt kept attempting to get oob and sit up, security had to restrain him as he would not listen. Haldol 5mg IV given and 4- point restraints required to keep him in bed. Staff will attempt to downgrade restraints as possible. PT had his collar cleared and tele replaced. PT to have his own sitter, panic button given to staff, he will have no roommates and can not leave AMA. Support provided to staff and pt. Addendum at [id number]: Pt is sweating, anxious, attempting to bite his restraints, paranoid. He is also tachycardic 130s, tremulous and feeling Stressed and is asking where his Dad is. PT is not due for any Haldol for a few hours, so I reached out to Damaris Daugherty to get feedback about possible plan for overnight. Damaris updated and ordered Thorazine PRN which the first dose was given around 1900 and he had good effect. He is still awake and asking to be out of the restraints but calm and reasonable, no longer sweating. I have asked security to come to bedside to do a short term release of hisrestraints to give him his po meds and do a skin check. MONIQUE Meeks and Dat updated, plan will be to use Thorazine and Haldol Q 4 prn overnight. Addendum 2029- pt responded well to Thorazine, was released from his locked restraints with assist from security, he has good CSM to extremities and was compliant with assessment. Meds given by RN, IV reinforced and pt no longer sweating and tremulous, calmer and following commands, no signs of aggression, sitter at bedside and pt on tele. Addendum 2240- Pt is sweating again, only oriented to self, paranoid, hallucinating ,not answering questions like he was before, just saying numbers 35,24,35,24 and looking in distance. Dr Mtz notified and request made for him to come see pt at bedside to assess appropriateness for Level of care/ meds, plan for the night. I asked RN to bladder scan pt, and RN updated that MD to come to bedside. * Significant Event - Zenaida Gold MD - 07/17/2024 3:58 PM EST RONALD level 2 was called around 4 PM due to episode of psychosis/panic event. Apparently patient was in hallway on P6 and he was running up and down the hallway and then in the end with all the strength he hit his head against the glass near the nursing station on P6. Patient was caught by the security guards, RNs and was slowly leaned down to the floor. Patient continues to be tachycardic in 130s. At this point patient was taken urgently for CT head and C-spine. I was not able to clarify with the patient if he was actually suicidal. Per father, patient has been having hallucinations pretty much ' all the time'. I discussed with Damaris Daugherty SOLVENT RECOVERER, who agreed with adding Haldol 5 mg IV as needed for psychosis. -Ordered CT head and C-spine given the head trauma again for the glass -Patient cannot leave AMA -1:1 sitter for safety -After discussion with psychiatry team, patient should be discharged back to inpatient psych facility where he spent 5 months and was discharged just 3 days ago. * Significant Event - Zenaida Gold MD - 07/17/2024 3:07 PM EST NETWORK SYSTEMS INTEGRATOR level 2 was called at 3 PM for episode of unresponsiveness. Per RN, patient was sitting in the chair when all of a sudden he was unresponsive with his eyes fluttering, no evidence of GTC, no tongue biting, no incontinence. Patient ' woke up' after sternal rubwas initiated by RN. The whole episode lasted about 2 minutes. No evidence of postictal confusion. During episode patient noticed to be tachycardic to 140s. He denies any chest pain/SOB. I reach out to neurologist on-call Dr Dietrich informing him about the event. EEG is pending at this moment. Recommended obtaining instead 24-hour video EEG, as we may be able to capture spells. I updated order. Patient intermittently tachycardic to 140s. Asymptomatic. Will obtain EKG. Add metoprolol 5 mg IV prn. No underlying infectious process. Could be related to anxiety vs psychogenic seizures. documented in this encounter Plan of Treatment Pending Results Name Type Priority Associated Diagnoses Date /Time Blood Culture, Peripheral #1 Microbiology Routine 07/22/2024 11:49 AM EST Blood Culture, Peripheral #2 Microbiology Routine 07/22/2024 12:11 PM EST ECG ECG Routine 07/24/2024 11: 52 AM EST documented as of this encounter Procedures Procedure [...] BLOOD CULTURE Routine 07/22/2024 12:11 PM EST BLOOD CULTURE Routine 07/22/2024 11:49 AM EST CBC WITH AUTO DIFFERENTIAL Routine 07/22/2024 11:49 AM EST HEPATIC FUNCTION PANEL Timed 07/22/2024 5:58 AM EST BASIC METABOLIC PANEL Routine 07/22/2024 5:58 AM EST AMMONIA Routine 07/21/2024 6:01 AM EST VALPROIC ACID LEVEL, TOTAL Routine 07/21/2024 6:01 AM EST BASIC METABOLIC PANEL Routine 07/21/2024 6:01 AM EST CBC WITH AUTO DIFFERENTIAL Routine 07/20/2024 5:30 AM EST HEPATIC FUNCTION PANEL Timed 07/20/2024 5:30 AM EST COMPREHENSIVE METABOLIC PANEL Routine 07/20/2024 5:30 AM EST CBC WITH AUTO DIFFERENTIAL Routine 07/19/2024 10:01 AM EST CK STAT 07/19/2024 10:01 AM EST COMPREHENSIVE METABOLIC PANEL Routine 07/19/2024 10:01 AM EST CK Routine 07/18/2024 7:24 AM EST HEPATIC FUNCTION PANEL Routine 07/18/2024 7:24 AM EST BASIC METABOLIC PANEL Routine 07/18/2024 7:24 AM EST CBC WITH AUTO DIFFERENTIAL Routine 07/18/2024 7:23 AM EST SODIUM, URINE, RANDOM STAT 07/18/2024 6:57 AM EST CREATININE, URINE, RANDOM STAT 07/18/2024 6:57 AM EST PROTIME-INR Routine 07/18/2024 3:33 AM EST XR CHEST 1 VW STAT 07/18/2024 3:32 AM EST ECG 12-LEAD STAT 07/18/2024 3:26 AM EST TSH W/REFLEX TO FT4 Routine 07/18/2024 1 :45 AM EST IRON AND TIBC Add-On 07/18/2024 1:45 AM EST VITAMIN D 25-OH Add-On 07/18/2024 1:45 AM EST BLOOD CULTURE Routine 07/18/2024 1:45 AM EST SEDIMENTATION RATE Routine 07/18/2024 1: 45 AM EST C-REACTIVE PROTEIN, HIGH SENSITIVITY Routine 07/18/2024 1:45 AM EST T4, FREE Routine 07/18/2024 1:45 AM EST PHOSPHORUS STAT Add-on 07/18/2024 1:45 AM EST MAGNESIUM STAT Add-on 07/18/2024 1:45 AM EST FOLATE Add-On 07/18/2024 1:45 AM EST FERRITIN Add-On 07/18/2024 1:45 AM EST VITAMIN B12 Add-On 07/18/2024 1:45 AM EST CK Routine 07/18/2024 1:45 AM EST COMPREHENSIVE METABOLIC PANEL STAT 07/18/2024 1:45 AM EST CBC WITH AUTO DIFFERENTIAL STAT 07/18/2024 1:44 AM EST BLOOD GAS, VENOUS WITH ELECTROLYTES STAT 07/18/2024 1:44 AM EST BLOOD CULTURE [...] GEN5 Add-On 07/17/2024 4 :50 AM EST CBC WITH AUTO DIFFERENTIAL Routine 07/17/2024 4:50 AM EST COMPREHENSIVE METABOLIC PANEL Routine 07/17/2024 4:50 AM EST URINALYSIS WITH REFLEX Routine 07/16/2024 10:41 PM EST EXTRA URINE CULTURE TUBE Routine 07/16/2024 10:41 PM EST SODIUM, URINE, RANDOM Routine 07/16/2024 10:41 PM EST CREATININE, URINE, RANDOM Routine 07/16/2024 10:41 PM EST URINALYSIS WITH REFLEX Routine 07/16/2024 10:41 PM EST MI CRITICAL CARE ILL/INJURED PATIENT INIT 30-74 MIN Routine 07/16/2024 9:[address] HEAD WO CONTRAST STAT 07/16/2024 7 :47 PM EST URINE DRUGS OF ABUSE SCREEN STAT 07/16/2024 6:17 PM EST POCT GLUCOSE METER Routine 07/16/2024 5: 50 PM EST ECG 12-LEAD Routine 07/16/2024 5:47 PM EST COVID-19 ([facility]) STAT 07/16/2024 5:36 PM EST CBC WITH AUTO DIFFERENTIAL STAT 07/16/2024 5:35 PM EST ETHANOL STAT 07/16/2024 5:35 PM EST ACETAMINOPHEN LEVEL STAT 07/16/2024 5 :35 PM EST SALICYLATE LEVEL STAT 07/16/2024 5:35 PM EST COMPREHENSIVE METABOLIC PANEL STAT 07/16/2024 5:35 PM EST documented in this encounter Results * (ABNORMAL) Hepatic function panel (07/24/2024 5:30 AM EST) Total Bilirubin 0.3 0.2 - 1.2 mg/dL 07/24/2024 6:48 AM [facility] Bilirubin, Direct <0.2 0.0 - 0.4 mg/dL 07/24/2024 6:48 AM [facility] Alkaline Phosphatase 78 40 - 129 U/L 07/24/2024 6:48 AM [facility] ALT (SGPT) 34 0 - 40 U/L 07/24/2024 6:48 AM [facility] AST 43(H) 0 - 37 U/L 07/24/2024 6:48 AM [facility] Albumin 4.1 3.3 - 5.2 g/dL 07/24/2024 6:48 AM [facility] Total Protein 7.6 6.0 - 8.5 g/dL 07/24/2024 6:48 AM [facility] Bilirubin, Indirect 07/24/2024 6:48 AM [facility] Comment:Component value unab le to be calculated because direct bilirubin is too low to be determined. Blood Venous blood / Unknown Venipuncture / Unknown 07/24/2024 5:30 AM EST 07/24/2024 6:09 AM EST Leeanna Pimentel MD LAB BLOOD ORDERABLES Final Result [facility] [address] [place] [address], * [place] head without contrast (07/23/2024 11:49 PM EST) Anatomical Region Laterality Modality Head and Neck [...] POCT Glucose Meter (07/23/2024 4:46 PM EST) POC Glucose 104(H) 70 - 100 mg/dL 07/23/2024 4:47 PM [facility] Comment:@Slot Editor:Yifan blount Blood 07/23/2024 4:46 PM EST 07/23/2024 4:47 PM EST us Cheli Morgan MD LAB POCT ORDERABLES - DEVICE Fin al Result [facility] [address] [place] [address], [place] [phone] * (ABNORMAL) BASIC METABOLIC PANEL (07/23/2024 6:26 AM EST) Glucose 93 70 - 100 mg/dL 07/23/2024 7:11 AM [facility] BUN 18 6 - 19 mg/dL 07/23/2024 7:11 AM [facility] Creatinine 1.1 0.4 - 1.2 mg/dL 07/23/2024 7:11 AM [facility] eGFR >60.00 >60.00 mL/min/1.7 3m*2 07/23/2024 7:11 AM [facility] Sodium 136 135 - 145 mmol/L 07/23/2024 7:11 AM [facility] Potassium 4.1 3.4 - 5.1 mmol/L 07/23/2024 7:11 AM [facility] Chloride 101 98 - 109 mmol/L 07/23/2024 7:11 AM [facility] CO2 23(L) 24 - 32 mmol/L 07/23/2024 7:11 AM [facility] Anion Gap 12 6 - 12 mmol/L 07/23/2024 7:11 AM [facility] Calcium 9.5 8.5 - 10.5 mg/dL 07/23/2024 7:11 AM [facility] Estimated Creatinine Clearance 125.6 mL/min 07/23/2024 7:11 AM [facility] Blood Venous blood / Unknown Venipuncture / Unknown 07/23/2024 6:26 AM EST 07/23/2024 6:45 AM EST Zenaida Snow MD LAB BLOOD ORDERABLES Final Result [facility] [address] [facility] [place] [address], * [place] Venous Duplex ARM Right (R/O [...] vein thrombophlebitis in the median cubital vein. Cheli Morgan MD CV VASCULAR PROCEDURES Final Res ult * (ABNORMAL) CBC with auto differential (07/22/2024 11:49 AM EST) WBC 6.3 4.5 - 10.8 10*3 ??l 07/22/2024 12:08 PM [facility] RBC 4.11(L) 4.70 - 6.10 10*6 ??l 07/22/2024 12:08 PM [facility] Hemoglobin 12.3(L) 14.0 - 18.0 g/dL 07/22/2024 12:08 PM [facility] Hematocrit 36.7(L) 42.0 - 52.0 % 07/22/2024 12:08 PM [facility] MCV 89 80 - 95 fL 07/22/2024 12:08 PM [facility] MCH 29.9 25.4 - 39.0 pg 07/22/2024 12:08 PM [facility] MCHC 33.5 31.0 - 37.0 g/dL 07/22/2024 12:08 PM [facility] RDW 14.0 11.5 - 14.5 % 07/22/2024 12:08 PM [facility] Platelets 259 150 - 450 10*3 ??l 07/22/2024 12:08 PM [facility] MPV 9.9 7.0 - 11.0 fL 07/22/2024 12:08 PM [facility] Neutrophils % 65.6 40.0 - 80.0 % 07/22/2024 12:08 PM [facility] Lymphocytes % 20.0 20.0 - 40.0 % 07/22/2024 12:08 PM [facility] Monocytes % 9.6 2.0 - 10.0 % 07/22/2024 12:08 PM [facility] Eosinophils % 3.7 1.0 - 6.0 % 07/22/2024 12:08 PM [facility] Basophils % 0.6 0.0 - 1.0 % 07/22/2024 12:08 PM [facility] Immature Granulocyte % 0.5 0.0 - 0.9 % 07/22/2024 12:08 PM [facility] Neutrophils Absolute 4.10 2.00 - 7.00 K/mm3 07/22/2024 12:08 PM [facility] Absolute Immature Granulocyte 0.03 0.00 - 0.09 K/mm3 07/22/2024 12:08 PM [facility] Lymphocytes Absolute 1.25 1.00 - 3.00 K/mm3 07/22/2024 12:08 PM [facility] Monocytes Absolute 0.60 0.20 - 1.00 K/mm3 07/22/2024 12:08 PM [facility] Eosinophils Absolute 0.23 0.00 - 0.50 K/mm3 07/22/2024 12:08 PM [facility] Basophils Absolute 0.04 0.00 - 0.10 K/mm3 07/22/2024 12:08 PM [facility] Blood Venous blood / Unknown Venipuncture / Unknown 07/22/2024 11:49 AM EST 07/22/2024 11:59 AM EST us Cheli Morgan MD LAB BLOOD ORDERABLES Final Resul t [facility] [address] [place] [address], [place] [phone] * Hepatic function panel (07/22/2024 5:58 AM EST) Total Bilirubin 0.2 0.2 - 1.2 mg/dL 07/22/2024 7:00 AM [facility] Bilirubin, Direct <0.2 0.0 - 0.4 mg/dL 07/22/2024 7:00 AM [facility] Alkaline Phosphatase 74 40 - 129 U/L 07/22/2024 7:00 AM [facility] ALT (SGPT) 32 0 - 40 U/L 07/22/2024 7:00 AM [facility] AST 37 0 - 37 U/L 07/22/2024 7:00 AM [facility] Albumin 4.0 3.3 - 5.2 g/dL 07/22/2024 7:00 AM [facility] Total Protein 7.5 6.0 - 8.5 g/dL 07/22/2024 7:00 AM [facility] Bilirubin, Indirect 07/22/2024 7:00 AM [facility] Comment:Component value unab le to be calculated because direct bilirubin is too low to be determined. Blood Venous blood / Unknown Venipuncture / Unknown 07/22/2024 5:58 AM EST 07/22/2024 6:29 AM EST Leeanna Pimentel MD LAB BLOOD ORDERABLES Final Result [facility] [address] [place] [address], [place] [phone] * (ABNORMAL) BASIC METABOLIC PANEL (07/22/2024 5:58 AM EST) Glucose 93 70 - 100 mg/dL 07/22/2024 7:00 AM [facility] BUN 19 6 - 19 mg/dL 07/22/2024 7:00 AM [facility] Creatinine 1.2 0.4 - 1.2 mg/dL 07/22/2024 7:00 AM [facility] eGFR >60.00 >60.00 mL/min/1.7 3m*2 07/22/2024 7:00 AM [facility] Sodium 137 135 - 145 mmol/L 07/22/2024 7:00 AM [facility] Potassium 4.3 3.4 - 5.1 mmol/L 07/22/2024 7:00 AM [facility] Chloride 104 98 - 109 mmol/L 07/22/2024 7:00 AM [facility] CO2 21(L) 24 - 32 mmol/L 07/22/2024 7:00 AM [facility] Anion Gap 12 6 - 12 mmol/L 07/22/2024 7:00 AM [facility] Calcium 9.2 8.5 - 10.5 mg/dL 07/22/2024 7:00 AM [facility] Estimated Creatinine Clearance 115.1 mL/min 07/22/2024 7:00 AM [facility] Blood Venous blood / Unknown Venipuncture / Unknown 07/22/2024 5:58 AM EST 07/22/2024 6:29 AM EST us Zenaida Snow MD LAB BLOOD ORDERABLES Final Result [facility] [address] [place] [address], [place] [phone] * (ABNORMAL) BASIC METABOLIC PANEL (07/21/2024 6:01 AM EST) Glucose 89 70 - 100 mg/dL 07/21/2024 6:53 AM [facility] BUN 19 6 - 19 mg/dL 07/21/2024 6:53 AM [facility] Creatinine 1.2 0.4 - 1.2 mg/dL 07/21/2024 6:53 AM [facility] eGFR >60.00 >60.00 mL/min/1.7 3m*2 07/21/2024 6:53 AM [facility] Sodium 139 135 - 145 mmol/L 07/21/2024 6:53 AM [facility] Potassium 4.2 3.4 - 5.1 mmol/L 07/21/2024 6:53 AM [facility] Chloride 105 98 - 109 mmol/L 07/21/2024 6:53 AM [facility] CO2 21(L) 24 - 32 mmol/L 07/21/2024 6:53 AM [facility] Anion Gap 13(H) 6 - 12 mmol/L 07/21/2024 6:53 AM [facility] Calcium 9.2 8.5 - 10.5 mg/dL 07/21/2024 6:53 AM [facility] Estimated Creatinine Clearance 115.1 mL/min 07/21/2024 6:53 AM [facility] Blood Venous blood / Unknown Venipuncture / Unknown 07/21/2024 6:01 AM EST 07/21/2024 6:24 AM EST us Zenaida Snow MD LAB BLOOD ORDERABLES Final Result [facility] [address] [place] [address], [place] [phone] * (ABNORMAL) Ammonia (07/21/2024 6:01 AM EST) Ammonia 74(H) 11 - 35 umol/L 07/21/2024 7:47 AM [facility] Blood Venous blood / Unknown Venipuncture / Unknown 07/21/2024 6:01 AM EST 07/21/2024 6:35 AM EST us Cheli Morgan MD LAB BLOOD ORDERABLES Final Resul t [facility] [address] [facility] [place] [address], [place] [phone] * Valproic Acid Level, Total (07/21/2024 6:01 AM EST) Valproic Acid, Total 100 50 - 100 ug/mL 07/21/2024 6:54 AM [facility] Blood Venous blood / Unknown Venipuncture / Unknown 07/21/2024 6:01 AM EST 07/21/2024 6:25 AM EST us Cheli Morgan MD LAB BLOOD ORDERABLES Final Resul t [facility] [address] [facility] [place] [address], [place] [phone] * (ABNORMAL) Hepatic function panel (07/20/2024 5:30 AM EST) Total Bilirubin 0.4 0.2 - 1.2 mg/dL 07/20/2024 6:56 AM [facility] Bilirubin, Direct <0.2 0.0 - 0.4 mg/dL 07/20/2024 6:56 AM [facility] Alkaline Phosphatase 80 40 - 129 U/L 07/20/2024 6:56 AM [facility] ALT (SGPT) 41(H) 0 - 40 U/L 07/20/2024 6:56 AM [facility] AST 52(H) 0 - 37 U/L 07/20/2024 6:56 AM [facility] Albumin 4.0 3.3 - 5.2 g/dL 07/20/2024 6:56 AM [facility] Total Protein 7.4 6.0 - 8.5 g/dL 07/20/2024 6:56 AM [facility] Bilirubin, Indirect 07/20/2024 6:56 AM [facility] Comment:Component value unab le to be calculated because direct bilirubin is too low to be determined. Blood Venous blood / Unknown Venipuncture / Unknown 07/20/2024 5:30 AM EST 07/20/2024 6:26 AM EST us Leeanna Pimentel MD LAB BLOOD ORDERABLES Final Result [facility] [address] [place] [address], [place] [phone] * (ABNORMAL) Comprehensive metabolic panel (07/20/2024 5:30 AM EST) Glucose 85 70 - 100 mg/dL 07/20/2024 6:56 AM [facility] BUN 18 6 - 19 mg/dL 07/20/2024 6:56 AM [facility] Creatinine 1.4(H) 0.4 - 1.2 mg/dL 07/20/2024 6:56 AM [facility] eGFR >60.00 >60.00 mL/min/1.7 3m*2 07/20/2024 6:56 AM [facility] Sodium 142 135 - 145 mmol/L 07/20/2024 6:56 AM [facility] Potassium 3.9 3.4 - 5.1 mmol/L 07/20/2024 6:56 AM [facility] Chloride 105 98 - 109 mmol/L 07/20/2024 6:56 AM [facility] CO2 21(L) 24 - 32 mmol/L 07/20/2024 6:56 AM [facility] Anion Gap 16(H) 6 - 12 mmol/L 07/20/2024 6:56 AM [facility] Calcium 9.1 8.5 - 10.5 mg/dL 07/20/2024 6:56 AM [facility] Total Bilirubin 0.4 0.2 - 1.2 mg/dL 07/20/2024 6:56 AM [facility] Alkaline Phosphatase 80 40 - 129 U/L 07/20/2024 6:56 AM [facility] ALT (SGPT) 41(H) 0 - 40 U/L 07/20/2024 6:56 AM [facility] AST 52(H) 0 - 37 U/L 07/20/2024 6:56 AM [facility] Total Protein 7.4 6.0 - 8.5 g/dL 07/20/2024 6:56 AM [facility] Albumin 4.0 3.3 - 5.2 g/dL 07/20/2024 6:56 AM [facility] Corrected Calcium 9.1 8.5 - 10.5 mg/dL 07/20/2024 6:56 AM [facility] Estimated Creatinine Clearance 98.7 mL/min 07/20/2024 6:56 AM [facility] Blood Venous blood / Unknown Venipuncture / Unknown 07/20/2024 5:30 AM EST 07/20/2024 6:26 AM EST Kitty Fernando MD LAB BLOOD ORDERABLES Final Result [facility] [address] [facility] [place] [address], * (ABNORMAL) CBC with auto differential (07/20/2024 5:30 AM EST) WBC 9.0 4.5 - 10.8 10*3 ??l 07/20/2024 6:43 AM [facility] RBC 4.16(L) 4.70 - 6.10 10*6 ??l 07/20/2024 6:43 AM [facility] Hemoglobin 12.4(L) 14.0 - 18.0 g/dL 07/20/2024 6:43 AM [facility] Hematocrit 36.9(L) 42.0 - 52.0 % 07/20/2024 6:43 AM [facility] MCV 89 80 - 95 fL 07/20/2024 6:43 AM [facility] MCH 29.8 25.4 - 39.0 pg 07/20/2024 6:43 AM [facility] MCHC 33.6 31.0 - 37.0 g/dL 07/20/2024 6:43 AM [facility] RDW 14.0 11.5 - 14.5 % 07/20/2024 6:43 AM [facility] Platelets 225 150 - 450 10*3 ??l 07/20/2024 6:43 AM [facility] MPV 9.7 7.0 - 11.0 fL 07/20/2024 6:43 AM [facility] Neutrophils % 59.6 40.0 - 80.0 % 07/20/2024 6:43 AM [facility] Lymphocytes % 24.0 20.0 - 40.0 % 07/20/2024 6:43 AM [facility] Monocytes % 12.8(H) 2.0 - 10.0 % 07/20/2024 6:43 AM [facility] Eosinophils % 2.9 1.0 - 6.0 % 07/20/2024 6:43 AM [facility] Basophils % 0.4 0.0 - 1.0 % 07/20/2024 6:43 AM [facility] Immature Granulocyte % 0.3 0.0 - 0.9 % 07/20/2024 6:43 AM [facility] Neutrophils Absolute 5.32 2.00 - 7.00 K/mm3 07/20/2024 6:43 AM [facility] Absolute Immature Granulocyte 0.03 0.00 - 0.09 K/mm3 07/20/2024 6:43 AM [facility] Lymphocytes Absolute 2.15 1.00 - 3.00 K/mm3 07/20/2024 6:43 AM [facility] Monocytes Absolute 1.15(H) 0.20 - 1.00 K/mm3 07/20/2024 6:43 AM [facility] Eosinophils Absolute 0.26 0.00 - 0.50 K/mm3 07/20/2024 6:43 AM [facility] Basophils Absolute 0.04 0.00 - 0.10 K/mm3 07/20/2024 6:43 AM [facility] Blood Venous blood / Unknown Venipuncture / Unknown 07/20/2024 5:30 AM EST 07/20/2024 6:29 AM EST Kitty Fernando MD LAB BLOOD ORDERABLES Final Result [facility] [address] [place] [address], [place] [phone] * (ABNORMAL) CK (07/19/2024 10:01 AM EST) Total CK 3,511(H) 24 - 195 U/L 07/19/2024 10:49 AM [facility] Blood Venous blood / Unknown Venipuncture / Unknown 07/19/2024 10:01 AM EST 07/19/2024 10:04 AM EST Kitty Fernando MD LAB BLOOD ORDERABLES Final Result [facility] [address] [place] [address], [place] [phone] * (ABNORMAL) Comprehensive metabolic panel (07/19/2024 10:01 AM EST) Glucose 105(H) 70 - 100 mg/dL 07/19/2024 10:44 AM [facility] BUN 14 6 - 19 mg/dL 07/19/2024 10:44 AM [facility] Creatinine 1.2 0.4 - 1.2 mg/dL 07/19/2024 10:44 AM [facility] eGFR >60.00 >60.00 mL/min/1.7 3m*2 07/19/2024 10:44 AM [facility] Sodium 137 135 - 145 mmol/L 07/19/2024 10:44 AM [facility] Potassium 3.9 3.4 - 5.1 mmol/L 07/19/2024 10:44 AM [facility] Chloride 101 98 - 109 mmol/L 07/19/2024 10:44 AM [facility] CO2 21(L) 24 - 32 mmol/L 07/19/2024 10:44 AM [facility] Anion Gap 15(H) 6 - 12 mmol/L 07/19/2024 10:44 AM [facility] Calcium 9.3 8.5 - 10.5 mg/dL 07/19/2024 10:44 AM [facility] Total Bilirubin 0.5 0.2 - 1.2 mg/dL 07/19/2024 10:44 AM [facility] Alkaline Phosphatase 90 40 - 129 U/L 07/19/2024 10:44 AM [facility] ALT (SGPT) 49(H) 0 - 40 U/L 07/19/2024 10:44 AM [facility] AST 67(H) 0 - 37 U/L 07/19/2024 10:44 AM [facility] Total Protein 7.8 6.0 - 8.5 g/dL 07/19/2024 10:44 AM [facility] Albumin 4.2 3.3 - 5.2 g/dL 07/19/2024 10:44 AM [facility] Estimated Creatinine Clearance 115.1 mL/min 07/19/2024 10:44 AM [facility] Blood Venous blood / Unknown Venipuncture / Unknown 07/19/2024 10:01 AM EST 07/19/2024 10:04 AM [facility] us Kitty Fernando MD LAB BLOOD ORDERABLES Final Result [facility] [address] [place] [address], * (ABNORMAL) CBC with auto differential (07/19/2024 10:01 AM [facility]) WBC 9.4 4.5 - 10.8 10*3 ??l 07/19/2024 10:17 AM [facility] RBC 4.25(L) 4.70 - 6.10 10*6 ??l 07/19/2024 10:17 AM [facility] Hemoglobin 12.9(L) 14.0 - 18.0 g/dL 07/19/2024 10:17 AM [facility] Hematocrit 37.3(L) 42.0 - 52.0 % 07/19/2024 10:17 AM [facility] MCV 88 80 - 95 fL 07/19/2024 10:17 AM [facility] MCH 30.4 25.4 - 39.0 pg 07/19/2024 10:17 AM [facility] MCHC 34.6 31.0 - 37.0 g/dL 07/19/2024 10:17 AM [facility] RDW 14.2 11.5 - 14.5 % 07/19/2024 10:17 AM [facility] Platelets 218 150 - 450 10*3 ??l 07/19/2024 10:17 AM [facility] MPV 9.5 7.0 - 11.0 fL 07/19/2024 10:17 AM [facility] Neutrophils % 71.6 40.0 - 80.0 % 07/19/2024 10:17 AM [facility] Lymphocytes % 15.1(L) 20.0 - 40.0 % 07/19/2024 10:17 AM [facility] Monocytes % 10.1(H) 2.0 - 10.0 % 07/19/2024 10:17 [facility] Eosinophils % 2.7 1.0 - 6.0 % 07/19/2024 10:17 AM [facility] Basophils % 0.3 0.0 - 1.0 % 07/19/2024 10:17 AM [facility] Immature Granulocyte % 0.2 0.0 - 0.9 % 07/19/2024 10:17 AM [facility] Neutrophils Absolute 6.75 2.00 - 7.00 K/mm3 07/19/2024 10:17 AM [facility] Absolute Immature Granulocyte 0.02 0.00 - 0.09 K/mm3 07/19/2024 10:17 AM [facility] Lymphocytes Absolute 1.42 1.00 - 3.00 K/mm3 07/19/2024 10:17 AM [facility] Monocytes Absolute 0.95 0.20 - 1.00 K/mm3 07/19/2024 10:17 AM [facility] Eosinophils Absolute 0.25 0.00 - 0.50 K/mm3 07/19/2024 10:17 AM [facility] Basophils Absolute 0.03 0.00 - 0.10 K/mm3 07/19/2024 10:17 AM [facility] Blood Venous blood / Unknown Venipuncture / Unknown 07/19/2024 10:01 AM EST 07/19/2024 10:04 AM EST Kitty Fernando MD LAB BLOOD ORDERABLES Final Result [facility] [address] [place] [address], * (ABNORMAL) Hepatic function panel (07/18/2024 7:24 AM [facility]) Total Bilirubin 0.3 0.2 - 1.2 mg/dL 07/18/2024 8:16 AM [facility] Bilirubin, Direct <0.2 0.0 - 0.4 mg/dL 07/18/2024 8:16 AM [facility] Alkaline Phosphatase 83 40 - 129 U/L 07/18/2024 8:16 AM [facility] ALT (SGPT) 54(H) 0 - 40 U/L 07/18/2024 8:16 AM [facility] AST 71(H) 0 - 37 U/L 07/18/2024 8:16 AM [facility] Albumin 4.4 3.3 - 5.2 g/dL 07/18/2024 8:16 AM [facility] Total Protein 7.6 6.0 - 8.5 g/dL 07/18/2024 8:16 AM [facility] Bilirubin, Indirect 07/18/2024 8:16 AM [facility] Comment:Component value unab le to be calculated because direct bilirubin is too low to be determined. Blood Venous blood / Unknown Venipuncture / Unknown 07/18/2024 7:24 AM EST 07/18/2024 7:42 AM EST Leeanna Pimentel MD LAB BLOOD ORDERABLES Final Result [facility] [address] [place] [address], [place] [phone] * (ABNORMAL) BASIC METABOLIC PANEL (07/18/2024 7:24 AM EST) [facility] Glucose 87 70 - 100 mg/dL 07/18/2024 8:16 AM [facility] BUN 17 6 - 19 mg/dL 07/18/2024 8:16 AM [facility] Creatinine 1.3(H) 0.4 - 1.2 mg/dL 07/18/2024 8:16 AM [facility] eGFR >60.00 >60.00 mL/min/1.7 3m*2 07/18/2024 8:16 AM [facility] Sodium 140 135 - 145 mmol/L 07/18/2024 8:16 AM [facility] Potassium 4.1 3.4 - 5.1 mmol/L 07/18/2024 8:16 AM [facility] Chloride 107 98 - 109 mmol/L 07/18/2024 8:16 AM [facility] CO2 19(L) 24 - 32 mmol/L 07/18/2024 8:16 AM [facility] Anion Gap 14(H) 6 - 12 mmol/L 07/18/2024 8:16 AM [facility] Calcium 9.4 8.5 - 10.5 mg/dL 07/18/2024 8:16 AM [facility] Estimated Creatinine Clearance 106.3 mL/min 07/18/2024 8:16 AM [facility] Blood Venous blood / Unknown Venipuncture / Unknown 07/18/2024 7:24 AM EST 07/18/2024 7:42 AM EST Zenaida Snow MD LAB BLOOD ORDERABLES Final Result [facility] [address] [place] [address], [place] [phone] * (ABNORMAL) CK (07/18/2024 7:24 AM EST) Pathologist [facility] Total CK 3,623(H) 24 - 195 U/L 07/18/2024 8:41 AM [facility] Blood Venous blood / Unknown Venipuncture / Unknown 07/18/2024 7:24 AM EST 07/18/2024 7:42 AM EST Leeanna Pimentel MD LAB BLOOD ORDERABLES Final Result [facility] [address] [place] [address], [place] [phone] * (ABNORMAL) CBC with auto differential (07/18/2024 7:23 AM EST) [facility] WBC 7.2 4.5 - 10.8 10*3 ??l 07/18/2024 7:50 AM [facility] RBC 4.10(L) 4.70 - 6.10 10*6 ??l 07/18/2024 7:50 AM [facility] Hemoglobin 12.3(L) 14.0 - 18.0 g/dL 07/18/2024 7:50 AM [facility] Hematocrit 36.6(L) 42.0 - 52.0 % 07/18/2024 7:50 AM [facility] MCV 89 80 - 95 fL 07/18/2024 7:50 AM [facility] MCH 30.0 25.4 - 39.0 pg 07/18/2024 7:50 AM [facility] MCHC 33.6 31.0 - 37.0 g/dL 07/18/2024 7:50 AM [facility] RDW 14.6(H) 11.5 - 14.5 % 07/18/2024 7:50 AM [facility] Platelets 210 150 - 450 10*3 ??l 07/18/2024 7:50 AM [facility] [facility] MPV 9.8 7.0 - 11.0 fL 07/18/2024 7:50 AM [facility] Neutrophils % 60.7 40.0 - 80.0 % 07/18/2024 7:50 AM [facility] Lymphocytes % 24.8 20.0 - 40.0 % 07/18/2024 7:50 AM [facility] Monocytes % 11.7(H) 2.0 - 10.0 % 07/18/2024 7:50 AM [facility] Eosinophils % 1.7 1.0 - 6.0 % 07/18/2024 7:50 AM [facility] Basophils % 0.4 0.0 - 1.0 % 07/18/2024 7:50 AM [facility] Immature Granulocyte % 0.7 0.0 - 0.9 % 07/18/2024 7:50 AM [facility] Neutrophils Absolute 4.37 2.00 - 7.00 K/mm3 07/18/2024 7:50 AM [facility] Absolute Immature Granulocyte 0.05 0.00 - 0.09 K/mm3 07/18/2024 7:50 AM [facility] Lymphocytes Absolute 1.78 1.00 - 3.00 K/mm3 07/18/2024 7:50 AM [facility] Monocytes Absolute 0.84 0.20 - 1.00 K/mm3 07/18/2024 7:50 AM [facility] Eosinophils Absolute 0.12 0.00 - 0.50 K/mm3 07/18/2024 7:50 AM [facility] Basophils Absolute 0.03 0.00 - 0.10 K/mm3 07/18/2024 7:50 AM [facility] Blood Venous blood / Unknown Venipuncture / Unknown 07/18/2024 7:23 AM EST 07/18/2024 7:42 AM EST Zenaida Snow MD LAB BLOOD ORDERABLES Final Result [facility] [address] [place] [address], * Creatinine, urine, random (07/18/2024 6:57 AM EST) Creatinine, Urine 140.1 mg/dL 07/18/2024 7:31 AM [facility] Urine Urine specimen obtained by clean catch procedure / Unknown Non-blood Collection / Unknown 07/18/2024 6:57 AM EST 07/18/2024 7:13 AM EST us Leeanna Pimentel MD LAB URINE ORDERABLES Final Result [facility] [address] [place] [address], [place] [phone] * Sodium, urine, random (07/18/2024 6:57 AM EST) Sodium, Urine 93.0 mmol/L 07/18/2024 7:31 AM [facility] Urine Urine specimen obtained by clean catch procedure / Unknown Non-blood Collection / Unknown 07/18/2024 6:57 AM EST 07/18/2024 7:13 AM EST Leeanna Pimentel MD LAB URINE ORDERABLES Final Result [facility] [address] [place] [address], [place] [phone] * Protime-INR (07/18/2024 3:33 AM EST) Protime 14.0 12.0 - 14.2 seconds 07/18/2024 3:58 AM [facility] INR 1.1 0.9 - 1.1 07/18/2024 3:58 AM [facility] Comment: Low therapeutic range 2.0-3.0 High therapeutic range 2.5-3.5 Blood Venous blood / Unknown Venipuncture / Unknown 07/18/2024 3:33 AM EST 07/18/2024 3:37 AM EST Leeanna Pimentel MD LAB BLOOD ORDERABLES Final Result [facility] [address] [facility] [place] [address], [place] [phone] * X-ray chest 1 view (07/18/2024 3:32 [...] are unremarkable. Impression: No acute intrathoracic abnormalities. Nikolay Mtz MD IMG XR PROCEDURES Final Re sult * ECG (07/18/2024 3:26 AM EST) 07/18/2024 3:26 AM EST 07/18/2024 3:30 PM [...] significant change was found Referred By: LEEANNA PIMENTEL ? Confirmed By: Mark Rae Narrative Procedure [...] significant change was found Referred By: LEEANNA PIMENTEL Confirmed By: Mark Rae us Leeanna Pimentel MD ECG ORDERABLES Final Result MUSE * (ABNORMAL) Vitamin D 25-OH (07/18/2024 1:45 AM EST) Pathologist [facility] Vitamin D, 25-Hydroxy 24(L) 30 - 100 ng/mL 07/18/2024 4:55 AM EST [facility] Comment: Reference Ranges: ?Less than 20 [...] AM EST 07/18/2024 1:51 AM EST Leeanna Pimentel MD LAB BLOOD ORDERABLES Final Result Performing Organization Address [facility]/ZIP Co de Phone Number [facility] [address] [place] [address], * (ABNORMAL) Folate (07/18/2024 1:45 AM EST) Pathologist [facility] Folate >=20.0(H) 4.2-19.9 ng/ml ng/mL 07/18/2024 4:55 AM EST [facility] Comment: Specimen Hemolyzed. Results may be falsely elevated due to hemolysis. Reference Range: ?? Deficient ?<2.1 ng/mL Intermediate ?2.2-4.1 ng/mL ??Sufficient ?4.2-19.9 ng/mL Blood Venipuncture / Unknown 07/18/2024 1:45 AM EST 07/18/2024 1:51 AM EST Leeanna Pimentel MD LAB BLOOD ORDERABLES Final Result Performing Organization Address [facility]/ZIP Co de Phone Number [facility] [address] [place] [address], * (ABNORMAL) Vitamin B12 (07/18/2024 1:45 AM EST) Vitamin B12 1,101(H) 243 - 894 pg/mL 07/18/2024 4:55 AM EST [facility] Comment: ?? Deficient: ??<174 pg/mL Intermediate: ??175 - 242 pg/mL ?Normal: ??243 - 894 pg/mL Blood Venipuncture / Unknown 07/18/2024 1:45 AM EST 07/18/2024 1:51 AM EST us Leeanna Pimentel MD LAB BLOOD ORDERABLES Final Result [facility] [address] [place] [address], [place] [phone] * Ferritin (07/18/2024 1:45 AM EST) Ferritin 202.0 30.0 - 400.0 ng/mL 07/18/2024 3:53 AM [facility] Blood Venous blood / Unknown Venipuncture / Unknown 07/18/2024 1:45 AM EST 07/18/2024 1:51 AM EST us Leeanna Pimentel MD LAB BLOOD ORDERABLES Final Result Performing Organization Address [facility]/ZIP Co de Phone Number [facility] [address] [place] [address], [place] [phone] * Iron and TIBC (07/18/2024 1:45 AM EST) Iron 61 45 - 160 ug/dL 07/18/2024 3:53 AM [facility] TIBC 336.0 228.0 - 428.0 ug/dL 07/18/2024 3:53 AM [facility] Transferrin Saturation 18.2 15.0 - 50.0 % 07/18/2024 3:53 AM [facility] Blood Venous blood / Unknown Venipuncture / Unknown 07/18/2024 1:45 AM EST 07/18/2024 1:51 AM EST us Leeanna Pimentel MD LAB BLOOD ORDERABLES Final Result [facility] [address] [place] [address], [place] [phone] * Phosphorus (07/18/2024 1:45 AM EST) Phosphorus 3.8 2.5 - 4.5 mg/dL 07/18/2024 3:53 AM EST [facility] Blood Venous blood / Unknown Venipuncture / Unknown 07/18/2024 1:45 AM EST 07/18/2024 1:51 AM EST Leeanna Pimentel MD LAB BLOOD ORDERABLES Final Result [facility] [address] [place] [address], * Magnesium (07/18/2024 1:45 AM EST) Magnesium 2.4 1.6 - 2.6 mg/dL 07/18/2024 3:53 AM EST [facility] Blood Venous blood / Unknown Venipuncture / Unknown 07/18/2024 1:45 AM EST 07/18/2024 1:51 AM EST Leeanna Pimentel MD LAB BLOOD ORDERABLES Final Result [facility] [address] [place] [address], [place] [phone] * T4, FREE (07/18/2024 1:45 AM EST) Free T4 1.6 0.9 - 1.9 ng/dL 07/18/2024 2:49 AM EST [facility] Blood Venipuncture / Unknown 07/18/2024 1:45 AM EST 07/18/2024 1:51 AM EST Nikolay Mtz MD LAB BLOOD ORDERABLES Final Result [facility] [address] [place] [address], [place] [phone] * Blood Culture, Peripheral #1 (07/18/2024 1:45 AM EST) Culture No growth at 5 days [facility] 07/23/2024 3:01 AM EST [facility] Blood Venous blood / Unknown Venipuncture / Unknown 07/18/2024 1:45 AM EST 07/18/2024 1:53 AM EST Nikolay Mtz MD LAB MICROBIOLOGY - GENERAL ORDERABLES Final Result [facility] [address] [place] [address], * (ABNORMAL) TSH W/Reflex To Ft4 (07/18/2024 1:45 AM EST) TSH 5.020(H) 0.270 - 4.200 uIU/mL 07/18/2024 2:30 AM EST [facility] Blood Venipuncture / Unknown 07/18/2024 1:45 AM EST 07/18/2024 1:51 AM EST Nikolay Mtz MD LAB BLOOD ORDERABLES Final Result [facility] [address] [place] [address], [place] [phone] * (ABNORMAL) CK (07/18/2024 1:45 AM EST) Total CK 2,568(H) 24 - 195 U/L 07/18/2024 2:35 AM EST [facility] Blood Venous blood / Unknown Venipuncture / Unknown 07/18/2024 1:45 AM EST 07/18/2024 1:51 AM EST Nikolay Mtz MD LAB BLOOD ORDERABLES Final Result [facility] [address] [place] [address], [place] [phone] * (ABNORMAL) C-Reactive Protein, High Sensitivity (07/18/2024 1:45 AM EST) CRP, High Sensitivity 15.1(H) 0.0 - 5.0 mg/L 07/18/2024 2:23 AM [facility] Comment:Significantly decrea sed CRP values may be obtained from samples taken from patients who have been treated with carboxypenicillins (e.g. Timentin, Carbenicillin, Ticarcillin, Temocillin). Blood Venous blood / Unknown Venipuncture / Unknown 07/18/2024 1:45 AM EST 07/18/2024 1:51 AM EST Nikolay Mtz MD LAB BLOOD ORDERABLES Final Result Performing Organization Address City/[facility]/ZIP Co de Phone Number [facility] [address] [place] [address], [place] [phone] * (ABNORMAL) SEDIMENTATION RATE (07/18/2024 1:45 AM EST) Pathologist [facility] Sed Rate 21(H) 0 - 15 mm/hr 07/18/2024 2:48 AM [facility] Blood Venipuncture / Unknown 07/18/2024 1:45 AM EST 07/18/2024 1:52 AM EST Nikolay Mtz MD LAB BLOOD ORDERABLES Final Result [facility] [address] [place] [address], [place] [phone] * (ABNORMAL) Comprehensive metabolic panel (07/18/2024 1:45 AM EST) Pathologist [facility] Glucose 95 70 - 100 mg/dL 07/18/2024 2:23 AM [facility] BUN 18 6 - 19 mg/dL 07/18/2024 2:23 AM [facility] Creatinine 1.3(H) 0.4 - 1.2 mg/dL 07/18/2024 2:23 AM [facility] eGFR >60.00 >60.00 mL/min/1.7 3m*2 07/18/2024 2:23 AM [facility] Sodium 137 135 - 145 mmol/L 07/18/2024 2:23 AM [facility] Potassium 4.5 3.4 - 5.1 mmol/L 07/18/2024 2:23 AM [facility] Chloride 103 98 - 109 mmol/L 07/18/2024 2:23 AM [facility] CO2 20(L) 24 - 32 mmol/L 07/18/2024 2:23 AM [facility] Anion Gap 14(H) 6 - 12 mmol/L 07/18/2024 2:23 AM [facility] Calcium 10.0 8.5 - 10.5 mg/dL 07/18/2024 2:23 AM [facility] Total Bilirubin 0.3 0.2 - 1.2 mg/dL 07/18/2024 2:23 AM [facility] Alkaline Phosphatase 89 40 - 129 U/L 07/18/2024 2:23 AM [facility] ALT (SGPT) 57(H) 0 - 40 U/L 07/18/2024 2:23 AM [facility] AST 73(H) 0 - 37 U/L 07/18/2024 2:23 AM [facility] Total Protein 8.0 6.0 - 8.5 g/dL 07/18/2024 2:23 AM [facility] Albumin 4.5 3.3 - 5.2 g/dL 07/18/2024 2:23 AM [facility] Estimated Creatinine Clearance 106.3 mL/min 07/18/2024 2:23 AM [facility] Blood Venous blood / Unknown Venipuncture / Unknown 07/18/2024 1:45 AM EST 07/18/2024 1:51 AM EST us Nikolay Mtz MD LAB BLOOD ORDERABLES Final Result [facility] [address] [place] [address], * (ABNORMAL) Venous Blood Gas with Electrolytes [...] BLOOD ORDERABLES Final Result Performing Organization Address City/State/[facility] Co de Phone Number [facility] [address] [place] [address], * (ABNORMAL) CBC with auto differential (07/18/2024 1:44 AM EST) WBC 9.3 4.5 - 10.8 10*3 ??l 07/18/2024 2:31 AM [facility] RBC 4.32(L) 4.70 - 6.10 10*6 ??l 07/18/2024 2:31 AM [facility] Hemoglobin 13.1(L) 14.0 - 18.0 g/dL 07/18/2024 2:31 AM [facility] Hematocrit 38.1(L) 42.0 - 52.0 % 07/18/2024 2:31 AM [facility] MCV 88 80 - 95 fL 07/18/2024 2:31 AM [facility] MCH 30.3 25.4 - 39.0 pg 07/18/2024 2:31 AM [facility] MCHC 34.4 31.0 - 37.0 g/dL 07/18/2024 2:31 AM [facility] RDW 14.7(H) 11.5 - 14.5 % 07/18/2024 2:31 AM [facility] Platelets 256 150 - 450 10*3 ??l 07/18/2024 2:31 AM [facility] MPV 10.1 7.0 - 11.0 fL 07/18/2024 2:31 AM [facility] Neutrophils % 73.3 40.0 - 80.0 % 07/18/2024 2:31 AM [facility] Lymphocytes % 14.1(L) 20.0 - 40.0 % 07/18/2024 2:31 AM [facility] Monocytes % 11.2(H) 2.0 - 10.0 % 07/18/2024 2:31 AM [facility] Eosinophils % 0.5(L) 1.0 - 6.0 % 07/18/2024 2:31 AM [facility] Basophils % 0.4 0.0 - 1.0 % 07/18/2024 2:31 AM [facility] Immature Granulocyte % 0.5 0.0 - 0.9 % 07/18/2024 2:31 AM [facility] Neutrophils Absolute 6.77 2.00 - 7.00 K/mm3 07/18/2024 2:31 AM [facility] Absolute Immature Granulocyte 0.05 0.00 - 0.09 K/mm3 07/18/2024 2:31 AM [facility] Lymphocytes Absolute 1.31 1.00 - 3.00 K/mm3 07/18/2024 2:31 AM [facility] Monocytes Absolute 1.04(H) 0.20 - 1.00 K/mm3 07/18/2024 2:31 AM [facility] Eosinophils Absolute 0.05 0.00 - 0.50 K/mm3 07/18/2024 2:31 AM [facility] Basophils Absolute 0.04 0.00 - 0.10 K/mm3 07/18/2024 2:31 AM [facility] Blood Venous blood / Unknown Venipuncture / Unknown 07/18/2024 1:44 AM EST 07/18/2024 1:52 AM EST us Nikolay Mtz MD LAB BLOOD ORDERABLES Final Result [facility] [address] [place] [address], * Blood Culture, Peripheral #2 (07/18/2024 1:38 AM EST) Culture No growth at 5 days [facility] 07/23/2024 3:01 AM EST [facility] Blood Venous blood / Unknown Venipuncture / Unknown 07/18/2024 1:38 AM EST 07/18/2024 1:51 AM EST Nikolay Mtz MD LAB MICROBIOLOGY - GENERAL ORDERABLES Final Result [facility] [address] [place] [address], [place] [phone] * CT cervical spine without contrast (07/17/2024 [...] height is preserved. No fracture is seen. us Zenaida Snow MD IMG CT PROCEDURES Fin al Result * CT head without contrast (07/17/2024 4:11 PM EST) Anatomical Region Laterality Modality Head and Neck Computed Tomogra phy 07/17/2024 3:53 PM EST Impressions 07/17/2024 4:21 PM EST Impression: ? No acute intracranial process is identified. ? Narrative 07/17/2024 4:21 PM EST History: Headache status post trauma. Technique: CT imaging of the head was performed without contrast. Iterative reconstruction technique was utilized for radiation dose reduction. Comparison: 07/16/2024. Findings: The ventricles and sulci are proportional. No acute infarct, hemorrhage, midline shift, or mass effect is seen. The extracerebral spaces appear normal. No extraaxial collection is identified. The calvarium is intact. There is mucosal thickening in the paranasal sinuses. Procedure Note Sergio Delcid MD - 07/17/2024 History: Headache status post trauma. Technique: CT imaging of the head was performed without contrast. Iterative reconstruction technique was utilized for radiation dosereduction. Comparison: 07/16/2024. Findings: The ventricles and sulci are proportional. No acute infarct,hemorrhage, midline shift, or mass effect is seen. The extracerebral spaces appear normal. Noextraaxial collection is identified. The calvarium is intact. There is mucosalthickening in the paranasal sinuses. Impression: No acute intracranial process is identified. us Zenaida Snow MD IMG CT PROCEDURES Fin al Result * EKG x 1 (07/17/2024 3:09 PM EST) 07/17/2024 3:09 PM EST 07/17/2024 5:48 PM EST Impressions MUSE - 07/17/2024 5:48 PM EST Test Reason : Reason for Exam:->Evaluate cardiac conduction Blood Pressure : ?? */* ?? mmHG Vent. Rate : 110 BPM ? Atrial Rate : 110 BPM ?? P-R Int : 144 ms ?QRS Dur : 100 ms ?QT Int : 336 ms ? P-R-T Axes : ??41 ??47 ??76 degrees ?? QTc Int : 454 ms Sinus tachycardia Otherwise normal ECG When compared with ECG of 16-JUL-2024 17:47, Criteria for Anterior infarct are no longer present Borderline criteria for Inferior infarct are no longer present Referred By: LAMONTE BARBER ? Confirmed By: Navi Rapp MD Narrative Procedure Note Navi Rapp MD - 07/17/2024 IMPRESSION Test Reason : Reason for Exam:->Evaluate cardiac conduction Blood Pressure : */* mmHG Vent. Rate : 110 BPM Atrial Rate : 110 BPM P-R Int : 144 ms QRS Dur : 100 ms QT Int : 336 ms P-R-T Axes : 41 47 76 degrees QTc Int : 454 ms Sinus tachycardia Otherwise normal ECG When compared with ECG of 16-JUL-2024 17:47, Criteria for Anterior infarct are no longer present Borderline criteria for Inferior infarct are no longer present Referred By: LAMONTE BARBER Confirmed By: Navi Rapp MD us Lamonte Barbre MD ECG ORDERABLES Final Result MUSE * (ABNORMAL) POCT Glucose Meter (07/17/2024 3:01 PM EST) POC Glucose 114(H) 70 - 100 mg/dL 07/17/2024 3:01 PM EST [facility] Comment:@Slot Editor:Carrie ramirez Blood 07/17/2024 3:01 PM EST 07/17/2024 3:01 PM EST Zenaida Snow MD LAB POCT ORDERABLES - DEVICE Final Result Performing Organization Address [facility] Co de Phone Number [facility] [address] [place] [address], * Clozapine (SEND OUT) (07/17/2024 9:06 AM [...] analytical performance characteristics have been determined by [employer] [place], [place]. It has not been cleared or approved by the U.S. Food and Drug Administration. This assay has been validated pursuant to the CLIA regulations and is used for clinical purposes. Blood Venous blood / Unknown Venipuncture / Unknown 07/17/2024 9:06 AM EST 07/17/2024 9:12 AM EST Narrative [facility] - 07/22/2024 2:08 PM EST Performing Organization Information: ?Site ID: [id number] ?Name: [employer] ?Address: [address] [place] [address] [place], [place] ?Director: Jack Obando M.D.,PhD Zenaida Snow MD LAB BLOOD ORDERABLES Final Result Performing Organization Address City/[facility]/ZIP Co de Phone Number [address] [address] * EEG (07/17/2024 8:59 AM EST) Impressions [...] be considered. INTERPRETED BY: JAEL BRADSHAW MD [facility] Department of Neurology/ Division of Epilepsy Narrative [...] sinus rhythm of 70-80 beats per minute. Stan Nolan MD NEUROLOGY ORDERABLES Final Result [facility] * (ABNORMAL) Troponin T-hs Gen5 (07/17/2024 4:50 AM EST) Troponin T- hs Gen5 14(H) <6 - 12 ng/L 07/17/2024 4:40 PM EST [facility] Blood Venous blood / Unknown Venipuncture / Unknown 07/17/2024 4:50 AM EST 07/17/2024 4:58 AM EST Zenaida Snow MD LAB BLOOD ORDERABLES Final Result [facility] [address] [place] [address], [place] [phone] * (ABNORMAL) Comprehensive Metabolic Panel (07/17/2024 4:50 AM [facility]) Glucose 88 70 - 100 mg/dL 07/17/2024 5:28 AM [facility] BUN 21(H) 6 - 19 mg/dL 07/17/2024 5:28 AM [facility] Creatinine 1.3(H) 0.4 - 1.2 mg/dL 07/17/2024 5:28 AM [facility] eGFR >60.00 >60.00 mL/min/1.7 3m*2 07/17/2024 5:28 AM [facility] Sodium 138 135 - 145 mmol/L 07/17/2024 5:28 AM [facility] Potassium 4.6 3.4 - 5.1 mmol/L 07/17/2024 5:28 AM [facility] Chloride 105 98 - 109 mmol/L 07/17/2024 5:28 AM [facility] CO2 22(L) 24 - 32 mmol/L 07/17/2024 5:28 AM [facility] Anion Gap 11 6 - 12 mmol/L 07/17/2024 5:28 AM [facility] Calcium 9.4 8.5 - 10.5 mg/dL 07/17/2024 5:28 AM [facility] Total Bilirubin 0.4 0.2 - 1.2 mg/dL 07/17/2024 5:28 AM [facility] Alkaline Phosphatase 88 40 - 129 U/L 07/17/2024 5:28 AM [facility] ALT (SGPT) 50(H) 0 - 40 U/L 07/17/2024 5:28 AM [facility] AST 66(H) 0 - 37 U/L 07/17/2024 5:28 AM [facility] Total Protein 7.8 6.0 - 8.5 g/dL 07/17/2024 5:28 AM [facility] Albumin 4.2 3.3 - 5.2 g/dL 07/17/2024 5:28 AM [facility] Estimated Creatinine Clearance 106.3 mL/min 07/17/2024 5:28 AM [facility] Blood Venous blood / Unknown Venipuncture / Unknown 07/17/2024 4:50 AM EST 07/17/2024 4:58 AM EST us Stan Nolan MD LAB BLOOD ORDERABLES Final Result [facility] [address] [place] [address], [place] [phone] * (ABNORMAL) CBC with auto differential (07/17/2024 4:50 AM EST) WBC 8.1 4.5 - 10.8 10*3 ??l 07/17/2024 5:15 AM [facility] RBC 4.37(L) 4.70 - 6.10 10*6 ??l 07/17/2024 5:15 AM [facility] Hemoglobin 13.1(L) 14.0 - 18.0 g/dL 07/17/2024 5:15 AM [facility] Hematocrit 38.8(L) 42.0 - 52.0 % 07/17/2024 5:15 AM [facility] MCV 89 80 - 95 fL 07/17/2024 5:15 AM [facility] MCH 30.0 25.4 - 39.0 pg 07/17/2024 5:15 AM [facility] MCHC 33.8 31.0 - 37.0 g/dL 07/17/2024 5:15 AM [facility] RDW 14.5 11.5 - 14.5 % 07/17/2024 5:15 AM [facility] Platelets 213 150 - 450 10*3 ??l 07/17/2024 5:15 AM [facility] MPV 9.9 7.0 - 11.0 fL 07/17/2024 5:15 AM [facility] Neutrophils % 62.6 40.0 - 80.0 % 07/17/2024 5:15 AM [facility] Lymphocytes % 22.9 20.0 - 40.0 % 07/17/2024 5:15 AM [facility] Monocytes % 11.4(H) 2.0 - 10.0 % 07/17/2024 5:15 AM [facility] Eosinophils % 2.0 1.0 - 6.0 % 07/17/2024 5:15 AM [facility] Basophils % 0.5 0.0 - 1.0 % 07/17/2024 5:15 AM [facility] Immature Granulocyte % 0.6 0.0 - 0.9 % 07/17/2024 5:15 AM [facility] Neutrophils Absolute 5.06 2.00 - 7.00 K/mm3 07/17/2024 5:15 AM [facility] Absolute Immature Granulocyte 0.05 0.00 - 0.09 K/mm3 07/17/2024 5:15 AM [facility] Lymphocytes Absolute 1.85 1.00 - 3.00 K/mm3 07/17/2024 5:15 AM [facility] Monocytes Absolute 0.92 0.20 - 1.00 K/mm3 07/17/2024 5:15 AM [facility] Eosinophils Absolute 0.16 0.00 - 0.50 K/mm3 07/17/2024 5:15 AM [facility] Basophils Absolute 0.04 0.00 - 0.10 K/mm3 07/17/2024 5:15 AM [facility] Blood Venous blood / Unknown Venipuncture / Unknown 07/17/2024 4:50 AM EST 07/17/2024 4:58 AM EST us Stan Nolan MD LAB BLOOD ORDERABLES Final Result [facility] [address] [place] [address], * Urinalysis with reflex (07/16/2024 10:41 PM EST) Color, Urine Yellow Colorless, Yellow 07/16/2024 10:58 PM [facility] Clarity, Urine Clear Clear 07/16/2024 10:58 PM [facility] Specific [place], Urine 1.011 1.002 - 1.030 07/16/2024 10:58 PM [facility] pH, Urine 7.0 5.0 - 8.0 07/16/2024 10:58 PM [facility] Leukocytes, Urine Negative Negative 07/16/2024 10:58 PM [facility] Nitrite, Urine Negative Negative 07/16/2024 10:58 PM [facility] Protein, Urine Negative Negative 07/16/2024 10:58 PM [facility] Glucose, Urine Negative Negative 07/16/2024 10:58 PM [facility] Ketones, Urine Negative Negative 07/16/2024 10:58 PM [facility] Bilirubin, Urine Negative Negative 07/16/2024 10:58 PM [facility] Blood, Urine Negative Negative 07/16/2024 10:58 PM [facility] Urine Urine specimen obtained by clean catch procedure / Unknown Non-blood Collection / Unknown 07/16/2024 10:41 PM EST 07/16/2024 10:49 PM [facility] - 07/16/2024 10:58 PM EST Per protocol, no culture performed. For protocol inquiries or add-on testing, please call Infectious Disease at [phone] or [phone]. us Stan Nolan MD LAB URINE ORDERABLES Final Result [facility] [address] [place] [address], * Extra Urine Culture Tube (07/16/2024 10:41 PM EST) Extra Tube 07/17/2024 12:01 AM [facility] Comment:An Extra tube was co llected from this patient. Please follow add on workflow or contact the Laboratory if you wish to place orders on this specimen. Urine Urine specimen obtained by clean catch procedure / Unknown Non-blood Collection / Unknown 07/16/2024 10:41 PM EST 07/16/2024 10:47 PM EST Stan Nolan MD LAB MICROBIOLOGY - GE NERAL ORDERABLES Final Result [facility] [address] [facility] [place] [address], [place] [phone] * Creatinine, urine, random (07/16/2024 10:41 PM EST) Creatinine, Urine 72.8 mg/dL 07/16/2024 11:04 PM EST [facility] Urine Urine specimen obtained by clean catch procedure / Unknown Non-blood Collection / Unknown 07/16/2024 10:41 PM EST 07/16/2024 10:47 PM EST Stan Nolan MD LAB URINE ORDERABLES Final Result Performing Organization Address [facility] Co de Phone Number [facility] [address] [place] [address], [place] [phone] * Sodium, urine, random (07/16/2024 10:41 PM EST) Sodium, Urine 121.0 mmol/L 07/16/2024 11:04 PM EST [facility] Urine Urine specimen obtained by clean catch procedure / Unknown Non-blood Collection / Unknown 07/16/2024 10:41 PM EST 07/16/2024 10:47 PM EST Stan Nolan MD LAB URINE ORDERABLES Final Result Performing Organization Address City/[facility]/ZIP Co de Phone Number [facility] [address] [place] [address], [place] [phone] * [place] CRITICAL CARE ILL/INJURED PATIENT INIT 30-74 MIN (07/16/2024 9:11 PM EST) Narrative Lamonte Barber MD - 07/16/2024 9:11 PM EST Lamonte Barber MD ? 07/16/2024 ??9:11 PM Critical Care Performed by: Lamonte Barber MD Authorized by: Lamonte Barber MD ?? Critical care provider statement: ??Critical care time (minutes): ??35 Comments: ?? CRITICAL CARE TIME: The patient's condition was such that it required my full attention providing Critical Care Services. The critical care time did not include time spent performing procedures. us Lamonte Barber MD IN CLINIC/BEDSIDE ORDERABLES Fi nal Result * CT head without contrast (07/16/2024 7:47 PM EST) Anatomical Region Laterality Modality Head and Neck Computed Tomogra phy 07/16/2024 5:59 PM EST Impressions 07/16/2024 8:02 PM EST IMPRESSION: No evidence for acute intracranial process. Narrative 07/16/2024 8:02 PM EST CLINICAL INDICATION: Mental status change, unknown cause ?? ;AMS TECHNIQUE: CT of the head was performed without the administration of intravenous contrast. Dose reduction technique: Iterative reconstruction. Sagittal and coronal reformats were provided for interpretation. COMPARISON: No prior exams. FINDINGS: BRAIN/EXTRA-AXIAL SPACES: The ventricles, sulci, and cisterns are age- appropriate in size. There is no evidence of extra-axial fluid collection, intracranial hemorrhage, or intracranial mass. No midline shift is identified. The dawkins-white differentiation is maintained. There is no CT evidence of acute infarct, however, MRI with diffusion weighted imaging would be more sensitive if there is clinical concern for acute infarct. ORBITS: Within normal limits. PARANASAL SINUSES/MASTOIDS: Sinuses and mastoids are within normal limits. BONES/SOFT TISSUES: Within normal limits. Procedure Note Hanna Woods MD - 07/16/2024 CLINICAL INDICATION: Mental status change, unknown cause ;AMS TECHNIQUE: CT of the head was performed without the administration ofintravenous contrast. Dose reduction technique: Iterative reconstruction. Sagittal andcoronal reformats were provided for interpretation. COMPARISON: No prior exams. FINDINGS: BRAIN/EXTRA-AXIAL SPACES: The ventricles, sulci, and cisterns areage-appropriate in size. There is no evidence of extra-axial fluid collection, intracranialhemorrhage, or intracranial mass. No midline shift is identified. The dawkins-whitedifferentiation is maintained. There is no CT evidence of acute infarct, however, MRI withdiffusion weighted imaging would be more sensitive if there is clinical concern for acuteinfarct. ORBITS: Within normal limits. PARANASAL SINUSES/MASTOIDS: Sinuses and mastoids are within normal limits. BONES/SOFT TISSUES: Within normal limits. IMPRESSION: No evidence for acute intracranial process. EST Lamonte Barber MD IMG CT PROCEDURES Final Result * Urine drugs of abuse screen (07/16/2024 6:17 PM EST) Amphetamines, Urine Screen None Detected None Detected 07/16/2024 7:21 PM [facility] Barbiturates, Urine Screen None Detected None Detected 07/16/2024 7:21 PM [facility] Benzodiazepines, Urine Screen None Detected None Detected 07/16/2024 7:21 PM [facility] Cocaine, Urine Screen None Detected None Detected 07/16/2024 7:21 PM [facility] Opiates, Urine Screen None Detected None Detected 07/16/2024 7:21 PM [facility] Cannabinoids (THC), Urine Screen None Detected None Detected 07/16/2024 7:21 PM [facility] Tricyclic Antidepressants, Urine Screen None Detected None Detected 07/16/2024 7:21 PM [facility] Comment:Verified by replicat e analysis. Fentanyl, Urine Screen None Detected None Detected 07/16/2024 7:21 PM [facility] Methadone, Urine Screen None Detected None Detected 07/16/2024 7:21 PM [facility] Oxycodone, Urine Screen None Detected None Detected 07/16/2024 7:21 PM [facility] Buprenorphine, Urine Screen None Detected None Detected 07/16/2024 7:21 PM [facility] Phencyclidine, Urine Screen None Detected None Detected 07/16/2024 7:21 PM [facility] Urine Urine specimen obtained by clean catch procedure / Unknown Non-blood Collection / Unknown 07/16/2024 6:17 PM EST 07/16/2024 6:27 PM EST Narrative [facility] - 07/16/2024 7:21 PM EST This [...] Buprenorphine ?5 ng/ml Phencyclidine ? 25 ng/ml us Lamonte Barber MD LAB URINE ORDERABLES Final Resu lt [facility] [address] [place] [address], * POCT Glucose Meter (07/16/2024 5:50 PM EST) POC Glucose 97 70 - 100 mg/dL 07/16/2024 5:51 PM EST [facility] Comment:@Slot Editor:Sheldonmarvel howard Blood 07/16/2024 5:50 PM EST 07/16/2024 5:50 PM EST us Lamonte Barber MD LAB POCT ORDERABLES - DEVICE Fi nal Result [facility] [address] [place] [address], * ECG (07/16/2024 5:47 PM EST) 07/16/2024 5:47 PM EST 07/17/2024 5:21 PM EST Impressions MUSE - 07/17/2024 5:21 PM EST Test Reason : Reason for Exam:->TACHY Blood Pressure : ?? */* ?? mmHG Vent. Rate : 158 BPM ? Atrial Rate : 159 BPM ?? P-R Int : ??96 ms ?QRS Dur : ??92 ms ?QT Int : 322 ms ? P-R-T Axes : ?? * ??81 ??33 degrees ?? QTc Int : 522 ms Sinus tachycardia with short MI Poor R wave progression Abnormal ECG When compared with ECG of 10-JAN-2021 21:32, No significant change was found Referred By: LAMONTE BARBER ? Confirmed By: Navi Rapp MD Narrative Procedure Note Navi Rapp MD - 07/17/2024 IMPRESSION Test Reason : Reason for Exam:->TACHY Blood Pressure : */* mmHG Vent. Rate : 158 BPM Atrial Rate : 159 BPM P-R Int : 96 ms QRS Dur : 92 ms QT Int : 322 ms P-R-T Axes : * 81 33 degrees QTc Int : 522 ms Sinus tachycardia with short MI Poor R wave progression Abnormal ECG When compared with ECG of 10-JAN-2021 21:32, No significant change was found Referred By: LAMONTE BARBER Confirmed By: Navi Rapp MD Lamonte Barber MD ECG ORDERABLES Final Result Performing Organization Address [facility]/ZIP Co de Phone Number MUSE * COVID-19 ([facility]) (07/16/2024 5:36 PM EST) COVID-19 ([facility]) PCR Negative Negative [facility] [employer]LY[employer]-DP H 07/16/2024 8:38 PM EST [facility] Swab (Nasopharynx) Non-blood Collection / Unknown 07/16/2024 5:36 PM EST 07/16/2024 5:49 PM EST Lamonte Barber MD LAB MICROBIOLOGY - GENERAL ORDE RABLES Final Result Performing Organization Address [facility]/ZIP Co de Phone Number [facility] [address] [place] [address], [place] [phone] * Salicylate level (07/16/2024 5:35 PM EST) [facility] Salicylate Level <=3.0 3.0 - 30.0 mg/dL 07/16/2024 6:20 PM [facility] Blood Venous blood / Unknown Venipuncture / Unknown 07/16/2024 5:35 PM EST 07/16/2024 5:49 PM EST Lamonte Barber MD LAB BLOOD ORDERABLES Final Resu lt Performing Organization Address City/[facility]/ZIP Co de Phone Number [facility] [address] [place] [address], [place] [phone] * Ethanol (07/16/2024 5:35 PM EST) Ethanol <=10 0 - 10 mg/dL 07/16/2024 6:20 PM [facility] Comment:NONE DETECTED: Resul t <10 should be interpreted as NONE DETECTED. Blood Venous blood / Unknown Venipuncture / Unknown 07/16/2024 5:35 PM EST 07/16/2024 5:49 PM EST us Lamonte Barber MD LAB BLOOD ORDERABLES Final Resu lt [facility] [address] [place] [address], [place] [phone] * (ABNORMAL) Comprehensive metabolic panel (07/16/2024 5:35 PM EST) Glucose 104(H) 70 - 100 mg/dL 07/16/2024 6:20 PM [facility] BUN 23(H) 6 - 19 mg/dL 07/16/2024 6:20 PM [facility] Creatinine 1.7(H) 0.4 - 1.2 mg/dL 07/16/2024 6:20 PM [facility] eGFR 57.37(L) >60.00 mL/min/1. 73m*2 07/16/2024 6:20 PM [facility] Sodium 136 135 - 145 mmol/L 07/16/2024 6:20 PM [facility] Potassium 4.4 3.4 - 5.1 mmol/L 07/16/2024 6:20 PM [facility] Chloride 101 98 - 109 mmol/L 07/16/2024 6:20 PM [facility] CO2 20(L) 24 - 32 mmol/L 07/16/2024 6:20 PM [facility] Anion Gap 15(H) 6 - 12 mmol/L 07/16/2024 6:20 PM [facility] Calcium 10.1 8.5 - 10.5 mg/dL 07/16/2024 6:20 PM [facility] Total Bilirubin 0.2 0.2 - 1.2 mg/dL 07/16/2024 6:20 PM [facility] Alkaline Phosphatase 94 40 - 129 U/L 07/16/2024 6:20 PM [facility] ALT (SGPT) 47(H) 0 - 40 U/L 07/16/2024 6:20 PM [facility] AST 51(H) 0 - 37 U/L 07/16/2024 6:20 PM [facility] Total Protein 8.1 6.0 - 8.5 g/dL 07/16/2024 6:20 PM [facility] Albumin 4.6 3.3 - 5.2 g/dL 07/16/2024 6:20 PM [facility] Estimated Creatinine Clearance 81.3 mL/min 07/16/2024 6:20 PM [facility] Blood Venous blood / Unknown Venipuncture / Unknown 07/16/2024 5:35 PM EST 07/16/2024 5:49 PM EST us Lamonte Barber MD LAB BLOOD ORDERABLES Final Resu lt [facility] [address] [place] [address], [place] [phone] * (ABNORMAL) CBC with auto differential (07/16/2024 5:35 PM EST) WBC 8.7 4.5 - 10.8 10*3 ??l 07/16/2024 6:00 PM [facility] RBC 4.22(L) 4.70 - 6.10 10*6 ??l 07/16/2024 6:00 PM [facility] Hemoglobin 13.0(L) 14.0 - 18.0 g/dL 07/16/2024 6:00 PM [facility] Hematocrit 37.3(L) 42.0 - 52.0 % 07/16/2024 6:00 PM [facility] MCV 88 80 - 95 fL 07/16/2024 6:00 PM [facility] MCH 30.8 25.4 - 39.0 pg 07/16/2024 6:00 PM [facility] MCHC 34.9 31.0 - 37.0 g/dL 07/16/2024 6:00 PM [facility] RDW 14.5 11.5 - 14.5 % 07/16/2024 6:00 PM [facility] Platelets 197 150 - 450 10*3 ??l 07/16/2024 6:00 PM [facility] MPV 10.0 7.0 - 11.0 fL 07/16/2024 6:00 PM [facility] Neutrophils % 72.6 40.0 - 80.0 % 07/16/2024 6:00 PM [facility] Lymphocytes % 13.6(L) 20.0 - 40.0 % 07/16/2024 6:00 PM [facility] Monocytes % 11.4(H) 2.0 - 10.0 % 07/16/2024 6:00 PM [facility] Eosinophils % 1.6 1.0 - 6.0 % 07/16/2024 6:00 PM [facility] Basophils % 0.2 0.0 - 1.0 % 07/16/2024 6:00 PM [facility] Immature Granulocyte % 0.6 0.0 - 0.9 % 07/16/2024 6:00 PM [facility] Neutrophils Absolute 6.31 2.00 - 7.00 K/mm3 07/16/2024 6:00 PM [facility] Absolute Immature Granulocyte 0.05 0.00 - 0.09 K/mm3 07/16/2024 6:00 PM [facility] Lymphocytes Absolute 1.18 1.00 - 3.00 K/mm3 07/16/2024 6:00 PM [facility] Monocytes Absolute 0.99 0.20 - 1.00 K/mm3 07/16/2024 6:00 PM [facility] Eosinophils Absolute 0.14 0.00 - 0.50 K/mm3 07/16/2024 6:00 PM [facility] Basophils Absolute 0.02 0.00 - 0.10 K/mm3 07/16/2024 6:00 PM [facility] Blood Venous blood / Unknown Venipuncture / Unknown 07/16/2024 5:35 PM EST 07/16/2024 5:50 PM EST us Lamonte Barber MD LAB BLOOD ORDERABLES Final Resu lt [facility] [address] [place] [address], [place] [phone] * Acetaminophen level (07/16/2024 5:35 PM EST) Acetaminophen Level <5.1 <15.0 ug/mL 07/16/2024 6:20 PM EST [facility] Blood Venous blood / Unknown Venipuncture / Unknown 07/16/2024 5:35 PM EST 07/16/2024 5:49 PM EST Lamonte Barber MD LAB BLOOD ORDERABLES Final Resu lt [facility] [address] [place] [address], documented in this encounter Visit Diagnoses Diagnosis Witnessed seizure-like activity (CMS/HCC)- Primary Altered mental status Psychomotor agitation Other signs and symptoms involving emotional state Hallucinations Paranoid schizophrenia (CMS/HCC) Paranoid schizophrenia, unspecified condition Acute kidney injury (CMS/HCC) Altered mental status, unspecified Metabolic acidosis Acidosis Transaminitis Nonspecific elevation of levels of transaminase or lactic acid dehydrogenase (LDH) Normocytic anemia Unspecified anemia Prolonged Q-T interval on ECG Nonspecific abnormal electrocardiogram (ECG) (EKG) Elevated CK Other nonspecific abnormal serum enzyme levels Altered mental status documented in this encounter Admitting Diagnoses Diagnosis Witnessed seizure-like activity (CMS/HCC) Altered mental status documented in this encounter Administered Medications Inactive Administered Medications - up to 3 most recent administrations Medication Order MAR Action Action Date Dose Rate Site chlorproMAZINE (THORAZINE) injection 50 mg 50 mg, Intramuscular, Every 4 hours PRN, Psychosis (hallucinations, delusions, or disorganized thinking/speech), Starting on Sat07/17/24 at 1858 Given 07/24/2024 2:26 PM EST 50 mg Left Deltoid Given 07/23/2024 11:11 PM EST 50 mg R ight Deltoid Given 07/23/2024 6:41 PM EST 50 mg Le ft Deltoid chlorproMAZINE (THORAZINE) tablet 50 mg 50 mg, Oral, 3 times daily PRN, Psychosis (hallucinations, delusions, or disorganized thinking/speech), Starting on Sat07/24/24 at 1435 cholecalciferol (25 mcg/1000 units) (VITAMIN D3) tablet 25 mcg 25 mcg, Oral, Daily, First dose on Sat07/20/24 at 1445 Given 07/24/2024 9:46 AM EST 25 mcg Given 07/23/2024 10:45 AM EST 25 mcg Given 07/22/2024 9:26 AM EST 25 mcg clozapine (CLOZARIL) tablet 100 mg 100 mg, Oral, Nightly, First dose (after last modification) on Sat07/24/24 at 2100, Dispense and monitor per clozapine REMS program - [email or web address] clozapine (CLOZARIL) tablet 12.5 mg 12.5 mg, Oral, 2 times daily, First dose (after last modification) on Sat07/17/24 at 1258, Dispense and monitor per clozapine REMS program - [email or web address] Given 07/17/2024 3:16 PM EST 12.5 mg clozapine (CLOZARIL) tablet 12.5 mg 12.5 mg, Oral, 2 times daily, First dose (after last modification) on Sat07/17/24 at 2100, Dispense and monitor per clozapine REMS program - [email or web address] Given 07/21/2024 8:49 AM EST 12.5 mg Given 07/20/2024 8:40 PM EST 12.5 mg Given 07/20/2024 8:13 AM EST 12.5 mg clozapine (CLOZARIL) tablet 50 mg 50 mg, Oral, Nightly, First dose (after last modification) on Sat07/21/24 at 2100, Dispense and monitor per clozapine REMS program - [email or web address] Given 07/22/2024 8:39 PM EST 50 mg Given 07/21/2024 9:13 PM EST 50 mg clozapine (CLOZARIL) tablet 75 mg 75 mg, Oral, Nightly, First dose (after last modification) on Sat07/23/24 at 2100, Dispense and monitor per clozapine REMS program - [email or web address] Given 07/23/2024 10:42 PM EST 75 mg divalproex (DEPAKOTE) DR tablet 1,000 mg 1,000 mg, Oral, Nightly, First dose on Sat07/17/24 at 2100, Hazardous Medication - Handle with gloves. Do not crush or split. Given 07/20/2024 8:40 P M EST 1,000 mg Given 07/19/2024 8:24 PM EST 1,000 mg Given 07/18/2024 8:50 PM EST 1,000 mg divalproex (DEPAKOTE) DR tablet 500 mg 500 mg, Oral, Daily, First dose on Sat07/17/24 at 1229, Hazardous Medication - Handle with gloves. Do not crush or split. Given 07/24/2024 9:46 AM EST 5 00 mg Given 07/23/2024 10:45 AM EST 500 mg Given 07/22/2024 9:26 AM EST 500 mg divalproex (DEPAKOTE) DR tablet 500 mg 500 mg, Oral, Nightly, First dose (after last modification) on Sat07/21/24 at 2100, Hazardous Medication - Handle with gloves. Do not crush or split. Given 07/23/2024 10:42 PM EST 500 mg Given 07/22/2024 8:39 PM EST 500 mg Given 07/21/2024 9:13 PM EST 500 mg enoxaparin (LOVENOX) syringe 40 mg 40 mg, Subcutaneous, Every 24 hours, First dose on Sat07/17/24 at 0900, Administer in the fleshy area of the anterolateral / anteroposterior lower abdomen (commonly known as the ? love handle? zone). <ANTICOAGULANT>, Indications for Anticoagulants: Deep Vein Thrombosis Prophylaxis Given 07/24/2024 9:46 AM EST 40 mg Right Lower Abdomen Given 07/23/2024 10:46 AM EST 40 mg R ight Lower Abdomen Given 07/21/2024 8:49 AM EST 40 mg Le ft Lower Abdomen FLUoxetine (PROzac) capsule 40 mg 40 mg, Oral, Daily, First dose on Sat07/17/24 at 1229 Given 07/24/2024 9:46 AM EST 40 mg Given 07/23/2024 10:45 AM EST 40 mg Given 07/22/2024 9:26 AM EST 40 mg haloperidol lactate (HALDOL) injection 5 mg 5 mg, Intravenous, Every 6 hours PRN, Psychosis (hallucinations, delusions, or disorganized thinking/speech), Starting on Sat07/17/24 at 1552, ECG recommended at baseline and then monitor QTc interval by Spacelabs or ECG daily if receiving haloperidol. Haloperidol is contraindicated if QTc is over 500 msec. *HALOPERIDOL INJ MAY BE GIVEN IV* Given 07/17/2024 4:22 PM EST 5 mg haloperidol lactate (HALDOL) injection 5 mg 5 mg, Intravenous, Every 4 hours PRN, Psychosis (hallucinations, delusions, or disorganized thinking/speech), Starting on Sat07/17/24 at 1856, ECG recommended at baseline and then monitor QTc interval by Spacel[employer] or ECG daily if receiving haloperidol. Haloperidol is contraindicated if QTc is over 500 msec. *HALOPERIDOL INJ MAY BE GIVEN IV* Given 07/23/2024 5:21 PM EST 5 mg Given 07/18/2024 2:43 AM EST 5 mg haloperidol lactate (HALDOL) injection 5 mg 5 mg, Intramuscular, Every 4 hours PRN, Psychosis (hallucinations, delusions, or disorganized thinking/speech), Starting on Sat07/24/24 at 1434, ECG recommended at baseline and then monitor QTc interval by Spacelabs or ECG daily if receiving haloperidol. Haloperidol is contraindicated if QTc is over 500 msec. *HALOPERIDOL INJ MAY BE GIVEN IV* lactated Ringer's bolus 1,000 mL 1,000 mL, Intravenous, at 4,000 mL/hr, Administer over 15 Minutes, Once, On Nellie 07/16/24 at 1736, For 1 dose New Bag 07/16/2024 5:43 PM EST 1,000 mL 4000 mL/hr lactated Ringer's bolus 1,000 mL 1,000 mL, Intravenous, at 4,000 mL/hr, Administer over 15 Minutes, Once, On 07/18/24 at 1230, For 1 dose New Bag 07/18/2024 1:02 PM EST 1,000 mL 4000 mL/hr lactated Ringer's bolus 1,000 mL 1,000 mL, Intravenous, at 4,000 mL/hr, Administer over 15 Minutes, Once, On 07/19/24 at 1530, For 1 dose New Bag 07/19/2024 3:58 PM EST 1,000 mL 4000 mL/hr lisinopril (PRINIVIL,ZESTRIL) tablet 10 mg 10 mg, Oral, Daily, First dose on Sat07/19/24 at 1545, Hold for SBP less than: 100 Given 07/24/2024 9:46 AM EST 10 mg Given 07/23/2024 10:46 AM EST 10 mg Given 07/21/2024 8:48 AM EST 10 mg LORazepam (ATIVAN) injection 1 mg 1 mg, Intravenous, Every 4 hours PRN, seizures, Starting on Sat07/17/24 at 1900 LORazepam (ATIVAN) injection 2 mg 2 mg, Intravenous, Once, On Sat07/16/24 at 1759, For 1 dose Given 07/16/2024 6:03 PM EST 2 mg LORazepam (ATIVAN) injection 2 mg 2 mg, Intravenous, Every 4 hours PRN, restlessness, Starting on Sat07/17/24 at 1900 Given 07/17/2024 11: 44 PM EST 2 mg LORazepam (ATIVAN) injection 2 mg 2 mg, Intramuscular, Every 4 hours PRN, restlessness, Starting on Sat07/24/24 at 1433 metoprolol tartrate (LOPRESSOR) injection 5 mg 5 mg, Intravenous, Every 4 hours PRN, HR > 100, Starting on Sat07/17/24 at 1531, For ONE-TIME DOSES, when patient is not on continuous telemetry, use bedside monitor for at least 5 minutes, then check BP and HR 30 minutes after dose., Hold for SBP less than: 100, Hold for HR less than: 60 Given 07/17/2024 10:30 PM EST 5 mg Given 07/17/2024 5:15 PM EST 5 mg POM: atomoxetine (STRATTERA) capsule 40 mg 40 mg, Oral, Daily, First dose on Sat07/17/24 at 1545, *Patient's own supply - verified and labeled by pharmacy Given 07/23/2024 10:46 AM EST 40 mg POM: Risperidone ER 125mg / 0.35mL Prefilled Syringe 125 mg, Subcutaneous, Every 28 days, First dose on Sat07/17/24 at 1700, Patient's own med. Pharmacist verified unopened box of Uzedy 125 mg/0.35 ml single dose injection on 07/17/24, Drug Name: Risperidone, Form: injection, Length of Therapy: Indefinite, How soon needed? (normally 72 hrs needed to procure): 0-24 hrs, Reason for Non-Formulary: family brought it Given 07/17/2024 7:04 PM EST 125 mg Left Lower Abdomen risperiDONE (RisperDAL) tablet 3 mg 3 mg, Oral, 2 times daily, First dose on Sat07/17/24 at 1229 Given 07/24/2024 9:46 AM EST 3 mg Given 07/23/2024 10:42 PM EST 3 mg Given 07/23/2024 10:45 AM EST 3 mg sodium chloride 0.9 % bolus 1,000 mL 1,000 mL, Intravenous, at 1,000 mL/hr, Administer over 60 Minutes, Once, On 07/18/24 at 0315, For 1 dose New Bag 07/18/2024 3:44 AM EST 1,000 mL 1000 mL/hr sodium chloride 0.9 % infusion 125 mL/hr, Intravenous, Continuous, Starting on Nellie 07/16/24 at 2300, For 8 hours New Bag 07/16/2024 11:22 PM EST 125 mL/hr 125 mL/hr traZODone (DESYREL) tablet 100 mg 100 mg, Oral, Nightly PRN, sleep, Starting on Sat07/17/24 at 1225 Given 07/23/2024 11:12 PM EST 100 mg Given 07/20/2024 8:40 PM EST 100 mg Given 07/19/2024 8:25 PM EST 100 mg documented in this encounter Active and Recently Administered Medications Times are shown in EST. Scheduled Medication Order 07/22/2024 07/23/2024 07/24/2024 cholecalciferol (25 mcg/1000 units) (VITAMIN D3) tablet 25 mcg 25 mcg, Oral, Daily, First dose on Sat07/20/24 at 1445 0926 (Given - Provider: Marie Rodríguez RN) 1045 (Given - Provider: Last Maher RN) 0946 (Given - Provider: Last Maher RN) clozapine (CLOZARIL) tablet 100 mg 100 mg, Oral, Nightly, First dose (after last modification) on Sat07/24/24 at 2100, Dispense and monitor per clozapine REMS program - [email or web address] clozapine (CLOZARIL) tablet 50 mg (CANCELED) 50 mg, Oral, Nightly, First dose (after last modification) on Sat07/21/24 at 2100, Dispense and monitor per clozapine REMS program - [email or web address] 2038 (Given - Provider: Bhakti Gtz RN) clozapine (CLOZARIL) tablet 75 mg (CANCELED) 75 mg, Oral, Nightly, First dose (after last modification) on Sat07/23/24 at 2100, Dispense and monitor per clozapine REMS program - [email or web address] 2241 (Given - Provider: Tequila Brush, CARLEEN) divalproex (DEPAKOTE) DR tablet 500 mg 500 mg, Oral, Daily, First dose on Sat07/17/24 at 1229, Hazardous Medication - Handle with gloves. Do not crush or split. 925 (Given - Provider: Marie Rodríguez RN) 1045 (Given - Provider: Last Maher RN) 0946 (Given - Provider: Last Maher RN) divalproex (DEPAKOTE) DR tablet 500 mg 500 mg, Oral, Nightly, First dose (after last modification) on Sat07/21/24 at 2100, Hazardous Medication - Handle with gloves. Do not crush or split. 2038 (Given - Provider: Bhakti Gtz RN) 2241 (Given - Provider: Tequila Brush, CARLEEN) enoxaparin (LOVENOX) syringe 40 mg 40 mg, Subcutaneous, Every 24 hours, First dose on Sat07/17/24 at 0900, Administer in the fleshy area of the anterolateral / anteroposterior lower abdomen (commonly known as the ? love handle? zone). <ANTICOAGULANT>, Indications for Anticoagulants: Deep Vein Thrombosis Prophylaxis 0900 (Not Given - Provider: Marie Rodríguez RN - Reason: Patient/family refused) 1046 (Given - Provider: Last Maher RN) 0946 (Given - Provider: Last Maher RN) FLUoxetine (PROzac) capsule 40 mg 40 mg, Oral, Daily, First dose on Sat07/17/24 at 1229 0926 (Given - Provider: Marie Rodríguez RN) 1045 (Given - Provider: Last Maher RN) 0946 (Given - Provider: Last Maher RN) lisinopril (PRINIVIL,ZESTRIL) tablet 10 mg 10 mg, Oral, Daily, First dose on Sat07/19/24 at 1545, Hold for SBP less than: 100 0926 (Not Given - Provider: Marie Rodríguez RN - Reason: Order parameters not met) 1046 (Given - Provider: Last Maher RN) 0946 (Given - Provider: Last Maher RN) POM: atomoxetine (STRATTERA) capsule 40 mg (CANCELED) 40 mg, Oral, Daily, First dose on Sat07/17/24 at 1545, *Patient's own supply - verified and labeled by pharmacy 0900 (Not Given - Provider: Marie Rodríguez RN - Reason: Awaiting Patient's Home Med) 1046 (Given - Provider: Last Maher RN) 0900 (Not Given - Provider: Last Maher RN - Reason: Other (comment) - Comment: not available, provider notified) POM: Risperidone ER 125mg / 0.35mL Prefilled Syringe 125 mg, Subcutaneous, Every 28 days, First dose on Sat07/17/24 at 1700, Patient's own med. Pharmacist verified unopened box of Uzedy 125 mg/0.35 ml single dose injection on 07/17/24, Drug Name: Risperidone, Form: injection, Length of Therapy: Indefinite, How soon needed? (normally 72 hrs needed to procure): 0-24 hrs, Reason for Non-Formulary: family brought it risperiDONE (RisperDAL) tablet 3 mg 3 mg, Oral, 2 times daily, First dose on Sat07/17/24 at 1229 0926 (Given - Provider: Marie Rodríguez RN)2038 (Given - Provider: Bhakti Gtz RN) 1045 (Given - Provider: Last Maher RN)2242 (Given - Provider: Tequila Brush RN) 0946 (Given - Provider: Last Maher RN) PRN Medication Order 07/22/2024 07/23/2024 07/24/2024 acetaminophen (TYLENOL) tablet 1,000 mg 1,000 mg, Oral, Every 8 hours PRN, pain 1-3 or if patient refuses opiate (if ordered), headaches, fever (greater than 100.4 degree F), Starting on Sat07/16/24 at 2312 Adult Over the Counter Medication Algorithm Route N/A, As needed, per OTC algorithm, Starting on Sat07/16/24 at 2312, Nursing to enter medications if needed as listed on the OTC Medication Adult Nursing Algorithm. Algorithm contains: Simethicone, Sarna, Aquaphor, Tucks Pads, Artificial tears, Saline nasal spray, Menthol lozenges (Ricola), Chloroseptic spray, Melatonin, and Tums. bisacodyl (DULCOLAX) EC tablet 10 mg 10 mg, Oral, Daily PRN, no bowel movement greater than 24 hours and not responding to polyethylene glycol or senna, Starting on Sat07/16/24 at 2312, - --------DO NOT CRUSH OR CHEW.-------- - chlorproMAZINE (THORAZINE) injection 50 mg 50 mg, Intramuscular, Every 4 hours PRN, Psychosis (hallucinations, delusions, or disorganized thinking/speech), Starting on Sat07/17/24 at 1858 1841 (Given - Provider: Tequila Brush RN)2311 (Given - Provider: Tequila Brush RN) 1426 (Given - Provider: Last Maher RN) chlorproMAZINE (THORAZINE) tablet 50 mg 50 mg, Oral, 3 times daily PRN, Psychosis (hallucinations, delusions, or disorganized thinking/speech), Starting on Sat07/24/24 at 1435 docusate sodium (COLACE) capsule 100 mg 100 mg, Oral, 2 times daily PRN, Constipation (second-line), Starting on Sat07/16/24 at 2312, Hold for loose stool haloperidol lactate (HALDOL) injection 5 mg (CANCELED) 5 mg, Intravenous, Every 4 hours PRN, Psychosis (hallucinations, delusions, or disorganized thinking/speech), Starting on Sat07/17/24 at 1856, ECG recommended at baseline and then monitor QTc interval by Sp[employer]el[employer] or ECG daily if receiving haloperidol. Haloperidol is contraindicated if QTc is over 500 msec. *HALOPERIDOL INJ MAY BE GIVEN IV* 1721 (Given - Provider: Tequila Brush RN) haloperidol lactate (HALDOL) injection 5 mg 5 mg, Intramuscular, Every 4 hours PRN, Psychosis (hallucinations, delusions, or disorganized thinking/speech), Starting on Sat07/24/24 at 1434, ECG recommended at baseline and then monitor QTc interval by Spacel[employer] or ECG daily if receiving haloperidol. Haloperidol is contraindicated if QTc is over 500 msec. *HALOPERIDOL INJ MAY BE GIVEN IV* LORazepam (ATIVAN) injection 1 mg 1 mg, Intravenous, Every 4 hours PRN, seizures, Starting on Sat07/17/24 at 1900 LORazepam (ATIVAN) injection 2 mg 2 mg, Intramuscular, Every 4 hours PRN, restlessness, Starting on Sat07/24/24 at 1433 LORazepam (ATIVAN) tablet 2 mg 2 mg, Oral, Every 6 hours PRN, anxiety, Starting on Sat07/17/24 at 1531 metoprolol tartrate (LOPRESSOR) injection 5 mg 5 mg, Intravenous, Every 4 hours PRN, HR > 100, Starting on Sat07/17/24 at 1531, For ONE-TIME DOSES, when patient is not on continuous telemetry, use bedside monitor for at least 5 minutes, then check BP and HR 30 minutes after dose., Hold for SBP less than: 100, Hold for HR less than: 60 nystatin (MYCOSTATIN) powder 1 Application 1 Application, Topical, 2 times daily PRN, red, moist patches limited to intertriginous skin folds, Starting on Sat07/16/24 at 2312 ondansetron (ZOFRAN) injection 4 mg 4 mg, Intravenous, Every 6 hours PRN, per nausea/vomiting algorithm, Starting on Sat07/16/24 at 2312 senna (SENOKOT) tablet 2 tablet 2 tablet, Oral, Nightly PRN, Constipation (first line), Starting on Sat07/16/24 at 2312, Hold for loose stool 1 tab contains 8.6mg sennosides traZODone (DESYREL) tablet 100 mg 100 mg, Oral, Nightly PRN, sleep, Starting on Sat07/17/24 at 7796 [id number] (Given - Provider: Tequila Brush RN) documented in this encounter Additional Health Concerns Infection Onset Date Last Indicated Resolved Time Covid Possible 07/16/2024 07/16/2024 07/16/2024 8: 38 PM EST documented as of this encounter Care Teams Gus[employer] Maker Relationship Specialty Start Date End Date Required, No Pcp/Pcp Not [address] [place] [address] PCP - General [employer] Ca[employer]ker 01/25/24 documented as of this encounter
--- NOTE | 2024-07-25 07:12 | PC.NURSE ---
[facility] staff at bedside pt ran past staff into restroom and locked door pt began dunking head into water in toilet bowl security to bedside pt redirected back to bedside dr correia to bedside ct placed pt brought to ct by this rn and security
--- NOTE | 2024-07-25 07:16 | PC.NURSE ---
pt found to be running down boggs after throwing drink in [facility] staff members face. this rn and additional rns ran after pt security called pt eloped into waiting pt locked self in rest room found to be dunking head in toilet. pt escorted back to ed 8 pt began picking at skin glue dr correia reapplied glue discharge paperwork in place report called to [facility]
[2024-07-25 07:20] VITALS: BP 151/92; PULSE 109; RESP 22; TEMP 37.5; O2SAT 96
== END 2024-07-25 07:21 | disposition home or self-care (01) ==
PROVIDERS: Emergency Provider Internal Medicine
DX: S09.90XA Unspecified injury of head, initial encounter (principal); S01.81XA Laceration without foreign body of other part of head, initial encounter; W18.30XA Fall on same level, unspecified, initial encounter; F25.9 Schizoaffective disorder, unspecified; Y93.89 Activity, other specified; Y92.199 Unspecified place in other specified residential institution as the place of occurrence of the external cause; Y99.9 Unspecified external cause status
CPT/HCPCS: 12011; 70450; 99284

== ENCOUNTER → 2024-07-25 05:35 | Outpatient (BNV) | payer SELFPAY | PROVIDERS: Emergency Provider Internal Medicine; Visit Provider Radiology Diagnostic Radiology | DX: S01.81XA Laceration without foreign body of other part of head, initial encounter (principal) | CPT/HCPCS: 70450 ==